=== PATIENT | female | born 1955 | race Caucasian/White ===

== ENCOUNTER → 2023-07-05 | Emergency (ER) | payer OTHER ==
[~2023-07-05] MED LIST: LIDOCAINE 1% 20 ML MDV ONE; MORPHINE 2 MG/ML SYR ONE; ONDANSETRON 4 MG/2 ML VIAL ONE
--- OUTSIDE RECORDS SUMMARY | 2023-07-05 10:00 | XMS REPORT | Continuity of Care Document ---
Author Name Unknown Address [address] [facility] [place] [address] [facility] thconnect Address [address] [facility] [place] [address] Care Team Providers Care Clark Driver Name Role Phone RICCARDO GONZALEZ Primary Care Physician GREG Britton Attending Clinician MEAGAN Hernandes Attending Clinician Unavailable FOREST FANG Attending Clinician Unavailable Pob, Ad[facility] Lab Main Attending Clinician UnavailForest Kohler MD Attending Clinici an Meagan Almazan MD Attending Clinician Doctor Unassigned, [place] Attending Clinician U navailable Lab, Ang - Db Attending Clinician Unavailable 2, [facility] Attending Clinician Unavailable Haja Benoit MD Attending Clinician [phone] FRACISCO MCCOY Attending Clinician Unavailable HAJA BENOITHDaisy Attending Clinician Unavaila cynthia Diamond MD, Anshul Attending Clinician [phone] Han Young MD Attending Clinician [phone] GLENDA CRUZ Attending Clinician Unavailable Anthony YANG, Glenda Dominguez Attending Clinician [phone] Andree Chew DO Attending Clinician + Pcp-Lab Attending Clinician Unavailable HAN YOUNG Attending Clinician Unavailab isabella De La [place]az [employer]ER, Amanda Ye Attending Clinician [phone] ROWDY VALENTIN Attending Clinician Ashley griselda Valentin MD, Rowdy Koenig Attending Clinician AMANDA DE LA PAZ Attending Clinician UnavailAnderson Buckley DO Attending Clinician [phone] Rachael Bedoya MD Attending Clinician + [phone] RACHAEL BEDOYA Attending Clinician Unavailabl Anju Bishop RN Attending Clinician Unavailab Alyx Kang RN Attending Clinician Unavailab Maciej Odom Attending Clinician [phone] Jesus Perdue MD Attending Clinician [phone] Cesar Walker MD Attending Clinician [phone] Yo Mejia MD Attending Clinician [phone] Greg Domingo MD Attending Clinician + [phone] Only, Adc Pob2 Test Attending Clinician Unavaila JASON Morrell Attending Clinician Unavailable FABIO CASTRO Attending Clinician Unavail able Nurse, Adc Pob Immunization Attending Clinician Unavailable Fabio Castro DO Attending Clinician [phone] Marianna Ramírez RN Attending Clinician [phone] Brooklynn Li MD Attending Clinician +[phone] Earnestine Jarvis MD, Leonard Attending Clinician [phone] Pavel Torres MD Attending Clinician + [phone] GREG DOMINGO Admitting Clinician FOREST Arita Admitting Clinician Unavailable HAJA BENOIT Admitting Clinician CESAR Acharya Admitting Clinician Unavailable Cesar Walker MD Admitting Clinician [phone] Greg Domingo MD Admitting Clinician [phone] Payers Payer Name Policy Type Policy Number Effective Date Expirati on Date Source IRASEMA MCALLISTER PLS O [id number] 2021 00:00:00 MEDICARE PART A \\T\\ B [id number] 2021 00:00:00 Problems Condition Name Condition Details Condition Category Status Onset Date Resolution Date Last Treatment Date Treating Clinician Comments Source At risk for falls At risk for falls Disease Active 2022-06 00:00: 00 [facility] Unspecifie d abnormalit ies of gait and mobility Unspecifie d abnormalit ies of gait and mobility Disease Active 2022-06 00:00: 00 [facility] Dyslipidem ia Dyslipidem ia Disease Active 10-27 00:00: 00 [facility] Acute on chronic systolic and diastolic heart failure, NYHA class 3 Acute on chronic systolic and diastolic heart failure, NYHA class 3 Disease Active 10-27 00:00: 00 [facility] Pulmonary embolus, right Pulmonary embolus, right Disease Active 10-26 00:00: 00 [facility] NSTEMI (non-ST elevated myocardial infarction ) NSTEMI (non-ST elevated myocardial infarction ) Disease Active 10-26 00:00: 00 [facility] Abdominal pain, unspecifie d abdominal location Abdominal pain, unspecifie d abdominal location Disease Active 10-26 00:00: 00 Overview: Formattin g of this note might be different from the original. 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 Disease Active 2020-06 0 00:00: 00 [facility] Elevated brain natriureti c peptide (BNP) level Elevated brain natriureti c peptide (BNP) level Disease Active 2020-06 0 00:00: 00 [facility] Hyperkalem ia Hyperkalem ia Disease Active 2020-06 0 00:00: 00 [facility] Obesity (BMI 30-39.9) Obesity (BMI 30-39.9) Disease Active 2020-06 0 00:00: 00 [facility] Acute cystitis without hematuria Acute cystitis without hematuria Disease Active 2020-06 0 00:00: 00 [facility] Cholelithi asis and cholecysti tis without obstructio n Cholelithi asis and cholecysti tis without obstructio n Disease Active 02-06 00:00: 00 [facility] Asthma Asthma Disease Active 02-06 00:00: 00 [facility] Essential hypertensi on Essential hypertensi on Disease Active 02-06 00:00: 00 [facility] Allergies, Adverse Reactions, Alerts Allergy Name Allergy Type Status Severity Reaction(s) Onset Date Inactive Date Treating Clinician Comments Source NO KNOWN ALLERGIE S Drug Class Active [facility] Social History Social Habit Start Date Stop Date Quantity Comments Source [facility] 2023-05-30 00:00:00 2023-05-30 00:00:00 Ex-drinker (finding) [facility] Exposure to SARS-CoV-2 (event) 2022-08-30 00:00:00 2022-09-09 09:50:00 Not sure [facility] History of Social function 2022-09-09 00:00:00 2022-09-09 00:00:00 [facility] Tobacco use and exposure 2022-04-19 00:00:00 2022-04-19 00:00:00 Smokeless tobacco non-user [facility] Sex Ass[birth year] At 1955 00:00:00 1955 00:00:00 [facility] Smoking Status Start Date Stop Date Source Never smoked tobacco [facility] Medications Ordered Medication Name Filled Medication Name Start Date Stop Date Current Medication? Ordering Clinician Indication Dosage Frequency Signature (SIG) Comments Components Source bumetanide 1 mg tablet 0 06-23 00:00: 00 Yes [id number] Take 2 tablets by mouth every morning AND 1.5 tablets every evening. [facility] bumetanide 1 mg tablet 0 06-23 00:00: 00 Yes [id number] Take 2 tablets by mouth every morning AND 1.5 tablets every evening. [facility] bumetanide 1 mg tablet 0 06-23 00:00: 00 Yes [id number] Take 2 tablets by mouth every morning AND 1.5 tablets every evening. [facility] bumetanide 1 mg tablet 2023-0 06-23 00:00: 00 Yes [id number] Take 2 tablets by mouth every morning AND 1.5 tablets every evening. [facility] bumetanide 1 mg tablet 2022-0615 00:00: 00 Yes [id number] 1.5mg Take 1.5 tablets by mouth every morning and evening. [facility] bumetanide 1 mg tablet 2022-0615 00:00: 00 Yes [id number] 1.5mg Take 1.5 tablets by mouth every morning and evening. [facility] bumetanide 1 mg tablet 2022-06 2-15 00:00: 00 Yes [id number] 1.5mg Take 1.5 tablets by mouth every morning and evening. [facility] bumetanide 1 mg tablet 2022-06-15 00:00: 00 Yes [id number] 1.5mg Take 1.5 tablets by mouth every morning and evening. [facility] bumetanide 1 mg tablet 2022-06 00:00: 00 Yes [id number] 1.5mg Take 1.5 tablets by mouth every morning and evening. [facility] bumetanide 1 mg tablet 2022-06 00:00: 00 Yes [id number] 1.5mg Take 1.5 tablets by mouth every morning and evening. [facility] bumetanide 1 mg tablet 2022-06 00:00: 00 Yes [id number] 1.5mg Take 1.5 tablets by mouth every morning and evening. [facility] bumetanide 1 mg tablet 2022-06 00:00: 00 Yes [id number] 1.5mg Take 1.5 tablets by mouth every morning and evening. [facility] bumetanide 1 mg tablet 2022-06 00:00: 00 06-23 00:00 :00 No [id number] 1.5mg Take 1.5 tablets by mouth every morning and evening. [facility] levothyroxi ne 100 mcg tablet 2022-06 00:00: 00 Yes [id number] 100ug Take 1 tablet by mouth every morning. [facility] levothyroxi ne 100 mcg tablet 2022-06 00:00: 00 Yes [id number] 100ug Take 1 tablet by mouth every morning. [facility] levothyroxi ne 100 mcg tablet 2022-06 00:00: 00 Yes [id number] 100ug Take 1 tablet by mouth every morning. [facility] levothyroxi ne 100 mcg tablet 2022-06 00:00: 00 Yes [id number] 100ug Take 1 tablet by mouth every morning. [facility] levothyroxi ne 100 mcg tablet 2022-06 00:00: 00 Yes [id number] 100ug Take 1 tablet by mouth every morning. [facility] levothyroxi ne 100 mcg tablet 2022-06 00:00: 00 Yes [id number] 100ug Take 1 tablet by mouth every morning. [facility] levothyroxi ne 100 mcg tablet 2022-06 00:00: 00 Yes [id number] 100ug Take 1 tablet by mouth every morning. [facility] levothyroxi ne 100 mcg tablet 2022-06 00:00: 00 Yes [id number] 100ug Take 1 tablet by mouth every morning. [facility] levothyroxi ne 100 mcg tablet 2022-06 00:00: 00 Yes [id number] 100ug Take 1 tablet by mouth every morning. [facility] levothyroxi ne 100 mcg tablet 2022-06 00:00: 00 Yes [id number] 100ug Take 1 tablet by mouth every morning. [facility] levothyroxi ne 100 mcg tablet 2022-06 00:00: 00 Yes [id number] 100ug Take 1 tablet by mouth every morning. [facility] levothyroxi ne 100 mcg tablet 2022-06 00:00: 00 Yes [id number] 100ug Take 1 tablet by mouth every morning. [facility] levothyroxi ne 100 mcg tablet 2022-06 00:00: 00 Yes [id number] 100ug Take 1 tablet by mouth every morning. [facility] levothyroxi ne 100 mcg tablet 2022-06 00:00: 00 Yes [id number] 100ug Take 1 tablet by mouth every morning. [facility] montelukast 10 mg tablet 2022-06 13:20: 02 Yes 10mg Take 1 tablet by mouth at bedtime. [facility] clonazePAM 0.5 mg tablet 2022-06 13:20: 02 Yes .5mg Take 1 tablet by mouth at bedtime. [facility] montelukast 10 mg tablet 2022-06 13:20: 02 Yes 10mg Take 1 tablet by mouth at bedtime. [facility] clonazePAM 0.5 mg tablet 2022-06 13:20: 02 Yes .5mg Take 1 tablet by mouth at bedtime. [facility] montelukast 10 mg tablet 2022-06 13:20: 02 Yes 10mg Take 1 tablet by mouth at bedtime. [facility] clonazePAM 0.5 mg tablet 2022-06 13:20: 02 Yes .5mg Take 1 tablet by mouth at bedtime. [facility] montelukast 10 mg tablet 2022-06 13:20: 02 Yes 10mg Take 1 tablet by mouth at bedtime. [facility] clonazePAM 0.5 mg tablet 2022-06 13:20: 02 Yes .5mg Take 1 tablet by mouth at bedtime. [facility] montelukast 10 mg tablet 2022-06 13:20: 02 Yes 10mg Take 1 tablet by mouth at bedtime. [facility] clonazePAM 0.5 mg tablet 2022-06 13:20: 02 Yes .5mg Take 1 tablet by mouth at bedtime. [facility] montelukast 10 mg tablet 2022-06 13:20: 02 Yes 10mg Take 1 tablet by mouth at bedtime. [facility] clonazePAM 0.5 mg tablet 2022-06 13:20: 02 Yes .5mg Take 1 tablet by mouth at bedtime. [facility] montelukast 10 mg tablet 2022-06 13:20: 02 Yes 10mg Take 1 tablet by mouth at bedtime. [facility] clonazePAM 0.5 mg tablet 2022-06 13:20: 02 Yes .5mg Take 1 tablet by mouth at bedtime. [facility] montelukast 10 mg tablet 2022-06 13:20: 02 Yes 10mg Take 1 tablet by mouth at bedtime. [facility] clonazePAM 0.5 mg tablet 2022-06 13:20: 02 Yes .5mg Take 1 tablet by mouth at bedtime. [facility] montelukast 10 mg tablet 2022-06 13:20: 02 Yes 10mg Take 1 tablet by mouth at bedtime. [facility] clonazePAM 0.5 mg tablet 2022-06 13:20: 02 Yes .5mg Take 1 tablet by mouth at bedtime. [facility] montelukast 10 mg tablet 2022-06 13:20: 02 Yes 10mg Take 1 tablet by mouth at bedtime. [facility] clonazePAM 0.5 mg tablet 2022-06 13:20: 02 Yes .5mg Take 1 tablet by mouth at bedtime. [facility] montelukast 10 mg tablet 2022-06 13:20: 02 Yes 10mg Take 1 tablet by mouth at bedtime. [facility] clonazePAM 0.5 mg tablet 2022-06 13:20: 02 Yes .5mg Take 1 tablet by mouth at bedtime. [facility] montelukast 10 mg tablet 2022-06 13:20: 02 Yes 10mg Take 1 tablet by mouth at bedtime. [facility] clonazePAM 0.5 mg tablet 2022-06 13:20: 02 Yes .5mg Take 1 tablet by mouth at bedtime. [facility] montelukast 10 mg tablet 2022-06 13:20: 02 Yes 10mg Take 1 tablet by mouth at bedtime. [facility] clonazePAM 0.5 mg tablet 2022-06 13:20: 02 Yes .5mg Take 1 tablet by mouth at bedtime. [facility] montelukast 10 mg tablet 2022-06 13:20: 02 Yes 10mg Take 1 tablet by mouth at bedtime. [facility] clonazePAM 0.5 mg tablet 2022-06 13:20: 02 Yes .5mg Take 1 tablet by mouth at bedtime. [facility] montelukast 10 mg tablet 2022-06 13:20: 02 Yes 10mg Take 1 tablet by mouth at bedtime. [facility] clonazePAM 0.5 mg tablet 2022-06 13:20: 02 Yes .5mg Take 1 tablet by mouth at bedtime. [facility] montelukast 10 mg tablet 2022-06 13:20: 02 Yes 10mg Take 1 tablet by mouth at bedtime. [facility] clonazePAM 0.5 mg tablet 2022-06 13:20: 02 Yes .5mg Take 1 tablet by mouth at bedtime. [facility] montelukast 10 mg tablet 2022-06 13:20: 02 Yes 10mg Take 1 tablet by mouth at bedtime. [facility] clonazePAM 0.5 mg tablet 2022-06 13:20: 02 Yes .5mg Take 1 tablet by mouth at bedtime. [facility] montelukast 10 mg tablet 2022-06 13:20: 02 Yes 10mg Take 1 tablet by mouth at bedtime. [facility] clonazePAM 0.5 mg tablet 2022-06 13:20: 02 Yes .5mg Take 1 tablet by mouth at bedtime. [facility] montelukast 10 mg tablet 2022-06 13:20: 02 Yes 10mg Take 1 tablet by mouth at bedtime. [facility] clonazePAM 0.5 mg tablet 2022-06 13:20: 02 Yes .5mg Take 1 tablet by mouth at bedtime. [facility] bumetanide 1 mg tablet 2022-06 00:00: 00 Yes [id number] 1mg Take 1 tablet by mouth every morning and evening. [facility] lisinopriL 5 mg tablet 2022-06 00:00: 00 Yes [id number] 2.5mg Take 0.5 tablets by mouth at bedtime. [facility] bumetanide 1 mg tablet 2022-06 00:00: 00 Yes [id number] 1mg Take 1 tablet by mouth every morning and evening. [facility] lisinopriL 5 mg tablet 2022-06 00:00: 00 Yes [id number] 2.5mg Take 0.5 tablets by mouth at bedtime. [facility] bumetanide 1 mg tablet 2022-06 00:00: 00 Yes [id number] 1mg Take 1 tablet by mouth every morning and evening. [facility] lisinopriL 5 mg tablet 2022-06 00:00: 00 Yes [id number] 2.5mg Take 0.5 tablets by mouth at bedtime. [facility] bumetanide 1 mg tablet 2022-06 00:00: 00 Yes [id number] 1mg Take 1 tablet by mouth every morning and evening. [facility] lisinopriL 5 mg tablet 2022-06 00:00: 00 Yes [id number] 2.5mg Take 0.5 tablets by mouth at bedtime. [facility] bumetanide 1 mg tablet 2022-06 00:00: 00 Yes [id number] 1mg Take 1 tablet by mouth every morning and evening. [facility] lisinopriL 5 mg tablet 2022-06 00:00: 00 Yes [id number] 2.5mg Take 0.5 tablets by mouth at bedtime. [facility] bumetanide 1 mg tablet 2022-06 00:00: 00 Yes [id number] 1mg Take 1 tablet by mouth every morning and evening. [facility] lisinopriL 5 mg tablet 2022-06 00:00: 00 Yes [id number] 2.5mg Take 0.5 tablets by mouth at bedtime. [facility] lisinopriL 5 mg tablet 2022-06 00:00: 00 Yes [id number] 2.5mg Take 0.5 tablets by mouth at bedtime. [facility] lisinopriL 5 mg tablet 2022-06 00:00: 00 Yes [id number] 2.5mg Take 0.5 tablets by mouth at bedtime. [facility] lisinopriL 5 mg tablet 2022-06 00:00: 00 Yes [id number] 2.5mg Take 0.5 tablets by mouth at bedtime. [facility] lisinopriL 5 mg tablet 2022-06 00:00: 00 Yes [id number] 2.5mg Take 0.5 tablets by mouth at bedtime. [facility] lisinopriL 5 mg tablet 2022-06 00:00: 00 Yes [id number] 2.5mg Take 0.5 tablets by mouth at bedtime. [facility] lisinopriL 5 mg tablet 2022-06 00:00: 00 Yes [id number] 2.5mg Take 0.5 tablets by mouth at bedtime. [facility] lisinopriL 5 mg tablet 2022-06 00:00: 00 Yes [id number] 2.5mg Take 0.5 tablets by mouth at bedtime. [facility] lisinopriL 5 mg tablet 2022-06 00:00: 00 Yes [id number] 2.5mg Take 0.5 tablets by mouth at bedtime. [facility] lisinopriL 5 mg tablet 2022-06 00:00: 00 Yes [id number] 2.5mg Take 0.5 tablets by mouth at bedtime. [facility] lisinopriL 5 mg tablet 2022-06 00:00: 00 Yes [id number] 2.5mg Take 0.5 tablets by mouth at bedtime. [facility] lisinopriL 5 mg tablet 2022-06 00:00: 00 Yes [id number] 2.5mg Take 0.5 tablets by mouth at bedtime. [facility] lisinopriL 5 mg tablet 2022-06 00:00: 00 Yes [id number] 2.5mg Take 0.5 tablets by mouth at bedtime. [facility] lisinopriL 5 mg tablet 2022-06 00:00: 00 Yes [id number] 2.5mg Take 0.5 tablets by mouth at bedtime. [facility] bumetanide 1 mg tablet 2022-06 00:00: 00 06-03 00:00 :00 No [id number] 1mg Take 1 tablet by mouth every morning and evening. [facility] bumetanide 1 mg tablet 2022-06 00:00: 00 06-03 00:00 :00 No [id number] 1mg Take 1 tablet by mouth every morning and evening. [facility] bumetanide 1 mg tablet 2022- 2-04 00:00: 00 06-03 00:00 :00 No [id number] 1mg Take 1 tablet by mouth every morning and evening. [facility] bumetanide 1 mg tablet 2022-06 2-04 00:00: 00 06-03 00:00 :00 No [id number] 1mg Take 1 tablet by mouth every morning and evening. [facility] bumetanide 1 mg tablet 2022-06 2- 00:00: 00 06-03 00:00 :00 No [id number] 1mg Take 1 tablet by mouth every morning and evening. [facility] bumetanide 1 mg tablet 2022-06 2- 00:00: 00 06-03 00:00 :00 No [id number] 1mg Take 1 tablet by mouth every morning and evening. [facility] bumetanide 1 mg tablet 2022-06 2- 00:00: 00 06-03 00:00 :00 No [id number] 1mg Take 1 tablet by mouth every morning and evening. [facility] CYCLOBENZAP RINE 5 mg tablet 2022-06 0-20 00:00: 00 Yes [id number] TAKE ONE TABLET BY MOUTH EVERY NIGHT AT BEDTIME NEEDED FOR MUSCLE SPASMS [facility] CYCLOBENZAP RINE 5 mg tablet 2022- 0-20 00:00: 00 Yes [id number] TAKE ONE TABLET BY MOUTH EVERY NIGHT AT BEDTIME NEEDED FOR MUSCLE SPASMS [facility] CYCLOBENZAP RINE 5 mg tablet 2022- 0-20 00:00: 00 Yes [id number] TAKE ONE TABLET BY MOUTH EVERY NIGHT AT BEDTIME NEEDED FOR MUSCLE SPASMS [facility] CYCLOBENZAP RINE 5 mg tablet 2022- 0-20 00:00: 00 Yes [id number] TAKE ONE TABLET BY MOUTH EVERY NIGHT AT BEDTIME NEEDED FOR MUSCLE SPASMS [facility] CYCLOBENZAP RINE 5 mg tablet 2022- 0-20 00:00: 00 Yes TAKE ONE TABLET BY MOUTH EVERY NIGHT AT BEDTIME NEEDED FOR MUSCLE SPASMS [facility] CYCLOBENZAP RINE 5 mg tablet 2022-1 0-20 00:00: 00 Yes TAKE ONE TABLET BY MOUTH EVERY NIGHT AT BEDTIME NEEDED FOR MUSCLE SPASMS [facility] CYCLOBENZAP RINE 5 mg tablet 2022-1 0-20 00:00: 00 Yes TAKE ONE TABLET BY MOUTH EVERY NIGHT AT BEDTIME NEEDED FOR MUSCLE SPASMS [facility] CYCLOBENZAP RINE 5 mg tablet 2022-1 0-20 00:00: 00 Yes TAKE ONE TABLET BY MOUTH EVERY NIGHT AT BEDTIME NEEDED FOR MUSCLE SPASMS [facility] CYCLOBENZAP RINE 5 mg tablet 2022-1 0-20 00:00: 00 Yes TAKE ONE TABLET BY MOUTH EVERY NIGHT AT BEDTIME NEEDED FOR MUSCLE SPASMS [facility] CYCLOBENZAP RINE 5 mg tablet 2022-1 0-20 00:00: 00 Yes TAKE ONE TABLET BY MOUTH EVERY NIGHT AT BEDTIME NEEDED FOR MUSCLE SPASMS [facility] CYCLOBENZAP RINE 5 mg tablet 2022-1 0-20 00:00: 00 Yes TAKE ONE TABLET BY MOUTH EVERY NIGHT AT BEDTIME NEEDED FOR MUSCLE SPASMS [facility] CYCLOBENZAP RINE 5 mg tablet 2022-1 0-20 00:00: 00 Yes TAKE ONE TABLET BY MOUTH EVERY NIGHT AT BEDTIME NEEDED FOR MUSCLE SPASMS [facility] CYCLOBENZAP RINE 5 mg tablet 2022-1 0-20 00:00: 00 Yes TAKE ONE TABLET BY MOUTH EVERY NIGHT AT BEDTIME NEEDED FOR MUSCLE SPASMS [facility] CYCLOBENZAP RINE 5 mg tablet 2022-1 0-20 00:00: 00 Yes TAKE ONE TABLET BY MOUTH EVERY NIGHT AT BEDTIME NEEDED FOR MUSCLE SPASMS [facility] CYCLOBENZAP RINE 5 mg tablet 2022-1 0-20 00:00: 00 Yes TAKE ONE TABLET BY MOUTH EVERY NIGHT AT BEDTIME NEEDED FOR MUSCLE SPASMS [facility] CYCLOBENZAP RINE 5 mg tablet 2022-1 0-20 00:00: 00 Yes TAKE ONE TABLET BY MOUTH EVERY NIGHT AT BEDTIME NEEDED FOR MUSCLE SPASMS [facility] CYCLOBENZAP RINE 5 mg tablet 2022-1 0-20 00:00: 00 Yes [id number] TAKE ONE TABLET BY MOUTH EVERY NIGHT AT BEDTIME NEEDED FOR MUSCLE SPASMS [facility] CYCLOBENZAP RINE 5 mg tablet 2022-1 0-20 00:00: 00 Yes [id number] TAKE ONE TABLET BY MOUTH EVERY NIGHT AT BEDTIME NEEDED FOR MUSCLE SPASMS [facility] CYCLOBENZAP RINE 5 mg tablet 2022-1 0-20 00:00: 00 Yes TAKE ONE TABLET BY MOUTH EVERY NIGHT AT BEDTIME NEEDED FOR MUSCLE SPASMS [facility] CYCLOBENZAP RINE 5 mg tablet 2022-1 0-20 00:00: 00 Yes TAKE ONE TABLET BY MOUTH EVERY NIGHT AT BEDTIME NEEDED FOR MUSCLE SPASMS [facility] CYCLOBENZAP RINE 5 mg tablet 2022-1 0-20 00:00: 00 Yes TAKE ONE TABLET BY MOUTH EVERY NIGHT AT BEDTIME NEEDED FOR MUSCLE SPASMS [facility] CYCLOBENZAP RINE 5 mg tablet 2022-1 0-20 00:00: 00 Yes [id number] TAKE ONE TABLET BY MOUTH EVERY NIGHT AT BEDTIME NEEDED FOR MUSCLE SPASMS [facility] CYCLOBENZAP RINE 5 mg tablet 2022-1 0-20 00:00: 00 Yes [id number] TAKE ONE TABLET BY MOUTH EVERY NIGHT AT BEDTIME NEEDED FOR MUSCLE SPASMS [facility] CYCLOBENZAP RINE 5 mg tablet 2022-1 0-20 00:00: 00 Yes [id number] TAKE ONE TABLET BY MOUTH EVERY NIGHT AT BEDTIME NEEDED FOR MUSCLE SPASMS [facility] CYCLOBENZAP RINE 5 mg tablet 2022-1 0-20 00:00: 00 Yes [id number] TAKE ONE TABLET BY MOUTH EVERY NIGHT AT BEDTIME NEEDED FOR MUSCLE SPASMS [facility] CYCLOBENZAP RINE 5 mg tablet 2022-1 0-20 00:00: 00 Yes TAKE ONE TABLET BY MOUTH EVERY NIGHT AT BEDTIME NEEDED FOR MUSCLE SPASMS [facility] CYCLOBENZAP RINE 5 mg tablet 2022-06 0-20 00:00: 00 Yes [id number] TAKE ONE TABLET BY MOUTH EVERY NIGHT AT BEDTIME NEEDED FOR MUSCLE SPASMS [facility] CYCLOBENZAP RINE 5 mg tablet 2022-06 0-20 00:00: 00 Yes [id number] TAKE ONE TABLET BY MOUTH EVERY NIGHT AT BEDTIME NEEDED FOR MUSCLE SPASMS [facility] CYCLOBENZAP RINE 5 mg tablet 2022-06 0- 00:00: 00 Yes [id number] TAKE ONE TABLET BY MOUTH EVERY NIGHT AT BEDTIME NEEDED FOR MUSCLE SPASMS [facility] CYCLOBENZAP RINE 5 mg tablet 2022-06 0- 00:00: 00 Yes [id number] TAKE ONE TABLET BY MOUTH EVERY NIGHT AT BEDTIME NEEDED FOR MUSCLE SPASMS [facility] CYCLOBENZAP RINE 5 mg tablet 2022-06 0- 00:00: 00 Yes [id number] TAKE ONE TABLET BY MOUTH EVERY NIGHT AT BEDTIME NEEDED FOR MUSCLE SPASMS [facility] CYCLOBENZAP RINE 5 mg tablet 2022-06 0- 00:00: 00 Yes [id number] TAKE ONE TABLET BY MOUTH EVERY NIGHT AT BEDTIME NEEDED FOR MUSCLE SPASMS [facility] ARMOUR THYROID 60 mg tablet 2022-06 0- 00:00: 00 Yes 60mg Take 1 tablet by mouth every morning. [facility] THYROID 60 mg tablet 2022-06 0- 00:00: 00 Yes 60mg Take 1 tablet by mouth every morning. [facility] ARMOUR THYROID 60 mg tablet 2022-06 0- 00:00: 00 Yes 60mg Take 1 tablet by mouth every morning. [facility] THYROID 60 mg tablet 2022-06 0- 00:00: 00 05-31 00:00 :00 No 60mg Take 1 tablet by mouth every morning. [facility] sulfur hexafluorid e microsphr (LUMASON) injection 5 mL 03-17 21:04: 00 03-17 21:04 :00 No [id number] 5mL 5 mL, Intravenou s, ONCE, 1 dose, On Tue03/17/23 at 1630, Routine
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 Restricted medication : [employer] [facility] triamcinolo ne acetonide (KENALOG) injection 40 mg 03-09 22:15: 00 03-09 21:28 :00 No [id number] 40mg [facility] triamcinolo ne acetonide (KENALOG) injection 40 mg 03-09 22:15: 00 03-09 21:28 :00 No [id number] 40mg 40 mg, Intramuscu lar, ONCE, 1 dose, On Tue03/09/23 at 1715, Routine [facility] triamcinolo ne acetonide (KENALOG) injection 40 mg 03-09 22:15: 00 03-09 21:28 :00 No [id number] 40mg [facility] triamcinolo ne acetonide (KENALOG) injection 40 mg 03-09 22:15: 00 03-09 21:28 :00 No [id number] 40mg 40 mg, Intramuscu lar, ONCE, 1 dose, On Tue03/09/23 at 1715, Routine [facility] cyclobenzap rine 5 mg tablet 03-06 00:00: 00 Yes [id number] 5mg Take 1 tablet by mouth at bedtime as needed for Muscle Spasms. [facility] cyclobenzap rine 5 mg tablet 03-06 00:00: 00 Yes [id number] 5mg Take 1 tablet by mouth at bedtime as needed for Muscle Spasms. [facility] cyclobenzap rine 5 mg tablet 0 03-06 00:00: 00 Yes [id number] 5mg Take 1 tablet by mouth at bedtime as needed for Muscle Spasms. [facility] cyclobenzap rine 5 mg tablet 03-06 00:00: 00 Yes [id number] 5mg Take 1 tablet by mouth at bedtime as needed for Muscle Spasms. [facility] cyclobenzap rine 5 mg tablet 3-0 9-17 00:00: 00 Yes [id number] 5mg Take 1 tablet by mouth at bedtime as needed for Muscle Spasms. [facility] cyclobenzap rine 5 mg tablet 2022-0 9-17 00:00: 00 Yes [id number] 5mg Take 1 tablet by mouth at bedtime as needed for Muscle Spasms. [facility] cyclobenzap rine 5 mg tablet 2022-0 9-17 00:00: 00 Yes [id number] 5mg Take 1 tablet by mouth at bedtime as needed for Muscle Spasms. [facility] cyclobenzap rine 5 mg tablet 3-0 9-17 00:00: 00 Yes [id number] 5mg Take 1 tablet by mouth at bedtime as needed for Muscle Spasms. [facility] cyclobenzap rine 5 mg tablet 2022-0 9-17 00:00: 00 Yes [id number] 5mg Take 1 tablet by mouth at bedtime as needed for Muscle Spasms. [facility] cyclobenzap rine 5 mg tablet 2022-0 9-17 00:00: 00 Yes [id number] 5mg Take 1 tablet by mouth at bedtime as needed for Muscle Spasms. [facility] cyclobenzap rine 5 mg tablet 2022-0 9-17 00:00: 00 04-08 00:00 :00 No [id number] 5mg Take 1 tablet by mouth at bedtime as needed for Muscle Spasms. [facility] cyclobenzap rine 5 mg tablet 2022-0 8-17 00:00: 00 03-06 04:59 :00 No [id number] 5mg Take 1 tablet by mouth at bedtime as needed for Muscle Spasms for up to 30 days. [facility] cyclobenzap rine 5 mg tablet 2022-0 8-17 00:00: 00 03-06 04:59 :00 No [id number] 5mg Take 1 tablet by mouth at bedtime as needed for Muscle Spasms for up to 30 days. [facility] cyclobenzap rine 5 mg tablet 2022-0 8-17 00:00: 00 03-06 04:59 :00 No [id number] 5mg Take 1 tablet by mouth at bedtime as needed for Muscle Spasms for up to 30 days. [facility] cyclobenzap rine 5 mg tablet 02-03 00:00: 00 03-06 04:59 :00 No [id number] 5mg Take 1 tablet by mouth at bedtime as needed for Muscle Spasms for up to 30 days. [facility] cyclobenzap rine 5 mg tablet 02-03 00:00: 00 03-06 04:59 :00 No [id number] 5mg Take 1 tablet by mouth at bedtime as needed for Muscle Spasms for up to 30 days. [facility] cyclobenzap rine 5 mg tablet 02-03 00:00: 00 03-06 04:59 :00 No [id number] 5mg Take 1 tablet by mouth at bedtime as needed for Muscle Spasms for up to 30 days. [facility] cyclobenzap rine 5 mg tablet 02-03 00:00: 00 03-06 04:59 :00 No [id number] 5mg Take 1 tablet by mouth at bedtime as needed for Muscle Spasms for up to 30 days. [facility] cyclobenzap rine 5 mg tablet 02-03 00:00: 00 03-06 04:59 :00 No [id number] 5mg Take 1 tablet by mouth at bedtime as needed for Muscle Spasms for up to 30 days. [facility] cyclobenzap rine 5 mg tablet 02-03 00:00: 00 03-06 04:59 :00 No [id number] 5mg Take 1 tablet by mouth at bedtime as needed for Muscle Spasms for up to 30 days. [facility] cyclobenzap rine 5 mg tablet 02-03 00:00: 00 03-06 00:00 :00 No [id number] 5mg Take 1 tablet by mouth at bedtime as needed for Muscle Spasms for up to 30 days. [facility] thyroid (ARMOUR THYROID) 30 mg tablet 01-24 14:38: 54 01-24 00:00 :00 No 15mg Take 0.5 tablets by mouth every morning. [facility] thyroid (ARMOUR THYROID) 30 mg tablet 2022-01-24 14:38: 54 01-24 00:00 :00 No 15mg Take 0.5 tablets by mouth every morning. [facility] montelukast 10 mg tablet 2022-0 01-24 14:19: 43 Yes 10mg Take 1 tablet by mouth at bedtime. [facility] clonazePAM 0.5 mg tablet 2022-0 01-24 14:19: 43 Yes .5mg Take 1 tablet by mouth at bedtime. [facility] montelukast 10 mg tablet 2022-0 01-24 14:19: 43 Yes 10mg Take 1 tablet by mouth at bedtime. [facility] clonazePAM 0.5 mg tablet 2022-0 01-24 14:19: 43 Yes .5mg Take 1 tablet by mouth at bedtime. [facility] montelukast 10 mg tablet 2022-0 01-24 14:19: 43 Yes 10mg Take 1 tablet by mouth at bedtime. [facility] clonazePAM 0.5 mg tablet 2022-0 01-24 14:19: 43 Yes .5mg Take 1 tablet by mouth at bedtime. [facility] montelukast 10 mg tablet 2022-0 01-24 14:19: 43 Yes 10mg Take 1 tablet by mouth at bedtime. [facility] clonazePAM 0.5 mg tablet 2022-0 01-24 14:19: 43 Yes .5mg Take 1 tablet by mouth at bedtime. [facility] montelukast 10 mg tablet 2022-0 01-24 14:19: 43 Yes 10mg Take 1 tablet by mouth at bedtime. [facility] clonazePAM 0.5 mg tablet 2022-0 01-24 14:19: 43 Yes .5mg Take 1 tablet by mouth at bedtime. [facility] montelukast 10 mg tablet 2022-0 01-24 14:19: 43 Yes 10mg Take 1 tablet by mouth at bedtime. [facility] clonazePAM 0.5 mg tablet 2022-0 01-24 14:19: 43 Yes .5mg Take 1 tablet by mouth at bedtime. [facility] montelukast 10 mg tablet 2022-0 01-24 14:19: 43 Yes 10mg Take 1 tablet by mouth at bedtime. [facility] clonazePAM 0.5 mg tablet 2022-0 01-24 14:19: 43 Yes .5mg Take 1 tablet by mouth at bedtime. [facility] montelukast 10 mg tablet 2022-0 01-24 14:19: 43 Yes 10mg Take 1 tablet by mouth at bedtime. [facility] clonazePAM 0.5 mg tablet 2022-0 01-24 14:19: 43 Yes .5mg Take 1 tablet by mouth at bedtime. [facility] montelukast 10 mg tablet 2022-0 01-24 14:19: 43 Yes 10mg Take 1 tablet by mouth at bedtime. [facility] clonazePAM 0.5 mg tablet 2022-0 01-24 14:19: 43 Yes .5mg Take 1 tablet by mouth at bedtime. [facility] montelukast 10 mg tablet 2022-0 01-24 14:19: 43 Yes 10mg Take 1 tablet by mouth at bedtime. [facility] clonazePAM 0.5 mg tablet 2022-0 01-24 14:19: 43 Yes .5mg Take 1 tablet by mouth at bedtime. [facility] montelukast 10 mg tablet 2022-0 01-24 14:19: 43 Yes 10mg Take 1 tablet by mouth at bedtime. [facility] clonazePAM 0.5 mg tablet 2022-0 01-24 14:19: 43 Yes .5mg Take 1 tablet by mouth at bedtime. [facility] montelukast 10 mg tablet 2022-0 01-24 14:19: 43 Yes 10mg Take 1 tablet by mouth at bedtime. [facility] clonazePAM 0.5 mg tablet 2022-0 01-24 14:19: 43 Yes .5mg Take 1 tablet by mouth at bedtime. [facility] montelukast 10 mg tablet 2022-0 01-24 14:19: 43 Yes 10mg Take 1 tablet by mouth at bedtime. [facility] clonazePAM 0.5 mg tablet 2022-0 01-24 14:19: 43 Yes .5mg Take 1 tablet by mouth at bedtime. [facility] montelukast 10 mg tablet 2022-0 01-24 14:19: 43 Yes 10mg Take 1 tablet by mouth at bedtime. [facility] clonazePAM 0.5 mg tablet 2022-0 01-24 14:19: 43 Yes .5mg Take 1 tablet by mouth at bedtime. [facility] montelukast 10 mg tablet 2022-0 01-24 14:19: 43 Yes 10mg Take 1 tablet by mouth at bedtime. [facility] clonazePAM 0.5 mg tablet 2022-0 01-24 14:19: 43 Yes .5mg Take 1 tablet by mouth at bedtime. [facility] montelukast 10 mg tablet 2022-0 01-24 14:19: 43 Yes 10mg Take 1 tablet by mouth at bedtime. [facility] clonazePAM 0.5 mg tablet 2022-0 01-24 14:19: 43 Yes .5mg Take 1 tablet by mouth at bedtime. [facility] montelukast 10 mg tablet 2022-0 01-24 14:19: 43 Yes 10mg Take 1 tablet by mouth at bedtime. [facility] clonazePAM 0.5 mg tablet 2022-0 01-24 14:19: 43 Yes .5mg Take 1 tablet by mouth at bedtime. [facility] montelukast 10 mg tablet 2022-0 01-24 14:19: 43 Yes 10mg Take 1 tablet by mouth at bedtime. [facility] clonazePAM 0.5 mg tablet 2022-0 01-24 14:19: 43 Yes .5mg Take 1 tablet by mouth at bedtime. [facility] montelukast 10 mg tablet 2022-0 01-24 14:19: 43 Yes 10mg Take 1 tablet by mouth at bedtime. [facility] clonazePAM 0.5 mg tablet 2022-0 01-24 14:19: 43 Yes .5mg Take 1 tablet by mouth at bedtime. [facility] montelukast 10 mg tablet 2022-0 01-24 14:19: 43 Yes 10mg Take 1 tablet by mouth at bedtime. [facility] clonazePAM 0.5 mg tablet 2022-0 01-24 14:19: 43 Yes .5mg Take 1 tablet by mouth at bedtime. [facility] montelukast 10 mg tablet 2022-0 01-24 14:19: 43 Yes 10mg Take 1 tablet by mouth at bedtime. [facility] clonazePAM 0.5 mg tablet 2022-0 01-24 14:19: 43 Yes .5mg Take 1 tablet by mouth at bedtime. [facility] montelukast 10 mg tablet 2022-0 01-24 14:19: 43 Yes 10mg Take 1 tablet by mouth at bedtime. [facility] clonazePAM 0.5 mg tablet 2022-0 01-24 14:19: 43 Yes .5mg Take 1 tablet by mouth at bedtime. [facility] montelukast 10 mg tablet 2022-0 01-24 14:19: 43 Yes 10mg Take 1 tablet by mouth at bedtime. [facility] clonazePAM 0.5 mg tablet 2022-0 01-24 14:19: 43 Yes .5mg Take 1 tablet by mouth at bedtime. [facility] montelukast 10 mg tablet 2022-0 01-24 14:19: 43 Yes 10mg Take 1 tablet by mouth at bedtime. [facility] clonazePAM 0.5 mg tablet 3-0 01-24 14:19: 43 Yes .5mg Take 1 tablet by mouth at bedtime. [facility] montelukast 10 mg tablet 2022-0 01-24 14:19: 43 Yes 10mg Take 1 tablet by mouth at bedtime. [facility] clonazePAM 0.5 mg tablet 2022-0 01-24 14:19: 43 Yes .5mg Take 1 tablet by mouth at bedtime. [facility] montelukast 10 mg tablet 2022-0 01-24 14:19: 43 Yes 10mg Take 1 tablet by mouth at bedtime. [facility] clonazePAM 0.5 mg tablet 2022-0 01-24 14:19: 43 Yes .5mg Take 1 tablet by mouth at bedtime. [facility] montelukast 10 mg tablet 2022-0 01-24 14:19: 43 Yes 10mg Take 1 tablet by mouth at bedtime. [facility] clonazePAM 0.5 mg tablet 2022-0 01-24 14:19: 43 Yes .5mg Take 1 tablet by mouth at bedtime. [facility] montelukast 10 mg tablet 2022-0 01-24 14:19: 43 Yes 10mg Take 1 tablet by mouth at bedtime. [facility] clonazePAM 0.5 mg tablet 2022-0 01-24 14:19: 43 Yes .5mg Take 1 tablet by mouth at bedtime. [facility] montelukast 10 mg tablet 2022-0 01-24 14:19: 43 Yes 10mg Take 1 tablet by mouth at bedtime. [facility] clonazePAM 0.5 mg tablet 2022-0 01-24 14:19: 43 Yes .5mg Take 1 tablet by mouth at bedtime. [facility] montelukast 10 mg tablet 2022-0 01-24 14:19: 43 Yes 10mg Take 1 tablet by mouth at bedtime. [facility] montelukast 10 mg tablet 2022-0 01-24 14:19: 43 Yes 10mg Take 1 tablet by mouth at bedtime. [facility] montelukast 10 mg tablet 3-0 01-24 14:19: 43 Yes 10mg Take 1 tablet by mouth at bedtime. [facility] clonazePAM 0.5 mg tablet 2022-0 01-24 14:19: 43 Yes .5mg Take 1 tablet by mouth at bedtime. [facility] montelukast 10 mg tablet 2022-0 01-24 14:19: 43 Yes 10mg Take 1 tablet by mouth at bedtime. [facility] clonazePAM 0.5 mg tablet 2022-0 01-24 14:19: 43 Yes .5mg Take 1 tablet by mouth at bedtime. [facility] montelukast 10 mg tablet 2022-0 01-24 14:19: 43 Yes 10mg Take 1 tablet by mouth at bedtime. [facility] clonazePAM 0.5 mg tablet 2022-0 01-24 14:19: 43 Yes .5mg Take 1 tablet by mouth at bedtime. [facility] montelukast 10 mg tablet 2022-0 01-24 14:19: 43 Yes 10mg Take 1 tablet by mouth at bedtime. [facility] clonazePAM 0.5 mg tablet 2022-0 01-24 14:19: 43 Yes .5mg Take 1 tablet by mouth at bedtime. [facility] montelukast 10 mg tablet 2022-0 01-24 14:19: 43 Yes 10mg Take 1 tablet by mouth at bedtime. [facility] clonazePAM 0.5 mg tablet 2022-0 01-24 14:19: 43 Yes .5mg Take 1 tablet by mouth at bedtime. [facility] montelukast 10 mg tablet 2022-0 01-24 14:19: 43 Yes 10mg Take 1 tablet by mouth at bedtime. [facility] clonazePAM 0.5 mg tablet 2022-0 01-24 14:19: 43 Yes .5mg Take 1 tablet by mouth at bedtime. [facility] montelukast 10 mg tablet 2022-0 01-24 14:19: 43 Yes 10mg Take 1 tablet by mouth at bedtime. [facility] clonazePAM 0.5 mg tablet 3-0 01-24 14:19: 43 Yes .5mg Take 1 tablet by mouth at bedtime. [facility] montelukast 10 mg tablet 2022-0 01-24 14:19: 43 Yes 10mg Take 1 tablet by mouth at bedtime. [facility] clonazePAM 0.5 mg tablet 2022-0 01-24 14:19: 43 Yes .5mg Take 1 tablet by mouth at bedtime. [facility] montelukast 10 mg tablet 2022-0 01-24 14:19: 43 Yes 10mg Take 1 tablet by mouth at bedtime. [facility] clonazePAM 0.5 mg tablet 2022-0 01-24 14:19: 43 Yes .5mg Take 1 tablet by mouth at bedtime. [facility] montelukast 10 mg tablet 2022-0 01-24 14:19: 43 Yes 10mg Take 1 tablet by mouth at bedtime. [facility] clonazePAM 0.5 mg tablet 2022-0 01-24 14:19: 43 Yes .5mg Take 1 tablet by mouth at bedtime. [facility] montelukast 10 mg tablet 2022-0 01-24 14:19: 43 Yes 10mg Take 1 tablet by mouth at bedtime. [facility] clonazePAM 0.5 mg tablet 2022-0 01-24 14:19: 43 Yes .5mg Take 1 tablet by mouth at bedtime. [facility] montelukast 10 mg tablet 2022-0 01-24 14:19: 43 Yes 10mg Take 1 tablet by mouth at bedtime. [facility] clonazePAM 0.5 mg tablet 2022-0 01-24 14:19: 43 Yes .5mg Take 1 tablet by mouth at bedtime. [facility] montelukast 10 mg tablet 2022-0 01-24 14:19: 43 Yes 10mg Take 1 tablet by mouth at bedtime. [facility] clonazePAM 0.5 mg tablet 2022-0 01-24 14:19: 43 Yes .5mg Take 1 tablet by mouth at bedtime. [facility] montelukast 10 mg tablet 2022-0 01-24 14:19: 43 Yes 10mg Take 1 tablet by mouth at bedtime. [facility] clonazePAM 0.5 mg tablet 2022-0 01-24 14:19: 43 Yes .5mg Take 1 tablet by mouth at bedtime. [facility] montelukast 10 mg tablet 2022-0 01-24 14:19: 43 Yes 10mg Take 1 tablet by mouth at bedtime. [facility] clonazePAM 0.5 mg tablet 2022-0 01-24 14:19: 43 Yes .5mg Take 1 tablet by mouth at bedtime. [facility] thyroid (ARMOUR THYROID) 30 mg tablet 2022-0 01-24 00:00: 00 Yes 30mg Take 1 tablet by mouth every morning. [facility] thyroid (ARMOUR THYROID) 30 mg tablet 2022-0 01-24 00:00: 00 Yes 30mg Take 1 tablet by mouth every morning. [facility] thyroid (ARMOUR THYROID) 30 mg tablet 2022-0 01-24 00:00: 00 Yes 30mg Take 1 tablet by mouth every morning. [facility] thyroid (ARMOUR THYROID) 30 mg tablet 2022-0 01-24 00:00: 00 Yes 30mg Take 1 tablet by mouth every morning. [facility] thyroid (ARMOUR THYROID) 30 mg tablet 2022-0 01-24 00:00: 00 Yes 30mg Take 1 tablet by mouth every morning. [facility] thyroid (ARMOUR THYROID) 30 mg tablet 2022-0 01-24 00:00: 00 Yes 30mg Take 1 tablet by mouth every morning. [facility] thyroid (ARMOUR THYROID) 30 mg tablet 2022-0 01-24 00:00: 00 Yes 30mg Take 1 tablet by mouth every morning. [facility] thyroid (ARMOUR THYROID) 30 mg tablet 2022-0 01-24 00:00: 00 Yes 30mg Take 1 tablet by mouth every morning. [facility] thyroid (ARMOUR THYROID) 30 mg tablet 2022-0 01-24 00:00: 00 Yes 30mg Take 1 tablet by mouth every morning. [facility] thyroid (ARMOUR THYROID) 30 mg tablet 2022-0 01-24 00:00: 00 Yes 30mg Take 1 tablet by mouth every morning. [facility] thyroid (ARMOUR THYROID) 30 mg tablet 2022-0 01-24 00:00: 00 Yes 30mg Take 1 tablet by mouth every morning. [facility] thyroid (ARMOUR THYROID) 30 mg tablet 2022-0 01-24 00:00: 00 Yes 30mg Take 1 tablet by mouth every morning. [facility] thyroid (ARMOUR THYROID) 30 mg tablet 3-0 01-24 00:00: 00 Yes 30mg Take 1 tablet by mouth every morning. [facility] thyroid (ARMOUR THYROID) 30 mg tablet 3-0 01-24 00:00: 00 Yes 30mg Take 1 tablet by mouth every morning. [facility] thyroid (ARMOUR THYROID) 30 mg tablet 3-0 01-24 00:00: 00 Yes 30mg Take 1 tablet by mouth every morning. [facility] thyroid (ARMOUR THYROID) 30 mg tablet 3-0 01-24 00:00: 00 Yes 30mg Take 1 tablet by mouth every morning. [facility]ARMOUR TH[facility]RO[facility] 30 mg tablet 2022-0 01-24 00:00: 00 Yes 30mg Take 1 tablet by mouth every morning. [facility] thyroid (ARMOUR THYROID) 30 mg tablet 2022-0 01-24 00:00: 00 Yes 30mg Take 1 tablet by mouth every morning. [facility] thyroid (ARMOUR THYROID) 30 mg tablet 2022-0 01-24 00:00: 00 Yes 30mg Take 1 tablet by mouth every morning. [facility] thyroid (ARMOUR THYROID) 30 mg tablet 2022-0 01-24 00:00: 00 Yes 30mg Take 1 tablet by mouth every morning. [facility] thyroid (ARMOUR THYROID) 30 mg tablet 3-0 01-24 00:00: 00 Yes 30mg Take 1 tablet by mouth every morning. [facility] (ARMOUR THYROID) 30 mg tablet 3-0 01-24 00:00: 00 Yes 30mg Take 1 tablet by mouth every morning. [facility] thyroid (ARMOUR THYROID) 30 mg tablet 3-0 01-24 00:00: 00 Yes 30mg Take 1 tablet by mouth every morning. [facility] thyroid (ARMOUR THYROID) 30 mg tablet 3-0 01-24 00:00: 00 Yes 30mg Take 1 tablet by mouth every morning. [facility] (ARMOUR THYROID) 30 mg tablet 3-0 01-24 00:00: 00 Yes 30mg Take 1 tablet by mouth every morning. [facility] thyroid (ARMOUR THYROID) 30 mg tablet 3-0 01-24 00:00: 00 Yes 30mg Take 1 tablet by mouth every morning. [facility] thyroid (ARMOUR THYROID) 30 mg tablet 3-0 01-24 00:00: 00 Yes 30mg Take 1 tablet by mouth every morning. [facility] thyroid (ARMOUR THYROID) 30 mg tablet 3-0 01-24 00:00: 00 Yes 30mg Take 1 tablet by mouth every morning. [facility] thyroid (ARMOUR THYROID) 30 mg tablet 3-0 01-24 00:00: 00 Yes 30mg Take 1 tablet by mouth every morning. [facility] (ARMOUR THYROID) 30 mg tablet 3-0 01-24 00:00: 00 Yes 30mg Take 1 tablet by mouth every morning. [facility] thyroid (ARMOUR THYROID) 30 mg tablet 3-0 01-24 00:00: 00 Yes 30mg Take 1 tablet by mouth every morning. [facility] thyroid (ARMOUR THYROID) 30 mg tablet 3-0 01-24 00:00: 00 Yes 30mg Take 1 tablet by mouth every morning. [facility] thyroid (ARMOUR THYROID) 30 mg tablet 3-0 01-24 00:00: 00 Yes 30mg Take 1 tablet by mouth every morning. [facility] thyroid (ARMOUR THYROID) 30 mg tablet 3-0 01-24 00:00: 00 Yes 30mg Take 1 tablet by mouth every morning. [facility] (ARMOUR THYROID) 30 mg tablet 3-0 01-24 00:00: 00 Yes 30mg Take 1 tablet by mouth every morning. [facility] (ARMOUR THYROID) 30 mg tablet 3-0 01-24 00:00: 00 Yes 30mg Take 1 tablet by mouth every morning. [facility] (ARMOUR THYROID) 30 mg tablet 2023-0 01-24 00:00: 00 Yes 30mg Take 1 tablet by mouth every morning. [facility] thyroid (ARMOUR THYROID) 30 mg tablet 2023-0 8 00:00: 00 05-30 00:00 :00 No 30mg Take 1 tablet by mouth every morning. [facility] thyroid (ARMOUR THYROID) 30 mg tablet 3-0 8 00:00: 00 05-30 00:00 :00 No 30mg Take 1 tablet by mouth every morning. [facility] SPIRONOLACT ONE 25 mg tablet 2023-0 4-20 00:00: 00 Yes [id number] 9100 TAKE 1/2 TABLET EVERY DAY [facility] SPIRONOLACT ONE 25 mg tablet 2023-0 4-20 00:00: 00 Yes [id number] 9100 TAKE 1/2 TABLET EVERY DAY [facility] SPIRONOLACT ONE 25 mg tablet 2023-0 4-20 00:00: 00 Yes [id number] 9100 TAKE 1/2 TABLET EVERY DAY [facility] SPIRONOLACT ONE 25 mg tablet 2023-0 4-20 00:00: 00 Yes [id number] 9100 TAKE 1/2 TABLET EVERY DAY [facility] SPIRONOLACT ONE 25 mg tablet 2023-0 4-20 00:00: 00 Yes [id number] 9100 TAKE 1/2 TABLET EVERY DAY [facility] SPIRONOLACT ONE 25 mg tablet 2023-0 4-20 00:00: 00 Yes [id number] 9100 TAKE 1/2 TABLET EVERY DAY [facility] SPIRONOLACT ONE 25 mg tablet 2023-0 4-20 00:00: 00 Yes [id number] 9100 TAKE 1/2 TABLET EVERY DAY [facility] SPIRONOLACT ONE 25 mg tablet 2023-0 4-20 00:00: 00 Yes [id number] 9100 TAKE 1/2 TABLET EVERY DAY [facility] SPIRONOLACT ONE 25 mg tablet 2023-0 4-20 00:00: 00 Yes [id number] 9100 TAKE 1/2 TABLET EVERY DAY [facility] SPIRONOLACT ONE 25 mg tablet 2023-0 4-20 00:00: 00 Yes [id number] 9100 TAKE 1/2 TABLET EVERY DAY [facility] SPIRONOLACT ONE 25 mg tablet 2023-0 4-20 00:00: 00 Yes [id number] 9100 TAKE 1/2 TABLET EVERY DAY [facility] SPIRONOLACT ONE 25 mg tablet 2023-0 4-20 00:00: 00 Yes [id number] 9100 TAKE 1/2 TABLET EVERY DAY [facility] SPIRONOLACT ONE 25 mg tablet 2023-0 4-20 00:00: 00 Yes [id number] 9100 TAKE 1/2 TABLET EVERY DAY [facility] SPIRONOLACT ONE 25 mg tablet 2023-0 4-20 00:00: 00 Yes [id number] 9100 TAKE 1/2 TABLET EVERY DAY [facility] SPIRONOLACT ONE 25 mg tablet 2023-0 4-20 00:00: 00 Yes [id number] 9100 TAKE 1/2 TABLET EVERY DAY [facility] SPIRONOLACT ONE 25 mg tablet 2023-0 4-20 00:00: 00 Yes [id number] 9100 TAKE 1/2 TABLET EVERY DAY [facility] SPIRONOLACT ONE 25 mg tablet 2023-0 4-20 00:00: 00 Yes [id number] 9100 TAKE 1/2 TABLET EVERY DAY [facility] SPIRONOLACT ONE 25 mg tablet 2023-0 4-20 00:00: 00 Yes [id number] 9100 TAKE 1/2 TABLET EVERY DAY [facility] SPIRONOLACT ONE 25 mg tablet 2023-0 4-20 00:00: 00 Yes [id number] 9100 TAKE 1/2 TABLET EVERY DAY [facility] SPIRONOLACT ONE 25 mg tablet 2023-0 4-20 00:00: 00 Yes [id number] 9100 TAKE 1/2 TABLET EVERY DAY [facility] SPIRONOLACT ONE 25 mg tablet 2023-0 4-20 00:00: 00 Yes [id number] 9100 TAKE 1/2 TABLET EVERY DAY [facility] SPIRONOLACT ONE 25 mg tablet 2023-0 4-20 00:00: 00 Yes [id number] 9100 TAKE 1/2 TABLET EVERY DAY [facility] SPIRONOLACT ONE 25 mg tablet 2023-0 4-20 00:00: 00 Yes [id number] 9100 TAKE 1/2 TABLET EVERY DAY [facility] SPIRONOLACT ONE 25 mg tablet 2023-0 4-20 00:00: 00 Yes [id number] 9100 TAKE 1/2 TABLET EVERY DAY [facility] SPIRONOLACT ONE 25 mg tablet 2023-0 4-20 00:00: 00 Yes [id number] 9100 TAKE 1/2 TABLET EVERY DAY [facility] SPIRONOLACT ONE 25 mg tablet 2023-0 4-20 00:00: 00 Yes [id number] 9100 TAKE 1/2 TABLET EVERY DAY [facility] SPIRONOLACT ONE 25 mg tablet 2023-0 4-20 00:00: 00 Yes [id number] 9100 TAKE 1/2 TABLET EVERY DAY [facility] SPIRONOLACT ONE 25 mg tablet 2023-0 4-20 00:00: 00 Yes [id number] 9100 TAKE 1/2 TABLET EVERY DAY [facility] SPIRONOLACT ONE 25 mg tablet 2023-0 4-20 00:00: 00 Yes [id number] 9100 TAKE 1/2 TABLET EVERY DAY [facility] SPIRONOLACT ONE 25 mg tablet 2023-0 4-20 00:00: 00 Yes [id number] 9100 TAKE 1/2 TABLET EVERY DAY [facility] SPIRONOLACT ONE 25 mg tablet 2023-0 4-20 00:00: 00 Yes [id number] 9100 TAKE 1/2 TABLET EVERY DAY [facility] SPIRONOLACT ONE 25 mg tablet 2023-0 4-20 00:00: 00 04-15 00:00 :00 No [id number] 9100 TAKE 1/2 TABLET EVERY DAY [facility] triamcinolo ne acetonide (KENALOG) injection 40 mg 3-0 -23 16:15: 00 09-09 15:04 :00 No [id number] 40mg [facility] triamcinolo ne acetonide (KENALOG) injection 40 mg 3-0 -23 16:15: 00 09-09 15:03 :00 No [id number] 40mg [facility] triamcinolo ne acetonide (KENALOG) injection 40 mg 09-09 16:15: 00 09-09 15:03 :00 No [id number] 40mg 40 mg, Intramuscu lar, ONCE, 1 dose, On Nicolle 09/09/22 at 1115, Routine [facility] triamcinolo ne acetonide (KENALOG) injection 40 mg 09-09 16:15: 00 09-09 15:04 :00 No [id number] 40mg 40 mg, Intramuscu lar, ONCE, 1 dose, On Nicolle 09/09/22 at 1115, Routine [facility] triamcinolo ne acetonide (KENALOG) injection 40 mg 09-09 16:15: 00 09-09 15:04 :00 No [id number] 40mg [facility] triamcinolo ne acetonide (KENALOG) injection 40 mg 09-09 16:15: 00 09-09 15:03 :00 No [id number] 40mg [facility] triamcinolo ne acetonide (KENALOG) injection 40 mg 09-09 16:15: 00 09-09 15:03 :00 No [id number] 40mg 40 mg, Intramuscu lar, ONCE, 1 dose, On Tue09/09/22 at 1115, Routine [facility] triamcinolo ne acetonide (KENALOG) injection 40 mg 09-09 16:15: 00 09-09 15:04 :00 No [id number] 40mg 40 mg, Intramuscu lar, ONCE, 1 dose, On Nicolle 09/09/22 at 1115, Routine [facility] montelukast 10 mg tablet 07-12 15:54: 33 Yes 10mg Take 10 mg by mouth at bedtime. [facility] clonazePAM 0.5 mg tablet 07-12 15:54: 33 Yes .5mg Take 0.5 mg by mouth at bedtime. [facility] montelukast 10 mg tablet 07-12 15:54: 33 Yes 10mg Take 10 mg by mouth at bedtime. [facility] clonazePAM 0.5 mg tablet 07-12 15:54: 33 Yes .5mg Take 0.5 mg by mouth at bedtime. [facility] montelukast 10 mg tablet 07-12 15:54: 33 Yes 10mg Take 10 mg by mouth at bedtime. [facility] clonazePAM 0.5 mg tablet 07-12 15:54: 33 Yes .5mg Take 0.5 mg by mouth at bedtime. [facility] montelukast 10 mg tablet 07-12 15:54: 33 Yes 10mg Take 10 mg by mouth at bedtime. [facility] clonazePAM 0.5 mg tablet 07-12 15:54: 33 Yes .5mg Take 0.5 mg by mouth at bedtime. [facility] montelukast 10 mg tablet 07-12 15:54: 33 Yes 10mg Take 10 mg by mouth at bedtime. [facility] clonazePAM 0.5 mg tablet 07-12 15:54: 33 Yes .5mg Take 0.5 mg by mouth at bedtime. [facility] montelukast 10 mg tablet 07-12 15:54: 33 Yes 10mg Take 10 mg by mouth at bedtime. [facility] clonazePAM 0.5 mg tablet 07-12 15:54: 33 Yes .5mg Take 0.5 mg by mouth at bedtime. [facility] montelukast 10 mg tablet 07-12 15:54: 33 Yes 10mg Take 10 mg by mouth at bedtime. [facility] clonazePAM 0.5 mg tablet 07-12 15:54: 33 Yes .5mg Take 0.5 mg by mouth at bedtime. [facility] montelukast 10 mg tablet 07-12 15:54: 33 Yes 10mg Take 10 mg by mouth at bedtime. [facility] clonazePAM 0.5 mg tablet 07-12 15:54: 33 Yes .5mg Take 0.5 mg by mouth at bedtime. [facility] montelukast 10 mg tablet 07-12 15:54: 33 Yes 10mg Take 10 mg by mouth at bedtime. [facility] clonazePAM 0.5 mg tablet 07-12 15:54: 33 Yes .5mg Take 0.5 mg by mouth at bedtime. [facility] apixaban 5 mg tablet 07-12 00:00: 00 Yes 1291 5mg Take 1 tablet by mouth in the morning and 1 tablet in the evening. Indication s: a clot in the lung [facility] metoprolol succinate XL 25 mg 24 hr tablet 07-12 00:00: 00 Yes [id number] 12.5mg Take 0.5 tablets by mouth in the morning. [facility] apixaban 5 mg tablet 07-12 00:00: 00 Yes 1291 5mg Take 1 tablet by mouth in the morning and 1 tablet in the evening. Indication s: a clot in the lung [facility] metoprolol succinate XL 25 mg 24 hr tablet 07-12 00:00: 00 Yes [id number] 12.5mg Take 0.5 tablets by mouth in the morning. [facility] apixaban 5 mg tablet 0 07-12 00:00: 00 Yes 1291 5mg Take 1 tablet by mouth in the morning and 1 tablet in the evening. Indication s: a clot in the lung [facility] metoprolol succinate XL 25 mg 24 hr tablet 2022-0 07-12 00:00: 00 Yes [id number] 12.5mg Take 0.5 tablets by mouth in the morning. [facility] apixaban 5 mg tablet 2022-0 07-12 00:00: 00 Yes 1291 5mg Take 1 tablet by mouth in the morning and 1 tablet in the evening. Indication s: a clot in the lung [facility] metoprolol succinate XL 25 mg 24 hr tablet 3-0 07-12 00:00: 00 Yes [id number] 12.5mg Take 0.5 tablets by mouth in the morning. [facility] apixaban 5 mg tablet 2022-0 07-12 00:00: 00 Yes 1291 5mg Take 1 tablet by mouth in the morning and 1 tablet in the evening. Indication s: a clot in the lung [facility] metoprolol succinate XL 25 mg 24 hr tablet 3-0 07-12 00:00: 00 Yes [id number] 12.5mg Take 0.5 tablets by mouth in the morning. [facility] apixaban 5 mg tablet 2022-0 07-12 00:00: 00 Yes 1291 5mg Take 1 tablet by mouth in the morning and 1 tablet in the evening. Indication s: a clot in the lung [facility] metoprolol succinate XL 25 mg 24 hr tablet 2022-0 07-12 00:00: 00 Yes [id number] 12.5mg Take 0.5 tablets by mouth in the morning. [facility] apixaban 5 mg tablet 2022-0 07-12 00:00: 00 Yes 1291 5mg Take 1 tablet by mouth in the morning and 1 tablet in the evening. Indication s: a clot in the lung [facility] metoprolol succinate XL 25 mg 24 hr tablet 2022-0 07-12 00:00: 00 Yes [id number] 12.5mg Take 0.5 tablets by mouth in the morning. [facility] apixaban 5 mg tablet 3-0 07-12 00:00: 00 Yes 1291 5mg Take 1 tablet by mouth in the morning and 1 tablet in the evening. Indication s: a clot in the lung [facility] metoprolol succinate XL 25 mg 24 hr tablet 3-0 07-12 00:00: 00 Yes [id number] 12.5mg Take 0.5 tablets by mouth in the morning. [facility] apixaban 5 mg tablet 3-0 07-12 00:00: 00 Yes 1291 5mg Take 1 tablet by mouth in the morning and 1 tablet in the evening. Indication s: a clot in the lung [facility] metoprolol succinate XL 25 mg 24 hr tablet 3-0 23 00:00: 00 Yes [id number] 12.5mg Take 0.5 tablets by mouth in the morning. [facility] apixaban 5 mg tablet 2022-0 07-12 00:00: 00 Yes 1291 5mg Take 1 tablet by mouth in the morning and 1 tablet in the evening. Indication s: a clot in the lung [facility] metoprolol succinate XL 25 mg 24 hr tablet 3-0 07-12 00:00: 00 Yes [id number] 12.5mg Take 0.5 tablets by mouth in the morning. [facility] apixaban 5 mg tablet 2022-0 07-12 00:00: 00 Yes 1291 5mg Take 1 tablet by mouth in the morning and 1 tablet in the evening. Indication s: a clot in the lung [facility] metoprolol succinate XL 25 mg 24 hr tablet 3-0 07-12 00:00: 00 Yes [id number] 12.5mg Take 0.5 tablets by mouth in the morning. [facility] apixaban 5 mg tablet 2022-0 07-12 00:00: 00 Yes 1291 5mg Take 1 tablet by mouth in the morning and 1 tablet in the evening. Indication s: a clot in the lung [facility] metoprolol succinate XL 25 mg 24 hr tablet 2022-0 07-12 00:00: 00 Yes [id number] 12.5mg Take 0.5 tablets by mouth in the morning. [facility] apixaban 5 mg tablet 3-0 07-12 00:00: 00 Yes 1291 5mg Take 1 tablet by mouth in the morning and 1 tablet in the evening. Indication s: a clot in the lung [facility] metoprolol succinate XL 25 mg 24 hr tablet 3-0 23 00:00: 00 Yes [id number] 12.5mg Take 0.5 tablets by mouth in the morning. [facility] apixaban 5 mg tablet 2022-0 07-12 00:00: 00 Yes 1291 5mg Take 1 tablet by mouth in the morning and 1 tablet in the evening. Indication s: a clot in the lung [facility] metoprolol succinate XL 25 mg 24 hr tablet 2022-0 07-12 00:00: 00 Yes [id number] 12.5mg Take 0.5 tablets by mouth in the morning. [facility] apixaban 5 mg tablet 2022-0 07-12 00:00: 00 Yes 1291 5mg Take 1 tablet by mouth in the morning and 1 tablet in the evening. Indication s: a clot in the lung [facility] metoprolol succinate XL 25 mg 24 hr tablet 2022-0 07-12 00:00: 00 Yes [id number] 12.5mg Take 0.5 tablets by mouth in the morning. [facility] apixaban 5 mg tablet 2022-0 07-12 00:00: 00 Yes 1291 5mg Take 1 tablet by mouth in the morning and 1 tablet in the evening. Indication s: a clot in the lung [facility] metoprolol succinate XL 25 mg 24 hr tablet 2022-0 07-12 00:00: 00 Yes [id number] 12.5mg Take 0.5 tablets by mouth in the morning. [facility] apixaban 5 mg tablet 2022-0 07-12 00:00: 00 Yes 1291 5mg Take 1 tablet by mouth in the morning and 1 tablet in the evening. Indication s: a clot in the lung [facility] metoprolol succinate XL 25 mg 24 hr tablet 2022-0 07-12 00:00: 00 Yes [id number] 12.5mg Take 0.5 tablets by mouth in the morning. [facility] apixaban 5 mg tablet 2022-0 07-12 00:00: 00 Yes 1291 5mg Take 1 tablet by mouth in the morning and 1 tablet in the evening. Indication s: a clot in the lung [facility] metoprolol succinate XL 25 mg 24 hr tablet 2022-0 07-12 00:00: 00 Yes [id number] 12.5mg Take 0.5 tablets by mouth in the morning. [facility] apixaban 5 mg tablet 3-0 07-12 00:00: 00 Yes 1291 5mg Take 1 tablet by mouth in the morning and 1 tablet in the evening. Indication s: a clot in the lung [facility] metoprolol succinate XL 25 mg 24 hr tablet 3-0 07-12 00:00: 00 Yes [id number] 12.5mg Take 0.5 tablets by mouth in the morning. [facility] apixaban 5 mg tablet 2022-0 07-12 00:00: 00 Yes 1291 5mg Take 1 tablet by mouth in the morning and 1 tablet in the evening. Indication s: a clot in the lung [facility] metoprolol succinate XL 25 mg 24 hr tablet 2022-0 07-12 00:00: 00 Yes [id number] 12.5mg Take 0.5 tablets by mouth in the morning. [facility] apixaban 5 mg tablet 2022-0 07-12 00:00: 00 Yes 1291 5mg Take 1 tablet by mouth in the morning and 1 tablet in the evening. Indication s: a clot in the lung [facility] metoprolol succinate XL 25 mg 24 hr tablet 3-0 07-12 00:00: 00 Yes [id number] 12.5mg Take 0.5 tablets by mouth in the morning. [facility] apixaban 5 mg tablet 3-0 07-12 00:00: 00 Yes 1291 5mg Take 1 tablet by mouth in the morning and 1 tablet in the evening. Indication s: a clot in the lung [facility] metoprolol succinate XL 25 mg 24 hr tablet 3-0 07-12 00:00: 00 Yes [id number] 12.5mg Take 0.5 tablets by mouth in the morning. [facility] apixaban 5 mg tablet 3-0 07-12 00:00: 00 Yes 1291 5mg Take 1 tablet by mouth in the morning and 1 tablet in the evening. Indication s: a clot in the lung [facility] metoprolol succinate XL 25 mg 24 hr tablet 3-0 07-12 00:00: 00 Yes [id number] 12.5mg Take 0.5 tablets by mouth in the morning. [facility] apixaban 5 mg tablet 3-0 07-12 00:00: 00 Yes 1291 5mg Take 1 tablet by mouth in the morning and 1 tablet in the evening. Indication s: a clot in the lung [facility] metoprolol succinate XL 25 mg 24 hr tablet 3-0 07-12 00:00: 00 Yes [id number] 12.5mg Take 0.5 tablets by mouth in the morning. [facility] apixaban 5 mg tablet 2022-0 07-12 00:00: 00 Yes 1291 5mg Take 1 tablet by mouth in the morning and 1 tablet in the evening. Indication s: a clot in the lung [facility] metoprolol succinate XL 25 mg 24 hr tablet 2022-0 07-12 00:00: 00 Yes [id number] 12.5mg Take 0.5 tablets by mouth in the morning. [facility] apixaban 5 mg tablet 2022-0 07-12 00:00: 00 Yes 1291 5mg Take 1 tablet by mouth in the morning and 1 tablet in the evening. Indication s: a clot in the lung [facility] metoprolol succinate XL 25 mg 24 hr tablet 2022-0 07-12 00:00: 00 Yes [id number] 12.5mg Take 0.5 tablets by mouth in the morning. [facility] apixaban 5 mg tablet 2022-0 07-12 00:00: 00 Yes 1291 5mg Take 1 tablet by mouth in the morning and 1 tablet in the evening. Indication s: a clot in the lung [facility] metoprolol succinate XL 25 mg 24 hr tablet 3-0 07-12 00:00: 00 Yes [id number] 12.5mg Take 0.5 tablets by mouth in the morning. [facility] apixaban 5 mg tablet 2022-0 07-12 00:00: 00 Yes 1291 5mg Take 1 tablet by mouth in the morning and 1 tablet in the evening. Indication s: a clot in the lung [facility] metoprolol succinate XL 25 mg 24 hr tablet 3-0 07-12 00:00: 00 Yes [id number] 12.5mg Take 0.5 tablets by mouth in the morning. [facility] apixaban 5 mg tablet 3-0 07-12 00:00: 00 Yes 1291 5mg Take 1 tablet by mouth in the morning and 1 tablet in the evening. Indication s: a clot in the lung [facility] metoprolol succinate XL 25 mg 24 hr tablet 3-0 07-12 00:00: 00 Yes [id number] 12.5mg Take 0.5 tablets by mouth in the morning. [facility] apixaban 5 mg tablet 2022-0 07-12 00:00: 00 Yes 1291 5mg Take 1 tablet by mouth in the morning and 1 tablet in the evening. Indication s: a clot in the lung [facility] metoprolol succinate XL 25 mg 24 hr tablet 2022-0 07-12 00:00: 00 Yes [id number] 12.5mg Take 0.5 tablets by mouth in the morning. [facility] apixaban 5 mg tablet 2022-0 07-12 00:00: 00 Yes 1291 5mg Take 1 tablet by mouth in the morning and 1 tablet in the evening. Indication s: a clot in the lung [facility] metoprolol succinate XL 25 mg 24 hr tablet 2022-0 07-12 00:00: 00 Yes [id number] 12.5mg Take 0.5 tablets by mouth in the morning. [facility] apixaban 5 mg tablet 2022-0 07-12 00:00: 00 Yes 1291 5mg Take 1 tablet by mouth in the morning and 1 tablet in the evening. Indication s: a clot in the lung [facility] metoprolol succinate XL 25 mg 24 hr tablet 2022-0 07-12 00:00: 00 Yes [id number] 12.5mg Take 0.5 tablets by mouth in the morning. [facility] apixaban 5 mg tablet 2022-0 07-12 00:00: 00 Yes 1291 5mg Take 1 tablet by mouth in the morning and 1 tablet in the evening. Indication s: a clot in the lung [facility] metoprolol succinate XL 25 mg 24 hr tablet 3-0 07-12 00:00: 00 Yes [id number] 12.5mg Take 0.5 tablets by mouth in the morning. [facility] apixaban 5 mg tablet 0 07-12 00:00: 00 Yes 1291 5mg Take 1 tablet by mouth in the morning and 1 tablet in the evening. Indication s: a clot in the lung [facility] metoprolol succinate XL 25 mg 24 hr tablet 2022-0 07-12 00:00: 00 Yes [id number] 12.5mg Take 0.5 tablets by mouth in the morning. [facility] apixaban 5 mg tablet 0 07-12 00:00: 00 Yes 1291 5mg Take 1 tablet by mouth in the morning and 1 tablet in the evening. Indication s: a clot in the lung [facility] metoprolol succinate XL 25 mg 24 hr tablet 0 07-12 00:00: 00 Yes [id number] 12.5mg Take 0.5 tablets by mouth in the morning. [facility] apixaban 5 mg tablet 2022-0 07-12 00:00: 00 Yes 1291 5mg Take 1 tablet by mouth in the morning and 1 tablet in the evening. Indication s: a clot in the lung [facility] metoprolol succinate XL 25 mg 24 hr tablet 0 07-12 00:00: 00 Yes [id number] 12.5mg Take 0.5 tablets by mouth in the morning. [facility] apixaban 5 mg tablet 2022-0 07-12 00:00: 00 Yes 1291 5mg Take 1 tablet by mouth in the morning and 1 tablet in the evening. Indication s: a clot in the lung [facility] metoprolol succinate XL 25 mg 24 hr tablet 2022-0 07-12 00:00: 00 Yes [id number] 12.5mg Take 0.5 tablets by mouth in the morning. [facility] apixaban 5 mg tablet 2022-0 07-12 00:00: 00 Yes 1291 5mg Take 1 tablet by mouth in the morning and 1 tablet in the evening. Indication s: a clot in the lung [facility] metoprolol succinate XL 25 mg 24 hr tablet 0 07-12 00:00: 00 Yes [id number] 12.5mg Take 0.5 tablets by mouth in the morning. [facility] apixaban 5 mg tablet 3-0 - 00:00: 00 Yes 1291 5mg Take 1 tablet by mouth in the morning and 1 tablet in the evening. Indication s: a clot in the lung [facility] metoprolol succinate XL 25 mg 24 hr tablet 3-0 07-12 00:00: 00 Yes [id number] 12.5mg Take 0.5 tablets by mouth in the morning. [facility] apixaban 5 mg tablet 3-0 07-12 00:00: 00 Yes 1291 5mg Take 1 tablet by mouth in the morning and 1 tablet in the evening. Indication s: a clot in the lung [facility] metoprolol succinate XL 25 mg 24 hr tablet 3-0 07-12 00:00: 00 Yes [id number] 12.5mg Take 0.5 tablets by mouth in the morning. [facility] apixaban 5 mg tablet 3-0 07-12 00:00: 00 Yes 1291 5mg Take 1 tablet by mouth in the morning and 1 tablet in the evening. Indication s: a clot in the lung [facility] metoprolol succinate XL 25 mg 24 hr tablet 3-0 07-12 00:00: 00 Yes [id number] 12.5mg Take 0.5 tablets by mouth in the morning. [facility] apixaban 5 mg tablet 3-0 07-12 00:00: 00 Yes 1291 5mg Take 1 tablet by mouth in the morning and 1 tablet in the evening. Indication s: a clot in the lung [facility] metoprolol succinate XL 25 mg 24 hr tablet 3-0 07-12 00:00: 00 Yes [id number] 12.5mg Take 0.5 tablets by mouth in the morning. [facility] apixaban 5 mg tablet 3-0 07-12 00:00: 00 Yes 1291 5mg Take 1 tablet by mouth in the morning and 1 tablet in the evening. Indication s: a clot in the lung [facility] metoprolol succinate XL 25 mg 24 hr tablet 2022-0 07-12 00:00: 00 Yes [id number] 12.5mg Take 0.5 tablets by mouth in the morning. [facility] apixaban 5 mg tablet 2022-0 07-12 00:00: 00 Yes 1291 5mg Take 1 tablet by mouth in the morning and 1 tablet in the evening. Indication s: a clot in the lung [facility] metoprolol succinate XL 25 mg 24 hr tablet 2022-0 07-12 00:00: 00 Yes [id number] 12.5mg Take 0.5 tablets by mouth in the morning. [facility] apixaban 5 mg tablet 2022-0 07-12 00:00: 00 Yes 1291 5mg Take 1 tablet by mouth in the morning and 1 tablet in the evening. Indication s: a clot in the lung [facility] metoprolol succinate XL 25 mg 24 hr tablet 2022-0 07-12 00:00: 00 Yes [id number] 12.5mg Take 0.5 tablets by mouth in the morning. [facility] apixaban 5 mg tablet 2022-0 07-12 00:00: 00 Yes 1291 5mg Take 1 tablet by mouth in the morning and 1 tablet in the evening. Indication s: a clot in the lung [facility] metoprolol succinate XL 25 mg 24 hr tablet 2022-0 07-12 00:00: 00 Yes [id number] 12.5mg Take 0.5 tablets by mouth in the morning. [facility] apixaban 5 mg tablet 2022-0 07-12 00:00: 00 Yes 1291 5mg Take 1 tablet by mouth in the morning and 1 tablet in the evening. Indication s: a clot in the lung [facility] metoprolol succinate XL 25 mg 24 hr tablet 2022-0 07-12 00:00: 00 Yes [id number] 12.5mg Take 0.5 tablets by mouth in the morning. [facility] metoprolol succinate XL 25 mg 24 hr tablet 3-0 07-12 00:00: 00 Yes [id number] 12.5mg Take 0.5 tablets by mouth in the morning. [facility] metoprolol succinate XL 25 mg 24 hr tablet 3-0 07-12 00:00: 00 Yes [id number] 12.5mg Take 0.5 tablets by mouth in the morning. [facility] metoprolol succinate XL 25 mg 24 hr tablet 3-0 07-12 00:00: 00 Yes [id number] 12.5mg Take 0.5 tablets by mouth in the morning. [facility] metoprolol succinate XL 25 mg 24 hr tablet 3-0 07-12 00:00: 00 Yes [id number] 12.5mg Take 0.5 tablets by mouth in the morning. [facility] metoprolol succinate XL 25 mg 24 hr tablet 3-0 07-12 00:00: 00 Yes [id number] 12.5mg Take 0.5 tablets by mouth in the morning. [facility] metoprolol succinate XL 25 mg 24 hr tablet 3-0 07-12 00:00: 00 Yes [id number] 12.5mg Take 0.5 tablets by mouth in the morning. [facility] metoprolol succinate XL 25 mg 24 hr tablet 2022-0 07-12 00:00: 00 Yes [id number] 12.5mg Take 0.5 tablets by mouth in the morning. [facility] metoprolol succinate XL 25 mg 24 hr tablet 3-0 07-12 00:00: 00 Yes [id number] 12.5mg Take 0.5 tablets by mouth in the morning. [facility] metoprolol succinate XL 25 mg 24 hr tablet 3-0 07-12 00:00: 00 Yes [id number] 12.5mg Take 0.5 tablets by mouth in the morning. [facility] metoprolol succinate XL 25 mg 24 hr tablet 3-0 07-12 00:00: 00 Yes [id number] 12.5mg Take 0.5 tablets by mouth in the morning. [facility] metoprolol succinate XL 25 mg 24 hr tablet 3-0 07-12 00:00: 00 Yes [id number] 12.5mg Take 0.5 tablets by mouth in the morning. [facility] metoprolol succinate XL 25 mg 24 hr tablet 2022-0 07-12 00:00: 00 Yes [id number] 12.5mg Take 0.5 tablets by mouth in the morning. [facility] metoprolol succinate XL 25 mg 24 hr tablet 2022-0 07-12 00:00: 00 Yes [id number] 12.5mg Take 0.5 tablets by mouth in the morning. [facility] metoprolol succinate XL 25 mg 24 hr tablet 0 07-12 00:00: 00 Yes [id number] 12.5mg Take 0.5 tablets by mouth in the morning. [facility] metoprolol succinate XL 25 mg 24 hr tablet 0 07-12 00:00: 00 Yes [id number] 12.5mg Take 0.5 tablets by mouth in the morning. [facility] metoprolol succinate XL 25 mg 24 hr tablet 2022-0 07-12 00:00: 00 Yes [id number] 12.5mg Take 0.5 tablets by mouth in the morning. [facility] metoprolol succinate XL 25 mg 24 hr tablet 0 07-12 00:00: 00 Yes [id number] 12.5mg Take 0.5 tablets by mouth in the morning. [facility] apixaban 5 mg tablet 0 07-12 00:00: 00 Yes [id number] 5mg Take 1 tablet by mouth in the morning and 1 tablet in the evening. Indication s: a clot in the lung [facility] metoprolol succinate XL 25 mg 24 hr tablet 0 07-12 00:00: 00 Yes [id number] 12.5mg Take 0.5 tablets by mouth in the morning. [facility] apixaban 5 mg tablet 0 07-12 00:00: 00 05-30 00:00 :00 No [id number] 5mg Take 1 tablet by mouth in the morning and 1 tablet in the evening. Indication s: a clot in the lung [facility] apixaban 5 mg tablet 2022-0 07-12 00:00: 00 05-30 00:00 :00 No [id number] 5mg Take 1 tablet by mouth in the morning and 1 tablet in the evening. Indication s: a clot in the lung [facility] DULoxetine 60 mg capsule 2021-06 00:00: 00 Yes [id number] 60mg Take 1 capsule by mouth in the morning. [facility] hydrOXYchlo roQUINE 200 mg tablet 2021-06 00:00: 00 Yes [id number] 300mg Take 1.5 tablets by mouth in the morning. [facility] DULoxetine 60 mg capsule 2021-06 00:00: 00 Yes [id number] 60mg Take 1 capsule by mouth in the morning. [facility] hydrOXYchlo roQUINE 200 mg tablet 2021-06 00:00: 00 Yes [id number] 300mg Take 1.5 tablets by mouth in the morning. [facility] DULoxetine 60 mg capsule 2021-06 00:00: 00 Yes [id number] 60mg Take 1 capsule by mouth in the morning. [facility] hydrOXYchlo roQUINE 200 mg tablet 2021-06 00:00: 00 Yes [id number] 300mg Take 1.5 tablets by mouth in the morning. [facility] DULoxetine 60 mg capsule 2021-06 00:00: 00 Yes [id number] 60mg Take 1 capsule by mouth in the morning. [facility] hydrOXYchlo roQUINE 200 mg tablet 2021-06 00:00: 00 Yes [id number] 300mg Take 1.5 tablets by mouth in the morning. [facility] DULoxetine 60 mg capsule 2021-06 00:00: 00 Yes [id number] 60mg Take 1 capsule by mouth in the morning. [facility] hydrOXYchlo roQUINE 200 mg tablet 2021-06 00:00: 00 Yes [id number] 300mg Take 1.5 tablets by mouth in the morning. [facility] DULoxetine 60 mg capsule 2021-06 00:00: 00 Yes [id number] 60mg Take 1 capsule by mouth in the morning. [facility] hydrOXYchlo roQUINE 200 mg tablet 2021-06 00:00: 00 Yes [id number] 300mg Take 1.5 tablets by mouth in the morning. [facility] DULoxetine 60 mg capsule 2021-06 00:00: 00 Yes [id number] 60mg Take 1 capsule by mouth in the morning. [facility] hydrOXYchlo roQUINE 200 mg tablet 2021-06 00:00: 00 Yes [id number] 300mg Take 1.5 tablets by mouth in the morning. [facility] DULoxetine 60 mg capsule 2021-06 00:00: 00 Yes [id number] 60mg Take 1 capsule by mouth in the morning. [facility] hydrOXYchlo roQUINE 200 mg tablet 2021-06 00:00: 00 Yes [id number] 300mg Take 1.5 tablets by mouth in the morning. [facility] DULoxetine 60 mg capsule 2021-06 00:00: 00 Yes [id number] 60mg Take 1 capsule by mouth in the morning. [facility] hydrOXYchlo roQUINE 200 mg tablet 2021-06 00:00: 00 Yes [id number] 300mg Take 1.5 tablets by mouth in the morning. [facility] DULoxetine 60 mg capsule 2021-06 00:00: 00 Yes [id number] 60mg Take 1 capsule by mouth in the morning. [facility] hydrOXYchlo roQUINE 200 mg tablet 2021-06 00:00: 00 Yes [id number] 300mg Take 1.5 tablets by mouth in the morning. [facility] DULoxetine 60 mg capsule 2021-06 00:00: 00 Yes [id number] 60mg Take 1 capsule by mouth in the morning. [facility] hydrOXYchlo roQUINE 200 mg tablet 2021-06 00:00: 00 Yes [id number] 300mg Take 1.5 tablets by mouth in the morning. [facility] DULoxetine 60 mg capsule 2021-06 00:00: 00 Yes [id number] 60mg Take 1 capsule by mouth in the morning. [facility] hydrOXYchlo roQUINE 200 mg tablet 2021-06 00:00: 00 Yes [id number] 300mg Take 1.5 tablets by mouth in the morning. [facility] DULoxetine 60 mg capsule 2021-06 00:00: 00 Yes [id number] 60mg Take 1 capsule by mouth in the morning. [facility] hydrOXYchlo roQUINE 200 mg tablet 2021-06 00:00: 00 Yes [id number] 300mg Take 1.5 tablets by mouth in the morning. [facility] DULoxetine 60 mg capsule 2021-06 00:00: 00 Yes [id number] 60mg Take 1 capsule by mouth in the morning. [facility] hydrOXYchlo roQUINE 200 mg tablet 2021-06 00:00: 00 Yes [id number] 300mg Take 1.5 tablets by mouth in the morning. [facility] DULoxetine 60 mg capsule 2021-06 00:00: 00 Yes [id number] 60mg Take 1 capsule by mouth in the morning. [facility] hydrOXYchlo roQUINE 200 mg tablet 2021-06 00:00: 00 Yes [id number] 300mg Take 1.5 tablets by mouth in the morning. [facility] DULoxetine 60 mg capsule 2021-06 00:00: 00 Yes [id number] 60mg Take 1 capsule by mouth in the morning. [facility] hydrOXYchlo roQUINE 200 mg tablet 2021-06 00:00: 00 Yes [id number] 300mg Take 1.5 tablets by mouth in the morning. [facility] DULoxetine 60 mg capsule 2021-06 00:00: 00 Yes [id number] 60mg Take 1 capsule by mouth in the morning. [facility] hydrOXYchlo roQUINE 200 mg tablet 2021-06 00:00: 00 Yes [id number] 300mg Take 1.5 tablets by mouth in the morning. [facility] DULoxetine 60 mg capsule 2021-06 00:00: 00 Yes [id number] 60mg Take 1 capsule by mouth in the morning. [facility] hydrOXYchlo roQUINE 200 mg tablet 2021-06 00:00: 00 Yes [id number] 300mg Take 1.5 tablets by mouth in the morning. [facility] DULoxetine 60 mg capsule 2021-06 00:00: 00 Yes [id number] 60mg Take 1 capsule by mouth in the morning. [facility] hydrOXYchlo roQUINE 200 mg tablet 2021-06 00:00: 00 Yes [id number] 300mg Take 1.5 tablets by mouth in the morning. [facility] DULoxetine 60 mg capsule 2021-06 00:00: 00 Yes [id number] 60mg Take 1 capsule by mouth in the morning. [facility] hydrOXYchlo roQUINE 200 mg tablet 2021-06 00:00: 00 Yes [id number] 300mg Take 1.5 tablets by mouth in the morning. [facility] DULoxetine 60 mg capsule 2021-06 00:00: 00 Yes [id number] 60mg Take 1 capsule by mouth in the morning. [facility] hydrOXYchlo roQUINE 200 mg tablet 2021-06 00:00: 00 Yes [id number] 300mg Take 1.5 tablets by mouth in the morning. [facility] DULoxetine 60 mg capsule 2021-06 00:00: 00 Yes [id number] 60mg Take 1 capsule by mouth in the morning. [facility] hydrOXYchlo roQUINE 200 mg tablet 2021-06 00:00: 00 Yes [id number] 300mg Take 1.5 tablets by mouth in the morning. [facility] DULoxetine 60 mg capsule 2021-06 00:00: 00 Yes [id number] 60mg Take 1 capsule by mouth in the morning. [facility] hydrOXYchlo roQUINE 200 mg tablet 2021-06 00:00: 00 Yes [id number] 300mg Take 1.5 tablets by mouth in the morning. [facility] DULoxetine 60 mg capsule 2021-06 00:00: 00 Yes [id number] 60mg Take 1 capsule by mouth in the morning. [facility] hydrOXYchlo roQUINE 200 mg tablet 2021-06 00:00: 00 Yes [id number] 300mg Take 1.5 tablets by mouth in the morning. [facility] DULoxetine 60 mg capsule 2021-06 00:00: 00 Yes [id number] 60mg Take 1 capsule by mouth in the morning. [facility] hydrOXYchlo roQUINE 200 mg tablet 2021-06 00:00: 00 Yes [id number] 300mg Take 1.5 tablets by mouth in the morning. [facility] DULoxetine 60 mg capsule 2021-06 00:00: 00 Yes [id number] 60mg Take 1 capsule by mouth in the morning. [facility] hydrOXYchlo roQUINE 200 mg tablet 2021-06 00:00: 00 Yes [id number] 300mg Take 1.5 tablets by mouth in the morning. [facility] DULoxetine 60 mg capsule 2021-06 00:00: 00 Yes [id number] 60mg Take 1 capsule by mouth in the morning. [facility] hydrOXYchlo roQUINE 200 mg tablet 2021-06 00:00: 00 Yes [id number] 300mg Take 1.5 tablets by mouth in the morning. [facility] DULoxetine 60 mg capsule 2021-06 00:00: 00 Yes [id number] 60mg Take 1 capsule by mouth in the morning. [facility] hydrOXYchlo roQUINE 200 mg tablet 2021-06 00:00: 00 Yes [id number] 300mg Take 1.5 tablets by mouth in the morning. [facility] DULoxetine 60 mg capsule 2021-06 00:00: 00 Yes [id number] 60mg Take 1 capsule by mouth in the morning. [facility] hydrOXYchlo roQUINE 200 mg tablet 2021-06 00:00: 00 Yes [id number] 300mg Take 1.5 tablets by mouth in the morning. [facility] DULoxetine 60 mg capsule 2021-06 00:00: 00 Yes [id number] 60mg Take 1 capsule by mouth in the morning. [facility] hydrOXYchlo roQUINE 200 mg tablet 2021-06 00:00: 00 Yes [id number] 300mg Take 1.5 tablets by mouth in the morning. [facility] DULoxetine 60 mg capsule 2021-06 00:00: 00 Yes [id number] 60mg Take 1 capsule by mouth in the morning. [facility] hydrOXYchlo roQUINE 200 mg tablet 2021-06 00:00: 00 Yes [id number] 300mg Take 1.5 tablets by mouth in the morning. [facility] DULoxetine 60 mg capsule 2021-06 00:00: 00 Yes [id number] 60mg Take 1 capsule by mouth in the morning. [facility] hydrOXYchlo roQUINE 200 mg tablet 2021-06 00:00: 00 Yes [id number] 300mg Take 1.5 tablets by mouth in the morning. [facility] DULoxetine 60 mg capsule 2021-06 00:00: 00 Yes [id number] 60mg Take 1 capsule by mouth in the morning. [facility] hydrOXYchlo roQUINE 200 mg tablet 2021-06 00:00: 00 Yes [id number] 300mg Take 1.5 tablets by mouth in the morning. [facility] DULoxetine 60 mg capsule 2021-06 00:00: 00 Yes [id number] 60mg Take 1 capsule by mouth in the morning. [facility] hydrOXYchlo roQUINE 200 mg tablet 2021-06 00:00: 00 Yes [id number] 300mg Take 1.5 tablets by mouth in the morning. [facility] DULoxetine 60 mg capsule 2021-06 00:00: 00 Yes [id number] 60mg Take 1 capsule by mouth in the morning. [facility] hydrOXYchlo roQUINE 200 mg tablet 2021-06 00:00: 00 Yes [id number] 300mg Take 1.5 tablets by mouth in the morning. [facility] DULoxetine 60 mg capsule 2021-06 00:00: 00 Yes [id number] 60mg Take 1 capsule by mouth in the morning. [facility] hydrOXYchlo roQUINE 200 mg tablet 2021-06 00:00: 00 Yes [id number] 300mg Take 1.5 tablets by mouth in the morning. [facility] DULoxetine 60 mg capsule 2021-06 00:00: 00 Yes [id number] 60mg Take 1 capsule by mouth in the morning. [facility] hydrOXYchlo roQUINE 200 mg tablet 2021-06 00:00: 00 Yes [id number] 300mg Take 1.5 tablets by mouth in the morning. [facility] DULoxetine 60 mg capsule 2021-06 00:00: 00 Yes [id number] 60mg Take 1 capsule by mouth in the morning. [facility] hydrOXYchlo roQUINE 200 mg tablet 2021-06 00:00: 00 Yes [id number] 300mg Take 1.5 tablets by mouth in the morning. [facility] DULoxetine 60 mg capsule 2021-06 00:00: 00 Yes [id number] 60mg Take 1 capsule by mouth in the morning. [facility] hydrOXYchlo roQUINE 200 mg tablet 2021-06 00:00: 00 Yes [id number] 300mg Take 1.5 tablets by mouth in the morning. [facility] DULoxetine 60 mg capsule 2021-06 00:00: 00 Yes [id number] 60mg Take 1 capsule by mouth in the morning. [facility] hydrOXYchlo roQUINE 200 mg tablet 2021-06 00:00: 00 Yes [id number] 300mg Take 1.5 tablets by mouth in the morning. [facility] DULoxetine 60 mg capsule 2021-06 00:00: 00 Yes [id number] 60mg Take 1 capsule by mouth in the morning. [facility] hydrOXYchlo roQUINE 200 mg tablet 2021-06 00:00: 00 Yes [id number] 300mg Take 1.5 tablets by mouth in the morning. [facility] DULoxetine 60 mg capsule 2021-06 00:00: 00 Yes [id number] 60mg Take 1 capsule by mouth in the morning. [facility] hydrOXYchlo roQUINE 200 mg tablet 2021-06 00:00: 00 Yes [id number] 300mg Take 1.5 tablets by mouth in the morning. [facility] DULoxetine 60 mg capsule 2021-06 00:00: 00 Yes [id number] 60mg Take 1 capsule by mouth in the morning. [facility] hydrOXYchlo roQUINE 200 mg tablet 2021-06 00:00: 00 Yes [id number] 300mg Take 1.5 tablets by mouth in the morning. [facility] DULoxetine 60 mg capsule 2021-06 00:00: 00 Yes [id number] 60mg Take 1 capsule by mouth in the morning. [facility] hydrOXYchlo roQUINE 200 mg tablet 2021-06 00:00: 00 Yes [id number] 300mg Take 1.5 tablets by mouth in the morning. [facility] DULoxetine 60 mg capsule 2021-06 00:00: 00 Yes [id number] 60mg Take 1 capsule by mouth in the morning. [facility] hydrOXYchlo roQUINE 200 mg tablet 2021-06 00:00: 00 Yes [id number] 300mg Take 1.5 tablets by mouth in the morning. [facility] DULoxetine 60 mg capsule 2021-06 00:00: 00 Yes [id number] 60mg Take 1 capsule by mouth in the morning. [facility] hydrOXYchlo roQUINE 200 mg tablet 2021-06 00:00: 00 Yes [id number] 300mg Take 1.5 tablets by mouth in the morning. [facility] DULoxetine 60 mg capsule 2021-06 00:00: 00 Yes [id number] 60mg Take 1 capsule by mouth in the morning. [facility] hydrOXYchlo roQUINE 200 mg tablet 2021-06 00:00: 00 Yes [id number] 300mg Take 1.5 tablets by mouth in the morning. [facility] DULoxetine 60 mg capsule 2021-06 00:00: 00 Yes [id number] 60mg Take 1 capsule by mouth in the morning. [facility] hydrOXYchlo roQUINE 200 mg tablet 2021-06 00:00: 00 Yes [id number] 300mg Take 1.5 tablets by mouth in the morning. [facility] DULoxetine 60 mg capsule 2021-06 00:00: 00 Yes [id number] 60mg Take 1 capsule by mouth in the morning. [facility] hydrOXYchlo roQUINE 200 mg tablet 2021-06 00:00: 00 Yes [id number] 300mg Take 1.5 tablets by mouth in the morning. [facility] DULoxetine 60 mg capsule 2021-06 00:00: 00 Yes [id number] 60mg Take 1 capsule by mouth in the morning. [facility] hydrOXYchlo roQUINE 200 mg tablet 2021-06 00:00: 00 Yes [id number] 300mg Take 1.5 tablets by mouth in the morning. [facility] DULoxetine 60 mg capsule 2021-06 00:00: 00 Yes [id number] 60mg Take 1 capsule by mouth in the morning. [facility] hydrOXYchlo roQUINE 200 mg tablet 2021-06 00:00: 00 Yes [id number] 300mg Take 1.5 tablets by mouth in the morning. [facility] DULoxetine 60 mg capsule 2021-06 00:00: 00 Yes [id number] 60mg Take 1 capsule by mouth in the morning. [facility] hydrOXYchlo roQUINE 200 mg tablet 2021-06 00:00: 00 Yes [id number] 300mg Take 1.5 tablets by mouth in the morning. [facility] DULoxetine 60 mg capsule 2021-06 00:00: 00 Yes [id number] 60mg Take 1 capsule by mouth in the morning. [facility] hydrOXYchlo roQUINE 200 mg tablet 2021-06 00:00: 00 Yes [id number] 300mg Take 1.5 tablets by mouth in the morning. [facility] DULoxetine 60 mg capsule 2021-06 00:00: 00 Yes [id number] 60mg Take 1 capsule by mouth in the morning. [facility] hydrOXYchlo roQUINE 200 mg tablet 2021-06 00:00: 00 Yes [id number] 300mg Take 1.5 tablets by mouth in the morning. [facility] DULoxetine 60 mg capsule 2021-06 00:00: 00 Yes [id number] 60mg Take 1 capsule by mouth in the morning. [facility] hydrOXYchlo roQUINE 200 mg tablet 2021-06 00:00: 00 Yes [id number] 300mg Take 1.5 tablets by mouth in the morning. [facility] DULoxetine 60 mg capsule 2021-06 00:00: 00 Yes [id number] 60mg Take 1 capsule by mouth in the morning. [facility] hydrOXYchlo roQUINE 200 mg tablet 2021-06 00:00: 00 Yes [id number] 300mg Take 1.5 tablets by mouth in the morning. [facility] DULoxetine 60 mg capsule 2021-06 00:00: 00 Yes [id number] 60mg Take 1 capsule by mouth in the morning. [facility] hydrOXYchlo roQUINE 200 mg tablet 2021-06 00:00: 00 Yes [id number] 300mg Take 1.5 tablets by mouth in the morning. [facility] DULoxetine 60 mg capsule 2021-06 00:00: 00 Yes [id number] 60mg Take 1 capsule by mouth in the morning. [facility] hydrOXYchlo roQUINE 200 mg tablet 2021-06 00:00: 00 Yes [id number] 300mg Take 1.5 tablets by mouth in the morning. [facility] DULoxetine 60 mg capsule 2021-06 00:00: 00 Yes [id number] 60mg Take 1 capsule by mouth in the morning. [facility] hydrOXYchlo roQUINE 200 mg tablet 2021-06 00:00: 00 Yes [id number] 300mg Take 1.5 tablets by mouth in the morning. [facility] DULoxetine 60 mg capsule 2021-06 00:00: 00 Yes [id number] 60mg Take 1 capsule by mouth in the morning. [facility] hydrOXYchlo roQUINE 200 mg tablet 2021-06 00:00: 00 Yes [id number] 300mg Take 1.5 tablets by mouth in the morning. [facility] DULoxetine 60 mg capsule 2021-06 00:00: 00 Yes [id number] 60mg Take 1 capsule by mouth in the morning. [facility] hydrOXYchlo roQUINE 200 mg tablet 2021-06 00:00: 00 Yes [id number] 300mg Take 1.5 tablets by mouth in the morning. [facility] DULoxetine 60 mg capsule 2021-06 00:00: 00 Yes [id number] 60mg Take 1 capsule by mouth in the morning. [facility] hydrOXYchlo roQUINE 200 mg tablet 2021-06 00:00: 00 Yes [id number] 300mg Take 1.5 tablets by mouth in the morning. [facility] DULoxetine 60 mg capsule 2021-06 00:00: 00 Yes [id number] 60mg Take 1 capsule by mouth in the morning. [facility] hydrOXYchlo roQUINE 200 mg tablet 2021-06 00:00: 00 Yes [id number] 300mg Take 1.5 tablets by mouth in the morning. [facility] DULoxetine 60 mg capsule 2021-06 00:00: 00 Yes [id number] 60mg Take 1 capsule by mouth in the morning. [facility] hydrOXYchlo roQUINE 200 mg tablet 2021-06 00:00: 00 Yes [id number] 300mg Take 1.5 tablets by mouth in the morning. [facility] DULoxetine 60 mg capsule 2021-06 00:00: 00 Yes [id number] 60mg Take 1 capsule by mouth in the morning. [facility] hydrOXYchlo roQUINE 200 mg tablet 2021-06 00:00: 00 Yes [id number] 300mg Take 1.5 tablets by mouth in the morning. [facility] DULoxetine 60 mg capsule 2021-06 00:00: 00 Yes [id number] 60mg Take 1 capsule by mouth in the morning. [facility] hydrOXYchlo roQUINE 200 mg tablet 2021-06 00:00: 00 Yes [id number] 300mg Take 1.5 tablets by mouth in the morning. [facility] DULoxetine 60 mg capsule 2021-06 00:00: 00 Yes [id number] 60mg Take 1 capsule by mouth in the morning. [facility] hydrOXYchlo roQUINE 200 mg tablet 2021-06 00:00: 00 Yes [id number] 300mg Take 1.5 tablets by mouth in the morning. [facility] DULoxetine 60 mg capsule 2021-06 00:00: 00 Yes [id number] 60mg Take 1 capsule by mouth in the morning. [facility] hydrOXYchlo roQUINE 200 mg tablet 2021-06 00:00: 00 Yes [id number] 300mg Take 1.5 tablets by mouth in the morning. [facility] DULoxetine 60 mg capsule 2021-06 00:00: 00 Yes [id number] 60mg Take 1 capsule by mouth in the morning. [facility] hydrOXYchlo roQUINE 200 mg tablet 2021-06 00:00: 00 Yes [id number] 300mg Take 1.5 tablets by mouth in the morning. [facility] DULoxetine 60 mg capsule 2021-06 00:00: 00 Yes [id number] 60mg Take 1 capsule by mouth in the morning. [facility] hydrOXYchlo roQUINE 200 mg tablet 2021-06 00:00: 00 Yes [id number] 300mg Take 1.5 tablets by mouth in the morning. [facility] DULoxetine 60 mg capsule 2021-06 00:00: 00 Yes [id number] 60mg Take 1 capsule by mouth in the morning. [facility] hydrOXYchlo roQUINE 200 mg tablet 2021-06 00:00: 00 Yes [id number] 300mg Take 1.5 tablets by mouth in the morning. [facility] DULoxetine 60 mg capsule 2021-06 00:00: 00 Yes [id number] 60mg Take 1 capsule by mouth in the morning. [facility] hydrOXYchlo roQUINE 200 mg tablet 2021-06 00:00: 00 Yes [id number] 300mg Take 1.5 tablets by mouth in the morning. [facility] DULoxetine 60 mg capsule 2021-06 00:00: 00 Yes [id number] 60mg Take 1 capsule by mouth in the morning. [facility] hydrOXYchlo roQUINE 200 mg tablet 2021-06 00:00: 00 Yes [id number] 300mg Take 1.5 tablets by mouth in the morning. [facility] DULoxetine 60 mg capsule 2021-06 00:00: 00 Yes [id number] 60mg Take 1 capsule by mouth in the morning. [facility] DULoxetine 60 mg capsule 2021-06 00:00: 00 Yes [id number] 60mg Take 1 capsule by mouth in the morning. [facility] DULoxetine 60 mg capsule 2021-06 00:00: 00 Yes [id number] 60mg Take 1 capsule by mouth in the morning. [facility] DULoxetine 60 mg capsule 2021-06 00:00: 00 Yes [id number] 60mg Take 1 capsule by mouth in the morning. [facility] DULoxetine 60 mg capsule 2021-06 00:00: 00 05-28 00:00 :00 No [id number] 60mg Take 1 capsule by mouth in the morning. [facility] DULoxetine 60 mg capsule 2021-06 00:00: 00 05-28 00:00 :00 No [id number] 60mg Take 1 capsule by mouth in the morning. [facility] DULoxetine 60 mg capsule 2021-06 00:00: 00 05-28 00:00 :00 No [id number] 60mg Take 1 capsule by mouth in the morning. [facility] DULoxetine 20 mg capsule 2021-06 0-10 00:00: 00 04-29 05:59 :00 No [id number] Take 2 capsules by mouth daily for 15 days, THEN 3 capsules daily for 15 days. [facility] DULoxetine 20 mg capsule 2021-06 0-10 00:00: 00 04-29 05:59 :00 No [id number] Take 2 capsules by mouth daily for 15 days, THEN 3 capsules daily for 15 days. [facility] DULoxetine 20 mg capsule 2021-06 0-10 00:00: 00 04-29 05:59 :00 No [id number] Take 2 capsules by mouth daily for 15 days, THEN 3 capsules daily for 15 days. [facility] DULoxetine 20 mg capsule 2021-06 010 00:00: 00 04-29 05:59 :00 No [id number] Take 2 capsules by mouth daily for 15 days, THEN 3 capsules daily for 15 days. [facility] triamcinolo ne acetonide (KENALOG) injection 80 mg 2021-06 0-05 21:45: 00 03-24 20:40 :00 No [id number] 80mg [facility] triamcinolo ne acetonide (KENALOG) injection 80 mg 2021-06 0-05 21:45: 00 03-24 20:40 :00 No [id number] 80mg 80 mg, Intra-surendra cular, ONCE, 1 dose, On Tue03/24/22 at 1645, Routine [facility] triamcinolo ne acetonide (KENALOG) injection 80 mg 2021-06 0-05 21:45: 00 03-24 20:40 :00 No [id number] 80mg [facility] triamcinolo ne acetonide (KENALOG) injection 80 mg 2021-06 0-05 21:45: 00 03-24 20:40 :00 No [id number] 80mg 80 mg, Intra-surendra cular, ONCE, 1 dose, On Tue03/24/22 at 1645, Routine [facility] lisinopriL 2.5 mg tablet 909 00:00: 00 Yes [id number] 9103 2.5mg Take 1 tablet by mouth every evening. [facility] lisinopriL 2.5 mg tablet 2021-0 02-26 00:00: 00 Yes [id number] 9103 2.5mg Take 1 tablet by mouth every evening. [facility] lisinopriL 2.5 mg tablet 2021-0 02-26 00:00: 00 Yes [id number] 9103 2.5mg Take 1 tablet by mouth every evening. [facility] lisinopriL 2.5 mg tablet 2021-0 02-26 00:00: 00 Yes [id number] 9103 2.5mg Take 1 tablet by mouth every evening. [facility] lisinopriL 2.5 mg tablet 0 02-26 00:00: 00 Yes [id number] 9103 2.5mg Take 1 tablet by mouth every evening. [facility] lisinopriL 2.5 mg tablet 2021-0 02-26 00:00: 00 Yes [id number] 9103 2.5mg Take 1 tablet by mouth every evening. [facility] lisinopriL 2.5 mg tablet 2021-0 02-26 00:00: 00 Yes [id number] 9103 2.5mg Take 1 tablet by mouth every evening. [facility] lisinopriL 2.5 mg tablet 2021-0 02-26 00:00: 00 Yes [id number] 9103 2.5mg Take 1 tablet by mouth every evening. [facility] lisinopriL 2.5 mg tablet 2021-0 02-26 00:00: 00 Yes [id number] 9103 2.5mg Take 1 tablet by mouth every evening. [facility] lisinopriL 2.5 mg tablet 2021-0 02-26 00:00: 00 Yes [id number] 9103 2.5mg Take 1 tablet by mouth every evening. [facility] lisinopriL 2.5 mg tablet 2021-0 02-26 00:00: 00 Yes [id number] 9103 2.5mg Take 1 tablet by mouth every evening. [facility] lisinopriL 2.5 mg tablet 2021-0 02-26 00:00: 00 Yes [id number] 9103 2.5mg Take 1 tablet by mouth every evening. [facility] lisinopriL 2.5 mg tablet 2021-0 02-26 00:00: 00 Yes [id number] 9103 2.5mg Take 1 tablet by mouth every evening. [facility] lisinopriL 2.5 mg tablet 2021-0 02-26 00:00: 00 Yes [id number] 9103 2.5mg Take 1 tablet by mouth every evening. [facility] lisinopriL 2.5 mg tablet 2021-0 02-26 00:00: 00 Yes [id number] 9103 2.5mg Take 1 tablet by mouth every evening. [facility] lisinopriL 2.5 mg tablet 2021-0 02-26 00:00: 00 Yes [id number] 9103 2.5mg Take 1 tablet by mouth every evening. [facility] lisinopriL 2.5 mg tablet 2021-0 02-26 00:00: 00 Yes [id number] 9103 2.5mg Take 1 tablet by mouth every evening. [facility] lisinopriL 2.5 mg tablet 2021-0 02-26 00:00: 00 Yes [id number] 9103 2.5mg Take 1 tablet by mouth every evening. [facility] lisinopriL 2.5 mg tablet 2021-0 02-26 00:00: 00 Yes [id number] 9103 2.5mg Take 1 tablet by mouth every evening. [facility] lisinopriL 2.5 mg tablet 2021-0 02-26 00:00: 00 Yes [id number] 9103 2.5mg Take 1 tablet by mouth every evening. [facility] lisinopriL 2.5 mg tablet 2021-0 02-26 00:00: 00 Yes [id number] 9103 2.5mg Take 1 tablet by mouth every evening. [facility] lisinopriL 2.5 mg tablet 2021-0 02-26 00:00: 00 Yes [id number] 9103 2.5mg Take 1 tablet by mouth every evening. [facility] lisinopriL 2.5 mg tablet 2021-0 02-26 00:00: 00 Yes [id number] 9103 2.5mg Take 1 tablet by mouth every evening. [facility] lisinopriL 2.5 mg tablet 2021-0 02-26 00:00: 00 Yes [id number] 9103 2.5mg Take 1 tablet by mouth every evening. [facility] lisinopriL 2.5 mg tablet 2021-0 02-26 00:00: 00 Yes [id number] 9103 2.5mg Take 1 tablet by mouth every evening. [facility] lisinopriL 2.5 mg tablet 2021-0 02-26 00:00: 00 Yes [id number] 9103 2.5mg Take 1 tablet by mouth every evening. [facility] lisinopriL 2.5 mg tablet 2021-0 02-26 00:00: 00 01-25 00:00 :00 No [id number] 9103 2.5mg Take 1 tablet by mouth every evening. [facility] hydrOXYchlo roQUINE 200 mg tablet 2021-0 02-25 00:00: 00 Yes 300mg Take 1.5 tablets by mouth in the morning. [facility] gabapentin 100 mg capsule 2021-0 02-25 00:00: 00 Yes 100mg Take 1 capsule by mouth in the morning and 1 capsule at noon and 1 capsule in the evening. [facility] hydrOXYchlo roQUINE 200 mg tablet 2021-0 02-25 00:00: 00 Yes 300mg Take 1.5 tablets by mouth in the morning. [facility] gabapentin 100 mg capsule 2021-0 02-25 00:00: 00 Yes 100mg Take 1 capsule by mouth in the morning and 1 capsule at noon and 1 capsule in the evening. [facility] hydrOXYchlo roQUINE 200 mg tablet 2021-0 02-25 00:00: 00 Yes 300mg Take 1.5 tablets by mouth in the morning. [facility] gabapentin 100 mg capsule 2021-0 02-25 00:00: 00 Yes 100mg Take 1 capsule by mouth in the morning and 1 capsule at noon and 1 capsule in the evening. [facility] hydrOXYchlo roQUINE 200 mg tablet 2-0 02-25 00:00: 00 Yes 300mg Take 1.5 tablets by mouth in the morning. [facility] gabapentin 100 mg capsule 2-0 02-25 00:00: 00 Yes 100mg Take 1 capsule by mouth in the morning and 1 capsule at noon and 1 capsule in the evening. [facility] hydrOXYchlo roQUINE 200 mg tablet 2-0 02-25 00:00: 00 Yes 300mg Take 1.5 tablets by mouth in the morning. [facility] gabapentin 100 mg capsule 2-0 02-25 00:00: 00 Yes 100mg Take 1 capsule by mouth in the morning and 1 capsule at noon and 1 capsule in the evening. [facility] hydrOXYchlo roQUINE 200 mg tablet 2-0 02-25 00:00: 00 Yes 300mg Take 1.5 tablets by mouth in the morning. [facility] gabapentin 100 mg capsule 2-0 02-25 00:00: 00 Yes 100mg Take 1 capsule by mouth in the morning and 1 capsule at noon and 1 capsule in the evening. [facility] hydrOXYchlo roQUINE 200 mg tablet 2-0 02-25 00:00: 00 Yes 300mg Take 1.5 tablets by mouth in the morning. [facility] gabapentin 100 mg capsule 2-0 02-25 00:00: 00 Yes 100mg Take 1 capsule by mouth in the morning and 1 capsule at noon and 1 capsule in the evening. [facility] hydrOXYchlo roQUINE 200 mg tablet 2-0 02-25 00:00: 00 Yes 300mg Take 1.5 tablets by mouth in the morning. [facility] gabapentin 100 mg capsule 2-0 02-25 00:00: 00 Yes 100mg Take 1 capsule by mouth in the morning and 1 capsule at noon and 1 capsule in the evening. [facility] hydrOXYchlo roQUINE 200 mg tablet 2022-0 - 00:00: 00 Yes 300mg Take 1.5 tablets by mouth in the morning. [facility] gabapentin 100 mg capsule 2022-0 - 00:00: 00 Yes 100mg Take 1 capsule by mouth in the morning and 1 capsule at noon and 1 capsule in the evening. [facility] hydrOXYchlo roQUINE 200 mg tablet 2-0 02-25 00:00: 00 Yes 300mg Take 1.5 tablets by mouth in the morning. [facility] gabapentin 100 mg capsule 2-0 - 00:00: 00 Yes 100mg Take 1 capsule by mouth in the morning and 1 capsule at noon and 1 capsule in the evening. [facility] hydrOXYchlo roQUINE 200 mg tablet 2-0 02-25 00:00: 00 Yes 300mg Take 1.5 tablets by mouth in the morning. [facility] gabapentin 100 mg capsule 2-0 02-25 00:00: 00 Yes 100mg Take 1 capsule by mouth in the morning and 1 capsule at noon and 1 capsule in the evening. [facility] gabapentin 100 mg capsule 2-0 02-25 00:00: 00 Yes 100mg Take 1 capsule by mouth in the morning and 1 capsule at noon and 1 capsule in the evening. [facility] gabapentin 100 mg capsule 2-0 02-25 00:00: 00 Yes 100mg Take 1 capsule by mouth in the morning and 1 capsule at noon and 1 capsule in the evening. [facility] gabapentin 100 mg capsule 2-0 02-25 00:00: 00 Yes 100mg Take 1 capsule by mouth in the morning and 1 capsule at noon and 1 capsule in the evening. [facility] gabapentin 100 mg capsule 2022-0 - 00:00: 00 Yes 100mg Take 1 capsule by mouth in the morning and 1 capsule at noon and 1 capsule in the evening. [facility] gabapentin 100 mg capsule 2022-0 - 00:00: 00 Yes 100mg Take 1 capsule by mouth in the morning and 1 capsule at noon and 1 capsule in the evening. [facility] gabapentin 100 mg capsule 2022-0 -08 00:00: 00 Yes 100mg Take 1 capsule by mouth in the morning and 1 capsule at noon and 1 capsule in the evening. [facility] gabapentin 100 mg capsule 2022-0 9-08 00:00: 00 Yes 100mg Take 1 capsule by mouth in the morning and 1 capsule at noon and 1 capsule in the evening. [facility] gabapentin 100 mg capsule 2022-0 9-08 00:00: 00 Yes 100mg Take 1 capsule by mouth in the morning and 1 capsule at noon and 1 capsule in the evening. [facility] gabapentin 100 mg capsule 2022-0 9- 00:00: 00 Yes 100mg Take 1 capsule by mouth in the morning and 1 capsule at noon and 1 capsule in the evening. [facility] gabapentin 100 mg capsule 2022-0 9- 00:00: 00 Yes 100mg Take 1 capsule by mouth in the morning and 1 capsule at noon and 1 capsule in the evening. [facility] gabapentin 100 mg capsule 2022-0 - 00:00: 00 Yes 100mg Take 1 capsule by mouth in the morning and 1 capsule at noon and 1 capsule in the evening. [facility] gabapentin 100 mg capsule 2022-0 - 00:00: 00 Yes 100mg Take 1 capsule by mouth in the morning and 1 capsule at noon and 1 capsule in the evening. [facility] gabapentin 100 mg capsule 2022-0 9- 00:00: 00 Yes 100mg Take 1 capsule by mouth in the morning and 1 capsule at noon and 1 capsule in the evening. [facility] gabapentin 100 mg capsule 2022-0 - 00:00: 00 Yes 100mg Take 1 capsule by mouth in the morning and 1 capsule at noon and 1 capsule in the evening. [facility] gabapentin 100 mg capsule 2022-0 9-08 00:00: 00 Yes 100mg Take 1 capsule by mouth in the morning and 1 capsule at noon and 1 capsule in the evening. [facility] gabapentin 100 mg capsule 2022-0 9-08 00:00: 00 Yes 100mg Take 1 capsule by mouth in the morning and 1 capsule at noon and 1 capsule in the evening. [facility] gabapentin 100 mg capsule 2022-0 9-08 00:00: 00 Yes 100mg Take 1 capsule by mouth in the morning and 1 capsule at noon and 1 capsule in the evening. [facility] gabapentin 100 mg capsule 2022-0 9-08 00:00: 00 Yes 100mg Take 1 capsule by mouth in the morning and 1 capsule at noon and 1 capsule in the evening. [facility] gabapentin 100 mg capsule 2022-0 9-08 00:00: 00 Yes 100mg Take 1 capsule by mouth in the morning and 1 capsule at noon and 1 capsule in the evening. [facility] gabapentin 100 mg capsule 2022-0 -08 00:00: 00 Yes 100mg Take 1 capsule by mouth in the morning and 1 capsule at noon and 1 capsule in the evening. [facility] gabapentin 100 mg capsule 2022-0 - 00:00: 00 Yes 100mg Take 1 capsule by mouth in the morning and 1 capsule at noon and 1 capsule in the evening. [facility] gabapentin 100 mg capsule 2022-0 - 00:00: 00 Yes 100mg Take 1 capsule by mouth in the morning and 1 capsule at noon and 1 capsule in the evening. [facility] gabapentin 100 mg capsule 2022-0 - 00:00: 00 Yes 100mg Take 1 capsule by mouth in the morning and 1 capsule at noon and 1 capsule in the evening. [facility] gabapentin 100 mg capsule 2022-0 - 00:00: 00 Yes 100mg Take 1 capsule by mouth in the morning and 1 capsule at noon and 1 capsule in the evening. [facility] gabapentin 100 mg capsule 2022-0 - 00:00: 00 Yes 100mg Take 1 capsule by mouth in the morning and 1 capsule at noon and 1 capsule in the evening. [facility] gabapentin 100 mg capsule 2022-0 - 00:00: 00 Yes 100mg Take 1 capsule by mouth in the morning and 1 capsule at noon and 1 capsule in the evening. [facility] gabapentin 100 mg capsule 2022-0 9- 00:00: 00 Yes 100mg Take 1 capsule by mouth in the morning and 1 capsule at noon and 1 capsule in the evening. [facility] gabapentin 100 mg capsule 2022-0 9-08 00:00: 00 Yes 100mg Take 1 capsule by mouth in the morning and 1 capsule at noon and 1 capsule in the evening. [facility] gabapentin 100 mg capsule 2022-0 9-08 00:00: 00 Yes 100mg Take 1 capsule by mouth in the morning and 1 capsule at noon and 1 capsule in the evening. [facility] gabapentin 100 mg capsule 2022-0 - 00:00: 00 Yes 100mg Take 1 capsule by mouth in the morning and 1 capsule at noon and 1 capsule in the evening. [facility] gabapentin 100 mg capsule 2022-0 - 00:00: 00 Yes 100mg Take 1 capsule by mouth in the morning and 1 capsule at noon and 1 capsule in the evening. [facility] gabapentin 100 mg capsule 2022-0 - 00:00: 00 Yes 100mg Take 1 capsule by mouth in the morning and 1 capsule at noon and 1 capsule in the evening. [facility] gabapentin 100 mg capsule 2022-0 - 00:00: 00 Yes 100mg Take 1 capsule by mouth in the morning and 1 capsule at noon and 1 capsule in the evening. [facility] gabapentin 100 mg capsule 2022-0 - 00:00: 00 Yes 100mg Take 1 capsule by mouth in the morning and 1 capsule at noon and 1 capsule in the evening. [facility] gabapentin 100 mg capsule 2022-0 - 00:00: 00 Yes 100mg Take 1 capsule by mouth in the morning and 1 capsule at noon and 1 capsule in the evening. [facility] gabapentin 100 mg capsule 2022-0 -08 00:00: 00 Yes 100mg Take 1 capsule by mouth in the morning and 1 capsule at noon and 1 capsule in the evening. [facility] gabapentin 100 mg capsule 2022-0 -08 00:00: 00 Yes 100mg Take 1 capsule by mouth in the morning and 1 capsule at noon and 1 capsule in the evening. [facility] gabapentin 100 mg capsule 2022-0 - 00:00: 00 Yes 100mg Take 1 capsule by mouth in the morning and 1 capsule at noon and 1 capsule in the evening. [facility] gabapentin 100 mg capsule 2022-0 9-08 00:00: 00 Yes 100mg Take 1 capsule by mouth in the morning and 1 capsule at noon and 1 capsule in the evening. [facility] gabapentin 100 mg capsule 2022-0 -08 00:00: 00 Yes 100mg Take 1 capsule by mouth in the morning and 1 capsule at noon and 1 capsule in the evening. [facility] gabapentin 100 mg capsule 2022-0 - 00:00: 00 Yes 100mg Take 1 capsule by mouth in the morning and 1 capsule at noon and 1 capsule in the evening. [facility] gabapentin 100 mg capsule 2022-0 - 00:00: 00 Yes 100mg Take 1 capsule by mouth in the morning and 1 capsule at noon and 1 capsule in the evening. [facility] gabapentin 100 mg capsule 2022-0 - 00:00: 00 Yes 100mg Take 1 capsule by mouth in the morning and 1 capsule at noon and 1 capsule in the evening. [facility] gabapentin 100 mg capsule 2022-0 - 00:00: 00 Yes 100mg Take 1 capsule by mouth in the morning and 1 capsule at noon and 1 capsule in the evening. [facility] gabapentin 100 mg capsule 2022-0 - 00:00: 00 Yes 100mg Take 1 capsule by mouth in the morning and 1 capsule at noon and 1 capsule in the evening. [facility] gabapentin 100 mg capsule 2022-0 - 00:00: 00 Yes 100mg Take 1 capsule by mouth in the morning and 1 capsule at noon and 1 capsule in the evening. [facility] gabapentin 100 mg capsule 2022-0 -08 00:00: 00 Yes 100mg Take 1 capsule by mouth in the morning and 1 capsule at noon and 1 capsule in the evening. [facility] gabapentin 100 mg capsule 2022-0 -08 00:00: 00 Yes 100mg Take 1 capsule by mouth in the morning and 1 capsule at noon and 1 capsule in the evening. [facility] gabapentin 100 mg capsule 2022-0 -08 00:00: 00 Yes 100mg Take 1 capsule by mouth in the morning and 1 capsule at noon and 1 capsule in the evening. [facility] gabapentin 100 mg capsule 2022-0 9-08 00:00: 00 Yes 100mg Take 1 capsule by mouth in the morning and 1 capsule at noon and 1 capsule in the evening. [facility] gabapentin 100 mg capsule 2022-0 -08 00:00: 00 Yes 100mg Take 1 capsule by mouth in the morning and 1 capsule at noon and 1 capsule in the evening. [facility] gabapentin 100 mg capsule 2022-0 - 00:00: 00 Yes 100mg Take 1 capsule by mouth in the morning and 1 capsule at noon and 1 capsule in the evening. [facility] gabapentin 100 mg capsule 2022-0 - 00:00: 00 Yes 100mg Take 1 capsule by mouth in the morning and 1 capsule at noon and 1 capsule in the evening. [facility] gabapentin 100 mg capsule 2022-0 - 00:00: 00 Yes 100mg Take 1 capsule by mouth in the morning and 1 capsule at noon and 1 capsule in the evening. [facility] gabapentin 100 mg capsule 2022-0 - 00:00: 00 Yes 100mg Take 1 capsule by mouth in the morning and 1 capsule at noon and 1 capsule in the evening. [facility] gabapentin 100 mg capsule 2022-0 - 00:00: 00 Yes 100mg Take 1 capsule by mouth in the morning and 1 capsule at noon and 1 capsule in the evening. [facility] gabapentin 100 mg capsule 2022-0 - 00:00: 00 Yes 100mg Take 1 capsule by mouth in the morning and 1 capsule at noon and 1 capsule in the evening. [facility] gabapentin 100 mg capsule 2022-0 - 00:00: 00 Yes 100mg Take 1 capsule by mouth in the morning and 1 capsule at noon and 1 capsule in the evening. [facility] gabapentin 100 mg capsule 2022-0 -08 00:00: 00 Yes 100mg Take 1 capsule by mouth in the morning and 1 capsule at noon and 1 capsule in the evening. [facility] gabapentin 100 mg capsule 2022-0 9-08 00:00: 00 Yes 100mg Take 1 capsule by mouth in the morning and 1 capsule at noon and 1 capsule in the evening. [facility] gabapentin 100 mg capsule 2022-0 9-08 00:00: 00 Yes 100mg Take 1 capsule by mouth in the morning and 1 capsule at noon and 1 capsule in the evening. [facility] gabapentin 100 mg capsule 2022-0 9-08 00:00: 00 Yes 100mg Take 1 capsule by mouth in the morning and 1 capsule at noon and 1 capsule in the evening. [facility] gabapentin 100 mg capsule 2022-0 9-08 00:00: 00 Yes 100mg Take 1 capsule by mouth in the morning and 1 capsule at noon and 1 capsule in the evening. [facility] gabapentin 100 mg capsule 2022-0 9-08 00:00: 00 Yes 100mg Take 1 capsule by mouth in the morning and 1 capsule at noon and 1 capsule in the evening. [facility] gabapentin 100 mg capsule 2022-0 9- 00:00: 00 Yes 100mg Take 1 capsule by mouth in the morning and 1 capsule at noon and 1 capsule in the evening. [facility] gabapentin 100 mg capsule 2022-0 9-08 00:00: 00 Yes 100mg Take 1 capsule by mouth in the morning and 1 capsule at noon and 1 capsule in the evening. [facility] gabapentin 100 mg capsule 2022-0 9-08 00:00: 00 Yes 100mg Take 1 capsule by mouth in the morning and 1 capsule at noon and 1 capsule in the evening. [facility] gabapentin 100 mg capsule 2022-0 9-08 00:00: 00 Yes 100mg Take 1 capsule by mouth in the morning and 1 capsule at noon and 1 capsule in the evening. [facility] gabapentin 100 mg capsule 2022-0 9-08 00:00: 00 Yes 100mg Take 1 capsule by mouth in the morning and 1 capsule at noon and 1 capsule in the evening. [facility] gabapentin 100 mg capsule 2022-0 9-08 00:00: 00 Yes 100mg Take 1 capsule by mouth in the morning and 1 capsule at noon and 1 capsule in the evening. [facility] gabapentin 100 mg capsule 2022-0 9-08 00:00: 00 Yes 100mg Take 1 capsule by mouth in the morning and 1 capsule at noon and 1 capsule in the evening. [facility] gabapentin 100 mg capsule 2021-0 02-25 00:00: 00 Yes 100mg Take 1 capsule by mouth in the morning and 1 capsule at noon and 1 capsule in the evening. [facility] gabapentin 100 mg capsule 2021-0 02-25 00:00: 00 Yes 100mg Take 1 capsule by mouth in the morning and 1 capsule at noon and 1 capsule in the evening. [facility] gabapentin 100 mg capsule 2021-0 02-25 00:00: 00 Yes 100mg Take 1 capsule by mouth in the morning and 1 capsule at noon and 1 capsule in the evening. [facility] gabapentin 100 mg capsule 2021-0 02-25 00:00: 00 Yes 100mg Take 1 capsule by mouth in the morning and 1 capsule at noon and 1 capsule in the evening. [facility] gabapentin 100 mg capsule 2021-0 02-25 00:00: 00 Yes 100mg Take 1 capsule by mouth in the morning and 1 capsule at noon and 1 capsule in the evening. [facility] hydrOXYchlo roQUINE 200 mg tablet 2021-0 02-25 00:00: 00 05-28 00:00 :00 No 300mg Take 1.5 tablets by mouth in the morning. [facility] hydrOXYchlo roQUINE 200 mg tablet 2021-0 02-25 00:00: 00 05-28 00:00 :00 No 300mg Take 1.5 tablets by mouth in the morning. [facility] hydrOXYchlo roQUINE 200 mg tablet 2021-0 02-25 00:00: 00 05-28 00:00 :00 No 300mg Take 1.5 tablets by mouth in the morning. [facility] DULoxetine 30 mg capsule 2021-0 -08 00:00: 00 03-29 00:00 :00 No [id number] 30mg Take 1 capsule by mouth in the morning for 30 days. [facility] DULoxetine 30 mg capsule 2021-0 9-08 00:00: 00 03-29 00:00 :00 No [id number] 30mg Take 1 capsule by mouth in the morning for 30 days. [facility] DULoxetine 30 mg capsule 2021-0 08 00:00: 00 03-28 04:59 :00 No [id number] 30mg Take 1 capsule by mouth in the morning for 30 days. [facility] DULoxetine 30 mg capsule 2021-0 02-25 00:00: 00 03-28 04:59 :00 No [id number] 30mg Take 1 capsule by mouth in the morning for 30 days. [facility] [facility] DULoxetine 30 mg capsule 2021-0 02-25 00:00: 00 03-28 04:59 :00 No [id number] 30mg Take 1 capsule by mouth in the morning for 30 days. [facility] DULoxetine 30 mg capsule 2021-0 02-25 00:00: 00 03-28 04:59 :00 No [id number] 30mg Take 1 capsule by mouth in the morning for 30 days. [facility] DULoxetine 30 mg capsule 2021-0 02-25 00:00: 00 03-28 04:59 :00 No [id number] 30mg Take 1 capsule by mouth in the morning for 30 days. [facility] spironolact one 25 mg tablet 2021-0 02-24 00:00: 00 Yes [id number] 9100 TAKE 1/2 TABLET EVERY DAY [facility] spironolact one 25 mg tablet 2021-0 02-24 00:00: 00 Yes [id number] 9100 TAKE 1/2 TABLET EVERY DAY [facility] spironolact one 25 mg tablet 2-0 02-24 00:00: 00 Yes [id number] 9100 TAKE 1/2 TABLET EVERY DAY [facility] spironolact one 25 mg tablet 2021-0 02-24 00:00: 00 Yes [id number] 9100 TAKE 1/2 TABLET EVERY DAY [facility] spironolact one 25 mg tablet 2021-0 02-24 00:00: 00 Yes [id number] 9100 TAKE 1/2 TABLET EVERY DAY [facility] spironolact one 25 mg tablet 2021-0 02-24 00:00: 00 Yes [id number] 9100 TAKE 1/2 TABLET EVERY DAY [facility] spironolact one 25 mg tablet 2021-0 02-24 00:00: 00 Yes [id number] 9100 TAKE 1/2 TABLET EVERY DAY [facility] spironolact one 25 mg tablet 2021-0 02-24 00:00: 00 Yes [id number] 9100 TAKE 1/2 TABLET EVERY DAY [facility] spironolact one 25 mg tablet 2021-0 02-24 00:00: 00 Yes [id number] 9100 TAKE 1/2 TABLET EVERY DAY [facility] spironolact one 25 mg tablet 2021-0 02-24 00:00: 00 Yes [id number] 9100 TAKE 1/2 TABLET EVERY DAY [facility] spironolact one 25 mg tablet 2021-0 02-24 00:00: 00 Yes [id number] 9100 TAKE 1/2 TABLET EVERY DAY [facility] spironolact one 25 mg tablet 2021-0 02-24 00:00: 00 Yes [id number] 9100 TAKE 1/2 TABLET EVERY DAY [facility] spironolact one 25 mg tablet 2021-0 02-24 00:00: 00 Yes [id number] 9100 TAKE 1/2 TABLET EVERY DAY [facility] spironolact one 25 mg tablet 2021-0 02-24 00:00: 00 Yes [id number] 9100 TAKE 1/2 TABLET EVERY DAY [facility] spironolact one 25 mg tablet 2021-0 02-24 00:00: 00 Yes [id number] 9100 TAKE 1/2 TABLET EVERY DAY [facility] spironolact one 25 mg tablet 2021-0 02-24 00:00: 00 Yes [id number] 9100 TAKE 1/2 TABLET EVERY DAY [facility] spironolact one 25 mg tablet 2021-0 02-24 00:00: 00 Yes [id number] 9100 TAKE 1/2 TABLET EVERY DAY [facility] spironolact one 25 mg tablet 2021-0 02-24 00:00: 00 Yes [id number] 9100 TAKE 1/2 TABLET EVERY DAY [facility] spironolact one 25 mg tablet 0 02-24 00:00: 00 Yes [id number] 9100 TAKE 1/2 TABLET EVERY DAY [facility] spironolact one 25 mg tablet 2021-0 02-24 00:00: 00 Yes [id number] 9100 TAKE 1/2 TABLET EVERY DAY [facility] spironolact one 25 mg tablet 2021-0 02-24 00:00: 00 Yes [id number] 9100 TAKE 1/2 TABLET EVERY DAY [facility] spironolact one 25 mg tablet 2021-0 02-24 00:00: 00 10-07 00:00 :00 No [id number] 9100 TAKE 1/2 TABLET EVERY DAY [facility] magnesium chloride 70 mg TbEC 2021-0 12-23 00:00: 00 Yes 2{tbl} Take 2 tablets by mouth 2 (two) times daily. [facility] magnesium chloride 70 mg TbEC 2021-0 12-23 00:00: 00 Yes 2{tbl} Take 2 tablets by mouth 2 (two) times daily. [facility] magnesium chloride 70 mg TbEC 2021-0 12-23 00:00: 00 Yes 2{tbl} Take 2 tablets by mouth 2 (two) times daily. [facility] magnesium chloride 70 mg TbEC 2021-0 12-23 00:00: 00 Yes 2{tbl} Take 2 tablets by mouth 2 (two) times daily. [facility] magnesium chloride 70 mg TbEC 2-0 12-23 00:00: 00 Yes 2{tbl} Take 2 tablets by mouth 2 (two) times daily. [facility] magnesium chloride 70 mg TbEC 2-0 12-23 00:00: 00 Yes 2{tbl} Take 2 tablets by mouth 2 (two) times daily. [facility] magnesium chloride 70 mg TbEC 2-0 12-23 00:00: 00 Yes 2{tbl} Take 2 tablets by mouth 2 (two) times daily. [facility] magnesium chloride 70 mg TbEC 2022-0 7- 00:00: 00 Yes 2{tbl} Take 2 tablets by mouth 2 (two) times daily. [facility] magnesium chloride 70 mg TbEC 2022-0 7- 00:00: 00 Yes 2{tbl} Take 2 tablets by mouth 2 (two) times daily. [facility] magnesium chloride 70 mg TbEC 2022-0 7- 00:00: 00 Yes 2{tbl} Take 2 tablets by mouth 2 (two) times daily. [facility] magnesium chloride 70 mg TbEC 2022-0 7- 00:00: 00 Yes 2{tbl} Take 2 tablets by mouth 2 (two) times daily. [facility] magnesium chloride 70 mg TbEC 2022-0 7- 00:00: 00 Yes 2{tbl} Take 2 tablets by mouth 2 (two) times daily. [facility] magnesium chloride 70 mg TbEC 2022-0 7- 00:00: 00 Yes 2{tbl} Take 2 tablets by mouth 2 (two) times daily. [facility] magnesium chloride 70 mg TbEC 2022-0 7 00:00: 00 Yes 2{tbl} Take 2 tablets by mouth 2 (two) times daily. [facility] magnesium chloride 70 mg TbEC 2022-0 7 00:00: 00 Yes 2{tbl} Take 2 tablets by mouth 2 (two) times daily. [facility] magnesium chloride 70 mg TbEC 2022-0 7- 00:00: 00 Yes 2{tbl} Take 2 tablets by mouth 2 (two) times daily. [facility] magnesium chloride 70 mg TbEC 2022-0 7- 00:00: 00 Yes 2{tbl} Take 2 tablets by mouth 2 (two) times daily. [facility] magnesium chloride 70 mg TbEC 2022-0 7- 00:00: 00 Yes 2{tbl} Take 2 tablets by mouth 2 (two) times daily. [facility] magnesium chloride 70 mg TbEC 2022-0 7- 00:00: 00 Yes 2{tbl} Take 2 tablets by mouth 2 (two) times daily. [facility] magnesium chloride 70 mg TbEC 2022-0 7- 00:00: 00 Yes 2{tbl} Take 2 tablets by mouth 2 (two) times daily. [facility] magnesium chloride 70 mg TbEC 2022-0 7- 00:00: 00 Yes 2{tbl} Take 2 tablets by mouth 2 (two) times daily. [facility] magnesium chloride 70 mg TbEC 2022-0 7- 00:00: 00 Yes 2{tbl} Take 2 tablets by mouth 2 (two) times daily. [facility] magnesium chloride 70 mg TbEC 2022-0 7- 00:00: 00 Yes 2{tbl} Take 2 tablets by mouth 2 (two) times daily. [facility] magnesium chloride 70 mg TbEC 2022-0 7- 00:00: 00 Yes 2{tbl} Take 2 tablets by mouth 2 (two) times daily. [facility] magnesium chloride 70 mg TbEC 2022-0 7- 00:00: 00 Yes 2{tbl} Take 2 tablets by mouth 2 (two) times daily. [facility] magnesium chloride 70 mg TbEC 2022-0 7- 00:00: 00 Yes 2{tbl} Take 2 tablets by mouth 2 (two) times daily. [facility] magnesium chloride 70 mg TbEC 2022-0 7- 00:00: 00 Yes 2{tbl} Take 2 tablets by mouth 2 (two) times daily. [facility] magnesium chloride 70 mg TbEC 2022-0 7- 00:00: 00 Yes 2{tbl} Take 2 tablets by mouth 2 (two) times daily. [facility] magnesium chloride 70 mg TbEC 2022-0 7- 00:00: 00 Yes 2{tbl} Take 2 tablets by mouth 2 (two) times daily. [facility] magnesium chloride 70 mg TbEC 2022-0 7- 00:00: 00 Yes 2{tbl} Take 2 tablets by mouth 2 (two) times daily. [facility] magnesium chloride 70 mg TbEC 2022-0 7- 00:00: 00 Yes 2{tbl} Take 2 tablets by mouth 2 (two) times daily. [facility] magnesium chloride 70 mg TbEC 2022-0 7- 00:00: 00 Yes 2{tbl} Take 2 tablets by mouth 2 (two) times daily. [facility] magnesium chloride 70 mg TbEC 2022-0 7- 00:00: 00 Yes 2{tbl} Take 2 tablets by mouth 2 (two) times daily. [facility] magnesium chloride 70 mg TbEC 2022-0 7- 00:00: 00 Yes 2{tbl} Take 2 tablets by mouth 2 (two) times daily. [facility] magnesium chloride 70 mg TbEC 2022-0 - 00:00: 00 Yes 2{tbl} Take 2 tablets by mouth 2 (two) times daily. [facility] magnesium chloride 70 mg TbEC 2022-0 - 00:00: 00 Yes 2{tbl} Take 2 tablets by mouth 2 (two) times daily. [facility] magnesium chloride 70 mg TbEC 2022-0 12-23 00:00: 00 Yes 2{tbl} Take 2 tablets by mouth 2 (two) times daily. [facility] magnesium chloride 70 mg TbEC 2022-0 12-23 00:00: 00 Yes 2{tbl} Take 2 tablets by mouth 2 (two) times daily. [facility] magnesium chloride 70 mg TbEC 2022-0 7- 00:00: 00 Yes 2{tbl} Take 2 tablets by mouth 2 (two) times daily. [facility] magnesium chloride 70 mg TbEC 2022-0 7- 00:00: 00 Yes 2{tbl} Take 2 tablets by mouth 2 (two) times daily. [facility] magnesium chloride 70 mg TbEC 2022-0 7- 00:00: 00 Yes 2{tbl} Take 2 tablets by mouth 2 (two) times daily. [facility] magnesium chloride 70 mg TbEC 2022-0 7- 00:00: 00 Yes 2{tbl} Take 2 tablets by mouth 2 (two) times daily. [facility] magnesium chloride 70 mg TbEC 2022-0 7-06 00:00: 00 Yes 2{tbl} Take 2 tablets by mouth 2 (two) times daily. [facility] magnesium chloride 70 mg TbEC 2022-0 7- 00:00: 00 Yes 2{tbl} Take 2 tablets by mouth 2 (two) times daily. [facility] magnesium chloride 70 mg TbEC 2022-0 7-06 00:00: 00 Yes 2{tbl} Take 2 tablets by mouth 2 (two) times daily. [facility] magnesium chloride 70 mg TbEC 2022-0 7- 00:00: 00 Yes 2{tbl} Take 2 tablets by mouth 2 (two) times daily. [facility] magnesium chloride 70 mg TbEC 2022-0 7-06 00:00: 00 Yes 2{tbl} Take 2 tablets by mouth 2 (two) times daily. [facility] magnesium chloride 70 mg TbEC 2022-0 7-06 00:00: 00 Yes 2{tbl} Take 2 tablets by mouth 2 (two) times daily. [facility] magnesium chloride 70 mg TbEC 2022-0 7- 00:00: 00 Yes 2{tbl} Take 2 tablets by mouth 2 (two) times daily. [facility] magnesium chloride 70 mg TbEC 2022-0 7-06 00:00: 00 Yes 2{tbl} Take 2 tablets by mouth 2 (two) times daily. [facility] magnesium chloride 70 mg TbEC 2022-0 7-06 00:00: 00 Yes 2{tbl} Take 2 tablets by mouth 2 (two) times daily. [facility] magnesium chloride 70 mg TbEC 2022-0 7-06 00:00: 00 Yes 2{tbl} Take 2 tablets by mouth 2 (two) times daily. [facility] magnesium chloride 70 mg TbEC 2022-0 7-06 00:00: 00 Yes 2{tbl} Take 2 tablets by mouth 2 (two) times daily. [facility] magnesium chloride 70 mg TbEC 2022-0 7- 00:00: 00 Yes 2{tbl} Take 2 tablets by mouth 2 (two) times daily. [facility] magnesium chloride 70 mg TbEC 2022-0 7- 00:00: 00 Yes 2{tbl} Take 2 tablets by mouth 2 (two) times daily. [facility] magnesium chloride 70 mg TbEC 2022-0 7- 00:00: 00 Yes 2{tbl} Take 2 tablets by mouth 2 (two) times daily. [facility] magnesium chloride 70 mg TbEC 2022-0 - 00:00: 00 Yes 2{tbl} Take 2 tablets by mouth 2 (two) times daily. [facility] magnesium chloride 70 mg TbEC 2022-0 - 00:00: 00 Yes 2{tbl} Take 2 tablets by mouth 2 (two) times daily. [facility] magnesium chloride 70 mg TbEC 2022-0 - 00:00: 00 Yes 2{tbl} Take 2 tablets by mouth 2 (two) times daily. [facility] magnesium chloride 70 mg TbEC 2022-0 12-23 00:00: 00 Yes 2{tbl} Take 2 tablets by mouth 2 (two) times daily. [facility] magnesium chloride 70 mg TbEC 2022-0 12-23 00:00: 00 Yes 2{tbl} Take 2 tablets by mouth 2 (two) times daily. [facility] magnesium chloride 70 mg TbEC 2022-0 12-23 00:00: 00 Yes 2{tbl} Take 2 tablets by mouth 2 (two) times daily. [facility] magnesium chloride 70 mg TbEC 2022-0 7- 00:00: 00 Yes 2{tbl} Take 2 tablets by mouth 2 (two) times daily. [facility] magnesium chloride 70 mg TbEC 2022-0 7- 00:00: 00 Yes 2{tbl} Take 2 tablets by mouth 2 (two) times daily. [facility] magnesium chloride 70 mg TbEC 2022-0 7- 00:00: 00 Yes 2{tbl} Take 2 tablets by mouth 2 (two) times daily. [facility] magnesium chloride 70 mg TbEC 2022-0 7- 00:00: 00 Yes 2{tbl} Take 2 tablets by mouth 2 (two) times daily. [facility] magnesium chloride 70 mg TbEC 2022-0 7- 00:00: 00 Yes 2{tbl} Take 2 tablets by mouth 2 (two) times daily. [facility] magnesium chloride 70 mg TbEC 2022-0 7- 00:00: 00 Yes 2{tbl} Take 2 tablets by mouth 2 (two) times daily. [facility] magnesium chloride 70 mg TbEC 2022-0 7- 00:00: 00 Yes 2{tbl} Take 2 tablets by mouth 2 (two) times daily. [facility] magnesium chloride 70 mg TbEC 2022-0 7- 00:00: 00 Yes 2{tbl} Take 2 tablets by mouth 2 (two) times daily. [facility] magnesium chloride 70 mg TbEC 2022-0 - 00:00: 00 Yes 2{tbl} Take 2 tablets by mouth 2 (two) times daily. [facility] magnesium chloride 70 mg TbEC 2022-0 12-23 00:00: 00 Yes 2{tbl} Take 2 tablets by mouth 2 (two) times daily. [facility] magnesium chloride 70 mg TbEC 2022-0 12-23 00:00: 00 Yes 2{tbl} Take 2 tablets by mouth 2 (two) times daily. [facility] magnesium chloride 70 mg TbEC 2022-0 7- 00:00: 00 Yes 2{tbl} Take 2 tablets by mouth 2 (two) times daily. [facility] magnesium chloride 70 mg TbEC 2022-0 7 00:00: 00 Yes 2{tbl} Take 2 tablets by mouth 2 (two) times daily. [facility] magnesium chloride 70 mg TbEC 2022-0 7- 00:00: 00 Yes 2{tbl} Take 2 tablets by mouth 2 (two) times daily. [facility] magnesium chloride 70 mg TbEC 2022-0 7- 00:00: 00 Yes 2{tbl} Take 2 tablets by mouth 2 (two) times daily. [facility] magnesium chloride 70 mg TbEC 2-0 12-23 00:00: 00 Yes 2{tbl} Take 2 tablets by mouth 2 (two) times daily. [facility] magnesium chloride 70 mg TbEC 2-0 12-23 00:00: 00 Yes 2{tbl} Take 2 tablets by mouth 2 (two) times daily. [facility] magnesium chloride 70 mg TbEC 2021-0 12-23 00:00: 00 Yes 2{tbl} Take 2 tablets by mouth 2 (two) times daily. [facility] magnesium chloride 70 mg TbEC 2-0 12-23 00:00: 00 Yes 2{tbl} Take 2 tablets by mouth 2 (two) times daily. [facility] magnesium chloride 70 mg TbEC 2021-0 12-23 00:00: 00 Yes 2{tbl} Take 2 tablets by mouth 2 (two) times daily. [facility] magnesium chloride 70 mg TbEC 2-0 12-23 00:00: 00 Yes 2{tbl} Take 2 tablets by mouth 2 (two) times daily. [facility] magnesium chloride 70 mg TbEC 2-0 12-23 00:00: 00 Yes 2{tbl} Take 2 tablets by mouth 2 (two) times daily. [facility] magnesium chloride 70 mg TbEC 2-0 12-23 00:00: 00 Yes 2{tbl} Take 2 tablets by mouth 2 (two) times daily. [facility] magnesium chloride 70 mg TbEC 2-0 12-23 00:00: 00 Yes 2{tbl} Take 2 tablets by mouth 2 (two) times daily. [facility] magnesium chloride 70 mg TbEC 2-0 12-23 00:00: 00 Yes 2{tbl} Take 2 tablets by mouth 2 (two) times daily. [facility] montelukast 10 mg tablet 2021-0 12-22 15:02: 53 Yes 10mg Take 10 mg by mouth at bedtime. [facility] clonazePAM 0.5 mg tablet 12-22 15:02: 53 Yes .5mg Take 0.5 mg by mouth at bedtime. [facility] montelukast 10 mg tablet 12-22 15:02: 53 Yes 10mg Take 10 mg by mouth at bedtime. [facility] clonazePAM 0.5 mg tablet 12-22 15:02: 53 Yes .5mg Take 0.5 mg by mouth at bedtime. [facility] montelukast 10 mg tablet 12-22 15:02: 53 Yes 10mg Take 10 mg by mouth at bedtime. [facility] clonazePAM 0.5 mg tablet 12-22 15:02: 53 Yes .5mg Take 0.5 mg by mouth at bedtime. [facility] montelukast 10 mg tablet 12-22 15:02: 53 Yes 10mg Take 10 mg by mouth at bedtime. [facility] clonazePAM 0.5 mg tablet 12-22 15:02: 53 Yes .5mg Take 0.5 mg by mouth at bedtime. [facility] montelukast 10 mg tablet 12-22 15:02: 53 Yes 10mg Take 10 mg by mouth at bedtime. [facility] clonazePAM 0.5 mg tablet 12-22 15:02: 53 Yes .5mg Take 0.5 mg by mouth at bedtime. [facility] montelukast 10 mg tablet 12-22 15:02: 53 Yes 10mg Take 10 mg by mouth at bedtime. [facility] clonazePAM 0.5 mg tablet 12-22 15:02: 53 Yes .5mg Take 0.5 mg by mouth at bedtime. [facility] montelukast 10 mg tablet 12-22 15:02: 53 Yes 10mg Take 10 mg by mouth at bedtime. [facility] clonazePAM 0.5 mg tablet 12-22 15:02: 53 Yes .5mg Take 0.5 mg by mouth at bedtime. [facility] montelukast 10 mg tablet 0 12-22 15:02: 53 Yes 10mg Take 10 mg by mouth at bedtime. [facility] clonazePAM 0.5 mg tablet 12-22 15:02: 53 Yes .5mg Take 0.5 mg by mouth at bedtime. [facility] montelukast 10 mg tablet 12-22 15:02: 53 Yes 10mg Take 10 mg by mouth at bedtime. [facility] clonazePAM 0.5 mg tablet 12-22 15:02: 53 Yes .5mg Take 0.5 mg by mouth at bedtime. [facility] montelukast 10 mg tablet 12-22 15:02: 53 Yes 10mg Take 10 mg by mouth at bedtime. [facility] clonazePAM 0.5 mg tablet 12-22 15:02: 53 Yes .5mg Take 0.5 mg by mouth at bedtime. [facility] montelukast 10 mg tablet 12-22 15:02: 53 Yes 10mg Take 10 mg by mouth at bedtime. [facility] clonazePAM 0.5 mg tablet 12-22 15:02: 53 Yes .5mg Take 0.5 mg by mouth at bedtime. [facility] montelukast 10 mg tablet 12-22 15:02: 53 Yes 10mg Take 10 mg by mouth at bedtime. [facility] clonazePAM 0.5 mg tablet 12-22 15:02: 53 Yes .5mg Take 0.5 mg by mouth at bedtime. [facility] montelukast 10 mg tablet 12-22 15:02: 53 Yes 10mg Take 10 mg by mouth at bedtime. [facility] clonazePAM 0.5 mg tablet 12-22 15:02: 53 Yes .5mg Take 0.5 mg by mouth at bedtime. [facility] montelukast 10 mg tablet 0 12-22 15:02: 53 Yes 10mg Take 10 mg by mouth at bedtime. [facility] clonazePAM 0.5 mg tablet 0 12-22 15:02: 53 Yes .5mg Take 0.5 mg by mouth at bedtime. [facility] montelukast 10 mg tablet 2021-0 12-22 15:02: 53 Yes 10mg Take 10 mg by mouth at bedtime. [facility] clonazePAM 0.5 mg tablet 0 12-22 15:02: 53 Yes .5mg Take 0.5 mg by mouth at bedtime. [facility] montelukast 10 mg tablet 2021-0 12-22 15:02: 53 Yes 10mg Take 10 mg by mouth at bedtime. [facility] clonazePAM 0.5 mg tablet 0 12-22 15:02: 53 Yes .5mg Take 0.5 mg by mouth at bedtime. [facility] montelukast 10 mg tablet 0 12-22 15:02: 53 Yes 10mg Take 10 mg by mouth at bedtime. [facility] clonazePAM 0.5 mg tablet 0 12-22 15:02: 53 Yes .5mg Take 0.5 mg by mouth at bedtime. [facility] apixaban 5 mg tablet 2021-0 12-04 00:00: 00 Yes 1291 5mg Take 1 tablet by mouth 2 (two) times daily. Indication s: a clot in the lung [facility] apixaban 5 mg tablet 2021-0 12-04 00:00: 00 Yes 1291 5mg Take 1 tablet by mouth 2 (two) times daily. Indication s: a clot in the lung [facility] apixaban 5 mg tablet 2021-0 17 00:00: 00 Yes 1291 5mg Take 1 tablet by mouth 2 (two) times daily. Indication s: a clot in the lung [facility] apixaban 5 mg tablet 2021-0 17 00:00: 00 Yes 1291 5mg Take 1 tablet by mouth 2 (two) times daily. Indication s: a clot in the lung [facility] apixaban 5 mg tablet 2022-0 6-17 00:00: 00 Yes 1291 5mg Take 1 tablet by mouth 2 (two) times daily. Indication s: a clot in the lung [facility] apixaban 5 mg tablet 2-0 6-17 00:00: 00 Yes 1291 5mg Take 1 tablet by mouth 2 (two) times daily. Indication s: a clot in the lung [facility] apixaban 5 mg tablet 2022-0 6-17 00:00: 00 Yes 1291 5mg Take 1 tablet by mouth 2 (two) times daily. Indication s: a clot in the lung [facility] apixaban 5 mg tablet 2-0 6-17 00:00: 00 Yes 1291 5mg Take 1 tablet by mouth 2 (two) times daily. Indication s: a clot in the lung [facility] apixaban 5 mg tablet 2-0 6-17 00:00: 00 Yes 1291 5mg Take 1 tablet by mouth 2 (two) times daily. Indication s: a clot in the lung [facility] apixaban 5 mg tablet 2-0 6-17 00:00: 00 Yes 1291 5mg Take 1 tablet by mouth 2 (two) times daily. Indication s: a clot in the lung [facility] apixaban 5 mg tablet 2-0 6-17 00:00: 00 Yes 1291 5mg Take 1 tablet by mouth 2 (two) times daily. Indication s: a clot in the lung [facility] apixaban 5 mg tablet 2022-0 6-17 00:00: 00 Yes 1291 5mg Take 1 tablet by mouth 2 (two) times daily. Indication s: a clot in the lung [facility] apixaban 5 mg tablet 2022-0 6-17 00:00: 00 Yes 1291 5mg Take 1 tablet by mouth 2 (two) times daily. Indication s: a clot in the lung [facility] apixaban 5 mg tablet 2022-0 6-17 00:00: 00 Yes 1291 5mg Take 1 tablet by mouth 2 (two) times daily. Indication s: a clot in the lung [facility] apixaban 5 mg tablet 2-0 6-17 00:00: 00 Yes 1291 5mg Take 1 tablet by mouth 2 (two) times daily. Indication s: a clot in the lung [facility] apixaban 5 mg tablet 2021-0 6-17 00:00: 00 Yes 1291 5mg Take 1 tablet by mouth 2 (two) times daily. Indication s: a clot in the lung [facility] apixaban 5 mg tablet 2021-0 6-17 00:00: 00 Yes 1291 5mg Take 1 tablet by mouth 2 (two) times daily. Indication s: a clot in the lung [facility] apixaban 5 mg tablet 2021-0 -17 00:00: 00 07-12 00:00 :00 No 1291 5mg Take 1 tablet by mouth 2 (two) times daily. Indication s: a clot in the lung [facility] apixaban 5 mg tablet 2021-0 -17 00:00: 00 07-12 00:00 :00 No 1291 5mg Take 1 tablet by mouth 2 (two) times daily. Indication s: a clot in the lung [facility] furosemide 40 mg tablet 2-0 5-15 00:00: 00 Yes [id number] 40mg Take 1 tablet by mouth daily. [facility] furosemide 40 mg tablet 2-0 5-15 00:00: 00 Yes [id number] 40mg Take 1 tablet by mouth daily. [facility] furosemide 40 mg tablet 2-0 5-15 00:00: 00 Yes [id number] 40mg Take 1 tablet by mouth daily. [facility] furosemide 40 mg tablet 2-0 5-15 00:00: 00 Yes [id number] 40mg Take 1 tablet by mouth daily. [facility] furosemide 40 mg tablet 2-0 5-15 00:00: 00 Yes [id number] 40mg Take 1 tablet by mouth daily. [facility] furosemide 40 mg tablet 2-0 5-15 00:00: 00 Yes [id number] 40mg Take 1 tablet by mouth daily. [facility] furosemide 40 mg tablet 2022-0 5-15 00:00: 00 Yes [id number] 40mg Take 1 tablet by mouth daily. [facility] 2-0 5-15 00:00: 00 Yes [id number] 40mg Take 1 tablet by mouth daily. [facility] furosemide 40 mg tablet 2021-0 5-15 00:00: 00 Yes [id number] 40mg Take 1 tablet by mouth daily. [facility] 2-0 5-15 00:00: 00 Yes [id number] 40mg Take 1 tablet by mouth daily. [facility] [facility] mg tablet 2-0 5-15 00:00: 00 Yes [id number] 40mg Take 1 tablet by mouth daily. [facility] furosemide 40 mg tablet 2-0 5-15 00:00: 00 Yes [id number] 40mg Take 1 tablet by mouth daily. [facility] furosemide 40 mg tablet 2-0 5-15 00:00: 00 Yes [id number] 40mg Take 1 tablet by mouth daily. [facility] furosemide 40 mg tablet 2-0 5-15 00:00: 00 Yes [id number] 40mg Take 1 tablet by mouth daily. [facility] furosemide 40 mg tablet 2021-0 5-15 00:00: 00 Yes [id number] 40mg Take 1 tablet by mouth daily. [facility] furosemide 40 mg tablet 2021-0 5-15 00:00: 00 Yes [id number] 40mg Take 1 tablet by mouth daily. [facility] furosemide 40 mg tablet 2021-0 5-15 00:00: 00 Yes [id number] 40mg Take 1 tablet by mouth daily. [facility] furosemide 40 mg tablet 2-0 5-15 00:00: 00 Yes [id number] 40mg Take 1 tablet by mouth daily. [facility] furosemide 40 mg tablet 2-0 5-15 00:00: 00 Yes [id number] 40mg Take 1 tablet by mouth daily. [facility] furosemide 40 mg tablet 2-0 5-15 00:00: 00 Yes [id number] 40mg Take 1 tablet by mouth daily. [facility] furosemide 40 mg tablet 2022-0 5-15 00:00: 00 Yes [id number] 40mg Take 1 tablet by mouth daily. [facility] mg tablet 2021-0 5-15 00:00: 00 Yes [id number] 40mg Take 1 tablet by mouth daily. [facility] mg tablet 2021-0 5-15 00:00: 00 Yes [id number] 40mg Take 1 tablet by mouth daily. [facility] mg tablet 2021-0 5-15 00:00: 00 Yes [id number] 40mg Take 1 tablet by mouth daily. [facility] mg tablet 2021-0 5-15 00:00: 00 Yes [id number] 40mg Take 1 tablet by mouth daily. [facility] mg tablet 2021-0 5-15 00:00: 00 Yes [id number] 40mg Take 1 tablet by mouth daily. [facility] furosemide 40 mg tablet 2021-0 5-15 00:00: 00 Yes [id number] 40mg Take 1 tablet by mouth daily. [facility] furosemide 40 mg tablet 2021-0 5-15 00:00: 00 Yes [id number] 40mg Take 1 tablet by mouth daily. [facility] furosemide 40 mg tablet 2021-0 5-15 00:00: 00 Yes [id number] 40mg Take 1 tablet by mouth daily. [facility] furosemide 40 mg tablet 2021-0 5-15 00:00: 00 Yes [id number] 40mg Take 1 tablet by mouth daily. [facility] furosemide 40 mg tablet 2021-0 5-15 00:00: 00 Yes [id number] 40mg Take 1 tablet by mouth daily. [facility] furosemide 40 mg tablet 2-0 5-15 00:00: 00 Yes [id number] 40mg Take 1 tablet by mouth daily. [facility] furosemide 40 mg tablet 2021-0 5-15 00:00: 00 Yes [id number] 40mg Take 1 tablet by mouth daily. [facility] mg tablet 2021-0 5-15 00:00: 00 Yes [id number] 40mg Take 1 tablet by mouth daily. [facility] furosemide 40 mg tablet 2022-0 5-15 00:00: 00 Yes [id number] 40mg Take 1 tablet by mouth daily. [facility] furosemide 40 mg tablet 2021-0 5-15 00:00: 00 Yes [id number] 40mg Take 1 tablet by mouth daily. [facility] furosemide 40 mg tablet 2021-0 5-15 00:00: 00 Yes [id number] 40mg Take 1 tablet by mouth daily. [facility] mg tablet 2021-0 5-15 00:00: 00 Yes [id number] 40mg Take 1 tablet by mouth daily. [facility] mg tablet 2021-0 5-15 00:00: 00 Yes [id number] 40mg Take 1 tablet by mouth daily. [facility] mg tablet 2021-0 5-15 00:00: 00 Yes [id number] 40mg Take 1 tablet by mouth daily. [facility] furosemide 40 mg tablet 2021-0 5-15 00:00: 00 Yes [id number] 40mg Take 1 tablet by mouth daily. [facility] mg tablet 2021-0 5-15 00:00: 00 Yes [id number] 40mg Take 1 tablet by mouth daily. [facility] furosemide 40 mg tablet 2021-0 5-15 00:00: 00 Yes [id number] 40mg Take 1 tablet by mouth daily. [facility] furosemide 40 mg tablet 2021-0 5-15 00:00: 00 Yes [id number] 40mg Take 1 tablet by mouth daily. [facility] furosemide 40 mg tablet 2021-0 5-15 00:00: 00 Yes [id number] 40mg Take 1 tablet by mouth daily. [facility] mg tablet 2-0 5-15 00:00: 00 Yes [id number] 40mg Take 1 tablet by mouth daily. [facility] mg tablet 2-0 5-15 00:00: 00 Yes [id number] 40mg Take 1 tablet by mouth daily. [facility] mg tablet 2-0 5-15 00:00: 00 Yes [id number] 40mg Take 1 tablet by mouth daily. [facility] furosemide 40 mg tablet 2-0 5-15 00:00: 00 Yes [id number] 40mg Take 1 tablet by mouth daily. [facility] furosemide 40 mg tablet 2021-0 5-15 00:00: 00 Yes [id number] 40mg Take 1 tablet by mouth daily. [facility] furosemide 40 mg tablet 2021-0 5-15 00:00: 00 Yes [id number] 40mg Take 1 tablet by mouth daily. [facility] furosemide 40 mg tablet 2021-0 5-15 00:00: 00 Yes [id number] 40mg Take 1 tablet by mouth daily. [facility] furosemide 40 mg tablet 2-0 5-15 00:00: 00 Yes [id number] 40mg Take 1 tablet by mouth daily. [facility] furosemide 40 mg tablet 2021-0 5-15 00:00: 00 Yes [id number] 40mg Take 1 tablet by mouth daily. [facility] furosemide 40 mg tablet 2021-0 5-15 00:00: 00 Yes [id number] 40mg Take 1 tablet by mouth daily. [facility] furosemide 40 mg tablet 2021-0 5-15 00:00: 00 Yes [id number] 40mg Take 1 tablet by mouth daily. [facility] furosemide 40 mg tablet 2021-0 5-15 00:00: 00 Yes [id number] 40mg Take 1 tablet by mouth daily. [facility] furosemide 40 mg tablet 2-0 5-15 00:00: 00 Yes [id number] 40mg Take 1 tablet by mouth daily. [facility] furosemide 40 mg tablet 2-0 5-15 00:00: 00 Yes [id number] 40mg Take 1 tablet by mouth daily. [facility] furosemide 40 mg tablet 2-0 5-15 00:00: 00 Yes [id number] 40mg Take 1 tablet by mouth daily. [facility] furosemide 40 mg tablet 2-0 5-15 00:00: 00 Yes [id number] 40mg Take 1 tablet by mouth daily. [facility] furosemide 40 mg tablet 2-0 5-15 00:00: 00 Yes [id number] 40mg Take 1 tablet by mouth daily. [facility] furosemide 40 mg tablet 2-0 5-15 00:00: 00 Yes [id number] 40mg Take 1 tablet by mouth daily. [facility] furosemide 40 mg tablet 2-0 5-15 00:00: 00 Yes [id number] 40mg Take 1 tablet by mouth daily. [facility] furosemide 40 mg tablet 2-0 5-15 00:00: 00 Yes [id number] 40mg Take 1 tablet by mouth daily. [facility] furosemide 40 mg tablet 2-0 5-15 00:00: 00 Yes [id number] 40mg Take 1 tablet by mouth daily. [facility] furosemide 40 mg tablet 2-0 5-15 00:00: 00 Yes [id number] 40mg Take 1 tablet by mouth daily. [facility] furosemide 40 mg tablet 2-0 5-15 00:00: 00 Yes [id number] 40mg Take 1 tablet by mouth daily. [facility] furosemide 40 mg tablet 2-0 5-15 00:00: 00 Yes [id number] 40mg Take 1 tablet by mouth daily. [facility] furosemide 40 mg tablet 2021-0 5-15 00:00: 00 Yes [id number] 40mg Take 1 tablet by mouth daily. [facility] furosemide 40 mg tablet 2021-0 5-15 00:00: 00 05-23 00:00 :00 No [id number] 40mg Take 1 tablet by mouth daily. [facility] furosemide 40 mg tablet 2021-0 5-15 00:00: 00 05-23 00:00 :00 No [id number] 40mg Take 1 tablet by mouth daily. [facility] lisinopriL 2.5 mg tablet 2-0 5-15 00:00: 00 02-26 00:00 :00 No [id number] 2.5mg Take 1 tablet by mouth every evening. [facility] lisinopriL 2.5 mg tablet 2-0 5-15 00:00: 00 02-26 00:00 :00 No [id number] 2.5mg Take 1 tablet by mouth every evening. [facility] aspirin 81 mg chewable tablet 0 14 08:13: 29 10-31 00:00 :00 No 81mg Take 81 mg by mouth daily. [facility] metoprolol succinate XL 25 mg 24 hr tablet 0 -14 00:00: 00 Yes [id number] 12.5mg Take 0.5 tablets by mouth 2 (two) times daily. [facility] metoprolol succinate XL 25 mg 24 hr tablet 0 -14 00:00: 00 Yes [id number] 12.5mg Take 0.5 tablets by mouth 2 (two) times daily. [facility] metoprolol succinate XL 25 mg 24 hr tablet 0 -14 00:00: 00 Yes [id number] 12.5mg Take 0.5 tablets by mouth 2 (two) times daily. [facility] metoprolol succinate XL 25 mg 24 hr tablet 0 14 00:00: 00 Yes [id number] 12.5mg Take 0.5 tablets by mouth 2 (two) times daily. [facility] metoprolol succinate XL 25 mg 24 hr tablet 0 -14 00:00: 00 Yes [id number] 12.5mg Take 0.5 tablets by mouth 2 (two) times daily. [facility] metoprolol succinate XL 25 mg 24 hr tablet 0 14 00:00: 00 Yes [id number] 12.5mg Take 0.5 tablets by mouth 2 (two) times daily. [facility] metoprolol succinate XL 25 mg 24 hr tablet 0 -14 00:00: 00 Yes [id number] 12.5mg Take 0.5 tablets by mouth 2 (two) times daily. [facility] metoprolol succinate XL 25 mg 24 hr tablet 2021-0 -14 00:00: 00 Yes [id number] 12.5mg Take 0.5 tablets by mouth 2 (two) times daily. [facility] metoprolol succinate XL 25 mg 24 hr tablet 2021-0 -14 00:00: 00 Yes [id number] 12.5mg Take 0.5 tablets by mouth 2 (two) times daily. [facility]rol[facility] succinate XL 25 mg 24 hr tablet 2021-0 5-14 00:00: 00 Yes [id number] 12.5mg Take 0.5 tablets by mouth 2 (two) times daily. [facility] metoprolol succinate XL 25 mg 24 hr tablet 2021-0 5-14 00:00: 00 Yes [id number] 12.5mg Take 0.5 tablets by mouth 2 (two) times daily. [facility] metoprolol succinate XL 25 mg 24 hr tablet 2021-0 5-14 00:00: 00 Yes [id number] 12.5mg Take 0.5 tablets by mouth 2 (two) times daily. [facility] metoprolol succinate XL 25 mg 24 hr tablet 2021-0 5-14 00:00: 00 Yes [id number] 12.5mg Take 0.5 tablets by mouth 2 (two) times daily. [facility] metoprolol succinate XL 25 mg 24 hr tablet 2021-0 5-14 00:00: 00 Yes [id number] 12.5mg Take 0.5 tablets by mouth 2 (two) times daily. [facility] metoprolol succinate XL 25 mg 24 hr tablet 2021-0 5-14 00:00: 00 Yes [id number] 12.5mg Take 0.5 tablets by mouth 2 (two) times daily. [facility] metoprolol succinate XL 25 mg 24 hr tablet 2021-0 5-14 00:00: 00 Yes [id number] 12.5mg Take 0.5 tablets by mouth 2 (two) times daily. [facility] metoprolol succinate XL 25 mg 24 hr tablet 2021-0 5-14 00:00: 00 Yes [id number] 12.5mg Take 0.5 tablets by mouth 2 (two) times daily. [facility] metoprolol succinate XL 25 mg 24 hr tablet 2021-0 5-14 00:00: 00 07-12 00:00 :00 No [id number] 12.5mg Take 0.5 tablets by mouth 2 (two) times daily. [facility] metoprolol succinate XL 25 mg 24 hr tablet 2021-0 5-14 00:00: 00 07-12 00:00 :00 No [id number] 12.5mg Take 0.5 tablets by mouth 2 (two) times daily. [facility] ergocalcife rol, vitamin d2, 1,250 mcg (50,000 unit) capsule 10-30 00:00: 00 02-25 00:00 :00 No [id number] Take 1 capsule by mouth weekly. [facility] ergocalcife rol, vitamin d2, 1,250 mcg (50,000 unit) capsule 10-30 00:00: 00 02-25 00:00 :00 No [id number] Take 1 capsule by mouth weekly. [facility] furosemide 40 mg tablet 2020-06 00:00: 00 09-04 00:00 :00 No [id number] 40mg Take 1 tablet by mouth every 2 (two) days. [facility] VENTOLIN HFA 90 mcg/actuati on inhaler 01-30 00:00: 00 Yes 2{puff} 2 Puffs every 4 (four) hours as needed for Shortness of Breath. [facility] VENTOLIN HFA 90 mcg/actuati on inhaler 01-30 00:00: 00 Yes 2{puff} 2 Puffs every 4 (four) hours as needed for Shortness of Breath. [facility] VENTOLIN HFA 90 mcg/actuati on inhaler 01-30 00:00: 00 Yes 2{puff} 2 Puffs every 4 (four) hours as needed for Shortness of Breath. [facility] VENTOLIN HFA 90 mcg/actuati on inhaler 01-30 00:00: 00 Yes 2{puff} 2 Puffs every 4 (four) hours as needed for Shortness of Breath. [facility] VENTOLIN HFA 90 mcg/actuati on inhaler 01-30 00:00: 00 Yes 2{puff} 2 Puffs every 4 (four) hours as needed for Shortness of Breath. [facility] VENTOLIN HFA 90 mcg/actuati on inhaler 01-30 00:00: 00 Yes 2{puff} 2 Puffs every 4 (four) hours as needed for Shortness of Breath. [facility] VENTOLIN HFA 90 mcg/actuati on inhaler 01-30 00:00: 00 Yes 2{puff} 2 Puffs every 4 (four) hours as needed for Shortness of Breath. [facility] VENTOLIN HFA 90 mcg/actuati on inhaler 01-30 00:00: 00 Yes 2{puff} 2 Puffs every 4 (four) hours as needed for Shortness of Breath. [facility] VENTOLIN HFA 90 mcg/actuati on inhaler 01-30 00:00: 00 Yes 2{puff} 2 Puffs every 4 (four) hours as needed for Shortness of Breath. [facility] VENTOLIN HFA 90 mcg/actuati on inhaler 01-30 00:00: 00 Yes 2{puff} 2 Puffs every 4 (four) hours as needed for Shortness of Breath. [facility] VENTOLIN HFA 90 mcg/actuati on inhaler 01-30 00:00: 00 Yes 2{puff} 2 Puffs every 4 (four) hours as needed for Shortness of Breath. [facility] VENTOLIN HFA 90 mcg/actuati on inhaler 01-30 00:00: 00 Yes 2{puff} 2 Puffs every 4 (four) hours as needed for Shortness of Breath. [facility] VENTOLIN HFA 90 mcg/actuati on inhaler 01-30 00:00: 00 Yes 2{puff} 2 Puffs every 4 (four) hours as needed for Shortness of Breath. [facility] VENTOLIN HFA 90 mcg/actuati on inhaler 01-30 00:00: 00 Yes 2{puff} 2 Puffs every 4 (four) hours as needed for Shortness of Breath. [facility] VENTOLIN HFA 90 mcg/actuati on inhaler 01-30 00:00: 00 Yes 2{puff} 2 Puffs every 4 (four) hours as needed for Shortness of Breath. [facility] VENTOLIN HFA 90 mcg/actuati on inhaler 01-30 00:00: 00 Yes 2{puff} 2 Puffs every 4 (four) hours as needed for Shortness of Breath. [facility] VENTOLIN HFA 90 mcg/actuati on inhaler 01-30 00:00: 00 Yes 2{puff} 2 Puffs every 4 (four) hours as needed for Shortness of Breath. [facility] VENTOLIN HFA 90 mcg/actuati on inhaler 01-30 00:00: 00 Yes 2{puff} 2 Puffs every 4 (four) hours as needed for Shortness of Breath. [facility] VENTOLIN HFA 90 mcg/actuati on inhaler 01-30 00:00: 00 Yes 2{puff} 2 Puffs every 4 (four) hours as needed for Shortness of Breath. [facility] VENTOLIN HFA 90 mcg/actuati on inhaler 01-30 00:00: 00 Yes 2{puff} 2 Puffs every 4 (four) hours as needed for Shortness of Breath. [facility] VENTOLIN HFA 90 mcg/actuati on inhaler 01-30 00:00: 00 Yes 2{puff} 2 Puffs every 4 (four) hours as needed for Shortness of Breath. [facility] VENTOLIN HFA 90 mcg/actuati on inhaler 01-30 00:00: 00 Yes 2{puff} 2 Puffs every 4 (four) hours as needed for Shortness of Breath. [facility] VENTOLIN HFA 90 mcg/actuati on inhaler 01-30 00:00: 00 Yes 2{puff} 2 Puffs every 4 (four) hours as needed for Shortness of Breath. [facility] VENTOLIN HFA 90 mcg/actuati on inhaler 01-30 00:00: 00 Yes 2{puff} 2 Puffs every 4 (four) hours as needed for Shortness of Breath. [facility] VENTOLIN HFA 90 mcg/actuati on inhaler 01-30 00:00: 00 Yes 2{puff} 2 Puffs every 4 (four) hours as needed for Shortness of Breath. [facility] VENTOLIN HFA 90 mcg/actuati on inhaler 01-30 00:00: 00 Yes 2{puff} 2 Puffs every 4 (four) hours as needed for Shortness of Breath. [facility] VENTOLIN HFA 90 mcg/actuati on inhaler 01-30 00:00: 00 Yes 2{puff} 2 Puffs every 4 (four) hours as needed for Shortness of Breath. [facility] VENTOLIN HFA 90 mcg/actuati on inhaler 01-30 00:00: 00 Yes 2{puff} 2 Puffs every 4 (four) hours as needed for Shortness of Breath. [facility] VENTOLIN HFA 90 mcg/actuati on inhaler 01-30 00:00: 00 Yes 2{puff} 2 Puffs every 4 (four) hours as needed for Shortness of Breath. [facility] VENTOLIN HFA 90 mcg/actuati on inhaler 01-30 00:00: 00 Yes 2{puff} 2 Puffs every 4 (four) hours as needed for Shortness of Breath. [facility] VENTOLIN HFA 90 mcg/actuati on inhaler 01-30 00:00: 00 Yes 2{puff} 2 Puffs every 4 (four) hours as needed for Shortness of Breath. [facility] VENTOLIN HFA 90 mcg/actuati on inhaler 01-30 00:00: 00 Yes 2{puff} 2 Puffs every 4 (four) hours as needed for Shortness of Breath. [facility] VENTOLIN HFA 90 mcg/actuati on inhaler 01-30 00:00: 00 Yes 2{puff} 2 Puffs every 4 (four) hours as needed for Shortness of Breath. [facility] VENTOLIN HFA 90 mcg/actuati on inhaler 01-30 00:00: 00 Yes 2{puff} 2 Puffs every 4 (four) hours as needed for Shortness of Breath. [facility] VENTOLIN HFA 90 mcg/actuati on inhaler 01-30 00:00: 00 Yes 2{puff} 2 Puffs every 4 (four) hours as needed for Shortness of Breath. [facility] VENTOLIN HFA 90 mcg/actuati on inhaler 01-30 00:00: 00 Yes 2{puff} 2 Puffs every 4 (four) hours as needed for Shortness of Breath. [facility] VENTOLIN HFA 90 mcg/actuati on inhaler 01-30 00:00: 00 Yes 2{puff} 2 Puffs every 4 (four) hours as needed for Shortness of Breath. [facility] VENTOLIN HFA 90 mcg/actuati on inhaler 01-30 00:00: 00 Yes 2{puff} 2 Puffs every 4 (four) hours as needed for Shortness of Breath. [facility] VENTOLIN HFA 90 mcg/actuati on inhaler 01-30 00:00: 00 Yes 2{puff} 2 Puffs every 4 (four) hours as needed for Shortness of Breath. [facility] VENTOLIN HFA 90 mcg/actuati on inhaler 01-30 00:00: 00 Yes 2{puff} 2 Puffs every 4 (four) hours as needed for Shortness of Breath. [facility] VENTOLIN HFA 90 mcg/actuati on inhaler 01-30 00:00: 00 Yes 2{puff} 2 Puffs every 4 (four) hours as needed for Shortness of Breath. [facility] VENTOLIN HFA 90 mcg/actuati on inhaler 01-30 00:00: 00 Yes 2{puff} 2 Puffs every 4 (four) hours as needed for Shortness of Breath. [facility] VENTOLIN HFA 90 mcg/actuati on inhaler 01-30 00:00: 00 Yes 2{puff} 2 Puffs every 4 (four) hours as needed for Shortness of Breath. [facility] VENTOLIN HFA 90 mcg/actuati on inhaler 01-30 00:00: 00 Yes 2{puff} 2 Puffs every 4 (four) hours as needed for Shortness of Breath. [facility] VENTOLIN HFA 90 mcg/actuati on inhaler 01-30 00:00: 00 Yes 2{puff} 2 Puffs every 4 (four) hours as needed for Shortness of Breath. [facility] VENTOLIN HFA 90 mcg/actuati on inhaler 01-30 00:00: 00 Yes 2{puff} 2 Puffs every 4 (four) hours as needed for Shortness of Breath. [facility] VENTOLIN HFA 90 mcg/actuati on inhaler 01-30 00:00: 00 Yes 2{puff} 2 Puffs every 4 (four) hours as needed for Shortness of Breath. [facility] VENTOLIN HFA 90 mcg/actuati on inhaler 01-30 00:00: 00 Yes 2{puff} 2 Puffs every 4 (four) hours as needed for Shortness of Breath. [facility] VENTOLIN HFA 90 mcg/actuati on inhaler 01-30 00:00: 00 Yes 2{puff} 2 Puffs every 4 (four) hours as needed for Shortness of Breath. [facility] VENTOLIN HFA 90 mcg/actuati on inhaler 01-30 00:00: 00 Yes 2{puff} 2 Puffs every 4 (four) hours as needed for Shortness of Breath. [facility] VENTOLIN HFA 90 mcg/actuati on inhaler 01-30 00:00: 00 Yes 2{puff} 2 Puffs every 4 (four) hours as needed for Shortness of Breath. [facility] VENTOLIN HFA 90 mcg/actuati on inhaler 01-30 00:00: 00 Yes 2{puff} 2 Puffs every 4 (four) hours as needed for Shortness of Breath. [facility] VENTOLIN HFA 90 mcg/actuati on inhaler 01-30 00:00: 00 Yes 2{puff} 2 Puffs every 4 (four) hours as needed for Shortness of Breath. [facility] VENTOLIN HFA 90 mcg/actuati on inhaler 01-30 00:00: 00 Yes 2{puff} 2 Puffs every 4 (four) hours as needed for Shortness of Breath. [facility] VENTOLIN HFA 90 mcg/actuati on inhaler 01-30 00:00: 00 Yes 2{puff} 2 Puffs every 4 (four) hours as needed for Shortness of Breath. [facility] VENTOLIN HFA 90 mcg/actuati on inhaler 01-30 00:00: 00 Yes 2{puff} 2 Puffs every 4 (four) hours as needed for Shortness of Breath. [facility] VENTOLIN HFA 90 mcg/actuati on inhaler 01-30 00:00: 00 Yes 2{puff} 2 Puffs every 4 (four) hours as needed for Shortness of Breath. [facility] VENTOLIN HFA 90 mcg/actuati on inhaler 01-30 00:00: 00 Yes 2{puff} 2 Puffs every 4 (four) hours as needed for Shortness of Breath. [facility] VENTOLIN HFA 90 mcg/actuati on inhaler 01-30 00:00: 00 Yes 2{puff} 2 Puffs every 4 (four) hours as needed for Shortness of Breath. [facility] VENTOLIN HFA 90 mcg/actuati on inhaler 01-30 00:00: 00 Yes 2{puff} 2 Puffs every 4 (four) hours as needed for Shortness of Breath. [facility] VENTOLIN HFA 90 mcg/actuati on inhaler 01-30 00:00: 00 Yes 2{puff} 2 Puffs every 4 (four) hours as needed for Shortness of Breath. [facility] VENTOLIN HFA 90 mcg/actuati on inhaler 01-30 00:00: 00 Yes 2{puff} 2 Puffs every 4 (four) hours as needed for Shortness of Breath. [facility] VENTOLIN HFA 90 mcg/actuati on inhaler 01-30 00:00: 00 Yes 2{puff} 2 Puffs every 4 (four) hours as needed for Shortness of Breath. [facility] VENTOLIN HFA 90 mcg/actuati on inhaler 01-30 00:00: 00 Yes 2{puff} 2 Puffs every 4 (four) hours as needed for Shortness of Breath. [facility] VENTOLIN HFA 90 mcg/actuati on inhaler 01-30 00:00: 00 Yes 2{puff} 2 Puffs every 4 (four) hours as needed for Shortness of Breath. [facility] VENTOLIN HFA 90 mcg/actuati on inhaler 01-30 00:00: 00 Yes 2{puff} 2 Puffs every 4 (four) hours as needed for Shortness of Breath. [facility] VENTOLIN HFA 90 mcg/actuati on inhaler 01-30 00:00: 00 Yes 2{puff} 2 Puffs every 4 (four) hours as needed for Shortness of Breath. [facility] VENTOLIN HFA 90 mcg/actuati on inhaler 01-30 00:00: 00 Yes 2{puff} 2 Puffs every 4 (four) hours as needed for Shortness of Breath. [facility] VENTOLIN HFA 90 mcg/actuati on inhaler 01-30 00:00: 00 Yes 2{puff} 2 Puffs every 4 (four) hours as needed for Shortness of Breath. [facility] VENTOLIN HFA 90 mcg/actuati on inhaler 01-30 00:00: 00 Yes 2{puff} 2 Puffs every 4 (four) hours as needed for Shortness of Breath. [facility] VENTOLIN HFA 90 mcg/actuati on inhaler 01-30 00:00: 00 Yes 2{puff} 2 Puffs every 4 (four) hours as needed for Shortness of Breath. [facility] VENTOLIN HFA 90 mcg/actuati on inhaler 01-30 00:00: 00 Yes 2{puff} 2 Puffs every 4 (four) hours as needed for Shortness of Breath. [facility] VENTOLIN HFA 90 mcg/actuati on inhaler 01-30 00:00: 00 Yes 2{puff} 2 Puffs every 4 (four) hours as needed for Shortness of Breath. [facility] VENTOLIN HFA 90 mcg/actuati on inhaler 01-30 00:00: 00 Yes 2{puff} 2 Puffs every 4 (four) hours as needed for Shortness of Breath. [facility] VENTOLIN HFA 90 mcg/actuati on inhaler 01-30 00:00: 00 Yes 2{puff} 2 Puffs every 4 (four) hours as needed for Shortness of Breath. [facility] VENTOLIN HFA 90 mcg/actuati on inhaler 01-30 00:00: 00 Yes 2{puff} 2 Puffs every 4 (four) hours as needed for Shortness of Breath. [facility] VENTOLIN HFA 90 mcg/actuati on inhaler 01-30 00:00: 00 Yes 2{puff} 2 Puffs every 4 (four) hours as needed for Shortness of Breath. [facility] VENTOLIN HFA 90 mcg/actuati on inhaler 01-30 00:00: 00 Yes 2{puff} 2 Puffs every 4 (four) hours as needed for Shortness of Breath. [facility] VENTOLIN HFA 90 mcg/actuati on inhaler 01-30 00:00: 00 Yes 2{puff} 2 Puffs every 4 (four) hours as needed for Shortness of Breath. [facility] VENTOLIN HFA 90 mcg/actuati on inhaler 01-30 00:00: 00 Yes 2{puff} 2 Puffs every 4 (four) hours as needed for Shortness of Breath. [facility] VENTOLIN HFA 90 mcg/actuati on inhaler 01-30 00:00: 00 Yes 2{puff} 2 Puffs every 4 (four) hours as needed for Shortness of Breath. [facility] V[facility]OLIN HFA 90 mcg/actuati on inhaler 01-30 00:00: 00 Yes 2{puff} 2 Puffs every 4 (four) hours as needed for Shortness of Breath. [facility] VENTOLIN HFA 90 mcg/actuati on inhaler 01-30 00:00: 00 Yes 2{puff} 2 Puffs every 4 (four) hours as needed for Shortness of Breath. [facility] V[facility]OLIN HFA 90 mcg/actuati on inhaler 01-30 00:00: 00 Yes 2{puff} 2 Puffs every 4 (four) hours as needed for Shortness of Breath. [facility] VENTOLIN HFA 90 mcg/actuati on inhaler 01-30 00:00: 00 Yes 2{puff} 2 Puffs every 4 (four) hours as needed for Shortness of Breath. [facility] VENTOLIN HFA 90 mcg/actuati on inhaler 01-30 00:00: 00 Yes 2{puff} 2 Puffs every 4 (four) hours as needed for Shortness of Breath. [facility] VENTOLIN HFA 90 mcg/actuati on inhaler 01-30 00:00: 00 Yes 2{puff} 2 Puffs every 4 (four) hours as needed for Shortness of Breath. [facility] VENTOLIN HFA 90 mcg/actuati on inhaler 01-30 00:00: 00 Yes 2{puff} 2 Puffs every 4 (four) hours as needed for Shortness of Breath. [facility] VENTOLIN HFA 90 mcg/actuati on inhaler 01-30 00:00: 00 Yes 2{puff} 2 Puffs every 4 (four) hours as needed for Shortness of Breath. [facility] VENTOLIN HFA 90 mcg/actuati on inhaler 01-30 00:00: 00 Yes 2{puff} 2 Puffs every 4 (four) hours as needed for Shortness of Breath. [facility] VENTOLIN HFA 90 mcg/actuati on inhaler 8-13 00:00: 00 Yes 2{puff} 2 Puffs every 4 (four) hours as needed for Shortness of Breath. [facility] SYMBICORT 160-4.5 mcg/actuati on inhaler 7-16 00:00: 00 06-22 00:00 :00 No daily. [facility] Immunizations Ordered Immunization Name Filled Immunization Name Date Status Comments Source SARS-COV-2 COVID-19 PFIZER VACCINE 2021-05-25 00:00:00 Completed [facility] SARS-COV-2 COVID-19 PFIZER VACCINE 2021-05-25 00:00:00 Completed [facility] SARS-COV-2 COVID-19 PFIZER VACCINE 2021-05-25 00:00:00 Completed [facility] SARS-COV-2 COVID-19 PFIZER VACCINE 2021-05-25 00:00:00 Completed [facility] SARS-COV-2 COVID-19 PFIZER VACCINE 2021-05-25 00:00:00 Completed [facility] SARS-COV-2 COVID-19 PFIZER VACCINE 2021-05-25 00:00:00 Completed [facility] SARS-COV-2 COVID-19 PFIZER VACCINE 2021-05-25 00:00:00 Completed [facility] SARS-COV-2 COVID-19 PFIZER VACCINE 2021-05-25 00:00:00 Completed [facility] SARS-COV-2 COVID-19 PFIZER VACCINE 2021-05-25 00:00:00 Completed [facility] SARS-COV-2 COVID-19 PFIZER VACCINE 2021-05-25 00:00:00 Completed [facility] SARS-COV-2 COVID-19 PFIZER VACCINE 2021-05-25 00:00:00 Completed [facility] SARS-COV-2 COVID-19 PFIZER VACCINE 2021-05-25 00:00:00 Completed [facility] SARS-COV-2 COVID-19 PFIZER VACCINE 2021-05-25 00:00:00 Completed [facility] SARS-COV-2 COVID-19 PFIZER VACCINE 2021-05-25 00:00:00 Completed [facility] SARS-COV-2 COVID-19 PFIZER VACCINE 2021-05-25 00:00:00 Completed [facility] SARS-COV-2 COVID-19 PFIZER VACCINE 2021-05-25 00:00:00 Completed [facility] SARS-COV-2 COVID-19 PFIZER VACCINE 2021-05-25 00:00:00 Completed [facility] SARS-COV-2 COVID-19 PFIZER VACCINE 2021-05-25 00:00:00 Completed [facility] SARS-COV-2 COVID-19 PFIZER VACCINE 2021-05-25 00:00:00 Completed [facility] SARS-COV-2 COVID-19 PFIZER VACCINE 2021-05-25 00:00:00 Completed [facility] SARS-COV-2 COVID-19 PFIZER VACCINE 2021-05-25 00:00:00 Completed [facility] SARS-COV-2 COVID-19 PFIZER VACCINE 2021-05-25 00:00:00 Completed [facility] SARS-COV-2 COVID-19 PFIZER VACCINE 2021-05-25 00:00:00 Completed [facility] SARS-COV-2 COVID-19 PFIZER VACCINE 2021-05-25 00:00:00 Completed [facility] SARS-COV-2 COVID-19 PFIZER VACCINE 2021-05-25 00:00:00 Completed [facility] SARS-COV-2 COVID-19 PFIZER VACCINE 2021-05-25 00:00:00 Completed [facility] SARS-COV-2 COVID-19 PFIZER VACCINE 2021-05-25 00:00:00 Completed [facility] SARS-COV-2 COVID-19 PFIZER VACCINE 2021-05-25 00:00:00 Completed [facility] SARS-COV-2 COVID-19 PFIZER VACCINE 2021-05-25 00:00:00 Completed [facility] SARS-COV-2 COVID-19 PFIZER VACCINE 2021-05-25 00:00:00 Completed [facility] SARS-COV-2 COVID-19 PFIZER VACCINE 2021-05-25 00:00:00 Completed [facility] SARS-COV-2 COVID-19 PFIZER VACCINE 2021-05-25 00:00:00 Completed [facility] SARS-COV-2 COVID-19 PFIZER VACCINE 2021-05-25 00:00:00 Completed [facility] SARS-COV-2 COVID-19 PFIZER VACCINE 2021-05-25 00:00:00 Completed [facility] SARS-COV-2 COVID-19 PFIZER VACCINE 2021-05-25 00:00:00 Completed [facility] SARS-COV-2 COVID-19 PFIZER VACCINE 2021-05-25 00:00:00 Completed [facility] SARS-COV-2 COVID-19 PFIZER VACCINE 2021-05-25 00:00:00 Completed [facility] SARS-COV-2 COVID-19 PFIZER VACCINE 2021-05-25 00:00:00 Completed [facility] SARS-COV-2 COVID-19 PFIZER VACCINE 2021-05-25 00:00:00 Completed [facility] SARS-COV-2 COVID-19 PFIZER VACCINE 2020-10-02 00:00:00 Completed [facility] SARS-COV-2 COVID-19 PFIZER VACCINE 2020-10-02 00:00:00 Completed [facility] SARS-COV-2 COVID-19 PFIZER VACCINE 2020-10-02 00:00:00 Completed [facility] SARS-COV-2 COVID-19 PFIZER VACCINE 2020-10-02 00:00:00 Completed [facility] SARS-COV-2 COVID-19 PFIZER VACCINE 2020-10-02 00:00:00 Completed [facility] SARS-COV-2 COVID-19 PFIZER VACCINE 2020-10-02 00:00:00 Completed [facility] SARS-COV-2 COVID-19 PFIZER VACCINE 2020-10-02 00:00:00 Completed [facility] SARS-COV-2 COVID-19 PFIZER VACCINE 2020-10-02 00:00:00 Completed [facility] SARS-COV-2 COVID-19 PFIZER VACCINE 2020-10-02 00:00:00 Completed [facility] SARS-COV-2 COVID-19 PFIZER VACCINE 2020-10-02 00:00:00 Completed [facility] SARS-COV-2 COVID-19 PFIZER VACCINE 2020-10-02 00:00:00 Completed [facility] SARS-COV-2 COVID-19 PFIZER VACCINE 2020-10-02 00:00:00 Completed [facility] SARS-COV-2 COVID-19 PFIZER VACCINE 2020-10-02 00:00:00 Completed [facility] SARS-COV-2 COVID-19 PFIZER VACCINE 2020-10-02 00:00:00 Completed [facility] SARS-COV-2 COVID-19 PFIZER VACCINE 2020-10-02 00:00:00 Completed [facility] SARS-COV-2 COVID-19 PFIZER VACCINE 2020-10-02 00:00:00 Completed [facility] SARS-COV-2 COVID-19 PFIZER VACCINE 2020-10-02 00:00:00 Completed [facility] SARS-COV-2 COVID-19 PFIZER VACCINE 2020-10-02 00:00:00 Completed [facility] SARS-COV-2 COVID-19 PFIZER VACCINE 2020-10-02 00:00:00 Completed [facility] SARS-COV-2 COVID-19 PFIZER VACCINE 2020-10-02 00:00:00 Completed [facility] SARS-COV-2 COVID-19 PFIZER VACCINE 2020-10-02 00:00:00 Completed [facility] SARS-COV-2 COVID-19 PFIZER VACCINE 2020-10-02 00:00:00 Completed [facility] SARS-COV-2 COVID-19 PFIZER VACCINE 2020-10-02 00:00:00 Completed [facility] SARS-COV-2 COVID-19 PFIZER VACCINE 2020-10-02 00:00:00 Completed [facility] SARS-COV-2 COVID-19 PFIZER VACCINE 2020-10-02 00:00:00 Completed [facility] SARS-COV-2 COVID-19 PFIZER VACCINE 2020-10-02 00:00:00 Completed [facility] SARS-COV-2 COVID-19 PFIZER VACCINE 2020-10-02 00:00:00 Completed [facility] SARS-COV-2 COVID-19 PFIZER VACCINE 2020-10-02 00:00:00 Completed [facility] SARS-COV-2 COVID-19 PFIZER VACCINE 2020-10-02 00:00:00 Completed [facility] SARS-COV-2 COVID-19 PFIZER VACCINE 2020-10-02 00:00:00 Completed [facility] SARS-COV-2 COVID-19 PFIZER VACCINE 2020-10-02 00:00:00 Completed [facility] SARS-COV-2 COVID-19 PFIZER VACCINE 2020-10-02 00:00:00 Completed [facility] SARS-COV-2 COVID-19 PFIZER VACCINE 2020-10-02 00:00:00 Completed [facility] SARS-COV-2 COVID-19 PFIZER VACCINE 2020-10-02 00:00:00 Completed [facility] SARS-COV-2 COVID-19 PFIZER VACCINE 2020-10-02 00:00:00 Completed [facility] SARS-COV-2 COVID-19 PFIZER VACCINE 2020-10-02 00:00:00 Completed [facility] SARS-COV-2 COVID-19 PFIZER VACCINE 2020-10-02 00:00:00 Completed [facility] SARS-COV-2 COVID-19 PFIZER VACCINE 2020-10-02 00:00:00 Completed [facility] SARS-COV-2 COVID-19 PFIZER VACCINE 2020-10-02 00:00:00 Completed [facility] SARS-COV-2 COVID-19 PFIZER VACCINE 2020-09-11 00:00:00 Completed [facility] SARS-COV-2 COVID-19 PFIZER VACCINE 2020-09-11 00:00:00 Completed [facility] SARS-COV-2 COVID-19 PFIZER VACCINE 2020-09-11 00:00:00 Completed [facility] SARS-COV-2 COVID-19 PFIZER VACCINE 2020-09-11 00:00:00 Completed [facility] SARS-COV-2 COVID-19 PFIZER VACCINE 2020-09-11 00:00:00 Completed [facility] SARS-COV-2 COVID-19 PFIZER VACCINE 2020-09-11 00:00:00 Completed [facility] SARS-COV-2 COVID-19 PFIZER VACCINE 2020-09-11 00:00:00 Completed [facility] SARS-COV-2 COVID-19 PFIZER VACCINE 2020-09-11 00:00:00 Completed [facility] SARS-COV-2 COVID-19 PFIZER VACCINE 2020-09-11 00:00:00 Completed [facility] SARS-COV-2 COVID-19 PFIZER VACCINE 2020-09-11 00:00:00 Completed [facility] SARS-COV-2 COVID-19 PFIZER VACCINE 2020-09-11 00:00:00 Completed [facility] SARS-COV-2 COVID-19 PFIZER VACCINE 2020-09-11 00:00:00 Completed [facility] SARS-COV-2 COVID-19 PFIZER VACCINE 2020-09-11 00:00:00 Completed [facility] SARS-COV-2 COVID-19 PFIZER VACCINE 2020-09-11 00:00:00 Completed [facility] SARS-COV-2 COVID-19 PFIZER VACCINE 2020-09-11 00:00:00 Completed [facility] SARS-COV-2 COVID-19 PFIZER VACCINE 2020-09-11 00:00:00 Completed [facility] SARS-COV-2 COVID-19 PFIZER VACCINE 2020-09-11 00:00:00 Completed [facility] SARS-COV-2 COVID-19 PFIZER VACCINE 2020-09-11 00:00:00 Completed [facility] SARS-COV-2 COVID-19 PFIZER VACCINE 2020-09-11 00:00:00 Completed [facility] SARS-COV-2 COVID-19 PFIZER VACCINE 2020-09-11 00:00:00 Completed [facility] SARS-COV-2 COVID-19 PFIZER VACCINE 2020-09-11 00:00:00 Completed [facility] SARS-COV-2 COVID-19 PFIZER VACCINE 2020-09-11 00:00:00 Completed [facility] SARS-COV-2 COVID-19 PFIZER VACCINE 2020-09-11 00:00:00 Completed [facility] SARS-COV-2 COVID-19 PFIZER VACCINE 2020-09-11 00:00:00 Completed [facility] SARS-COV-2 COVID-19 PFIZER VACCINE 2020-09-11 00:00:00 Completed [facility] SARS-COV-2 COVID-19 PFIZER VACCINE 2020-09-11 00:00:00 Completed [facility] SARS-COV-2 COVID-19 PFIZER VACCINE 2020-09-11 00:00:00 Completed [facility] SARS-COV-2 COVID-19 PFIZER VACCINE 2020-09-11 00:00:00 Completed [facility] SARS-COV-2 COVID-19 PFIZER VACCINE 2020-09-11 00:00:00 Completed [facility] SARS-COV-2 COVID-19 PFIZER VACCINE 2020-09-11 00:00:00 Completed [facility] SARS-COV-2 COVID-19 PFIZER VACCINE 2020-09-11 00:00:00 Completed [facility] SARS-COV-2 COVID-19 PFIZER VACCINE 2020-09-11 00:00:00 Completed [facility] SARS-COV-2 COVID-19 PFIZER VACCINE 2020-09-11 00:00:00 Completed [facility] SARS-COV-2 COVID-19 PFIZER VACCINE 2020-09-11 00:00:00 Completed [facility] SARS-COV-2 COVID-19 PFIZER VACCINE 2020-09-11 00:00:00 Completed [facility] SARS-COV-2 COVID-19 PFIZER VACCINE 2020-09-11 00:00:00 Completed [facility] SARS-COV-2 COVID-19 PFIZER VACCINE 2020-09-11 00:00:00 Completed [facility] SARS-COV-2 COVID-19 PFIZER VACCINE 2020-09-11 00:00:00 Completed [facility] SARS-COV-2 COVID-19 PFIZER VACCINE 2020-09-11 00:00:00 Completed [facility] SARS-COV-2 COVID-19 PFIZER VACCINE Unknown Completed [facility] SARS-COV-2 COVID-19 PFIZER VACCINE Unknown Completed [facility] SARS-COV-2 COVID-19 PFIZER VACCINE Unknown Completed [facility] SARS-COV-2 COVID-19 PFIZER VACCINE Unknown Completed [facility] SARS-COV-2 COVID-19 PFIZER VACCINE Unknown Completed [facility] SARS-COV-2 COVID-19 PFIZER VACCINE Unknown Completed [facility] SARS-COV-2 COVID-19 PFIZER VACCINE Unknown Completed [facility] SARS-COV-2 COVID-19 PFIZER VACCINE Unknown Completed [facility] SARS-COV-2 COVID-19 PFIZER VACCINE Unknown Completed [facility] SARS-COV-2 COVID-19 PFIZER VACCINE Unknown Completed [facility] SARS-COV-2 COVID-19 PFIZER VACCINE Unknown Completed [facility] SARS-COV-2 COVID-19 PFIZER VACCINE Unknown Completed [facility] SARS-COV-2 COVID-19 PFIZER VACCINE Unknown Completed [facility] SARS-COV-2 COVID-19 PFIZER VACCINE Unknown Completed [facility] SARS-COV-2 COVID-19 PFIZER VACCINE Unknown Completed [facility] SARS-COV-2 COVID-19 PFIZER VACCINE Unknown Completed [facility] SARS-COV-2 COVID-19 PFIZER VACCINE Unknown Completed [facility] SARS-COV-2 COVID-19 PFIZER VACCINE Unknown Completed [facility] SARS-COV-2 COVID-19 PFIZER VACCINE Unknown Completed [facility] SARS-COV-2 COVID-19 PFIZER VACCINE Unknown Completed [facility] SARS-COV-2 COVID-19 PFIZER VACCINE Unknown Completed [facility] SARS-COV-2 COVID-19 PFIZER VACCINE Unknown Completed [facility] SARS-COV-2 COVID-19 PFIZER VACCINE Unknown Completed [facility] SARS-COV-2 COVID-19 PFIZER VACCINE Unknown Completed [facility] SARS-COV-2 COVID-19 PFIZER VACCINE Unknown Completed [facility] SARS-COV-2 COVID-19 PFIZER VACCINE Unknown Completed [facility] SARS-COV-2 COVID-19 PFIZER VACCINE Unknown Completed [facility] SARS-COV-2 COVID-19 PFIZER VACCINE Unknown Completed [facility] SARS-COV-2 COVID-19 PFIZER VACCINE Unknown Completed [facility] SARS-COV-2 COVID-19 PFIZER VACCINE Unknown Completed [facility] SARS-COV-2 COVID-19 PFIZER VACCINE Unknown Completed [facility] SARS-COV-2 COVID-19 PFIZER VACCINE Unknown Completed [facility] SARS-COV-2 COVID-19 PFIZER VACCINE Unknown Completed [facility] SARS-COV-2 COVID-19 PFIZER VACCINE Unknown Completed [facility] SARS-COV-2 COVID-19 PFIZER VACCINE Unknown Completed [facility] SARS-COV-2 COVID-19 PFIZER VACCINE Unknown Completed [facility] SARS-COV-2 COVID-19 PFIZER VACCINE Unknown Completed [facility] SARS-COV-2 COVID-19 PFIZER VACCINE Unknown Completed [facility] SARS-COV-2 COVID-19 PFIZER VACCINE Unknown Completed [facility] SARS-COV-2 COVID-19 PFIZER VACCINE Unknown Completed [facility] SARS-COV-2 COVID-19 PFIZER VACCINE Unknown Completed [facility] SARS-COV-2 COVID-19 PFIZER VACCINE Unknown Completed [facility] SARS-COV-2 COVID-19 PFIZER VACCINE Unknown Completed [facility] SARS-COV-2 COVID-19 PFIZER VACCINE Unknown Completed [facility] SARS-COV-2 COVID-19 PFIZER VACCINE Unknown Completed [facility] SARS-COV-2 COVID-19 PFIZER VACCINE Unknown Completed [facility] SARS-COV-2 COVID-19 PFIZER VACCINE Unknown Completed [facility] SARS-COV-2 COVID-19 PFIZER VACCINE Unknown Completed [facility] SARS-COV-2 COVID-19 PFIZER VACCINE Unknown Completed [facility] SARS-COV-2 COVID-19 PFIZER VACCINE Unknown Completed [facility] SARS-COV-2 COVID-19 PFIZER VACCINE Unknown Completed [facility] SARS-COV-2 COVID-19 PFIZER VACCINE Unknown Completed [facility] SARS-COV-2 COVID-19 PFIZER VACCINE Unknown Completed [facility] SARS-COV-2 COVID-19 PFIZER VACCINE Unknown Completed [facility] SARS-COV-2 COVID-19 PFIZER VACCINE Unknown Completed [facility] SARS-COV-2 COVID-19 PFIZER VACCINE Unknown Completed [facility] SARS-COV-2 COVID-19 PFIZER VACCINE Unknown Completed [facility] SARS-COV-2 COVID-19 PFIZER VACCINE Unknown Completed [facility] SARS-COV-2 COVID-19 PFIZER VACCINE Unknown Completed [facility] SARS-COV-2 COVID-19 PFIZER VACCINE Unknown Completed [facility] SARS-COV-2 COVID-19 PFIZER VACCINE Unknown Completed [facility] SARS-COV-2 COVID-19 PFIZER VACCINE Unknown Completed [facility] SARS-COV-2 COVID-19 PFIZER VACCINE Unknown Completed [facility] SARS-COV-2 COVID-19 PFIZER VACCINE Unknown Completed [facility] SARS-COV-2 COVID-19 PFIZER VACCINE Unknown Completed [facility] SARS-COV-2 COVID-19 PFIZER VACCINE Unknown Completed [facility] Influenza Virus Vaccine,quad Im,preserve Free 65+ (FLUAD) Unknown Completed [facility] SARS-COV-2 COVID-19 PFIZER VACCINE Unknown Completed [facility] SARS-COV-2 COVID-19 PFIZER VACCINE Unknown Completed [facility] SARS-COV-2 COVID-19 PFIZER VACCINE Unknown Completed [facility] Influenza Virus Vaccine,quad Im,preserve Free 65+ (FLUAD) Unknown Completed [facility] SARS-COV-2 COVID-19 PFIZER VACCINE Unknown Completed [facility] SARS-COV-2 COVID-19 PFIZER VACCINE Unknown Completed [facility] SARS-COV-2 COVID-19 PFIZER VACCINE Unknown Completed [facility] Influenza Virus Vaccine,quad Im,preserve Free 65+ (FLUAD) Unknown Completed [facility] SARS-COV-2 COVID-19 PFIZER VACCINE Unknown Completed [facility] SARS-COV-2 COVID-19 PFIZER VACCINE Unknown Completed [facility] SARS-COV-2 COVID-19 PFIZER VACCINE Unknown Completed [facility] Influenza Virus Vaccine,quad Im,preserve Free 65+ (FLUAD) Unknown Completed [facility] SARS-COV-2 COVID-19 PFIZER VACCINE Unknown Completed [facility] SARS-COV-2 COVID-19 PFIZER VACCINE Unknown Completed [facility] SARS-COV-2 COVID-19 PFIZER VACCINE Unknown Completed [facility] Influenza Virus Vaccine,quad Im,preserve Free 65+ (FLUAD) Unknown Completed [facility] SARS-COV-2 COVID-19 PFIZER VACCINE Unknown Completed [facility] SARS-COV-2 COVID-19 PFIZER VACCINE Unknown Completed [facility] SARS-COV-2 COVID-19 PFIZER VACCINE Unknown Completed [facility] Influenza Virus Vaccine,quad Im,preserve Free 65+ (FLUAD) Unknown Completed [facility] SARS-COV-2 COVID-19 PFIZER VACCINE Unknown Completed [facility] SARS-COV-2 COVID-19 PFIZER VACCINE Unknown Completed [facility] SARS-COV-2 COVID-19 PFIZER VACCINE Unknown Completed [facility] Influenza Virus Vaccine,quad Im,preserve Free 65+ (FLUAD) Unknown Completed [facility] SARS-COV-2 COVID-19 PFIZER VACCINE Unknown Completed [facility] SARS-COV-2 COVID-19 PFIZER VACCINE Unknown Completed [facility] SARS-COV-2 COVID-19 PFIZER VACCINE Unknown Completed [facility] Influenza Virus Vaccine,quad Im,preserve Free 65+ (FLUAD) Unknown Completed [facility] SARS-COV-2 COVID-19 PFIZER VACCINE Unknown Completed [facility] SARS-COV-2 COVID-19 PFIZER VACCINE Unknown Completed [facility] SARS-COV-2 COVID-19 PFIZER VACCINE Unknown Completed [facility] Influenza Virus Vaccine,quad Im,preserve Free 65+ (FLUAD) Unknown Completed [facility] SARS-COV-2 COVID-19 PFIZER VACCINE Unknown Completed [facility] SARS-COV-2 COVID-19 PFIZER VACCINE Unknown Completed [facility] SARS-COV-2 COVID-19 PFIZER VACCINE Unknown Completed [facility] Influenza Virus Vaccine,quad Im,preserve Free 65+ (FLUAD) Unknown Completed [facility] SARS-COV-2 COVID-19 PFIZER VACCINE Unknown Completed [facility] SARS-COV-2 COVID-19 PFIZER VACCINE Unknown Completed [facility] SARS-COV-2 COVID-19 PFIZER VACCINE Unknown Completed [facility] SARS-COV-2 COVID-19 PFIZER VACCINE Unknown Completed [facility] SARS-COV-2 COVID-19 PFIZER VACCINE Unknown Completed [facility] SARS-COV-2 COVID-19 PFIZER VACCINE Unknown Completed [facility] Influenza Virus Vaccine,quad Im,preserve Free 65+ (FLUAD) Unknown Completed [facility] SARS-COV-2 COVID-19 PFIZER VACCINE Unknown Completed [facility] SARS-COV-2 COVID-19 PFIZER VACCINE Unknown Completed [facility] SARS-COV-2 COVID-19 PFIZER VACCINE Unknown Completed [facility] Influenza Virus Vaccine,quad Im,preserve Free 65+ (FLUAD) Unknown Completed [facility] SARS-COV-2 COVID-19 PFIZER VACCINE Unknown Completed [facility] SARS-COV-2 COVID-19 PFIZER VACCINE Unknown Completed [facility] SARS-COV-2 COVID-19 PFIZER VACCINE Unknown Completed [facility] Influenza Virus Vaccine,quad Im,preserve Free 65+ (FLUAD) Unknown Completed [facility] SARS-COV-2 COVID-19 PFIZER VACCINE Unknown Completed [facility] SARS-COV-2 COVID-19 PFIZER VACCINE Unknown Completed [facility] SARS-COV-2 COVID-19 PFIZER VACCINE Unknown Completed [facility] Influenza Virus Vaccine,quad Im,preserve Free 65+ (FLUAD) Unknown Completed [facility] SARS-COV-2 COVID-19 PFIZER VACCINE Unknown Completed [facility] SARS-COV-2 COVID-19 PFIZER VACCINE Unknown Completed [facility] SARS-COV-2 COVID-19 PFIZER VACCINE Unknown Completed [facility] Influenza Virus Vaccine,quad Im,preserve Free 65+ (FLUAD) Unknown Completed [facility] SARS-COV-2 COVID-19 PFIZER VACCINE Unknown Completed [facility] SARS-COV-2 COVID-19 PFIZER VACCINE Unknown Completed [facility] SARS-COV-2 COVID-19 PFIZER VACCINE Unknown Completed [facility] Influenza Virus Vaccine,quad Im,preserve Free 65+ (FLUAD) Unknown Completed [facility] SARS-COV-2 COVID-19 PFIZER VACCINE Unknown Completed [facility] SARS-COV-2 COVID-19 PFIZER VACCINE Unknown Completed [facility] SARS-COV-2 COVID-19 PFIZER VACCINE Unknown Completed [facility] Influenza Virus Vaccine,quad Im,preserve Free 65+ (FLUAD) Unknown Completed [facility] SARS-COV-2 COVID-19 PFIZER VACCINE Unknown Completed [facility] SARS-COV-2 COVID-19 PFIZER VACCINE Unknown Completed [facility] SARS-COV-2 COVID-19 PFIZER VACCINE Unknown Completed [facility] Influenza Virus Vaccine,quad Im,preserve Free 65+ (FLUAD) Unknown Completed [facility] SARS-COV-2 COVID-19 PFIZER VACCINE Unknown Completed [facility] SARS-COV-2 COVID-19 PFIZER VACCINE Unknown Completed [facility] SARS-COV-2 COVID-19 PFIZER VACCINE Unknown Completed [facility] Influenza Virus Vaccine,quad Im,preserve Free 65+ (FLUAD) Unknown Completed [facility] SARS-COV-2 COVID-19 PFIZER VACCINE Unknown Completed [facility] SARS-COV-2 COVID-19 PFIZER VACCINE Unknown Completed [facility] SARS-COV-2 COVID-19 PFIZER VACCINE Unknown Completed [facility] Influenza Virus Vaccine,quad Im,preserve Free 65+ (FLUAD) Unknown Completed [facility] SARS-COV-2 COVID-19 PFIZER VACCINE Unknown Completed [facility] SARS-COV-2 COVID-19 PFIZER VACCINE Unknown Completed [facility] SARS-COV-2 COVID-19 PFIZER VACCINE Unknown Completed [facility] Influenza Virus Vaccine,quad Im,preserve Free 65+ (FLUAD) Unknown Completed [facility] SARS-COV-2 COVID-19 PFIZER VACCINE Unknown Completed [facility] SARS-COV-2 COVID-19 PFIZER VACCINE Unknown Completed [facility] SARS-COV-2 COVID-19 PFIZER VACCINE Unknown Completed [facility] Influenza Virus Vaccine,quad Im,preserve Free 65+ (FLUAD) Unknown Completed [facility] SARS-COV-2 COVID-19 PFIZER VACCINE Unknown Completed [facility] SARS-COV-2 COVID-19 PFIZER VACCINE Unknown Completed [facility] SARS-COV-2 COVID-19 PFIZER VACCINE Unknown Completed [facility] Influenza Virus Vaccine,quad Im,preserve Free 65+ (FLUAD) Unknown Completed [facility] SARS-COV-2 COVID-19 PFIZER VACCINE Unknown Completed [facility] SARS-COV-2 COVID-19 PFIZER VACCINE Unknown Completed [facility] SARS-COV-2 COVID-19 PFIZER VACCINE Unknown Completed [facility] Influenza Virus Vaccine,quad Im,preserve Free 65+ (FLUAD) Unknown Completed [facility] SARS-COV-2 COVID-19 PFIZER VACCINE Unknown Completed [facility] SARS-COV-2 COVID-19 PFIZER VACCINE Unknown Completed [facility] SARS-COV-2 COVID-19 PFIZER VACCINE Unknown Completed [facility] Influenza Virus Vaccine,quad Im,preserve Free 65+ (FLUAD) Unknown Completed [facility] SARS-COV-2 COVID-19 PFIZER VACCINE Unknown Completed [facility] SARS-COV-2 COVID-19 PFIZER VACCINE Unknown Completed [facility] SARS-COV-2 COVID-19 PFIZER VACCINE Unknown Completed [facility] Influenza Virus Vaccine,quad Im,preserve Free 65+ (FLUAD) Unknown Completed [facility] SARS-COV-2 COVID-19 PFIZER VACCINE Unknown Completed [facility] SARS-COV-2 COVID-19 PFIZER VACCINE Unknown Completed [facility] SARS-COV-2 COVID-19 PFIZER VACCINE Unknown Completed [facility] Influenza Virus Vaccine,quad Im,preserve Free 65+ (FLUAD) Unknown Completed [facility] SARS-COV-2 COVID-19 PFIZER VACCINE Unknown Completed [facility] SARS-COV-2 COVID-19 PFIZER VACCINE Unknown Completed [facility] SARS-COV-2 COVID-19 PFIZER VACCINE Unknown Completed [facility] Influenza Virus Vaccine,quad Im,preserve Free 65+ (FLUAD) Unknown Completed [facility] SARS-COV-2 COVID-19 PFIZER VACCINE Unknown Completed [facility] SARS-COV-2 COVID-19 PFIZER VACCINE Unknown Completed [facility] SARS-COV-2 COVID-19 PFIZER VACCINE Unknown Completed [facility] Influenza Virus Vaccine,quad Im,preserve Free 65+ (FLUAD) Unknown Completed [facility] SARS-COV-2 COVID-19 PFIZER VACCINE Unknown Completed [facility] SARS-COV-2 COVID-19 PFIZER VACCINE Unknown Completed [facility] SARS-COV-2 COVID-19 PFIZER VACCINE Unknown Completed [facility] Influenza Virus Vaccine,quad Im,preserve Free 65+ (FLUAD) Unknown Completed [facility] Vital Signs Vital Name Observation Time Observation Value Comments S ource Systolic blood pressure 2023-05-30 18:56:00 138 mm[Hg] [facility] Diastolic blood pressure 2023-05-30 18:56:00 81 mm[Hg] [facility] Heart rate 2023-05-30 18:56:00 88 /[facility] 2023-05-30 18:56:00 167.6 cm [facility] Body weight 2023-05-30 18:56:00 114.715 kg [facility] BMI 2023-05-30 18:56:00 40.82 kg/m2 [facility] Oxygen saturation in Arterial blood by Pulse oximetry 2023-05-30 18:56:00 100 /min [facility] Systolic blood pressure 2023-05-23 19:20:00 125 mm[Hg] [facility] Diastolic blood pressure 2023-05-23 19:20:00 82 mm[Hg] [facility] Heart rate 2023-05-23 19:20:00 92 /min Un[facility] Body temperature 2023-05-23 19:20:00 36.61 Macarena [facility] Respiratory rate 2023-05-23 19:20:00 18 /min [facility] Body height 2023-05-23 19:20:00 165.1 cm [facility] Body weight 2023-05-23 19:20:00 113.172 kg [facility] BMI 2023-05-23 19:20:00 41.52 kg/m2 [facility] Oxygen saturation in Arterial blood by Pulse oximetry 2023-05-23 19:20:00 99 /min [facility] Systolic blood pressure 2023-04-13 20:03:00 116 mm[Hg] [facility] Diastolic blood pressure 2023-04-13 20:03:00 77 mm[Hg] [facility] Heart rate 2023-04-13 20:02:00 86 /min Unive [facility] Body temperature 2023-04-13 20:02:00 35.89 Macarena [facility] Respiratory rate 2023-04-13 20:02:00 20 /min [facility] Body height 2023-04-13 20:02:00 165.1 cm [facility] Body weight 2023-04-13 20:02:00 109.498 kg [facility] BMI 2023-04-13 20:02:00 40.17 kg/m2 [facility] Oxygen saturation in Arterial blood by Pulse oximetry 2023-04-13 20:02:00 96 /min [facility] Body height 2023-03-09 20:46:00 165.1 cm [facility] Body weight 2023-03-09 20:46:00 110.904 kg [facility] BMI 2023-03-09 20:46:00 40.69 kg/m2 [facility] Systolic blood pressure 2023-02-03 16:22:00 110 mm[Hg] [facility] Diastolic blood pressure 2023-02-03 16:22:00 70 mm[Hg] [facility] Heart rate 2023-02-03 16:22:00 89 /min [facility] Body temperature 2023-02-03 16:22:00 36.5 Macarena [facility] Respiratory rate 2023-02-03 16:22:00 16 /min [facility] Body height 2023-02-03 16:22:00 167.6 cm [facility] Body weight 2023-02-03 16:22:00 109.952 kg [facility] BMI 2023-02-03 16:22:00 39.12 kg/m2 [facility] Oxygen saturation in Arterial blood by Pulse oximetry 2023-02-03 16:22:00 96 /min ra [facility] Systolic blood pressure 2023-01-24 19:22:00 119 mm[Hg] [facility] Diastolic blood pressure 2023-01-24 19:22:00 82 mm[Hg] [facility] Heart rate 2023-01-24 19:22:00 84 /min [facility] Body temperature 2023-01-24 19:22:00 36.61 Macarena [facility] Respiratory rate 2023-01-24 19:22:00 18 /min [facility] Body height 2023-01-24 19:22:00 160 [facility] 2023-01-24 19:22:00 111.177 kg [facility] BMI 2023-01-24 19:22:00 43.42 kg/m2 [facility] Oxygen saturation in Arterial blood by Pulse oximetry 2023-01-24 19:22:00 98 /min [facility] Body height 2022-09-09 14:57:00 160 cm [facility] Body weight 2022-09-09 14:57:00 104.282 kg [facility] BMI 2022-09-09 14:57:00 40.72 kg/m2 [facility] Systolic blood pressure 2022-07-12 21:50:00 119 mm[Hg] [facility] Diastolic blood pressure 2022-07-12 21:50:00 83 mm[Hg] [facility] Heart rate 2022-07-12 21:50:00 70 /min Un[facility] Body temperature 2022-07-12 21:50:00 36.06 Macarena [facility] Respiratory rate 2022-07-12 21:50:00 18 /min [facility] Body weight 2022-07-12 21:50:00 99.701 kg [facility] BMI 2022-07-12 21:50:00 35.48 kg/m2 [facility] Oxygen saturation in Arterial blood by Pulse oximetry 2022-07-12 21:50:00 100 /min [facility] Systolic blood pressure 2022-05-28 16:16:00 105 mm[Hg] [facility] Diastolic blood pressure 2022-05-28 16:16:00 73 mm[Hg] [facility] Heart rate 2022-05-28 16:16:00 97 /min [facility] Body temperature 2022-05-28 16:16:00 36.22 Macarena [facility] Respiratory rate 2022-05-28 16:16:00 18 /min [facility] Body height 2022-05-28 16:16:00 167.6 cm [facility] Body weight 2022-05-28 16:16:00 98.567 kg [facility] BMI 2022-05-28 16:16:00 35.07 kg/m2 [facility] Oxygen saturation in Arterial blood by Pulse oximetry 2022-05-28 16:16:00 98 /min r/a [facility] Body height 2022-04-19 20:30:00 167.6 cm [facility] Body weight 2022-04-19 20:30:00 92.08 kg [facility] BMI 2022-04-19 20:30:00 32.77 kg/m2 [facility] Body height 2022-03-24 20:04:00 167.6 cm [facility] Body weight 2022-03-24 20:04:00 99.338 kg [facility] BMI 2022-03-24 20:04:00 35.35 kg/m2 [facility] Procedures Procedure Date / Time Performed Performing Clinician Source US HEAD NECK 2023-06-10 18:18:39 Meagan Almazan [facility] FLU VACC(),65+YR,0.5 ML,IM,ADJUVANTED,QUAD(FLUA D) 2023-04-13 20:06:16 Haja Benoit [facility] REFERRAL- REQUEST/RESPONSE 2023-04-08 05:01:00 D octor Unassigned, [place] [facility] TRANSTHORACIC ECHO (TTE) COMPLETE W/ CONTRAST 2023-03-17 21:14:47 Forest Fang [facility] XR SHOULDER 2+ VW BILATERAL 2023-03-09 20:53:22 Glenda Cruz [facility] REFERRAL- REQUEST/RESPONSE 2023-02-08 05:01:00 D octor Unassigned, [place] [facility] INSURANCE CORRESPONDENCE 2022-10-02 05:01:00 Doc tor Unassigned, [place] [facility] VITAMIN D, 25-OH 2022-05-28 17:19:00 Anshul Rolle [facility] OPHTHALMOLOGY DIAGNOSTIC TEST 2022-04-19 05:01:00 Doctor Unassigned, [place] [facility] OU SPECTRALIS OCT MACULA, BOTH EYES 2022-04-19 00:00:00 Rowdy Valentin [facility] OU AUTOFLUORESCENCE, BOTH EYES 2022-04-19 00:00:00 Rowdy Valentin [facility] URINALYSIS 2022-02-25 16:50:00 [facility], URINE FOR PANEL 2022-02-25 16:50:00 rTevor Diamondrique [facility] ELECTROPHORESIS, SERUM 2022-02-25 15:15:00 [facility]TIBODY 2022-02-25 15:15:00 [facility] ANTICARDIOLIPIN ANTIBODIES 2022-02-25 15:15:00 Buzz [facility] THYROID PEROXIDASE (TPO) AB 2022-02-25 15:15:00 [facility] ANTI-B2 GLYCOPROTEIN I AB 2022-02-25 15:15:00 Mn Ludy [facility] ANTI-SSA(RO) 2022-02-25 15:15:00 [facility] ANTI-DOUBLE STRANDED DNA 2022-02-25 15:15:00 [facility] MISCELLANEOUS SEND OUT TEST 2022-02-25 15:15:00 Han Young [facility] DIAGNOSTIC MANAGEMENT TEAM; SPECIAL COAGULATION EVALUATION 2022-02-25 15:15:00 Dara [facility] LUPUS ANTICOAGULANT EVALUATION 2022-02-25 15:15:00 [facility] LUPUS ANTICOAGULANT EVALUATION 2022-02-25 15:15:00 [facility] Encounters Start Date/Time End Date/Time Encounter Type Admission Type Attending Clinicians Care Facility Care Department Encounter ID Source 2021-06-16 16:21:48 Outpatient R GREG DELACRUZ [facility] [id number] [facility] 2023-07-01 13:45:00 2023-07-01 14:00:00 Ceramic Chemist Visit Pob, Adc Lab Main [place] Andrade [facility] 1.114 350.1.13.10 4.2.7.2.686 [id number] [facility] 2023-07-01 13:45:00 2023-07-01 13:45:00 Outpatient R FOREST ANDRADE [facility] [id number] [facility] 2023-06-28 00:00:00 2023-06-28 00:00:00 Telephone Forest Andrade [facility] 1..114 350.1.13.10 4.2.7.2.686 [id number] [facility] 2023-06-23 00:00:00 2023-06-23 00:00:00 Telephone [place] And[facility] 1.114 350.1.13.10 4.2.7.2.686 [id number] [facility] 2023-06-10 11:54:27 2023-06-10 23:59:00 Outpatient R MEAGAN ALMAZAN [facility] [id number] [facility] 2023-06-10 11:54:27 2023-06-10 23:59:00 Hospital Encounter Meagan Almazan [facility] 1.114 350.1.13.10 4.2.7.2.686 [id number] [facility] 2023-06-10 13:00:00 2023-06-10 13:15:00 Ceramic Chemist Visit Pob, Adc Lab Main Meagan Almazan Jose C [facility] 1.114 350.1.13.10 4.2.7.2.686 [id number] [facility] 2023-06-01 00:00:2023-06-01 00:00:00 Patient Secure Msg Doctor Unassigned, [place] [facility] 1.114 350.1.13.10 4.2.7.2.686 [id number] [facility] 2023-05-31 00:00:00 2023-05-31 00:00:00 Patient Secure Msg Meagan Almazan [facility] 1.114 350.1.13.10 4.2.7.2.686 [id number] [facility] 2023-05-30 14:15:00 2023-05-30 14:30:00 Ceramic Chemist Visit Lab, Emmett Paulino [facility] 1.114 350.1.13.10 4.2.7.2.686 [id number] [facility] 2023-05-30 14:15:00 2023-05-30 14:15:00 [facility] [id number] [facility] 2023-05-30 13:00:00 2023-05-30 13:20:43 Office Visit [facility] 1.114 350.1.13.10 4.2.7.2.686 [id number] [facility] 2023-05-23 13:30:00 2023-05-23 14:00:00 Office Visit Forest Andrade [facility] 1.114 350.1.13.10 4.2.7.2.686 [id number] [facility] 2023-05-23 13:30:00 2023-05-23 13:30:00 Outpatient R FOREST ANDRADE [facility] [id number] [facility] 2023-05-16 00:00:00 2023-05-16 00:00:00 Outpatient R [facility] [id number] [facility] 2023-05-10 00:00:00 2023-05-10 00:00:00 Telephone Jeannie ChappellForest [facility] 1.2.840.114 350.1.13.10 4.2.7.2.686 [id number] [facility] 2023-05-06 13:30:00 2023-05-06 13:56:48 Outpatient R JEANNIE MIHIR, JOSE [facility] [id number] [facility] 2023-05-06 13:30:00 2023-05-06 13:45:00 Ceramic Chemist Visit 2, Adc Lab Jeannie Chappell [place] [facility] 1..840.114 350.1.13.10 4.2.7.2.686 [id number] [facility] 2023-04-29 00:00:00 2023-04-29 00:00:00 Telephone Jeannie Chappell [place] [facility] 1..840.114 350.1.13.10 4.2.7.2.686 [id number] [facility] 2023-04-28 00:00:00 2023-04-28 00:00:00 Telephone Haja Benoit [facility] 1..840.114 350.1.13.10 4.2.7.2.686 [id number] [facility] 2023-04-22 13:45:00 2023-04-22 14:00:00 Ceramic Chemist Visit 2, Adc Lab Haja Benoit [facility] 1.2.840.114 350.1.13.10 4.2.7.2.686 [id number] [facility] 2023-04-22 13:45:00 2023-04-22 13:52:53 Outpatient HAJA CARLIN [facility] [id number] [facility] 2023-04-15 00:00:00 2023-04-15 00:00:00 Telephone [place] Andrade [facility] 1.2.840.114 350.1.13.10 4.2.7.2.686 [id number] [facility] 2023-04-15 00:00:00 2023-04-15 00:00:00 Telephone Haja Benoit [facility] 1.2.840.114 350.1.13.10 4.2.7.2.686 [id number] [facility] 2023-04-13 15:45:00 2023-04-13 16:00:00 Ceramic Chemist Visit 2, Adc Lab Haja Benoit [facility] 1.2.840.114 350.1.13.10 4.2.7.2.686 [id number] [facility] 2023-04-13 15:00:00 2023-04-13 15:45:58 Outpatient R HAJA BENOIT [facility] [id number] [facility] 2023-04-13 15:00:00 2023-04-13 15:45:58 Office Visit Haja Benoit [facility] 1.2.840.114 350.1.13.10 4.2.7.2.686 [id number] [facility] 2023-04-08 00:00:00 2023-04-08 00:00:00 Telephone Anshul Rolle [facility] 1.2.840.114 350.1.13.10 4.2.7.2.686 [id number] [facility] 2023-04-08 00:00:00 2023-04-08 00:00:00 Orders Only Doctor Unassigned, [place] [facility] 1.2.840.114 350.1.13.10 4.2.7.2.686 [id number] [facility] 2023-04-06 00:00:00 2023-04-06 00:00:00 Patient Secure Msg Doctor Unassigned, [place] [facility] 1.2.840.114 350.1.13.10 4.2.7.2.686 [id number] [facility] 2023-04-03 00:00:00 2023-04-03 00:00:00 Han Joel [facility] 1.840.114 350.1.13.10 4.2.7.2.686 [id number] [facility] 2023-03-31 00:00:00 2023-03-31 00:00:00 Outpatient R [facility] [id number] [facility] 2023-03-18 00:00:00 2023-03-18 00:00:00 Patient Secure Msg [place] Andrade [facility] 1..114 350.1.13.10 4.2.7.2.686 [id number] [facility] 2023-03-17 15:34:23 2023-03-17 23:59:00 Outpatient R FOREST ANDRADE [facility] [id number] [facility] 2023-03-17 15:34:23 2023-03-17 23:59:00 Hospital Encounter [facility] 1.2.840.114 350.1.13.10 4.2.7.2.686 [id number] [facility] 2023-03-09 15:47:23 2023-03-09 23:59:00 Outpatient R ANTHONY [facility] [id number] [facility] 2023-03-09 15:47:23 2023-03-09 23:59:00 Hospital Encounter [facility] 1.2.840.114 350.1.13.10 4.2.7.2.686 [id number] [facility] 2023-03-09 16:00:00 2023-03-09 16:27:50 Office Visit [facility] 1.2.840.114 350.1.13.10 4.2.7.2.686 [id number] [facility] 2023-03-04 00:00:00 2023-03-04 00:00:00 Refill Andree Chew [facility] [facility] 1.2.840.114 350.1.13.10 4.2.7.2.686 [id number] [facility] 2023-03-03 00:00:00 2023-03-03 00:00:00 Telephone Haja Benoit [facility] NAL BUILDING 1.2.840.114 350.1.13.10 4.2.7.2.686 [id number] [facility] 2023-02-15 16:00:00 2023-02-15 16:00:00 Outpatient R FOREST ANDRADE [facility] [id number] [facility] 2023-02-09 13:00:00 2023-02-09 13:00:00 Outpatient R FOREST ANDRADE [facility] [id number] [facility] 2023-02-08 00:00:00 2023-02-08 00:00:00 Orders Only Doctor Unassigned, Sciota [facility] 1.2.840.114 350.1.13.10 4.2.7.2.686 [id number] [facility] 2023-02-04 00:00:00 2023-02-04 00:00:00 Patient Secure Msg Anshul Rolle [facility] PR[facility] CARE PAVILLION 1.2840.114 350.1.13.10 4.2.7.2.686 [id number] [id number] [facility] 2023-02-03 12:00:00 2023-02-03 12:15:00 Ceramic Chemist Visit Pcp-Han Robledo [facility] CARE PAVILLION 1.2840.114 350.1.13.10 4.2.7.2.686 [id number] [facility] 2023-02-03 11:30:00 2023-02-03 11:38:21 Outpatient R HAN YOUNG [facility] [id number] [facility] 2023-02-03 11:30:00 2023-02-03 11:38:21 Office Visit Anshul Rolle Emilio [facility] PRIMARY CARE PAVILLION 1.2840.114 350.1.13.10 4.2.7.2.686 [id number] [id number] [facility] 2023-01-25 00:00:00 2023-01-25 00:00:00 Telephone Forest Andrade [facility] MEDICAL OFFICE BUILDING 1.2840.114 350.1.13.10 4.2.7.2.686 [id number] [facility] 2023-01-24 14:30:00 2023-01-24 16:39:04 Outpatient R FOREST ANDRADE [facility] [id number] [facility] 2023-01-24 14:30:00 2023-01-24 15:00:00 Office Visit Forest Andrade [facility] 1.0.114 350.1.13.10 4.2.7.2.686 [id number] [facility] 2022-12-19 00:00:00 2022-12-19 00:00:00 Refill Haja Benoit [facility] PROFESSIO [facility] 1..114 350.1.13.10 4.2.7.2.686 [id number] 059 [id number] [facility] 2022-11-17 00:00:00 2022-11-17 00:00:00 Refill Gretchen neivlle [facility] PRIMARY CARE PAVILLION 1..114 350.1.13.10 4.2.7.2.686 [id number] 086 [id number] [facility] 2022-11-08 00:00:00 2022-11-08 00:00:00 Telephone Gretchen neville [facility] PRIMARY CARE PAVILLION 1..114 350.1.13.10 4.2.7.2.686 [id number] [id number] [facility] 2022-10-29 10:30:00 2022-10-29 10:30:00 Outpatient R [facility] [id number] [facility] 2022-10-20 00:00:00 2022-10-20 00:00:00 Patient Secure Msg Doctor Unassigned, Sciota [facility] 1..114 350.1.13.10 4.2.7.2.686 [id number] [facility] 2022-10-07 00:00:00 2022-10-07 00:00:00 Amanda Gaut[facility] 1.840.114 350.1.13.10 4.2.7.2.686 [id number] [facility] 2022-10-02 00:00:00 2022-10-02 00:00:00 Orders Only Doctor Unassigned, Sciota [facility] 1.840.114 350.1.13.10 4.2.7.2.686 [id number] [facility] 2022-09-30 10:30:00 2022-09-30 10:30:00 Outpatient HAJA CALRIN [facility] [id number] [facility] 2022-09-09 10:00:00 2022-09-09 12:32:47 Outpatient R GLENDA CRUZ [facility] [id number] [facility] 2022-09-09 10:00:00 2022-09-09 12:32:47 Office Visit Glenda Cruz [facility] 1..840.114 350.1.13.10 4.2.7.2.686 [id number] [facility] 2022-07-20 14:00:00 2022-07-20 14:00:00 Outpatient HAJA CARLIN [facility] [id number] [facility] 2022-07-14 00:00:00 2022-07-14 00:00:00 Patient Secure Msg Doctor Unassigned, Sciota [facility] 1.840.114 350.1.13.10 4.2.7.2.686 [id number] [facility] 2022-07-12 16:00:00 2022-07-12 16:23:21 Outpatient FOREST JENKINS [facility] [id number] [facility] 2022-07-12 16:00:00 2022-07-12 16:23:21 Office Visit Forest Andrade [facility] 1.2.840.114 350.1.13.10 4.2.7.2.686 [id number] [facility] 2022-06-07 00:00:00 2022-06-07 00:00:00 Patient Secure Msg Beal-Orti Trevor nevilleAnshul [facility] PR[facility] CARE PAVILLION 1.2.840.114 350.1.13.10 4.2.7.2.686 [id number] [id number] [facility] 2022-06-07 00:00:00 2022-06-07 00:00:00 Patient Secure Msg Beal-Orti Trevor nevilleAnhsul [facility] PR[facility] CARE PAVILLION 1.2.840.114 350.1.13.10 4.2.7.2.686 [id number] 086 [id number] [facility] 2022-06-03 00:00:00 2022-06-03 00:00:00 Patient Secure Msg Beal-Orti Trevor nevilleAnshul [facility] PR[facility] CARE PAVILLION 1.2.840.114 350.1.13.10 4.2.7.2.686 [id number] [id number] [facility] 2022-05-28 13:00:00 2022-05-28 13:15:00 Ceramic Chemist Visit Pcp-Han Robledo [facility] PR[facility] CARE PAVILLION 1.2.840.114 350.1.13.10 4.2.7.2.686 [id number] [facility] 2022-05-28 10:00:00 2022-05-28 10:59:48 Outpatient R HAN YOUNG [facility] [id number] [facility] 2022-05-28 10:00:00 2022-05-28 10:59:48 Office Visit Anshul Rolle Emilio B [facility] PR[facility] CARE PAVILLION 1.2.840.114 350.1.13.10 4.2.7.2.686 [id number] [id number] [facility] 2022-05-17 14:00:00 2022-05-17 14:00:00 Outpatient R HAJA BENOIT [facility] [id number] [facility] 2022-04-19 14:30:00 2022-04-19 17:05:59 Outpatient R ROWDY VALENTIN [facility] [id number] [facility] 2022-04-19 14:30:00 2022-04-19 17:05:59 Office Visit Rowdy Valentin [facility]PEC [facility] 1.2840.114 350.1.13.10 4.2.7.2.686 [id number] [facility] 2022-04-19 00:00:00 2022-04-19 00:00:00 Orders Only Doctor Unassigned, Sciota [facility] 1.2.840.114 350.1.13.10 4.2.7.2.686 [id number] [facility] 2022-04-14 00:00:00 2022-04-14 00:00:00 Patient Secure Msg Doctor Unassigned, Sciota [facility] 1.2.840.114 350.1.13.10 4.2.7.2.686 [id number] [id number] [facility] 2022-04-07 00:00:00 2022-04-07 00:00:00 Patient Secure Msg Doctor Unassigned, Sciota [facility] 1.2.840.114 350.1.13.10 4.2.7.2.686 [id number] [id number] [facility] 2022-03-29 00:00:00 2022-03-29 00:00:00 Telephone BealEvert neville [facility] CARE PAVILL[facility] 1.840.114 350.1.13.10 4.2.7.2.686 [id number] [id number] [facility] 2022-03-24 15:30:00 2022-03-24 16:00:00 Office Visit Glenda Cruz [facility] 1.840.114 350.1.13.10 4.2.7.2.686 [id number] [facility] 2022-03-24 15:30:00 2022-03-24 15:30:00 Outpatient Dejon CRUZ [facility] [id number] [facility] 2022-03-15 15:00:00 2022-03-15 15:00:00 Outpatient GLENDA CLOIN [facility] [id number] [facility] 2022-03-11 00:00:00 2022-03-11 00:00:00 Refill Forest Andrade [facility] 1.840.114 350.1.13.10 4.2.7.2.686 [id number] [facility] 2022-03-05 00:00:00 2022-03-05 00:00:00 Outpatient HAN ROY [facility] [id number] [facility] 2022-03-03 00:00:00 2022-03-03 00:00:00 Telephone BealEvert neville [facility] PRIMARY CARE PAVILLION 1.840.114 350.1.13.10 4.2.7.2.686 [id number] [id number] [facility] 2022-03-01 15:30:00 2022-03-01 15:30:00 Outpatient FOREST JENKINS [facility] [id number] [facility] 2022-02-28 00:00:00 2022-02-28 00:00:00 Patient Secure Msg Anshul Rolle [facility] PRIMARY CARE PAVILLION 1.2.840.114 350.1.13.10 4.2.7.2.686 [id number] [id number] [facility] 2022-02-27 00:00:00 2022-02-27 00:00:00 Patient Secure Msg Doctor Unassigned, Sciota [facility] 1.2.840.114 350.1.13.10 4.2.7.2.686 [id number] [id number] [facility] 2022-02-26 00:00:00 2022-02-26 00:00:00 Telephone Anshul Rolle [facility] PRIMARY CARE PAVILLION 1.2.840.114 350.1.13.10 4.2.7.2.686 [id number] 086 [id number] [facility] 2022-02-25 10:23:26 2022-02-25 23:59:00 Outpatient R HAN YOUNG [facility] [id number] [facility] 2022-02-25 10:23:26 2022-02-25 23:59:00 Hospital Encounter Han Young [facility] PRIMARY CARE PAVILLION 1.2.840.114 350.1.13.10 4.2.7.2.686 [id number] [facility] 2022-02-25 11:15:00 2022-02-25 11:30:00 Ceramic Chemist Visit Pcp-Lab Han Young [facility] PRIMARY CARE PAVILLION 1.2.840.114 350.1.13.10 4.2.7.2.686 [id number] [facility] 2022-02-25 11:15:00 2022-02-25 11:30:00 Ceramic Chemist Visit Pcp-Lab Hna Young [facility] PRIMARY CARE PAVILLION 1.2.840.114 350.1.13.10 4.2.7.2.686 [id number] [facility] 2022-02-25 11:15:00 2022-02-25 11:30:00 Ceramic Chemist Visit Pcp-Han Robledo [facility] PRIMARY CARE PAVILLION 1.2.840.114 350.1.13.10 4.2.7.2.686 [id number] [facility] 2022-02-25 11:15:00 2022-02-25 11:15:00 Outpatient R HAN YOUNG [facility] [id number] [facility] 2022-02-25 10:23:26 2022-02-25 10:23:26 Outpatient R HAN YOUNG [facility] [id number] [facility] 2022-02-25 09:00:00 2022-02-25 09:58:06 Office Visit Anshul Rolle Emilio B [facility] PRIMARY CARE PAVILLION 1.2840.114 350.1.13.10 4.2.7.2.686 [id number] [id number] [facility] 2022-02-25 09:00:00 2022-02-25 09:58:06 Outpatient R HAN YOUNG [facility] [id number] [facility] 2022-02-25 09:00:00 2022-02-25 09:58:06 Office Visit Anshul Rolle Emilio B [facility] PRIMARY CARE PAVILLION 1.2840.114 350.1.13.10 4.2.7.2.686 [id number] [id number] [facility] 2022-02-25 00:00:00 2022-02-25 00:00:00 Telephone Haja Benoit [facility] 1.2840.114 350.1.13.10 4.2.7.2.686 [id number] [facility] 2022-02-23 00:00:00 2022-02-23 00:00:00 Refill De La Paz Amanda [facility] 1.2.840.114 350.1.13.10 4.2.7.2.686 [id number] [facility] 2022-02-15 14:33:22 2022-02-15 23:59:00 Outpatient R HAJA BENOIT [facility] [id number] [facility] 2021-12-23 00:00:00 2021-12-23 00:00:00 Telephone Amanda De La Paz [facility] 1..840.114 350.1.13.10 4.2.7.2.686 [id number] [facility] 2021-12-22 15:45:00 2021-12-22 16:00:00 Ceramic Chemist Visit 2, Adc Lab Forest Andrade [facility] BUILDING 1..840.114 350.1.13.10 4.2.7.2.686 [id number] [facility] 2021-12-22 15:00:00 2021-12-22 15:40:33 Outpatient R HAJA BENOIT [facility] [id number] [facility] 2021-12-22 15:00:00 2021-12-22 15:40:33 Office Visit Haja Benoit [facility] BUILDING 1..840.114 350.1.13.10 4.2.7.2.686 [id number] [facility] 2021-12-22 15:00:00 2021-12-22 15:00:00 Outpatient R HAJA BENOIT [facility] [id number] [facility] 2021-12-22 15:00:00 2021-12-22 15:00:00 Outpatient R HAJA BENOIT [facility] [id number] [facility] 2021-12-18 00:00:00 2021-12-18 00:00:00 Telephone Amanda De La Paz [facility] MEDICAL OFFICE BUILDING 1.2.840.114 350.1.13.10 4.2.7.2.686 [id number] [facility] 2021-12-17 16:45:00 2021-12-17 17:00:00 Ceramic Chemist Visit Pob, Adc Lab Main Forest Andrade [facility] BUILDING 1..840.114 350.1.13.10 4.2.7.2.686 [id number] [facility] 2021-12-17 16:45:00 2021-12-17 16:45:00 Outpatient R FOREST ANDRADE [facility] [id number] [facility] 2021-12-10 00:00:00 2021-12-10 00:00:00 Telephone Amanda De La Paz [facility] 1..840.114 350.1.13.10 4.2.7.2.686 [id number] [facility] 2021-12-09 16:00:00 2021-12-09 16:15:00 Ceramic Chemist Visit Pob, Adc Lab Main Amanda De La Paz [facility] 1.2.840.114 350.1.13.10 4.2.7.2.686 [id number] [facility] 2021-12-09 16:00:00 2021-12-09 16:00:00 Outpatient R DE LA PAZAMANDA [facility] [id number] [facility] 2021-12-04 00:00:00 2021-12-04 00:00:00 Case Management Anderson Cruz [facility] 1.114 350.1.13.10 4.2.7.2.686 [id number] [facility] 2021-12-02 00:00:00 2021-12-02 00:00:00 Patient Secure Msg Doctor Unassigned, Sciota [facility] 1..114 350.1.13.10 4.2.7.2.686 [id number] [facility] 2021-12-01 00:00:00 2021-12-01 00:00:00 Patient Secure Msg Doctor Unassigned, Sciota [facility] 1.114 350.1.13.10 4.2.7.2.686 [id number] [facility] 2021-11-30 16:30:00 2021-11-30 23:59:00 Outpatient FOREST JENKINS [facility] [id number] [facility] 2021-11-30 16:30:00 2021-11-30 23:59:00 Outpatient FOREST JENKINS [facility] [id number] [facility] 2021-11-20 14:30:00 2021-11-20 14:45:00 Ceramic Chemist Visit Pob, Adc Lab Main Rachael Bedoya [facility] 1.114 350.1.13.10 4.2.7.2.686 [id number] [facility] 2021-11-20 14:30:00 2021-11-20 14:30:00 Outpatient RACHAEL SCHREIBER [facility] [id number] [facility] 2021-11-20 00:00:00 2021-11-20 00:00:00 Orders Only Doctor Unassigned, Sciota [facility] 1.114 350.1.13.10 4.2.7.2.686 [id number] [facility] 2021-11-13 00:00:00 2021-11-13 00:00:00 Telephone Amanda De La Paz [facility] 1.20.114 350.1.13.10 4.2.7.2.686 [id number] [facility] 2021-11-13 00:00:00 2021-11-13 00:00:00 Telephone De La PazAmanda [facility] 1.20.114 350.1.13.10 4.2.7.2.686 [id number] [facility] 2021-11-13 00:00:00 2021-11-13 00:00:[address] [facility] 1.20.114 350.1.13.10 4.2.7.2.686 [id number] [facility] 2021-11-12 17:00:00 2021-11-12 17:15:00 Ceramic Chemist Visit Pob, Adc Lab Main Amanda De La Paz [facility] 1.284.114 350.1.13.10 4.2.7.2.686 [id number] [facility] 2021-11-12 17:00:00 2021-11-12 17:00:00 Outpatient R AMANDA DE LA PAZ [facility] [id number] [facility] 2021-11-06 15:40:00 2021-11-06 16:03:18 Office Visit [facility] 1.2.114 350.1.13.10 4.2.7.2.686 [id number] [facility] 2021-11-06 15:40:00 2021-11-06 16:03:18 Outpatient R AMANDA DE LA PAZ [facility] [id number] [facility] 2021-11-06 15:40:00 2021-11-06 16:03:18 Outpatient R AMANDA DE LA PAZ [facility] [id number] [facility] 2021-11-06 15:40:00 2021-11-06 15:40:00 Outpatient R AMANDA DE LA PAZ [facility] [id number] [facility] 2021-11-05 15:00:00 2021-11-05 15:53:06 Outpatient R BENOIT, HAJA [facility] [id number] [facility] 2021-11-05 15:00:00 2021-11-05 15:53:06 Office Visit Haja Benoit MaciejDaisyDaisy [facility] 1.2840.114 350.1.13.10 4.2.7.2.686 [id number] [facility] 2021-11-05 15:30:00 2021-11-05 15:45:00 Ceramic Chemist Visit 2, Adc Lab Luis Tereelizabeth MaciejDaisyDaisy [facility] 1.2840.114 350.1.13.10 4.2.7.2.686 [id number] [facility] 2021-11-05 15:30:00 2021-11-05 15:30:00 Outpatient R HAJA BENOIT [facility] [id number] [facility] 2021-11-02 00:00:00 2021-11-02 00:00:00 Transition of Care Anju Johnson 1.2840.114 350.1.13.10 4.2.7.2.686 [id number] [facility] 2021-11-02 00:00:00 2021-11-02 00:00:00 Nurse Triage Alyx Chung [facility] 1.2840.114 350.1.13.10 4.2.7.2.686 [id number] [facility] 2021-11-02 00:00:00 2021-11-02 00:00:00 Telephone Haja Benoit [facility] 1.2.840.114 350.1.13.10 4.2.7.2.686 [id number] [facility] 2021-10-26 10:01:00 2021-10-31 17:51:00 [facility] [id number] [facility] 2021-10-26 10:01:00 2021-10-31 17:51:00 Hospital Encounter Maciej Paiz, Jesus Walker, Cesar [facility] 1.2.840.114 350.1.13.10 4.2.7.2.686 [id number] [facility] 2021-10-30 10:00:00 2021-10-30 13:00:00 Surgery Yo Mejia [facility] 1.2.840.114 350.1.13.10 4.2.7.2.686 [id number] [facility] 2021-09-07 14:00:00 2021-09-07 14:00:00 Outpatient R HAJA BENOIT [facility] [id number] [facility] 2021-09-03 00:00:00 2021-09-03 00:00:00 Refill Haja Benoit [facility] 1.2.840.114 350.1.13.10 4.2.7.2.686 [id number] [facility] 2021-06-24 06:58:00 2021-06-24 09:10:00 Outpatient GREG BUSTOS [facility] [id number] [facility] 2021-06-24 06:58:00 2021-06-24 09:10:00 Hospital Encounter Greg Delacruz [facility] [place] 1.2.840.114 350.1.13.10 4.2.7.2.686 [id number] [facility] 2021-06-24 08:05:00 2021-06-24 08:44:00 Surgery Greg Delacruz [facility] 1.2.840.114 350.1.13.10 4.2.7.2.686 [id number] [facility] 2021-06-23 10:00:00 2021-06-23 10:00:00 Outpatient R GEOR[facility]KYLE [facility]AN [id number] 2021-06-23 10:00:00 2021-06-23 10:00:00 Outpatient R NIKITA [facility]ar[address] [facility] [id number] [facility] 2021-06-23 10:00:00 2021-06-23 10:00:00 Laboratory Only Only, Adc Pob2 Test Greg Delacruz [facility] PROF[facility] 1.2840.114 350.1.13.10 4.2.7.2.686 [id number] [facility] 2021-06-23 00:00:00 2021-06-23 00:00:00 Orders Only Doctor Unassigned, Sciota [facility] 1.2840.114 350.1.13.10 4.2.7.2.686 [id number] [facility] 2021-06-23 00:00:00 2021-06-23 00:00:00 Letter (Out) Alyx Chung [facility] 1.2840.114 350.1.13.10 4.2.7.2.686 [id number] [facility] 2021-06-22 13:00:00 2021-06-22 13:27:05 Outpatient R HAJA BENOIT [facility] [id number] [facility] 2021-06-22 13:00:00 2021-06-22 13:27:05 Office Visit Haja Benoit [facility] 1..840.114 350.1.13.10 4.2.7.2.686 [id number] [facility] 2021-06-15 00:00:00 2021-06-15 00:00:00 Orders Only Doctor Unassigned, Sciota [facility] 1..840.114 350.1.13.10 4.2.7.2.686 [id number] [facility] 2021-06-04 00:00:00 2021-06-04 00:00:00 Patient Secure Msg Doctor Unassigned, Sciota [facility] 1.840.114 350.1.13.10 4.2.7.2.686 [id number] [facility] 2021-05-28 13:30:00 2021-05-28 13:30:00 Outpatient R [facility]TYE [facility] [id number] [facility] 2021-05-28 13:30:00 2021-05-28 13:30:00 Outpatient R BETTYE [facility] [id number] [facility] 2021-05-26 00:00:00 2021-05-26 00:00:00 Telephone Haja Benoit [facility] 1..840.114 350.1.13.10 4.2.7.2.686 [id number] [facility] 2021-05-25 10:00:00 2021-05-25 10:00:00 Outpatient Dejon CASTROMADONNAS [facility] [id number] [facility] 2021-05-25 09:59:38 2021-05-25 09:59:47 Imm/Inj Visit Nurse, Leidy Cruz [facility] 1.2840.114 350.1.13.10 4.2.7.2.686 [id number] [facility] 2021-05-25 00:00:00 2021-05-25 00:00:00 Patient Secure Msg Doctor Unassigned, [place] [facility] 1.2.114 350.1.13.10 4.2.7.2.686 [id number] [facility] 2021-05-20 11:30:00 2021-05-20 11:54:58 Outpatient R HAJA BENOIT [facility] [id number] [facility] 2021-05-20 11:14:08 2021-05-20 11:29:08 Ceramic Chemist Visit 2, [facility] 1.2.114 350.1.13.10 4.2.7.2.686 [id number] [facility] 2021-05-05 00:00:00 2021-05-05 00:00:00 Telephone Haja Benoit [facility] 1.2.114 350.1.13.10 4.2.7.2.686 [id number] [facility] 2021-05-04 14:38:12 2021-05-04 14:53:12 Ceramic Chemist Visit 2, [facility] Haja BenoitHDaisy [facility] 1.2840.114 350.1.13.10 4.2.7.2.686 [id number] [facility] 2021-05-04 14:00:00 2021-05-04 14:25:55 Outpatient R HAJA BENOIT [facility] [id number] [facility] 2021-05-04 14:00:00 2021-05-04 14:25:55 Outpatient R HAJA BENOIT [facility] [id number] [facility] 2021-05-04 13:46:57 2021-05-04 14:25:55 Office Visit Haja Benoit [facility] PROFESSIO [facility] 1.2840.114 350.1.13.10 4.2.7.2.686 [id number] [facility] 2021-05-04 00:00:00 2021-05-04 00:00:00 Orders Only Doctor Unassigned, [place] [facility] 1.2.840.114 350.1.13.10 4.2.7.2.686 [id number] [facility] 2021-04-13 00:00:00 2021-04-13 00:00:00 Transition of Care Marianna Ramírez 1.2.840.114 350.1.13.10 4.2.7.2.686 [id number] [facility] 2021-04-07 19:44:00 2021 14:45:00 Hospital Encounter Brooklynn Li [facility] 1.2.840.114 350.1.13.10 4.2.7.2.686 [id number] [facility] 2021-04-09 12:19:00 2021-04-09 12:37:00 Anesthesia Event Jonathan Colby Jeffrey S [facility] 1.2840.114 350.1.13.10 4.2.7.2.686 [id number] 020 [id number] [facility] 2021-04-09 12:00:00 2021-04-09 12:35:00 Surgery Greg Delacruz [facility] 1.2.840.114 350.1.13.10 4.2.7.2.686 [id number] 020 [id number] [facility] 2021-04-07 19:19:00 2021-04-07 19:19:00 Emergency X [facility] ERT [id number] [facility] Results Test Description Test Time Test Comments Results Resul t Comments Source US HEAD NECK 2023-05-21 21:43:46 ORDERING PHYSICIAN: MEAGAN ALMAZAN HISTORY: evaluate for thyroid nodule TECHNIQUE: Thyroid ultrasound, including Doppler ultrasound. COMPARISON: None. FINDINGS:Right thyroid lobe measures 5.1 x 2.0 x 1.8 cm. 8 mm solid hypoechoictaller than wide nodule. Left thyroid lobe measures 4.8 x 1.6 x 1.6 cm. 1.2 cm solid hypoechoicnodule. 1.1 cm solid hypoechoic nodule. Isthmus measures [address] [facility], 21-JS0614-68-10 00:47:45* Test Item Value Reference Range Interpretation Comme [facility] VIT D 25OH (test code = 71542-6) 22 ng/mL 25-80 L MARGARITA (test code = MARGARITA) Deficiency: <20 ng/mLInsufficiency: 20-24 ng/mLOptimal: 25-80 ng/mL Lab Interpretation (test code = 09400-3) [facility]normal [facility]; SPECIAL COAGULATION NBCLVBANZH0738-29-08 13:02:17* Test Item Value Reference Range Interpretation Comme [facility] Related Clinical History (test code = 0834670930) Ayaka Madera is a 66-year-old female with past medical history of asthma, peptic ulcer disease, pulmonary embolism, heart failure, and diverticulosis, who had chief complains of rash on face and complains of fingertip turning white and numb intermittently. Patient also reported arthralgias affecting hands, shoulder, and knees. ?ADELA ?and anti-DSDNA was positive so patient was referred to rheumatology for further workup. Medications: Plaquenil 400mg QD, apixaban 5 mg BID Family History: No family history of coagulation disorder? Pertinent Lab Results (test code = 5408441550) ? Ref. Range? 03/11 ? PT? 12-15.5 Sec.? ?15.1 Lupus Anticoagulant Screen (DRVVT)? Negative ? ? ? Negative ? Lupus Anticoagulant Screen (PTT-LA)? Negative ? ? ? Negative ? Antiphospholipid Antibodies:? Anti-Beta 2 Glycoprotein 1? IgG? 0.0-20.0 SGU? 2.2? IgM? 0.0-20.0 SMU? 3.4? IgA? 0.0-20.0 NAIMA? 4.7? ? Anticardiolipin? IgG? <10.0 GPL? 26.8? IgM? <10.0 MPL? 3.5? IgA? <15.0 APL? 3.0? Coag DMT interpretation (test code = 6226500923) This patient has a positive test in the antiphospholipid antibody panel.? To qualify for antiphospholipid syndrome, a patient must have a positive test in the antiphospholipid antibody panel at least twice and at least 12 weeks apart.? Therefore, to meet the laboratory criteria for antiphospholipid syndrome, a repeat study must be performed 12 weeks or more from the time of the first study.? Importantly, antiphospholipid syndrome also requires that the patient meet a clinical criterion, which includes thrombosis for men and women, or complications in women. Recommendations (test code = 5566829381) A repeat study must be performed 12 weeks or more from the time of the first study.? [facility] Send[facility]- LUPUS ANTICOAGULANT REFLEXIVE PAN[facility] [id number] 14:21:37* Test Item Value Reference Range Interpretation Comme nts Miscellaneous Test (test code = 8319149725) See scanned report Performing Lab (test code = 8778504914) [facility] [id number] 20:42:28* Test Item Value Reference Range Interpretation Comme nts T PROTEIN (test code = 8129162808) 7.0 g/dL 6.3-8.2 ALBUMIN (test code = 5450431951) 3.7 g/dL 3-4.8 ALPHA 1 (test code = 8659011321) 0.3 g/dL 0.2-0.4 ALPHA 2 (test code = 0785564506) 0.8 g/dL 0.6-1.2 BETA (test code = 1874029668) 1.1 g/dL 0.7-1.4 GAMMA (test code = 1634072931) 1.1 g/dL 1-1.8 Electrophoresis Interpretation (test code = 9876979623) Serum and urine protein electrophoresis interpretation:Normal serum and urine protein profiles.No M spike present. [facility] SystemELECTROPHORESIS, AAKST9119-06-91 20:42:28* Test Item Value Reference Range Interpretation Comme nts T PROTEIN (test code = 5249917113) 7.0 g/dL 6.3-8.2 ALBUMIN (test code = 7743686574) 3.7 g/dL 3-4.8 ALPHA 1 (test code = 1247178329) 0.3 g/dL 0.2-0.4 ALPHA 2 (test code = 1113419424) 0.8 g/dL 0.6-1.2 BETA (test code = 6955061790) 1.1 g/dL 0.7-1.4 GAMMA (test code = 5929482937) 1.1 g/dL 1-1.8 Electrophoresis Interpretation (test code = 0719807615) Serum and urine protein electrophoresis interpretation:Normal serum and urine protein profiles.No M spike present. [facility] SystemANTICARDIOLIPIN XUVHRWMHJS9968-87-52 02:21:51 * Test Item Value Reference Range Interpretation Comments Anticardiolipin Antibody IgG (test code = 2619266692) See_Comment H [Automated message] The system which generated this result transmitted reference range: 0.0 - 10.0 GPL. The reference range was not used to interpret this result as normal/abnormal . Anticardiolipin Antibody IgM (test code = 4583674723) See_Comment [Automated message] The system which generated this result transmitted reference range: 0.0 - 10.0 MPL. The reference range was not used to interpret this result as normal/abnormal . Anticardiolipin Antibody IgA (test code = 0818354449) See_Comment [Automated message] The system which generated this result transmitted reference range: 0.0 - 15.0 APL. The reference range was not used to interpret this result as normal/abnormal . MARGARITA (test code = MARGARITA) Interpretation: ? IgG ?IgM ?IgANegative Values: ? <10.0 ?<10.0 ? <15.0Indeterminate ("Bradshaw" zone) Values: ? ?10.0-19.0 ? ?10.0-25.0 ? ? 15.0-27.0Medium Values: ? 20.0-80.0 ? ?26.0-80.0 ? ? 28.0-80.0High Positive Values: ? >80.0 ?>80.0 ? >80.0 Note:Medium-high levels of anticardiolipin antibodies (mainly of the IgG isotype)have been associated with thrombosis, recurrent losses andthrombocytopenia in patients with Antiphospholipid Syndrome and SLE relateddisorders.It is recommended to repeat the test that give values in theIndeterminate "Bradshaw" zone range at a later date (i.e. 4-6 weeks) to confirmpositivity. ?Ian R et al. ?J Thromb Haemost 2006; 4: 2210-4 Lab Interpretation (test code = 47910-6) Abnormal [facility] SystemANTICARDIOLIPIN XFRVOZYXAE7627-95-63 02:21:51 * Test Item Value Reference Range Interpretation Comments Anticardiolipin Antibody IgG (test code = 5049863645) See_Comment H [Automated message] The system which generated this result transmitted reference range: 0.0 - 10.0 GPL. The reference range was not used to interpret this result as normal/abnormal . Anticardiolipin Antibody IgM (test code = 3942824903) See_Comment [Automated message] The system which generated this result transmitted reference range: 0.0 - 10.0 MPL. The reference range was not used to interpret this result as normal/abnormal . Anticardiolipin Antibody IgA (test code = 5919648870) See_Comment [Automated message] The system which generated this result transmitted reference range: 0.0 - 15.0 APL. The reference range was not used to interpret this result as normal/abnormal . MARGARITA (test code = MARGARITA) Interpretation: ? IgG ?IgM ?IgANegative Values: ? <10.0 ?<10.0 ? <15.0Indeterminate ("Bradshaw" zone) Values: ? ?10.0-19.0 ? ?10.0-25.0 ? ? 15.0-27.0Medium Values: ? 20.0-80.0 ? ?26.0-80.0 ? ? 28.0-80.0High Positive Values: ? >80.0 ?>80.0 ? >80.0 Note:Medium-high levels of anticardiolipin antibodies (mainly of the IgG isotype)have been associated with thrombosis, recurrent losses andthrombocytopenia in patients with Antiphospholipid Syndrome and SLE relateddisorders.It is recommended to repeat the test that give values in theIndeterminate "Bradshaw" zone range at a later date (i.e. 4-6 weeks) to confirmpositivity. ?Ian R et al. ?J Thromb Haemost 2006; 4: 2210-4 Lab Interpretation (test code = 74120-2) Abnormal [facility] SystemTHYROID PEROXIDASE (TPO) [id number] 00:24:20 * Test Item Value Reference Range Interpretation Comments TPO Ab IgG (test code = 3060679046) See_Comment H [Automated message] The system which generated this result transmitted reference range: 0.0 - 100.0 WHO Units. The reference range was not used to interpret this result as normal/abnormal. MARGARITA (test code = MARGARITA) Interpretation: Negative: ?<= 100 WHO UnitsPositive: ? > 100 WHO Units A positive result indicates the presence of TPO antibodies and suggests thepossibility of Ant's thyroiditis and/or Graves' disease. ?A negativeresult indicates no TPO antibodies or levels below the negative cut-off ofthe assay. ?The presence of antibodies to TPO can be used in conjunction withclinical findings and other laboratory tests to aid in the diagnosis ofautoimmune thyroid diseases such as Ant's thyroiditis and Graves'disease. Lab Interpretation (test code = 82814-4) Abnormal [facility] SystemTHYROID PEROXIDASE (TPO) [id number] 00:24:20 * Test Item Value Reference Range Interpretation Comments TPO Ab IgG (test code = 0811110298) See_Comment H [Automated message] The system which generated this result transmitted reference range: 0.0 - 100.0 WHO Units. The reference range was not used to interpret this result as normal/abnormal. MARGARITA (test code = MARGARITA) Interpretation: Negative: ?<= 100 WHO UnitsPositive: ? > 100 WHO Units A positive result indicates the presence of TPO antibodies and suggests thepossibility of Ant's thyroiditis and/or Graves' disease. ?A negativeresult indicates no TPO antibodies or levels below the negative cut-off ofthe assay. ?The presence of antibodies to TPO can be used in conjunction withclinical findings and other laboratory tests to aid in the diagnosis ofautoimmune thyroid diseases such as Ant's thyroiditis and Graves'disease. Lab Interpretation (test code = 01682-1) Abnormal [facility] SystemANTI-B2 GLYCOPROTEIN I [id number] 00:15:06* Test Item Value Reference Range Interpretation Comments Anti-B2 Glycoprotein 1 IgG (test code = 3894738653) See_Comment [Automated message] The system which generated this result transmitted reference range: 0.0 - 20.0 SGU. The reference range was not used to interpret this result as normal/abnormal. Anti-B2 Glycoprotein 1 IgM (test code = 9372941980) See_Comment [Automated message] The system which generated this result transmitted reference range: 0.0 - 20.0 SMU. The reference range was not used to interpret this result as normal/abnormal. Anti-B2 Glycoprotein 1 IgA (test code = 3907029876) See_Comment [Automated message] The system which generated this result transmitted reference range: 0.0 - 20.0 NAIMA. The reference range was not used to interpret this result as normal/abnormal. MARGARITA (test code = MARGARITA) INTERPRETATION:Values over 20 SGU, SMU, or NAIMA units are considered positive. NOTE:A positive test for anti-B2 Glycoprotein I antibodies may indicate the presence of Antiphospholipid Syndrome. ?Anti-B2 Glycoprotein I antibodies have been associated with thrombosis, recurrent losses and/or thrombocytopenia. TEST PERFORMED AT:[facility]. [address] [place] [address].[place] [address] Lab Interpretation (test code = 81804-1) Normal [facility]-B2 GLYCOPROTEIN I [id number] 00:15:06* Test Item Value Reference Range Interpretation Comments Anti-B2 Glycoprotein 1 IgG (test code = 4580877619) See_Comment [Automated message] The system which generated this result transmitted reference range: 0.0 - 20.0 SGU. The reference range was not used to interpret this result as normal/abnormal. Anti-B2 Glycoprotein 1 IgM (test code = 8690216202) See_Comment [Automated message] The system which generated this result transmitted reference range: 0.0 - 20.0 SMU. The reference range was not used to interpret this result as normal/abnormal. Anti-B2 Glycoprotein 1 IgA (test code = 1691866279) See_Comment [Automated message] The system which generated this result transmitted reference range: 0.0 - 20.0 NAIMA. The reference range was not used to interpret this result as normal/abnormal. MARGARITA (test code = MARGARITA) INTERPRETATION:Values over 20 SGU, SMU, or NAIMA units are considered positive. NOTE:A positive test for anti-B2 Glycoprotein I antibodies may indicate the presence of Antiphospholipid Syndrome. ?Anti-B2 Glycoprotein I antibodies have been associated with thrombosis, recurrent losses and/or thrombocytopenia. TEST PERFORMED AT:[facility]. [address] [place] [address].[place] [address] Lab Interpretation (test code = 75100-8) Normal [facility]-PQKDJFIVEKSCVPYCW0605-36-89 17:18:06* Test Item Value Reference Range Interpretation Comme nts Anti-Ribonucleoprotein (test code = 7661870867) Negative Negative MARGARITA (test code = MARGARITA) Positive - Antibod y detected.Negative - No antibody detected. Lab Interpretation (test code = 78924-9) Normal [facility]-UIQYEXZNYJJTFAUCN3587-76-72 17:18:06* Test Item Value Reference Range Interpretation Comme nts Anti-Ribonucleoprotein (test code = 6210572511) Negative Negative MARGARITA (test code = MARGARITA) Positive - Antibod y detected.Negative - No antibody detected. Lab Interpretation (test code = 97347-8) Normal [facility]-SSA(RO)2022-02-26 17:18:05* Test Item Value Reference Range Interpretation Comme nts ANTI-SSA(RO) (test code = 6147229019) Negative Negative MARGARITA (test code = MARGARITA) Positive - Antibod y detected.Negative - No antibody detected. Lab Interpretation (test code = 49875-5) Normal [facility]-SSA(RO)2022-02-26 17:18:05* Test Item Value Reference Range Interpretation Comme nts ANTI-SSA(RO) (test code = 0388792458) Negative Negative MARGARITA (test code = MARGARITA) Positive - Antibod y detected.Negative - No antibody detected. Lab Interpretation (test code = 39099-0) [facility]-DOUBLE STRANDED [id number] 17:17:50* Test Item Value Reference Range Interpretation Comme nts ANTI-DSDNA (test code = 3264078941) See_Comment H [Automated message] The system which generated this result transmitted reference range: 0.0 - 4.0 IU/mL. The reference range was not used to interpret this result as normal/abnormal. MARGARITA (test code = MARGARITA) Negative ? ?< or = 4 IU/mLPositive ? ? ?> or = 10 IU/mLIndetermin ate ?5-9 IU/mL Lab Interpretation (test code = 35672-6) Abnormal [facility]-SSB(LA)2022-02-26 17:17:50* Test Item Value Reference Range Interpretation Comme nts Anti-SSB(LA) (test code = 7353929023) Negative Negative MARGARITA (test code = MARGARITA) Positive - Antibod y detected.Negative - No antibody detected. Lab Interpretation (test code = 67370-1) Normal [facility]-DOUBLE STRANDED [id number] 17:17:50* Test Item Value Reference Range Interpretation Comme nts ANTI-DSDNA (test code = 1219987223) See_Comment H [Automated message] The system which generated this result transmitted reference range: 0.0 - 4.0 IU/mL. The reference range was not used to interpret this result as normal/abnormal. MARGARITA (test code = MARGARITA) Negative ? ?< or = 4 IU/mLPositive ? ? ?> or = 10 IU/mLIndetermin ate ?5-9 IU/mL Lab Interpretation (test code = 31347-0) [facility]normal [facility] System[facility]SSB([place])2022-02-26 17:17:50* Test Item Value Reference Range Interpretation Comme nts Anti-SSB(LA) (test code = 5108901057) Negative Negative MARGARIAT (test code = MARGARITA) Positive - Antibod y detected.Negative - No antibody detected. Lab Interpretation (test code = 82186-5) Normal [facility] SystemHCV JVLKDJMQ9632-21-55 20:33:44* Test Item Value Reference Range Interpretation Comme nts HCV Ab (test code = 07971-7) Negative HCV Semi-Quantitative (test code = 04342-0) [facility] SystemH[facility] ATTJBFOI7317-55-43 20:33:44* Test Item Value Reference Range Interpretation Comme nts HCV Ab (test code = 63080-3) Negative HCV Semi-Quantitative (test code = 56236-2) [facility] Notes Date/Time Note Provider Source 2023-07-01 13:45:00 A5QRMoISNxWNRV4IRFMS m8CljP8JyJdG/c DsCw7n30eHU4HXiqV3QFAFo3i5Nl+11639 -07-01T13:45:00 Images from the original note were not included.Venipuncture collection performed by clean technique on the right anticubitus. Total of 1 attempts were made. Slight pressure and a bandage/dressing were applied to the site(s). The patient experienced no complications. The following specimens were processed according to instructions and sent to [facility] laboratories per lab order on 07/01/2023 :LT BLUESST 1REDLAVPPTDK GREEN (LiHep)DK GREEN (SodH)GRAYDK BLUE (K2)DK BLUE (S)ACDBlood CultureNIPT/NTD 24750-8Mkovj QeamHR6516-08-98B18:30:48Nurse NoteTXT1.2.840.922077.1.13.104.2.7 .2.365017|[id number] for patient rryz81010-8Yedvx NoteLNNARRATIVEFormatted C-CDA narrative text[id number] 64FUDEQBDJPUMDWCIVHTEAYS3297-72-79 T12:30:481.2.840.885665.1.72.3.15| 1.2.840.691370.1.13.104.2.7.2.7278 [id number] [facility] 2023-06-29 13:27:57 MJLDzhSx3JwKIlLIfHRh jiwFJkyMJmO0+7 p3h02M6uyUlP7sx+qv3N1qVgdkJYdb0781 -01-10T13:27:57 Call placed to Mrs. Madera to review lab results. She states she has already increased her Bumex up to Bumex 2 mg Qam and 1.5 mg in the evening per providers recommendations (see 06/01/23 encounter). She states he is going tomorrow to have repeat labs done. No further questions or concerns at this time 30283-1Bxegtsubj encounter SvukCF9679-03-79X52:29:49Telephone encounter NoteTXT1.2.840.450943.1.13.104.2.7 .2.762980|[id number] for patient lqvm16055-3SzczOLXCWDPZKXHHybmewfq d C-CDA narrative [id number] Wu[id number] 29IFYOFPHROVEDOSCIWXAHFE7420-03-79 T13:29:491.2.840.792870.1.72.3.15| 1.2.840.980012.1.13.104.2.7.2.7278 [id number] Loretta Jarvis RN [facility] 2023-06-28 13:59:03 MoI0/ED9ZRkXBbo2bi2Z Kd2+I5kZ+8uT1Z 0rBmznqEpHf6x5NQOviARWBmDGllbm9638 -01-09T13:59:03 Images from the original note were not included.Attempted to call Mrs. Madera and review providers results/recommendations. No answer at this time. VM left to return call at her earliest convenienceFroest Fang MD Parson, Haleigh V, TAMARA; P Heart Failure NurseElectrolytes WNLKidney function minimally elevated but stablePressure inside the heart is higher.Increase bumex to 1.5 mg BID and monitor response. Repeat BMP in 1 week. Thanks! 16742-1Trybchsyh encounter QwydQE6435-63-14C02:00:02Telephone encounter NoteTXT1.2.840.952983.1.13.104.2.7 .2.740419|[id number] for patient oudd55019-9UwdySAMCWQBIMSBSktedlqt d C-CDA narrative lzgs461729242Iheumkg Parson V, RNUT[address] Zk[id number] 51OYVJKNZDFECQIYIJPXTAIT2532-89-26 T14:00:021.2.840.307412.1.72.3.15| 1.2.840.171128.1.13.104.2.7.2.7278 79_[id number] Loretta Jarvis RN [facility] 2023-06-23 14:05:29 AKS81bnE5ZOzMEQSqDkp hwhE929V3s8vIu jtJIvkrnjI6W3CKzVnRfn5dHPOM2HV8645 -01-04T14:05:29 See 06/01/23 encounter 62934-8Eifqopfum encounter ObsvYY9112-76-04W32:05:39Telephone encounter NoteTXT1.2.840.325801.1.13.104.2.7 .2.315141|[id number] for patient byri18792-9CafoXAYPSRRAEUVAdizmtlo d C-CDA narrative [id number] Parson V, RN[id number] 09DAMYLRJIQXWVUQCPGZZQQF7865-64-38 T14:05:391.2.840.319144.1.72.3.15| 1.2.840.979423.1.13.104.2.7.2.7278 79_[id number] Loretta Jarvis RN [facility] 2023-06-23 14:05:01 OuXkfo00c/RrvJY1QOFP 7JwNaYJVyeWB6z l7DeWifQC+6Oa9SWKEX5w2iq6JZQ8F3150 -01-04T14:05:01Addended by: LORETTA BURGOS RN, V on: 06/23/2023 02:05 PMModules accepted: Orders 45030-7Wgbhrmdm JqsihwhtOD1361-13-46Q24:05:01Adden dum DocumentTXT1.2.840.998637.1.13.104 .2.7.2.006830|[id number] e for patient bpis98996-5QjrxWVEKSICPUROFofdyegg d C-CDA narrative text[id number] 83TTQFQUNJJJZEAUXIFOLANK0504-45-35 T14:05:011.2.840.451111.1.72.3.15| 1.2.840.919503.1.13.104.2.7.2.7278 79_[id number] [facility] 2023-06-23 13:53:10 OKd6JtDzvPO2smuC/CVY n3QOz6zrX+xxkr IPjKGUDKFKgaMBjzEQMAEst1DM3q4W2129 -01-04T13:53:10 Images from the original note were not included.Call received from Mrs. Madera and reviewed providers results/recommendations. Verbalized understanding and will have labs complete next week. No further questions or concerns at this time 91157-5Rxadiqvgt encounter XnyiED7822-21-88Y94:00:56Telephone encounter NoteTXT1.2.840.667332.1.13.104.2.7 .2.453007|[id number] for patient otdx52305-6IzxyMLQXPNWZQSFTkafvlvf d C-CDA narrative textUT[address] CymaCnbytwzxwYifhasmdfOUJQ32125236 32MWBNLHTZJHSWLMBZHBERZW5648-03-19 T14:00:561.2.840.351474.1.72.3.15| 1.2.840.758340.1.13.104.2.7.2.7278 79_[id number] [facility] 2023-06-23 13:47:43 7RJMtnCpGjv1VQsCJZ0Y 6+Viaicxd2hJJf aAUgqAE50SksMYZm1VXNAcw9Zn3Sso3939 -01-04T13:47:43 Ayaka Madera is a 68 year old femalePatient is returning call for MD recommendations.Please call at [phone] (home)Was able to warm transfer to clinic nurse 62823-6Lhrxflrek encounter AerhMW4833-27-61W53:49:11Telephone encounter NoteTXT1.2.840.117405.1.13.104.2.7 .2.656209|[id number] for patient luew24832-6ExxcJPXAZULHXMUZzffoyry d C-CDA narrative khnu481207885Lwvl C Garcia[id number] 15AVXYTQZXMQMLRTJGZLJEBH0392-26-85 T13:49:111.2.840.772316.1.72.3.15| 1.2.840.456307.1.13.104.2.7.2.7278 79_[id number] Mariel Crain [facility] 2023-06-22 11:24:04 y1g/Qy/b6v3C0AOjr2mx p0ntpGKDk3EsJD ql//tyhIn+3M9iTidlkrPC0hjH2DEN2184 -01-03T11:24:04 Attempted to call Mrs. Madera to review providers results/recommendations. No answer at this time. left to return call at her earliest convenience.My chart message sent 44289-6Urgrgmudl encounter CijiZK9937-64-86N43:27:15Telephone encounter NoteTXT1.2.840.031163.1.13.104.2.7 .2.543144|[id number] for patient ydvk14359-1JbvtWDAOJECASOVVzzrfhpn d C-CDA narrative text[id number] 29DQHLBRLOAAGMYEMGJMFPDI8168-78-80 T11:27:151.2.840.541880.1.72.3.15| 1.2.840.265943.1.13.104.2.7.2.7278 79_[id number] [facility] 2023-06-21 16:37:45 PIm8cExM3jWuUgArYkdW X2038/z2Hk03aN D/TQho5QDUwHBAhwOK9mstKoe6Ur993994 -01-02T16:37:45 Attempted to call Mrs. Madera to review providers results/recommendations. No answer at this time. left to return call at her earliest convenience. 70934-4Khesaisua encounter KejfHF5248-29-13E11:38:17Telephone encounter NoteTXT1.2.840.734223.1.13.104.2.7 .2.603110|[id number] for patient vssf28451-2KpllEYTOPONURRTRgdvnlrn d C-CDA narrative textUT[address] PqzlMkxvkxathSxmbtvkdyZJSL07273916 04ZDYBMNOSBXOMMQXAVXYAOW0168-58-82 T16:38:171.2.840.269261.1.72.3.15| 1.2.840.757335.1.13.104.2.7.2.7278 79_[id number] [facility] 2023-06-21 16:07:21 q4nu0ymWHmq3XvlNcM6Y Fki7IP/F1WRiPu MbuNicYAckIZiP6wu4TFxMvZ6IESOO0468 -01-02T16:07:21 Pressure inside the heart remains elevatedCan increase bumex to 2 mg AM and keep 1.5 mg PM, and monitor response.Can repeat labs in 1 week. Thanks! 88958-3Ewylgzplw encounter SgatSQ3771-02-96K13:08:05Telephone encounter NoteTXT1.2.840.324716.1.13.104.2.7 .2.560301|[id number] for patient ukry93232-6JorlDQZXDJTWQSKZgmqffab d C-CDA narrative [id number] 40XYKQMKDJYNZVKSQNLRMJUQ1013-97-37 T16:08:051.2.840.324991.1.72.3.15| 1.2.840.891271.1.13.104.2.7.2.7278 79_[id number] [facility] 2023-06-16 14:44:53 Tq0PSL5d7n/iirWKo6ZP eUlibd6fBzz0gE my5TDOsldAgI9cUyT9zf29+1zDZ5jJ2474 -12-28T14:44:53 Please review 06/10/23 labs and advise 31437-7Ryvxkqtqu encounter UkkmMJ4126-09-34K48:45:09Telephone encounter NoteTXT1.2.840.244116.1.13.104.2.7 .2.669371|[id number] for patient nqty54890-0AknpIRFATTUKUNBUdgqaizg d C-CDA narrative text[id number] 14OSQUJYTMDEXXPADNFAQMUW8295-36-41 T14:45:091.2.840.115537.1.72.3.15| 1.2.840.196181.1.13.104.2.7.2.7278 79_[id number] [facility] 2023-06-10 13:00:00 POALKobFcd2m43MGYcuP 8yklR2TG9udSMD y/dFvnMgZSZ79p2Adv8Kg5zxeUxYHs1428 -12-22T13:00:00 Images from the original note were not included.Venipuncture collection performed by clean technique on the left anticubitus. Total of 1 attempts were made. Slight pressure and a bandage/dressing were applied to the site(s). The patient experienced no complications. The following specimens were processed according to instructions and sent to [facility] laboratories per lab order on 06/10/2023 :LT BLUESST 1REDLAVPPTDK GREEN (LiHep)DK GREEN (SodH)GRAYDK BLUE (K2)DK BLUE (S)ACDBlood CultureNIPT/NTD 87514-7Gfjdl CnuiDY4690-91-81T24:27:40Nurse NoteTXT1.2.840.507068.1.13.104.2.7 .2.686651|[id number] for patient soeh90421-7Zdfre NoteLNNARRATIVEFormatted C-CDA narrative textUT[address] Hc[id number] 57RQSJKFHYKHOXKTGICGGGDD9211-43-45 T12:27:401.2.840.745761.1.72.3.15| 1.2.840.002489.1.13.104.2.7.2.7278 [id number] [facility] 2023-06-03 13:43:40 FI4gXhdVGte381HCO4vD QAXDq+RbV3u7AY zdd8FN20tAVvaqesHIfv176LVNAzdt8231 -12-15T13:43:40 Benjy placed to Mrs. Madera and reviewed providers recommendations. Verbalized understanding. No further questions or concerns at this time 58291-3Nhflbfrtr encounter UlofSZ1584-24-07X23:46:07Telephone encounter NoteTXT1.2.840.803117.1.13.104.2.7 .2.046113|[id number] for patient lxxu87414-2WniuISYMELZYYPUMwddkfxp d C-CDA narrative [id number] 68OISZVASBMLTOVMFLZFFQGH1508-72-87 T13:46:071.2.840.183399.1.72.3.15| 1.2.840.910845.1.13.104.2.7.2.7278 [id number] [facility] 2023-06-03 13:40:22 lqeEC0chyg5FWqMPytnl VKa2xSTjNfuOXg FZHrmbPEg5xUXSkLzh+FPaapd5tHKb9729 -12-15T13:40:22 We can increase bumex to 1.5 mg BID and get labs in 1 week instead.If swelling does not get better, she can call us on Tuesday to re-assess. Thanks! 37226-3Amqcgbvai encounter KeyuXM3912-11-32V20:41:12Telephone encounter NoteTXT1.2.840.511709.1.13.104.2.7 .2.817389|[id number] for patient ndnp63741-4TlekPCGXMDGJHFYBhjxckvi d C-CDA narrative [id number] 41KKSOTWRBUEHEVVQBMWRTBO4596-68-20 T13:41:121.2.840.787328.1.72.3.15| 1.2.840.783627.1.13.104.2.7.2.7278 [id number] [facility] 2023-06-02 14:26:27 j/ISqnhNFOTDBqDLPdsw 1DSfpuN0nMTR0l uDVpewoWi+nTtf92ExuNRyS8ADwoT05600 -12-14T14:26:27 Please review and adviseCall placed to Mrs Madera to follow up on message received. She states she is continuing to have swelling in her legs and feet. Some days its more in her R leg and sometimes more in the left. Ms. Madera states she elevates her legs and has been urinating but it doesn't see to be going down . She denies any further cardiac related symptoms at this time besides the swelling. Advised I will notify the provider and contact her with any further recommendations from the provider 61973-2Evsvcritw encounter IptiLY2576-25-09I30:43:12Telephone encounter NoteTXT1.2.840.063729.1.13.104.2.7 .2.063596|[id number] for patient ppnh00210-8YlioJVSMSMVSXCYDgigjyuv d C-CDA narrative textUT[address] Ns[id number] 85IBCSWJYNRXCCRMSSXRTQYE6435-91-42 T14:43:121.2.840.513974.1.72.3.15| 1.2.840.935903.1.13.104.2.7.2.7278 [id number] [facility] 2023-03-04 09:43:03 AdY8uUF4OPTSUZ8IzfYH CPe8R4Sr/S805t T1UXzFtlHP+AOZVLAB+lrRbCn4Na8L3370 -09-15T09:43:03 Requested Prescriptions Pending Prescriptions Disp Refills cyclobenzaprine 5 mg tablet 30 tablet 0 Sig: Take 1 tablet by mouth at bedtime as needed for Muscle Spasms. Provider Review Required Failed - 03/04/2023 9:27 AM Failed - Valid encounter within last 12 months Recent VisitsNo visits were found meeting these conditions.Showing recent visits within past 365 days and meeting all other requirementsFuture AppointmentsNo visits were found meeting these conditions.Showing future appointments within next 365 days and meeting all other requirements Failed - This refill cannot be delegated Per protocol rerouting to Physician for approval 78939-3Xzblgohun encounter OamdFB2642-31-11J21:43:37Telephone encounter NoteTXT1.2.840.240137.1.13.104.2.7 .2.974719|[id number] for patient onhg43994-3AcybLB412801534Ztspzqox C Archie MA[address] Tm[id number] 35RJWKDONBUDFQNWHBQCUDEN7983-43-28 T09:43:371.2.840.411997.1.72.3.15| 1.2.840.770218.1.13.104.2.7.2.7278 [id number] Sangita Siddiqui MA [facility] 2023-03-03 12:04:08 HddbaafYt6QsshmsX2g9 stegiCaKQmGtg4 GjEoh5WSaSVdjxpvByiHHP4SssvcOe5595 -09-14T12:04:08 Ayaka Madera is a 67 year old femalePatient calling needing to scehdule her TTE please advise thank you 91885-5Sfurbdfvt encounter LvtyPU2492-76-76J69:05:09Telephone encounter NoteTXT1.2.840.716497.1.13.104.2.7 .2.134612|[id number] for patient guco92878-1BdtjIK953666192Dikftaj Tsuruta Moreno [id number] 39HPTCVEDPCRNICETPGGCHAF8027-46-56 T12:05:091.2.840.028771.1.72.3.15| 1.2.840.184134.1.13.104.2.7.2.7278 [id number] Brittany Elmore V [facility] 2023-02-03 12:00:00 RuAXEkF3KVs8ZFUXrjLT kFmU6TVSWlAEqd Nzqx1AAv3/1hoOLvFq+toxSASvBaom1199 -08-17T12:00:00 Images from the original note were not included.Venipuncture collection performed by clean technique on the left anticubitus. Total of 1 attempts were made. Slight pressure and a bandage/dressing were applied to the site(s). The patient experienced no complications. The following specimens were processed according to instructions and sent to [facility] laboratories per lab order on 02/03/2023: LT BLUE SST 3 RED LAV 1 PPT DK GREEN (LiHep) DK GREEN (SodH) HARRY DK BLUE (K2) DK BLUE (S) ACD urine 1 NIPT/NTD 01598-6Pbaug LvomQP7785-88-73C92:58:04Nurse NoteTXT1.2.840.527223.1.13.104.2.7 .2.299371|[id number] for patient bjhy58460-7Xubya NoteUT[id number] 95SCVMQWCPBSCBDQQPHZSACA7952-60-09 T11:58:041.2.840.683255.1.72.3.15| 1.2.840.988776.1.13.104.2.7.2.7278 [id number] [facility] 2023-01-25 14:18:06 TN7bI/x3zb6dxkxMC89E TJJ9wl9Oog22+j D95vj7D4KoNi/MRFYK5G+Zz4hD+WNi0997T14:18:06 Call back received from Mrs. Madera and reviewed providers results/recommendations. Low K diet reviewed. Verbalized understanding. Advised I would send low K diet information through [employer] as reference. Lab orders placed and advised to contact valeri soriano to scheduled lab appointment. No further questions or concerns at this time 54581-5Swrwaxtxx encounter MmjuGU1952-38-62J60:22:14Telephone encounter NoteTXT1.2.840.962478.1.13.104.2.7 .2.595916|[id number] for patient fyke82028-7CgnoILXGNWVJWS[id number] 93DEEJNRBSPYJZBACWJYHDKB9142-46-97 T14:22:141.2.840.786748.1.72.3.15| 1.2.840.701830.1.13.104.2.7.2.7278 [id number] [facility] 2023-01-25 14:14:00 vV0/lFino1MTp6S7gftQ 2gQbGgIQ/LVCDM O9CvfvBH4FqzSQds/oYejrhoV41wFq0084 -08-08T14:14:00 Attempted to call Mrs. Madera to review providers results/recommendations. No answer at this time. left to return call at her earliest convenience. Forest Fang MD 01/25/2023 1:58 PM CDT Back to Top Electrolytes showed mildly elevated potassium.Preserved kidney function.Please hold lisinopril and continue rest of meds.Provide potassium in diet education and suggest low potassium diet.Repeat BMP in 1 week.Monitor BP and HR at home and keep records of it. Thanks! 77490-4Xyollxgot encounter LpqtGQ0973-55-58P52:22:14Telephone encounter NoteTXT1.2.840.674722.1.13.104.2.7 .2.380045|[id number] for patient celu13952-7JzgiVOKPMOCTKW[address] Bs[id number] 35HLEINMBYYJUSHNRTMJVCXX9772-72-31 T14:22:141.2.840.624598.1.72.3.15| 1.2.840.553039.1.13.104.2.7.2.7278 [id number] [facility]
--- NOTE | 2023-07-05 10:18 | RAD REPORT ---
EXAM DESCRIPTION: CT - CTHCSPWOC - 07/05/2023 10:03 am CLINICAL HISTORY: Trauma, head and neck injury. fall, head injury COMPARISON: <Comparisons> TECHNIQUE: Axial 5 mm thick images of the head were obtained. Axial 2 mm thick images of the cervical spine were obtained with sagittal and coronal reconstruction images generated and reviewed. All CT scans are performed using dose optimization technique as appropriate and may include automated exposure control or mA/KV adjustment according to patient size. FINDINGS: CT HEAD WITHOUT CONTRAST: No acute hemorrhage, hydrocephalus or extra-axial collection is identified.Mild generalized brain atr ophy is present with mild periventricular and deep white matter chronic microvascular ischemic change s.No areas of brain edema or midline shift. The paranasal sinuses and mastoids are clear.The calvarium is intact. CT CERVICAL SPINE WITHOUT CONTRAST: No fracture or subluxation.Moderate lower cervical degenerative changes.No prevertebral soft tissues swelling is identified. IMPRESSION: No acute intracranial or cervical spine findings. Moderate lower cervical degenerative changes.
--- NOTE | 2023-07-05 10:42 | RAD REPORT ---
EXAM DESCRIPTION: RAD - Knee Left 3 View - 07/05/2023 10:14 am CLINICAL HISTORY: PAIN COMPARISON: <Comparisons> FINDINGS: Diffuse osteopenia. Tricompartmental osteoarthritis. Small suprapatellar joint effusion. N o acute fracture or dislocation.
--- NOTE | 2023-07-05 11:56 | EDPHYS ---
Physician Documentation [facility] Name: Ayaka Madera Age: 68 yrs Sex: Female : 1955 Arrival Date: 07/05/2023 Time: 09:48 Bed 8 Private MD: ED Physician Dipak Cortes HPI: 07/05 10:18 This 68 yrs old Female presents to ER via EMS with complaints of Fall Injury. rn 10:18 Details of fall: The patient fell from seated position, Toilet. Onset: The rn symptoms/episode began/occurred just prior to arrival. Associated injuries: The patient sustained injury to the head. Severity of symptoms: At their worst the symptoms were mild, in the emergency department the symptoms are unchanged. The patient has experienced similar episodes in the past. Patient reports seated on toilet, lost her balance and fell forward, struck forehead on the edge of shower/bath. Patient presents with laceration to right forehead. No LOC. No blood thinners. Reports falling a lot lately. 2 weeks ago had diuretic increased. No other new medication.. Historical: - Allergies: 09:54 No Known Allergies; ph - Home Meds: 09:54 gabapentin oral [Active]; ph - PMHx: 09:54 Arthritis; Fibromyalgia; ph - Immunization history:: Adult Immunizations up to date. - Social history:: Smoking status: Patient denies any tobacco usage or history of. - Immunization history: Last tetanus immunization: - up to date. < 5 years ago. - Family history:: not pertinent. - Hospitalizations: : No recent hospitalization is reported. ROS: 10:18 Constitutional: Negative for fever, chills, and weight loss, Eyes: Negative for injury, rn pain, redness, and discharge, Neck: Negative for injury, pain, and swelling, Cardiovascular: Negative for chest pain, palpitations, and edema, Respiratory: Negative for shortness of breath, cough, wheezing, and pleuritic chest pain, Abdomen/GI: Negative for abdominal pain, nausea, vomiting, diarrhea, and constipation, Back: Negative for injury and pain, MS/Extremity: Positive for left knee pain and injury Skin: Positive for laceration to right forehead Neuro: Positive for generalized weakness and headache Exam: 10:18 Constitutional: This is a well developed, well nourished patient who is awake, alert, rn and in no acute distress. Head/Face: 8 cm oblique laceration over the right forehead. Does not extend into the brow. No active bleeding. No foreign body. Eyes: Pupils equal round and reactive to light, extra-ocular motions intact. Lids and lashes normal. Conjunctiva and sclera are non-icteric and not injected. Cornea within normal limits. Periorbital areas with no swelling, redness, or edema. Neck: No midline tenderness Chest/axilla: Normal chest wall appearance and motion. Nontender with no deformity. No crepitus or ecchymosis Cardiovascular: Regular rate and rhythm. No pulse deficits. Respiratory: No increased work of breathing, no retractions or nasal flaring. Abdomen/GI: Soft, non-tender Back: No spinal tenderness MS/ Extremity: Mild painful range of motion left knee with contusion. No significant deformity or open wounds. Neuro: Awake and alert, GCS 15, oriented to person, place, time, and situation. Cranial nerves II-XII grossly intact. Motor strength 4/5 in all extremities. Sensory grossly intact. Vital Signs: 09:50 BP 132 / 92; Pulse 72; Resp 18; Temp 97; Pulse Ox 98% on R/A; Weight 109.77 kg; Height ph 5 ft. 6 in. ; 11:07 BP 126 / 85; Pulse 52; Resp 15; Pulse Ox 99% ; ko1 12:15 BP 130 / 82; Pulse 58; Resp 14; Pulse Ox 98% ; ko1 09:50 Body Mass Index 39.06 (109.77 kg, 167.64 cm) ph Carlos Coma Score: 09:50 Eye Response: spontaneous(4). Motor Response: obeys commands(6). Verbal Response: ko1 oriented(5). Total: 15. Trauma Score (Adult): 09:50 Eye Response: spontaneous(1); Verbal Response: oriented(1); Motor Response: obeys ko1 commands(2); Systolic BP: > 89 mm Hg(4); Respiratory Rate: 10 to 29 per min(4); [place] Score: 15; Trauma Score: 12 Laceration: 11:23 Wound Repair of 8cm ( 3.1in ) subcutaneous laceration to right side of forehead. Distal rn neuro/vascular/tendon intact. Anesthesia: Regional Block with 4 mls of 1% lidocaine. Wound prep: Extensive cleansing by nurse, Wound irrigation by nurse, Wound explored extensively. Skin closed with 13 5-0 Prolene using interrupted sutures and sterile technique. Dressed with steri-strips. Patient tolerated well. MDM: 09:51 Patient medically screened. rn 11:55 Differential diagnosis: abrasion, closed head injury, contusion, fracture, laceration. rn Data reviewed: vital signs, nurses notes, radiologic studies, CT scan, plain films, and as a result, I will discharge patient. Counseling: I had a detailed discussion with the patient and/or guardian regarding the historical points, exam findings, and any diagnostic results supporting the discharge/admit diagnosis, radiology results, the need for outpatient follow up, to return to the emergency department if symptoms worsen or persist or if there are any questions or concerns that arise at home. Response to treatment: the patient's symptoms have markedly improved after treatment, and as a result, I will discharge patient. Special discussion: Based on the patient's history, exam and DX evaluation, there is no indication for emergent intervention or inpatient TX. It is understood by the patient/guardian that if the SXs persist or worsen they need to return immediately for re-evaluation. I discussed with the patient/guardian in detail that at this point there is no indication for admission to the hospital. It is understood, however, that if the symptoms persist or worsen the patient needs to return immediately for re-evaluation. 07/05 09:51 Order name: CT Head C Spine; Complete Time: 10:28 rn 07/05 09:51 Order name: XRAY Knee LEFT 3 view; Complete Time: 10:45 rn 07/05 09:51 Order name: Gloves, Sterile; Complete Time: 10:00 rn 07/05 09:51 Order name: Setup Suture Tray; Complete Time: 10:00 rn 07/05 09:51 Order name: Wound Care; Complete Time: 10:25 rn Administered Medications: 10:40 Drug: Ondansetron IVP 4 mg IVP once; over 2 minutes Route: IVP; Site: left antecubital; ko1 10:42 Drug: morphine IVP or IV 2 mg IVP once over 4 mins Route: IVP; Infused Over: 4 mins; ko1 Site: left antecubital; 11:12 Drug: Lidocaine Infiltration (1 %) 1 vials 20 ml Infiltration once; to bedside Volume: ko1 20 ml; Route: Infiltration; Disposition Summary: 07/05/23 11:56 Discharge Ordered Notes: Location: Home rn Problem: new rn Symptoms: have improved rn Condition: Stable rn Diagnosis - Unspecified injury of head, initial encounter rn - Laceration without foreign body of unspecified part of head rn Followup: rn - With: Private Physician - When: As needed - Reason: Recheck today's complaints, Re-evaluation by your physician Followup: rn - With: Emergency Department - When: 10 - 14 days - Reason: Staple/Suture removal Discharge Instructions: - Discharge Summary Sheet rn - Head Injury, Adult rn - Laceration Care, Adult rn - Facial Laceration rn Forms: - Medication Reconciliation Form rn - Thank You Letter rn - Antibiotic blast furnace 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 rn Distal neuro/vascular/tendon intact. rn
--- NOTE | 2023-07-05 11:56 | ER ---
Nurse's Notes [facility] Name: Ayaka Madera Age: 68 yrs Sex: Female : 1955 Arrival Date: 07/05/2023 Time: 09:48 Bed 8 Private MD: Diagnosis: Unspecified injury of head, initial encounter;Laceration without foreign body of unspecified part of head Presentation: 07/05 09:50 Chief complaint: EMS states: Fell last night in restroom, states that she was pulling ph up her pants and became dizzy, fell and hit head on shower, denies LOC, does not take blood thinners, large hematoma and laceration above R upper eye, EMS reports minimal blood on scene, pt denies N/V, 20 G IV to RAC. Coronavirus screen: Vaccine status: Patient reports receiving the 2nd dose of the covid vaccine. Ebola Screen: No symptoms or risks identified at this time. Initial Sepsis Screen: Does the patient meet any 2 criteria? No. Patient's initial sepsis screen is negative. Does the patient have a suspected source of infection? No. Patient's initial sepsis screen is negative. Risk Assessment: Do you want to hurt yourself or someone else? Patient reports no desire to harm self or others. Onset of symptoms was July 05, 2023. 09:50 Method Of Arrival: EMS: [facility] ph 09:50 Acuity: ANDREA 3 ph 09:50 Care prior to arrival: IV initiated. 20 GA, in the left antecubital area. Mechanism of ko1 Injury: Fall from standing position. Trauma event details: Injury occurred in the [facility]. Triage Assessment: 09:58 General: Appears in no apparent distress. Behavior is calm, cooperative, appropriate ph for age. Pain: Complains of pain in right side of forehead. Neuro: Level of Consciousness is awake, alert, obeys commands, Oriented to person, place, time, situation. Cardiovascular: Capillary refill < 3 seconds in bilateral fingers Patient's skin is warm and dry. Respiratory: Airway is patent Respiratory effort is even, unlabored, Respiratory pattern is regular, symmetrical. GI: Patient currently denies nausea, vomiting. Derm: Skin is normal. Injury Description: Laceration sustained to right side of forehead is full thickness, 2.6 to 7.5 cm long, not bleeding, was sustained 4-6 hours ago. a small amount of bleeding noted at this time. Trauma Activation: Not Applicable Physician: ED Physician; Name: ; Notified At: ; Arrived At: Physician: General Surgeon; Name: ; Notified At: ; Arrived At: Physician: Radiology; Name: ; Notified At: ; Arrived At: Physician: Respiratory; Name: ; Notified At: ; Arrived At: Physician: Lab; Name: ; Notified At: ; Arrived At: Historical: - Allergies: :54 No Known Allergies; ph - Home Meds: :54 gabapentin oral [Active]; ph - PMHx: :54 Arthritis; Fibromyalgia; ph - Immunization history:: Adult Immunizations up to date. - Social history:: Smoking status: Patient denies any tobacco usage or history of. - Immunization history: Last tetanus immunization: - up to date. < 5 years ago. - Family history:: not pertinent. - Hospitalizations: : No recent hospitalization is reported. Screenin:50 Abuse screen: Denies threats or abuse. Denies injuries from another. Tuberculosis ko1 screening: No symptoms or risk factors identified. 11:07 [facility] ED Fall Risk Assessment (Adult) History of falling in the last 3 months, ko1 including since admission Yes- fall prone (multiple falls) (3 pts) Confusion or Disorientation No (0 pts) Intoxicated or Sedated No (0 pts) Impaired Gait No (0 pts) Mobility Assist Device Used No (0 pt) Altered Elimination No (0 pt) Score/Fall Risk Level 3 or more points = High Risk Oriented to surroundings, Maintained a safe environment, Educated pt \T\ family on fall prevention, incl call for assistance when getting out of bed, Assessed \T\ reinforced patient's understanding of fall precautions, Provided non-skid footwear, Hourly rounding (assess needs \T\ fall precautionary measures) done, Used ambulatory aids as needed (educated on \T\ assisted with), Used gait belt as appropriate Implemented a Fall Risk Plan of Care, Apply high fall risk patient identification: yellow non skid footwear/ fall signage, Remained w/in arm's length of patient and in sight while toileting, Offered frequent toileting (1:1 observation), Remained with patient while ambulating, Utilized family, sitter, or virtual director of training as indicated. Nutritional screening: No deficits noted. Primary Survey: 09:50 NO uncontrolled hemorrhage observed. Breathing/Chest: Spontaneous respiratory effort, ko1 equal unlabored respirations, breath sounds clear bilaterally, regular pattern, symmetrical chest rise and fall. Circulation: No external hemorrhage present. Regular and strong central pulse, skin warm/dry/normal color. Disability Pupils are equal, round, reactive to light and accommodation. Client is alert. Exposure/Environment: There is no evidence of uncontrolled external bleeding. Reassessment. 10:54 Reassessment Breathing: Spontaneous respiratory effort, equal unlabored respirations, ko1 breath sounds clear bilaterally, regular pattern with symmetrical chest rise and fall. Circulation: No external hemorrhage noted. Regular and strong central pulse, skin warm/dry/normal color. Disability: Pupils Pupils are equal, round, reactive to light and accomodation. Alert. Assessment: 10:03 General: Appears. ph 11:02 General: Appears in no apparent distress. uncomfortable, Behavior is calm, cooperative, ko1 appropriate for age. Vital Signs: 09:50 BP 132 / 92; Pulse 72; Resp 18; Temp 97; Pulse Ox 98% on R/A; Weight 109.77 kg; Height ph 5 ft. 6 in. ; 11:07 BP 126 / 85; Pulse 52; Resp 15; Pulse Ox 99% ; ko1 12:15 BP 130 / 82; Pulse 58; Resp 14; Pulse Ox 98% ; ko1 09:50 Body Mass Index 39.06 (109.77 kg, 167.64 cm) ph Carlos Coma Score: 09:50 Eye Response: spontaneous(4). Motor Response: obeys commands(6). Verbal Response: ko1 oriented(5). Total: 15. Trauma Score (Adult): 09:50 Eye Response: spontaneous(1); Verbal Response: oriented(1); Motor Response: obeys ko1 commands(2); Systolic BP: > 89 mm Hg(4); Respiratory Rate: 10 to 29 per min(4); Carlos Score: 15; Trauma Score: 12 ED Course: 09:49 Patient arrived in ED. ph 09:50 Sherine Nice, RN is Primary Nurse. ko1 09:50 Patient has correct armband on for positive identification. Bed in low position. Call ko1 light in reach. Side rails up X2. 09:50 Patient maintains SpO2 saturation greater than 95% on room air. ko1 09:51 Dipak Cortes MD is Attending Physician. rn 09:54 Triage completed. ph 10:00 Arm band placed on Patient placed in an exam room, on a stretcher, on cardiac monitor technician, ph on pulse oximetry. 10:04 CT Head C Spine In Process Unspecified. EDMS 10:16 XRAY Knee LEFT 3 view In Process Unspecified. EDMS 11:07 Assist provider with laceration repair on right side of forehead using sutures. Set up ko1 tray. Performed by Dipak Cortes MD Dressed with Patient tolerated well. Maintain EMS IV. Dressing intact. Good blood return noted. Site clean \T\ dry. Gauge \T\ site: 20 l AC. 11:59 Provided Education on: Lac repair. ko1 11:59 IV discontinued, intact, bleeding controlled, No redness/swelling at site. Pressure ko1 dressing applied. 12:16 Thermoregulation: warm blanket given to patient. ko1 Administered Medications: 10:40 Drug: Ondansetron IVP 4 mg IVP once; over 2 minutes Route: IVP; Site: left antecubital; ko1 10:42 Drug: morphine IVP or IV 2 mg IVP once over 4 mins Route: IVP; Infused Over: 4 mins; ko1 Site: left antecubital; 11:12 Drug: Lidocaine Infiltration (1 %) 1 vials 20 ml Infiltration once; to bedside Volume: ko1 20 ml; Route: Infiltration; Medication: 11:59 VIS not applicable for this client. ko1 Intake: 09:50 PO: 0ml; Total: 0ml. ko1 Output: 09:50 Urine: 0ml; Total: 0ml. ko1 Outcome: 11:56 Discharge ordered by MD. rn 12:15 Discharged to home via wheelchair, with family, ko1 12:15 Condition: improved 12:15 Discharge instructions given to patient, family, Instructed on discharge instructions, follow up and referral plans. medication usage, wound care, Demonstrated understanding of instructions, follow-up care, medications, wound care, Prescriptions given X 1, 12:16 Patient's length of stay in the Emergency Department was greater than 2 hours. ko1 12:17 Patient left the ED. ko1 Signatures: Dispatcher [employer] EDMS Dipak Cortes MD MD rn Hall, Patricia, RN RN ph [place], Sherine, RN RN ko1
[2023-07-05 12:38] VITALS: TEMP 97; O2SAT 98
[2023-07-05 12:50] VITALS: BP 130/82
== END ==
LOC: ER 09:48
PROC: 0HQ1XZZ Repair Face Skin, External Approach (ICD-10-PCS; principal; 2023-07-05)
DX: S01.81XA Laceration without foreign body of other part of head, initial encounter (principal); W18.11XA Fall from or off toilet without subsequent striking against object, initial encounter
CPT/HCPCS: 70450; 72125; 73562; 96375; 96374; 99285; 12015; J2001; J2270; J2405

== ENCOUNTER 2023-08-02 16:00 | Inpatient (IN) | payer OTHER ==
--- OUTSIDE RECORDS SUMMARY | 2023-08-02 16:13 | XMS REPORT | Continuity of Care Document ---
Author Name Unknown Address [address] [facility] [address] [place] [address] [facility] Address [address] [facility] 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 Name Role Phone Óscar Dawson MD Primary Care Physician [phone] GREG DOMINGO Attending Clinician MEAGAN Hernandes Attending Clinician Unavailable FOREST FANG Attending Clinician Unavailable Pob, [facility] Main Attending Clinician UnavailForest Kohler MD Attending Clinici an Meagan Almazan MD Attending Clinician [phone] Doctor Unassigned, [place] Attending Clinician U navailable Lab, Ang - Db Attending Clinician Unavailable 2, [facility] Attending Clinician Unavailable Cy MEREDITH, Haja Fallon Attending Clinician + [phone] FRACISCO MCCOY Attending Clinician Unavailable HAJA BENOIT Attending Clinician Unavailqueenie Diamond MD, Anshul Attending Clinician [phone] Han Young MD Attending Clinician [phone] GLENDA CRUZ Attending Clinician Unavailable Anthony YANG, Glenda Dominguez Attending Clinician [phone] Andree Chew DO Attending Clinician + Pcp-Lab Attending Clinician Unavailable HAN YOUNG Attending Clinician Unavailab isabella DAILEYP, Amanda Ye Attending Clinician [phone] ROWDY VALENTIN Attending Clinician Ashley griselda Valentin MD, Rowdy Koenig Attending Clinician AMANDA DE LA PAZ Attending Clinician UnavailAnderson Buckley DO Attending Clinician [phone] Rachael Bedoya MD Attending Clinician +- [phone] RACHAEL BEDOYA Attending Clinician UnavailAnju Rowan RN Attending Clinician Unavailab Alyx Kang RN Attending Clinician Unavailab Maciej Odom Attending Clinician [phone] Iron MEREDITH, Jesus Attending Clinician [phone] Cesar Walker MD Attending Clinician [phone] Jackie MEREDITH, Yo Linton Attending Clinician [phone] Greg Domingo MD Attending Clinician + [phone] Only, Adc Pob2 Test Attending Clinician Unavaila JASON Morrell Attending Clinician Unavailable FABIO CASTRO Attending Clinician Unavail able Nurse, [facility] Pob Immunization Attending Clinician Unavailable Fabio Castro DO Attending Clinician [phone] Hayde Ramírez RN Attending Clinician [phone] Brooklynn Li MD Attending Clinician [phone] Earnestine Jarvis MD, Leonard Attending Clinician + [phone] Pavel Torres MD Attending Clinician + [phone] GREG DOMINGO Admitting Clinician FOREST Arita Admitting Clinician Unavailable HAJA BENOIT Admitting Clinician CESAR Acharya Admitting Clinician Unavailable Cesar Walker MD Admitting Clinician [phone] Greg Domingo MD Admitting Clinician [phone] Payers Payer Name Policy Type Policy Number Effective Date Expirati on Date Source IRASEMA MCALLISTER PLS O [id number] 2021 00:00:00 MEDICARE PART A \\T\\ B [id number] 2021 00:00:00 Problems Condition Name Condition Details Condition Category Status Onset Date Resolution Date Last Treatment Date Treating Clinician Comments Source At risk for falls At risk for falls Disease Active 2022-06 00:00: 00 [facility] Unspecifie d abnormalit ies of gait and mobility Unspecifie d abnormalit ies of gait and mobility Disease Active 2022-06 00:00: 00 [facility] Dyslipidem ia Dyslipidem ia Disease Active 10-27 00:00: 00 [facility] Acute on chronic systolic and diastolic heart failure, NYHA class 3 Acute on chronic systolic and diastolic heart failure, NYHA class 3 Disease Active 10-27 00:00: 00 [facility] Pulmonary embolus, right Pulmonary embolus, right Disease Active 10-26 00:00: 00 [facility] NSTEMI (non-ST elevated myocardial infarction ) NSTEMI (non-ST elevated myocardial infarction ) Disease Active 10-26 00:00: 00 [facility] Abdominal pain, unspecifie d abdominal location Abdominal pain, unspecifie d abdominal location Disease Active 10-26 00:00: 00 Overview: Formattin g of this note might be different from the original. 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 Disease Active 2020-06 0 00:00: 00 [facility] Elevated brain natriureti c peptide (BNP) level Elevated brain natriureti c peptide (BNP) level Disease Active 2020-06 0 00:00: 00 [facility] Hyperkalem ia Hyperkalem ia Disease Active 2020-06 00:00: 00 [facility] Obesity (BMI 30-39.9) Obesity (BMI 30-39.9) Disease Active 2020-06 0 00:00: 00 [facility] Acute cystitis without hematuria Acute cystitis without hematuria Disease Active 2020-06 0 00:00: 00 [facility] Cholelithi asis and cholecysti tis without obstructio n Cholelithi asis and cholecysti tis without obstructio n Disease Active 02-06 00:00: 00 [facility] Asthma Asthma Disease Active 02-06 00:00: 00 [facility] Essential hypertensi on Essential hypertensi on Disease Active 02-06 00:00: 00 [facility] Allergies, Adverse Reactions, Alerts Allergy Name Allergy Type Status Severity Reaction(s) Onset Date Inactive Date Treating Clinician Comments Source NO KNOWN ALLERGIE S Drug Class Active [facility] Social History Social Habit Start Date Stop Date Quantity Comments [facility] 2023-05-30 00:00:00 2023-05-30 00:00:00 Ex-drinker (finding) [facility] Exposure to SARS-CoV-2 (event) 2022-08-30 00:00:00 2022-09-09 09:50:00 Not sure [facility] History of Social function 2022-09-09 00:00:00 2022-09-09 00:00:00 [facility] Tobacco use and exposure 2022-04-19 00:00:00 2022-04-19 00:00:00 Smokeless tobacco non-user [facility] Sex Ass[birth year] At 1955 00:00:00 1955 00:00:00 [facility] Smoking Status Start Date Stop Date Source Never smoked tobacco [facility] Medications Ordered Medication Name Filled Medication Name Start Date Stop Date Current Medication? Ordering Clinician Indication Dosage Frequency Signature (SIG) Comments Components Source bumetanide 1 mg tablet 0 07-08 00:00: 00 Yes [id number] Take 3 tablets by mouth every morning AND 2 tablets every evening. [facility] bumetanide 1 mg tablet 2023-0 07-08 00:00: 00 Yes [id number] Take 3 tablets by mouth every morning AND 2 tablets every evening. [facility] bumetanide 1 mg tablet 2023-0 07-08 00:00: 00 Yes [id number] Take 3 tablets by mouth every morning AND 2 tablets every evening. [facility] bumetanide 1 mg tablet 2023-0 07-08 00:00: 00 Yes [id number] Take 3 tablets by mouth every morning AND 2 tablets every evening. [facility] bumetanide 1 mg tablet 2023-0 06-23 00:00: 00 Yes [id number] Take 2 tablets by mouth every morning AND 1.5 tablets every evening. [facility] bumetanide 1 mg tablet 2023-0 06-23 00:00: 00 Yes [id number] Take 2 tablets by mouth every morning AND 1.5 tablets every evening. [facility] bumetanide 1 mg tablet 2023-0 04 00:00: 00 Yes [id number] Take 2 tablets by mouth every morning AND 1.5 tablets every evening. [facility] bumetanide 1 mg tablet 2023-0 06-23 00:00: 00 Yes [id number] Take 2 tablets by mouth every morning AND 1.5 tablets every evening. [facility] bumetanide 1 mg tablet 1-04 00:00: 00 07-08 00:00 :00 No [id number] Take 2 tablets by mouth every morning AND 1.5 tablets every evening. [facility] bumetanide 1 mg tablet 2022-06 2-15 00:00: 00 Yes [id number] 1.5mg Take 1.5 tablets by mouth every morning and evening. [facility] bumetanide 1 mg tablet 2022-06 2-15 00:00: 00 Yes [id number] 1.5mg Take 1.5 tablets by mouth every morning and evening. [facility] bumetanide 1 mg tablet 2022-06 2-15 00:00: 00 Yes [id number] 1.5mg Take 1.5 tablets by mouth every morning and evening. [facility] bumetanide 1 mg tablet 2022-06 2-15 00:00: 00 Yes [id number] 1.5mg Take 1.5 tablets by mouth every morning and evening. [facility] bumetanide 1 mg tablet 2022-06 2-15 00:00: 00 Yes [id number] 1.5mg Take 1.5 tablets by mouth every morning and evening. [facility] bumetanide 1 mg tablet 2022-06 2-15 00:00: 00 Yes [id number] 1.5mg Take 1.5 tablets by mouth every morning and evening. [facility] bumetanide 1 mg tablet 2022-06 2-15 00:00: 00 Yes [id number] 1.5mg Take 1.5 tablets by mouth every morning and evening. [facility] bumetanide 1 mg tablet 2022-06 2-15 00:00: 00 Yes [id number] 1.5mg Take 1.5 tablets by mouth every morning and evening. [facility] bumetanide 1 mg tablet 2022-06 2-15 00:00: 00 06-23 00:00 :00 No [id number] 1.5mg Take 1.5 tablets by mouth every morning and evening. [facility] levothyroxi ne 100 mcg tablet 2022-06 00:00: 00 Yes [id number] 100ug Take 1 tablet by mouth every morning. [facility] levothyroxi ne 100 mcg tablet 2022-06 00:00: 00 Yes [id number] 100ug Take 1 tablet by mouth every morning. [facility] levothyroxi ne 100 mcg tablet 2022-06 00:00: 00 Yes [id number] 100ug Take 1 tablet by mouth every morning. [facility] levothyroxi ne 100 mcg tablet 2022-06 00:00: 00 Yes [id number] 100ug Take 1 tablet by mouth every morning. [facility] levothyroxi ne 100 mcg tablet 2022-06 00:00: 00 Yes [id number] 100ug Take 1 tablet by mouth every morning. [facility] levothyroxi ne 100 mcg tablet 2022-06 00:00: 00 Yes [id number] 100ug Take 1 tablet by mouth every morning. [facility] levothyroxi ne 100 mcg tablet 2022-06 00:00: 00 Yes [id number] 100ug Take 1 tablet by mouth every morning. [facility] levothyroxi ne 100 mcg tablet 2022-06 00:00: 00 Yes [id number] 100ug Take 1 tablet by mouth every morning. [facility] levothyroxi ne 100 mcg tablet 2022-06 00:00: 00 Yes [id number] 100ug Take 1 tablet by mouth every morning. [facility] levothyroxi ne 100 mcg tablet 2022-06 00:00: 00 Yes [id number] 100ug Take 1 tablet by mouth every morning. [facility] levothyroxi ne 100 mcg tablet 2022-06 00:00: 00 Yes [id number] 100ug Take 1 tablet by mouth every morning. [facility] levothyroxi ne 100 mcg tablet 2022-06 00:00: 00 Yes [id number] 100ug Take 1 tablet by mouth every morning. [facility] levothyroxi ne 100 mcg tablet 2022-06 00:00: 00 Yes [id number] 100ug Take 1 tablet by mouth every morning. [facility] levothyroxi ne 100 mcg tablet 2022-06 00:00: 00 Yes [id number] 100ug Take 1 tablet by mouth every morning. [facility] levothyroxi ne 100 mcg tablet 2022-06 00:00: 00 Yes [id number] 100ug Take 1 tablet by mouth every morning. [facility] levothyroxi ne 100 mcg tablet 2022-06 00:00: 00 Yes [id number] 100ug Take 1 tablet by mouth every morning. [facility] levothyroxi ne 100 mcg tablet 2022-06 00:00: 00 Yes [id number] 100ug Take 1 tablet by mouth every morning. [facility] levothyroxi ne 100 mcg tablet 2022-06 00:00: 00 Yes [id number] 100ug Take 1 tablet by mouth every morning. [facility] levothyroxi ne 100 mcg tablet 2022-06 00:00: 00 Yes [id number] 100ug Take 1 tablet by mouth every morning. [facility] montelukast 10 mg tablet 2022-06 13:20: 02 Yes 10mg Take 1 tablet by mouth at bedtime. [facility] clonazePAM 0.5 mg tablet 2022-06 13:20: 02 Yes .5mg Take 1 tablet by mouth at bedtime. [facility] montelukast 10 mg tablet 2022-06 13:20: 02 Yes 10mg Take 1 tablet by mouth at bedtime. [facility] clonazePAM 0.5 mg tablet 2022-06 13:20: 02 Yes .5mg Take 1 tablet by mouth at bedtime. [facility] montelukast 10 mg tablet 2022-06 13:20: 02 Yes 10mg Take 1 tablet by mouth at bedtime. [facility] clonazePAM 0.5 mg tablet 2022-06 13:20: 02 Yes .5mg Take 1 tablet by mouth at bedtime. [facility] montelukast 10 mg tablet 2022-06 13:20: 02 Yes 10mg Take 1 tablet by mouth at bedtime. [facility] clonazePAM 0.5 mg tablet 2022-06 13:20: 02 Yes .5mg Take 1 tablet by mouth at bedtime. [facility] montelukast 10 mg tablet 2022-06 13:20: 02 Yes 10mg Take 1 tablet by mouth at bedtime. [facility] clonazePAM 0.5 mg tablet 2022-06 13:20: 02 Yes .5mg Take 1 tablet by mouth at bedtime. [facility] montelukast 10 mg tablet 2022-06 13:20: 02 Yes 10mg Take 1 tablet by mouth at bedtime. [facility] clonazePAM 0.5 mg tablet 2022-06 13:20: 02 Yes .5mg Take 1 tablet by mouth at bedtime. [facility] montelukast 10 mg tablet 2022-06 13:20: 02 Yes 10mg Take 1 tablet by mouth at bedtime. [facility] clonazePAM 0.5 mg tablet 2022-06 13:20: 02 Yes .5mg Take 1 tablet by mouth at bedtime. [facility] montelukast 10 mg tablet 2022-06 13:20: 02 Yes 10mg Take 1 tablet by mouth at bedtime. [facility] clonazePAM 0.5 mg tablet 2022-06 13:20: 02 Yes .5mg Take 1 tablet by mouth at bedtime. [facility] montelukast 10 mg tablet 2022-06 13:20: 02 Yes 10mg Take 1 tablet by mouth at bedtime. [facility] clonazePAM 0.5 mg tablet 2022-06 13:20: 02 Yes .5mg Take 1 tablet by mouth at bedtime. [facility] montelukast 10 mg tablet 2022-06 13:20: 02 Yes 10mg Take 1 tablet by mouth at bedtime. [facility] clonazePAM 0.5 mg tablet 2022-06 13:20: 02 Yes .5mg Take 1 tablet by mouth at bedtime. [facility] montelukast 10 mg tablet 2022-06 13:20: 02 Yes 10mg Take 1 tablet by mouth at bedtime. [facility] clonazePAM 0.5 mg tablet 2022-06 13:20: 02 Yes .5mg Take 1 tablet by mouth at bedtime. [facility] montelukast 10 mg tablet 2022-06 13:20: 02 Yes 10mg Take 1 tablet by mouth at bedtime. [facility] clonazePAM 0.5 mg tablet 2022-06 13:20: 02 Yes .5mg Take 1 tablet by mouth at bedtime. [facility] montelukast 10 mg tablet 2022-06 13:20: 02 Yes 10mg Take 1 tablet by mouth at bedtime. [facility] clonazePAM 0.5 mg tablet 2022-06 13:20: 02 Yes .5mg Take 1 tablet by mouth at bedtime. [facility] montelukast 10 mg tablet 2022-06 13:20: 02 Yes 10mg Take 1 tablet by mouth at bedtime. [facility] clonazePAM 0.5 mg tablet 2022-06 13:20: 02 Yes .5mg Take 1 tablet by mouth at bedtime. [facility] montelukast 10 mg tablet 2022-06 13:20: 02 Yes 10mg Take 1 tablet by mouth at bedtime. [facility] clonazePAM 0.5 mg tablet 2022-06 13:20: 02 Yes .5mg Take 1 tablet by mouth at bedtime. [facility] montelukast 10 mg tablet 2022-06 13:20: 02 Yes 10mg Take 1 tablet by mouth at bedtime. [facility] clonazePAM 0.5 mg tablet 2022-06 13:20: 02 Yes .5mg Take 1 tablet by mouth at bedtime. [facility] montelukast 10 mg tablet 2022-06 13:20: 02 Yes 10mg Take 1 tablet by mouth at bedtime. [facility] clonazePAM 0.5 mg tablet 2022-06 13:20: 02 Yes .5mg Take 1 tablet by mouth at bedtime. [facility] montelukast 10 mg tablet 2022-06 13:20: 02 Yes 10mg Take 1 tablet by mouth at bedtime. [facility] clonazePAM 0.5 mg tablet 2022-06 13:20: 02 Yes .5mg Take 1 tablet by mouth at bedtime. [facility] montelukast 10 mg tablet 2022-06 13:20: 02 Yes 10mg Take 1 tablet by mouth at bedtime. [facility] clonazePAM 0.5 mg tablet 2022-06 13:20: 02 Yes .5mg Take 1 tablet by mouth at bedtime. [facility] montelukast 10 mg tablet 2022-06 13:20: 02 Yes 10mg Take 1 tablet by mouth at bedtime. [facility] clonazePAM 0.5 mg tablet 2022-06 13:20: 02 Yes .5mg Take 1 tablet by mouth at bedtime. [facility] montelukast 10 mg tablet 2022-06 13:20: 02 Yes 10mg Take 1 tablet by mouth at bedtime. [facility] clonazePAM 0.5 mg tablet 2022-06 13:20: 02 Yes .5mg Take 1 tablet by mouth at bedtime. [facility] montelukast 10 mg tablet 2022-06 13:20: 02 Yes 10mg Take 1 tablet by mouth at bedtime. [facility] clonazePAM 0.5 mg tablet 2022-06 13:20: 02 Yes .5mg Take 1 tablet by mouth at bedtime. [facility] montelukast 10 mg tablet 2022-06 13:20: 02 Yes 10mg Take 1 tablet by mouth at bedtime. [facility] clonazePAM 0.5 mg tablet 2022-06 13:20: 02 Yes .5mg Take 1 tablet by mouth at bedtime. [facility] montelukast 10 mg tablet 2022-06 13:20: 02 Yes 10mg Take 1 tablet by mouth at bedtime. [facility] clonazePAM 0.5 mg tablet 2022-06 13:20: 02 Yes .5mg Take 1 tablet by mouth at bedtime. [facility] bumetanide 1 mg tablet 2022-06 00:00: 00 Yes [id number] 1mg Take 1 tablet by mouth every morning and evening. [facility] lisinopriL 5 mg tablet 2022-06 00:00: 00 Yes [id number] 2.5mg Take 0.5 tablets by mouth at bedtime. [facility] bumetanide 1 mg tablet 2022-06 00:00: 00 Yes [id number] 1mg Take 1 tablet by mouth every morning and evening. [facility] lisinopriL 5 mg tablet 2022-06 00:00: 00 Yes [id number] 2.5mg Take 0.5 tablets by mouth at bedtime. [facility] bumetanide 1 mg tablet 2022-06 00:00: 00 Yes [id number] 1mg Take 1 tablet by mouth every morning and evening. [facility] lisinopriL 5 mg tablet 2022-06 00:00: 00 Yes [id number] 2.5mg Take 0.5 tablets by mouth at bedtime. [facility] bumetanide 1 mg tablet 2022-06 00:00: 00 Yes [id number] 1mg Take 1 tablet by mouth every morning and evening. [facility] lisinopriL 5 mg tablet 2022-06 00:00: 00 Yes [id number] 2.5mg Take 0.5 tablets by mouth at bedtime. [facility] bumetanide 1 mg tablet 2022-06 00:00: 00 Yes [id number] 1mg Take 1 tablet by mouth every morning and evening. [facility] lisinopriL 5 mg tablet 2022-06 2 00:00: 00 Yes [id number] 2.5mg Take 0.5 tablets by mouth at bedtime. [facility] bumetanide 1 mg tablet 2022-06 00:00: 00 Yes [id number] 1mg Take 1 tablet by mouth every morning and evening. [facility] lisinopriL 5 mg tablet 2022-06 00:00: 00 Yes [id number] 2.5mg Take 0.5 tablets by mouth at bedtime. [facility] lisinopriL 5 mg tablet 2022-06 00:00: 00 Yes [id number] 2.5mg Take 0.5 tablets by mouth at bedtime. [facility] lisinopriL 5 mg tablet 2022-06 00:00: 00 Yes [id number] 2.5mg Take 0.5 tablets by mouth at bedtime. [facility] lisinopriL 5 mg tablet 2022-06 00:00: 00 Yes [id number] 2.5mg Take 0.5 tablets by mouth at bedtime. [facility] lisinopriL 5 mg tablet 2022-06 00:00: 00 Yes [id number] 2.5mg Take 0.5 tablets by mouth at bedtime. [facility] lisinopriL 5 mg tablet 2022-06 00:00: 00 Yes [id number] 2.5mg Take 0.5 tablets by mouth at bedtime. [facility] lisinopriL 5 mg tablet 2022-06 00:00: 00 Yes [id number] 2.5mg Take 0.5 tablets by mouth at bedtime. [facility] lisinopriL 5 mg tablet 2022-06 00:00: 00 Yes [id number] 2.5mg Take 0.5 tablets by mouth at bedtime. [facility] lisinopriL 5 mg tablet 2022-06 2 00:00: 00 Yes [id number] 2.5mg Take 0.5 tablets by mouth at bedtime. [facility] lisinopriL 5 mg tablet 2022-06 2 00:00: 00 Yes [id number] 2.5mg Take 0.5 tablets by mouth at bedtime. [facility] lisinopriL 5 mg tablet 2022-06 2 00:00: 00 Yes [id number] 2.5mg Take 0.5 tablets by mouth at bedtime. [facility] lisinopriL 5 mg tablet 2022-06 00:00: 00 Yes [id number] 2.5mg Take 0.5 tablets by mouth at bedtime. [facility] lisinopriL 5 mg tablet 2022-06 00:00: 00 Yes [id number] 2.5mg Take 0.5 tablets by mouth at bedtime. [facility] lisinopriL 5 mg tablet 2022-06 00:00: 00 Yes [id number] 2.5mg Take 0.5 tablets by mouth at bedtime. [facility] lisinopriL 5 mg tablet 2022-06 00:00: 00 Yes [id number] 2.5mg Take 0.5 tablets by mouth at bedtime. [facility] lisinopriL 5 mg tablet 2022-06 00:00: 00 Yes [id number] 2.5mg Take 0.5 tablets by mouth at bedtime. [facility] lisinopriL 5 mg tablet 2022-06 00:00: 00 Yes [id number] 2.5mg Take 0.5 tablets by mouth at bedtime. [facility] lisinopriL 5 mg tablet 2022-06 00:00: 00 Yes [id number] 2.5mg Take 0.5 tablets by mouth at bedtime. [facility] lisinopriL 5 mg tablet 2022-06 00:00: 00 Yes [id number] 2.5mg Take 0.5 tablets by mouth at bedtime. [facility] bumetanide 1 mg tablet 2022-06 2 00:00: 00 06-03 00:00 :00 No [id number] 1mg Take 1 tablet by mouth every morning and evening. [facility] bumetanide 1 mg tablet 2022- 2-04 00:00: 00 06-03 00:00 :00 No [id number] 1mg Take 1 tablet by mouth every morning and evening. [facility] bumetanide 1 mg tablet 2022- 2-04 00:00: 00 06-03 00:00 :00 No [id number] 1mg Take 1 tablet by mouth every morning and evening. [facility] bumetanide 1 mg tablet 2022- 2-04 00:00: 00 06-03 00:00 :00 No [id number] 1mg Take 1 tablet by mouth every morning and evening. [facility] bumetanide 1 mg tablet 2022- 2-04 00:00: 00 06-03 00:00 :00 No [id number] 1mg Take 1 tablet by mouth every morning and evening. [facility] bumetanide 1 mg tablet 2022- 2-04 00:00: 00 06-03 00:00 :00 No [id number] 1mg Take 1 tablet by mouth every morning and evening. [facility] bumetanide 1 mg tablet 2022- 2-04 00:00: 00 06-03 00:00 :00 No [id number] 1mg Take 1 tablet by mouth every morning and evening. [facility] CYCLOBENZAP RINE 5 mg tablet 2022- 0-20 00:00: 00 Yes [id number] TAKE ONE TABLET BY MOUTH EVERY NIGHT AT BEDTIME NEEDED FOR MUSCLE SPASMS [facility] CYCLOBENZAP RINE 5 mg tablet 2022-1 0-20 00:00: 00 Yes [id number] TAKE ONE TABLET BY MOUTH EVERY NIGHT AT BEDTIME NEEDED FOR MUSCLE SPASMS [facility] CYCLOBENZAP RINE 5 mg tablet 2022- 0-20 00:00: 00 Yes [id number] TAKE ONE TABLET BY MOUTH EVERY NIGHT AT BEDTIME NEEDED FOR MUSCLE SPASMS [facility] CYCLOBENZAP RINE 5 mg tablet 2022-1 0-20 00:00: 00 Yes [id number] TAKE ONE TABLET BY MOUTH EVERY NIGHT AT BEDTIME NEEDED FOR MUSCLE SPASMS [facility] CYCLOBENZAP RINE 5 mg tablet 2022-1 0-20 00:00: 00 Yes [id number] TAKE ONE TABLET BY MOUTH EVERY NIGHT AT BEDTIME NEEDED FOR MUSCLE SPASMS [facility] CYCLOBENZAP RINE 5 mg tablet 2022-1 0-20 00:00: 00 Yes [id number] TAKE ONE TABLET BY MOUTH EVERY NIGHT AT BEDTIME NEEDED FOR MUSCLE SPASMS [facility] CYCLOBENZAP RINE 5 mg tablet 2022-1 0-20 00:00: 00 Yes TAKE ONE TABLET BY MOUTH EVERY NIGHT AT BEDTIME NEEDED FOR MUSCLE SPASMS [facility] tablet 2022-1 0-20 00:00: 00 Yes [id number] TAKE ONE TABLET BY MOUTH EVERY NIGHT AT BEDTIME NEEDED FOR MUSCLE SPASMS [facility] CYCLOBENZAP RINE 5 mg tablet 2022-1 0-20 00:00: 00 Yes [id number] TAKE ONE TABLET BY MOUTH EVERY NIGHT AT BEDTIME NEEDED FOR MUSCLE SPASMS [facility] CYCLOBENZAP RINE 5 mg tablet 2022-1 0-20 00:00: 00 Yes [id number] TAKE ONE TABLET BY MOUTH EVERY NIGHT AT BEDTIME NEEDED FOR MUSCLE SPASMS [facility] CYCLOBENZAP RINE 5 mg tablet 2022-1 0-20 00:00: 00 Yes [id number] TAKE ONE TABLET BY MOUTH EVERY NIGHT AT BEDTIME NEEDED FOR MUSCLE SPASMS [facility] CYCLOBENZAP RINE 5 mg tablet 2022-1 0-20 00:00: 00 Yes [id number] TAKE ONE TABLET BY MOUTH EVERY NIGHT AT BEDTIME NEEDED FOR MUSCLE SPASMS [facility] CYCLOBENZAP RINE 5 mg tablet 2022-1 0-20 00:00: 00 Yes [id number] TAKE ONE TABLET BY MOUTH EVERY NIGHT AT BEDTIME NEEDED FOR MUSCLE SPASMS [facility] CYCLOBENZAP RINE 5 mg tablet 2022-1 0-20 00:00: 00 Yes [id number] TAKE ONE TABLET BY MOUTH EVERY NIGHT AT BEDTIME NEEDED FOR MUSCLE SPASMS [facility] CYCLOBENZAP RINE 5 mg tablet 2022-1 0-20 00:00: 00 Yes TAKE ONE TABLET BY MOUTH EVERY NIGHT AT BEDTIME NEEDED FOR MUSCLE SPASMS [facility] CYCLOBENZAP RINE 5 mg tablet 2022-1 0-20 00:00: 00 Yes [id number] TAKE ONE TABLET BY MOUTH EVERY NIGHT AT BEDTIME NEEDED FOR MUSCLE SPASMS [facility] CYCLOBENZAP RINE 5 mg tablet 2022-1 0-20 00:00: 00 Yes TAKE ONE TABLET BY MOUTH EVERY NIGHT AT BEDTIME NEEDED FOR MUSCLE SPASMS [facility] CYCLOBENZAP RINE 5 mg tablet 2022- 0-20 00:00: 00 Yes TAKE ONE TABLET BY MOUTH EVERY NIGHT AT BEDTIME NEEDED FOR MUSCLE SPASMS [facility] 2022- 0-20 00:00: 00 Yes TAKE ONE TABLET BY MOUTH EVERY NIGHT AT BEDTIME NEEDED FOR MUSCLE SPASMS [facility] R[facility] 5 mg tablet 2022- 0-20 00:00: 00 Yes [id number] TAKE ONE TABLET BY MOUTH EVERY NIGHT AT BEDTIME NEEDED FOR MUSCLE SPASMS [facility] CYCLOBENZAP RINE 5 mg tablet 2022- 0-20 00:00: 00 Yes [id number] TAKE ONE TABLET BY MOUTH EVERY NIGHT AT BEDTIME NEEDED FOR MUSCLE SPASMS [facility] mg tablet 2022-1 0-20 00:00: 00 Yes [id number] TAKE ONE TABLET BY MOUTH EVERY NIGHT AT BEDTIME NEEDED FOR MUSCLE SPASMS [facility] R[facility] 5 mg tablet 2022-1 0-20 00:00: 00 Yes TAKE ONE TABLET BY MOUTH EVERY NIGHT AT BEDTIME NEEDED FOR MUSCLE SPASMS [facility]CLOB[facility] RINE 5 mg tablet 2022-1 0-20 00:00: 00 Yes [id number] TAKE ONE TABLET BY MOUTH EVERY NIGHT AT BEDTIME NEEDED FOR MUSCLE SPASMS [facility] RINE 5 mg tablet 2023-1 0-20 00:00: 00 Yes TAKE ONE TABLET BY MOUTH EVERY NIGHT AT BEDTIME NEEDED FOR MUSCLE SPASMS [facility] CYCLOBENZAP RINE 5 mg tablet 2022-1 0-20 00:00: 00 Yes TAKE ONE TABLET BY MOUTH EVERY NIGHT AT BEDTIME NEEDED FOR MUSCLE SPASMS [facility] CYCLOBENZAP RINE 5 mg tablet 2022-1 0-20 00:00: 00 Yes TAKE ONE TABLET BY MOUTH EVERY NIGHT AT BEDTIME NEEDED FOR MUSCLE SPASMS [facility] R[facility] 5 mg tablet 2022-1 0-20 00:00: 00 Yes TAKE ONE TABLET BY MOUTH EVERY NIGHT AT BEDTIME NEEDED FOR MUSCLE SPASMS [facility]CLOBENZAP RINE 5 mg tablet 2022- 0-20 00:00: 00 Yes TAKE ONE TABLET BY MOUTH EVERY NIGHT AT BEDTIME NEEDED FOR MUSCLE SPASMS [facility] CYCLOBENZ[facility] RINE 5 mg tablet 2022- 0-20 00:00: 00 Yes TAKE ONE TABLET BY MOUTH EVERY NIGHT AT BEDTIME NEEDED FOR MUSCLE SPASMS [facility] CYCLOBENZAP RINE 5 mg tablet 2022-1 0-20 00:00: 00 Yes [id number] TAKE ONE TABLET BY MOUTH EVERY NIGHT AT BEDTIME NEEDED FOR MUSCLE SPASMS [facility] CYCLOBENZAP RINE 5 mg tablet 2022- 0-20 00:00: 00 Yes [id number] TAKE ONE TABLET BY MOUTH EVERY NIGHT AT BEDTIME NEEDED FOR MUSCLE SPASMS [facility]OB[facility] RINE 5 mg tablet 2022-1 0-20 00:00: 00 Yes [id number] TAKE ONE TABLET BY MOUTH EVERY NIGHT AT BEDTIME NEEDED FOR MUSCLE SPASMS [facility] CYCLOBENZAP RINE 5 mg tablet 2022-1 0-20 00:00: 00 Yes TAKE ONE TABLET BY MOUTH EVERY NIGHT AT BEDTIME NEEDED FOR MUSCLE SPASMS [facility] CYCLOBENZAP RINE 5 mg tablet 2022-1 0-20 00:00: 00 Yes TAKE ONE TABLET BY MOUTH EVERY NIGHT AT BEDTIME NEEDED FOR MUSCLE SPASMS [facility] CYCLOBENZAP RINE 5 mg tablet 2022-06 0 00:00: 00 Yes [id number] TAKE ONE TABLET BY MOUTH EVERY NIGHT AT BEDTIME NEEDED FOR MUSCLE SPASMS [facility] CYCLOBENZAP RINE 5 mg tablet 2022-06 00:00: 00 Yes [id number] TAKE ONE TABLET BY MOUTH EVERY NIGHT AT BEDTIME NEEDED FOR MUSCLE SPASMS [facility] THYROID 60 mg tablet 2022-06 0 00:00: 00 Yes 60mg Take 1 tablet by mouth every morning. [facility] THYROID 60 mg tablet 2022-06 00:00: 00 Yes 60mg Take 1 tablet by mouth every morning. [facility] THYROID 60 mg tablet 2022-06 00:00: 00 Yes 60mg Take 1 tablet by mouth every morning. [facility] THYROID 60 mg tablet 2022-06 00:00: 00 05-31 00:00 :00 No 60mg Take 1 tablet by mouth every morning. [facility] sulfur hexafluorid e microsphr (LUMASON) injection 5 mL 03-17 21:04: 00 03-17 21:04 :00 No [id number] 5mL 5 mL, Intravenou s, ONCE, 1 dose, On Tue03/17/23 at 1630, Routine
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 medication : [facility] triamcinolo ne acetonide (KENALOG) injection 40 mg 03-09 22:15: 00 03-09 21:28 :00 No [id number] 40mg [facility] triamcinolo ne acetonide (KENALOG) injection 40 mg 03-09 22:15: 00 03-09 21:28 :00 No [id number] 40mg 40 mg, Intramuscu lar, ONCE, 1 dose, On Tue03/09/23 at 1715, Routine [facility] triamcinolo ne acetonide (KENALOG) injection 40 mg 03-09 22:15: 00 03-09 21:28 :00 No [id number] 40mg [facility] triamcinolo ne acetonide (KENALOG) injection 40 mg 03-09 22:15: 00 03-09 21:28 :00 No [id number] 40mg 40 mg, Intramuscu lar, ONCE, 1 dose, On Tue03/09/23 at 1715, Routine [facility] cyclobenzap rine 5 mg tablet 0 03-06 00:00: 00 Yes [id number] 5mg Take 1 tablet by mouth at bedtime as needed for Muscle Spasms. [facility] cyclobenzap rine 5 mg tablet 0 03-06 00:00: 00 Yes [id number] 5mg Take 1 tablet by mouth at bedtime as needed for Muscle Spasms. [facility] cyclobenzap rine 5 mg tablet 0 03-06 00:00: 00 Yes [id number] 5mg Take 1 tablet by mouth at bedtime as needed for Muscle Spasms. [facility] cyclobenzap rine 5 mg tablet 0 17 00:00: 00 Yes [id number] 5mg Take 1 tablet by mouth at bedtime as needed for Muscle Spasms. [facility] cyclobenzap rine 5 mg tablet 2022-0 17 00:00: 00 Yes [id number] 5mg Take 1 tablet by mouth at bedtime as needed for Muscle Spasms. [facility] cyclobenzap rine 5 mg tablet 2022-0 17 00:00: 00 Yes [id number] 5mg Take 1 tablet by mouth at bedtime as needed for Muscle Spasms. [facility] cyclobenzap rine 5 mg tablet 2022-0 17 00:00: 00 Yes [id number] 5mg Take 1 tablet by mouth at bedtime as needed for Muscle Spasms. [facility] cyclobenzap rine 5 mg tablet 2022-0 17 00:00: 00 Yes [id number] 5mg Take 1 tablet by mouth at bedtime as needed for Muscle Spasms. [facility] cyclobenzap rine 5 mg tablet 0 17 00:00: 00 Yes [id number] 5mg Take 1 tablet by mouth at bedtime as needed for Muscle Spasms. [facility] cyclobenzap rine 5 mg tablet 0 17 00:00: 00 Yes [id number] 5mg Take 1 tablet by mouth at bedtime as needed for Muscle Spasms. [facility] cyclobenzap rine 5 mg tablet 0 17 00:00: 00 04-08 00:00 :00 No [id number] 5mg Take 1 tablet by mouth at bedtime as needed for Muscle Spasms. [facility] cyclobenzap rine 5 mg tablet 0 17 00:00: 00 03-06 04:59 :00 No [id number] 5mg Take 1 tablet by mouth at bedtime as needed for Muscle Spasms for up to 30 days. [facility] cyclobenzap rine 5 mg tablet 02-03 00:00: 00 03-06 04:59 :00 No [id number] 5mg Take 1 tablet by mouth at bedtime as needed for Muscle Spasms for up to 30 days. [facility] cyclobenzap rine 5 mg tablet 02-03 00:00: 00 03-06 04:59 :00 No [id number] 5mg Take 1 tablet by mouth at bedtime as needed for Muscle Spasms for up to 30 days. [facility] cyclobenzap rine 5 mg tablet 0 17 00:00: 00 03-06 04:59 :00 No [id number] 5mg Take 1 tablet by mouth at bedtime as needed for Muscle Spasms for up to 30 days. [facility] cyclobenzap rine 5 mg tablet 0 17 00:00: 00 03-06 04:59 :00 No [id number] 5mg Take 1 tablet by mouth at bedtime as needed for Muscle Spasms for up to 30 days. [facility] cyclobenzap rine 5 mg tablet 0 17 00:00: 00 03-06 04:59 :00 No [id number] 5mg Take 1 tablet by mouth at bedtime as needed for Muscle Spasms for up to 30 days. [facility] cyclobenzap rine 5 mg tablet 02-03 00:00: 00 03-06 04:59 :00 No [id number] 5mg Take 1 tablet by mouth at bedtime as needed for Muscle Spasms for up to 30 days. [facility] cyclobenzap rine 5 mg tablet 02-03 00:00: 00 03-06 04:59 :00 No [id number] 5mg Take 1 tablet by mouth at bedtime as needed for Muscle Spasms for up to 30 days. [facility] cyclobenzap rine 5 mg tablet 02-03 00:00: 00 03-06 04:59 :00 No [id number] 5mg Take 1 tablet by mouth at bedtime as needed for Muscle Spasms for up to 30 days. [facility] cyclobenzap rine 5 mg tablet 02-03 00:00: 00 03-06 00:00 :00 No [id number] 5mg Take 1 tablet by mouth at bedtime as needed for Muscle Spasms for up to 30 days. [facility] thyroid (ARMOUR THYROID) 30 mg tablet 01-24 14:38: 54 01-24 00:00 :00 No 15mg Take 0.5 tablets by mouth every morning. [facility] thyroid (ARMOUR THYROID) 30 mg tablet 01-24 14:38: 54 01-24 00:00 :00 No 15mg Take 0.5 tablets by mouth every morning. [facility] montelukast 10 mg tablet 01-24 14:19: 43 Yes 10mg Take 1 tablet by mouth at bedtime. [facility] clonazePAM 0.5 mg tablet 01-24 14:19: 43 Yes .5mg Take 1 tablet by mouth at bedtime. [facility] montelukast 10 mg tablet 01-24 14:19: 43 Yes 10mg Take 1 tablet by mouth at bedtime. [facility] clonazePAM 0.5 mg tablet 2022-0 01-24 14:19: 43 Yes .5mg Take 1 tablet by mouth at bedtime. [facility] montelukast 10 mg tablet 2022-0 01-24 14:19: 43 Yes 10mg Take 1 tablet by mouth at bedtime. [facility] clonazePAM 0.5 mg tablet 2022-0 01-24 14:19: 43 Yes .5mg Take 1 tablet by mouth at bedtime. [facility] montelukast 10 mg tablet 2022-0 01-24 14:19: 43 Yes 10mg Take 1 tablet by mouth at bedtime. [facility] clonazePAM 0.5 mg tablet 2022-0 01-24 14:19: 43 Yes .5mg Take 1 tablet by mouth at bedtime. [facility] montelukast 10 mg tablet 2022-0 01-24 14:19: 43 Yes 10mg Take 1 tablet by mouth at bedtime. [facility] clonazePAM 0.5 mg tablet 2022-0 01-24 14:19: 43 Yes .5mg Take 1 tablet by mouth at bedtime. [facility] montelukast 10 mg tablet 2022-0 01-24 14:19: 43 Yes 10mg Take 1 tablet by mouth at bedtime. [facility] clonazePAM 0.5 mg tablet 2022-0 01-24 14:19: 43 Yes .5mg Take 1 tablet by mouth at bedtime. [facility] montelukast 10 mg tablet 2022-0 01-24 14:19: 43 Yes 10mg Take 1 tablet by mouth at bedtime. [facility] clonazePAM 0.5 mg tablet 2022-0 01-24 14:19: 43 Yes .5mg Take 1 tablet by mouth at bedtime. [facility] montelukast 10 mg tablet 2022-0 01-24 14:19: 43 Yes 10mg Take 1 tablet by mouth at bedtime. [facility] clonazePAM 0.5 mg tablet 2022-0 01-24 14:19: 43 Yes .5mg Take 1 tablet by mouth at bedtime. [facility] montelukast 10 mg tablet 2022-0 01-24 14:19: 43 Yes 10mg Take 1 tablet by mouth at bedtime. [facility] clonazePAM 0.5 mg tablet 2022-0 01-24 14:19: 43 Yes .5mg Take 1 tablet by mouth at bedtime. [facility] montelukast 10 mg tablet 2022-0 01-24 14:19: 43 Yes 10mg Take 1 tablet by mouth at bedtime. [facility] clonazePAM 0.5 mg tablet 2022-0 01-24 14:19: 43 Yes .5mg Take 1 tablet by mouth at bedtime. [facility] montelukast 10 mg tablet 2022-0 01-24 14:19: 43 Yes 10mg Take 1 tablet by mouth at bedtime. [facility] clonazePAM 0.5 mg tablet 2022-0 01-24 14:19: 43 Yes .5mg Take 1 tablet by mouth at bedtime. [facility] montelukast 10 mg tablet 2022-0 01-24 14:19: 43 Yes 10mg Take 1 tablet by mouth at bedtime. [facility] clonazePAM 0.5 mg tablet 2022-0 01-24 14:19: 43 Yes .5mg Take 1 tablet by mouth at bedtime. [facility] montelukast 10 mg tablet 2022-0 01-24 14:19: 43 Yes 10mg Take 1 tablet by mouth at bedtime. [facility] clonazePAM 0.5 mg tablet 2022-0 01-24 14:19: 43 Yes .5mg Take 1 tablet by mouth at bedtime. [facility] montelukast 10 mg tablet 3-0 01-24 14:19: 43 Yes 10mg Take 1 tablet by mouth at bedtime. [facility] clonazePAM 0.5 mg tablet 2022-0 01-24 14:19: 43 Yes .5mg Take 1 tablet by mouth at bedtime. [facility] montelukast 10 mg tablet 2022-0 01-24 14:19: 43 Yes 10mg Take 1 tablet by mouth at bedtime. [facility] clonazePAM 0.5 mg tablet 2022-0 01-24 14:19: 43 Yes .5mg Take 1 tablet by mouth at bedtime. [facility] montelukast 10 mg tablet 2022-0 01-24 14:19: 43 Yes 10mg Take 1 tablet by mouth at bedtime. [facility] clonazePAM 0.5 mg tablet 2022-0 01-24 14:19: 43 Yes .5mg Take 1 tablet by mouth at bedtime. [facility] montelukast 10 mg tablet 2022-0 01-24 14:19: 43 Yes 10mg Take 1 tablet by mouth at bedtime. [facility] clonazePAM 0.5 mg tablet 2022-0 01-24 14:19: 43 Yes .5mg Take 1 tablet by mouth at bedtime. [facility] montelukast 10 mg tablet 2022-0 01-24 14:19: 43 Yes 10mg Take 1 tablet by mouth at bedtime. [facility] clonazePAM 0.5 mg tablet 2022-0 01-24 14:19: 43 Yes .5mg Take 1 tablet by mouth at bedtime. [facility] montelukast 10 mg tablet 2022-0 01-24 14:19: 43 Yes 10mg Take 1 tablet by mouth at bedtime. [facility] clonazePAM 0.5 mg tablet 2022-0 01-24 14:19: 43 Yes .5mg Take 1 tablet by mouth at bedtime. [facility] montelukast 10 mg tablet 2022-0 01-24 14:19: 43 Yes 10mg Take 1 tablet by mouth at bedtime. [facility] clonazePAM 0.5 mg tablet 2022-0 01-24 14:19: 43 Yes .5mg Take 1 tablet by mouth at bedtime. [facility] montelukast 10 mg tablet 2022-0 01-24 14:19: 43 Yes 10mg Take 1 tablet by mouth at bedtime. [facility] clonazePAM 0.5 mg tablet 2022-0 01-24 14:19: 43 Yes .5mg Take 1 tablet by mouth at bedtime. [facility] montelukast 10 mg tablet 2022-0 01-24 14:19: 43 Yes 10mg Take 1 tablet by mouth at bedtime. [facility] clonazePAM 0.5 mg tablet 2022-0 01-24 14:19: 43 Yes .5mg Take 1 tablet by mouth at bedtime. [facility] montelukast 10 mg tablet 2022-0 01-24 14:19: 43 Yes 10mg Take 1 tablet by mouth at bedtime. [facility] clonazePAM 0.5 mg tablet 2022-0 01-24 14:19: 43 Yes .5mg Take 1 tablet by mouth at bedtime. [facility] montelukast 10 mg tablet 2022-0 01-24 14:19: 43 Yes 10mg Take 1 tablet by mouth at bedtime. [facility] clonazePAM 0.5 mg tablet 2022-0 01-24 14:19: 43 Yes .5mg Take 1 tablet by mouth at bedtime. [facility] montelukast 10 mg tablet 2022-0 01-24 14:19: 43 Yes 10mg Take 1 tablet by mouth at bedtime. [facility] clonazePAM 0.5 mg tablet 2022-0 01-24 14:19: 43 Yes .5mg Take 1 tablet by mouth at bedtime. [facility] montelukast 10 mg tablet 2022-0 01-24 14:19: 43 Yes 10mg Take 1 tablet by mouth at bedtime. [facility] clonazePAM 0.5 mg tablet 2022-0 01-24 14:19: 43 Yes .5mg Take 1 tablet by mouth at bedtime. [facility] montelukast 10 mg tablet 2022-0 01-24 14:19: 43 Yes 10mg Take 1 tablet by mouth at bedtime. [facility] clonazePAM 0.5 mg tablet 2022-0 01-24 14:19: 43 Yes .5mg Take 1 tablet by mouth at bedtime. [facility] montelukast 10 mg tablet 2022-0 01-24 14:19: 43 Yes 10mg Take 1 tablet by mouth at bedtime. [facility] clonazePAM 0.5 mg tablet 2022-0 01-24 14:19: 43 Yes .5mg Take 1 tablet by mouth at bedtime. [facility] montelukast 10 mg tablet 2022-0 01-24 14:19: 43 Yes 10mg Take 1 tablet by mouth at bedtime. [facility] clonazePAM 0.5 mg tablet 2022-0 01-24 14:19: 43 Yes .5mg Take 1 tablet by mouth at bedtime. [facility] montelukast 10 mg tablet 2022-0 01-24 14:19: 43 Yes 10mg Take 1 tablet by mouth at bedtime. [facility] montelukast 10 mg tablet 2022-0 01-24 14:19: 43 Yes 10mg Take 1 tablet by mouth at bedtime. [facility] montelukast 10 mg tablet 2022-0 01-24 14:19: 43 Yes 10mg Take 1 tablet by mouth at bedtime. [facility] clonazePAM 0.5 mg tablet 2022-0 01-24 14:19: 43 Yes .5mg Take 1 tablet by mouth at bedtime. [facility] montelukast 10 mg tablet 2022-0 01-24 14:19: 43 Yes 10mg Take 1 tablet by mouth at bedtime. [facility] clonazePAM 0.5 mg tablet 2022-0 01-24 14:19: 43 Yes .5mg Take 1 tablet by mouth at bedtime. [facility] montelukast 10 mg tablet 2022-0 01-24 14:19: 43 Yes 10mg Take 1 tablet by mouth at bedtime. [facility] clonazePAM 0.5 mg tablet 2022-0 01-24 14:19: 43 Yes .5mg Take 1 tablet by mouth at bedtime. [facility] montelukast 10 mg tablet 2022-0 01-24 14:19: 43 Yes 10mg Take 1 tablet by mouth at bedtime. [facility] clonazePAM 0.5 mg tablet 2022-0 01-24 14:19: 43 Yes .5mg Take 1 tablet by mouth at bedtime. [facility] montelukast 10 mg tablet 2022-0 01-24 14:19: 43 Yes 10mg Take 1 tablet by mouth at bedtime. [facility] clonazePAM 0.5 mg tablet 2022-0 01-24 14:19: 43 Yes .5mg Take 1 tablet by mouth at bedtime. [facility] montelukast 10 mg tablet 2022-0 01-24 14:19: 43 Yes 10mg Take 1 tablet by mouth at bedtime. [facility] clonazePAM 0.5 mg tablet 2022-0 01-24 14:19: 43 Yes .5mg Take 1 tablet by mouth at bedtime. [facility] montelukast 10 mg tablet 2022-0 01-24 14:19: 43 Yes 10mg Take 1 tablet by mouth at bedtime. [facility] clonazePAM 0.5 mg tablet 2022-0 01-24 14:19: 43 Yes .5mg Take 1 tablet by mouth at bedtime. [facility] montelukast 10 mg tablet 2022-0 01-24 14:19: 43 Yes 10mg Take 1 tablet by mouth at bedtime. [facility] clonazePAM 0.5 mg tablet 2022-0 01-24 14:19: 43 Yes .5mg Take 1 tablet by mouth at bedtime. [facility] montelukast 10 mg tablet 2022-0 01-24 14:19: 43 Yes 10mg Take 1 tablet by mouth at bedtime. [facility] clonazePAM 0.5 mg tablet 2022-0 01-24 14:19: 43 Yes .5mg Take 1 tablet by mouth at bedtime. [facility] montelukast 10 mg tablet 2022-0 01-24 14:19: 43 Yes 10mg Take 1 tablet by mouth at bedtime. [facility] clonazePAM 0.5 mg tablet 2022-0 01-24 14:19: 43 Yes .5mg Take 1 tablet by mouth at bedtime. [facility] montelukast 10 mg tablet 2022-0 01-24 14:19: 43 Yes 10mg Take 1 tablet by mouth at bedtime. [facility] clonazePAM 0.5 mg tablet 2022-0 01-24 14:19: 43 Yes .5mg Take 1 tablet by mouth at bedtime. [facility] montelukast 10 mg tablet 2022-0 01-24 14:19: 43 Yes 10mg Take 1 tablet by mouth at bedtime. [facility] clonazePAM 0.5 mg tablet 2022-0 01-24 14:19: 43 Yes .5mg Take 1 tablet by mouth at bedtime. [facility] montelukast 10 mg tablet 2022-0 01-24 14:19: 43 Yes 10mg Take 1 tablet by mouth at bedtime. [facility] clonazePAM 0.5 mg tablet 2022-0 01-24 14:19: 43 Yes .5mg Take 1 tablet by mouth at bedtime. [facility] montelukast 10 mg tablet 2022-0 01-24 14:19: 43 Yes 10mg Take 1 tablet by mouth at bedtime. [facility] clonazePAM 0.5 mg tablet 2022-0 01-24 14:19: 43 Yes .5mg Take 1 tablet by mouth at bedtime. [facility] montelukast 10 mg tablet 2022-0 01-24 14:19: 43 Yes 10mg Take 1 tablet by mouth at bedtime. [facility] clonazePAM 0.5 mg tablet 2022-0 01-24 14:19: 43 Yes .5mg Take 1 tablet by mouth at bedtime. [facility] thyroid (ARMOUR THYROID) 30 mg tablet 3-0 01-24 00:00: 00 Yes 30mg Take 1 tablet by mouth every morning. [facility] thyroid (ARMOUR THYROID) 30 mg tablet 3-0 01-24 00:00: 00 Yes 30mg Take 1 tablet by mouth every morning. [facility] thyroid (ARMOUR THYROID) 30 mg tablet 3-0 01-24 00:00: 00 Yes 30mg Take 1 tablet by mouth every morning. [facility] thyroid (ARMOUR THYROID) 30 mg tablet 3-0 01-24 00:00: 00 Yes 30mg Take 1 tablet by mouth every morning. [facility] thyroid (ARMOUR THYROID) 30 mg tablet 3-0 01-24 00:00: 00 Yes 30mg Take 1 tablet by mouth every morning. [facility] thyroid (ARMOUR THYROID) 30 mg tablet 3-0 01-24 00:00: 00 Yes 30mg Take 1 tablet by mouth every morning. [facility] 30 mg tablet 3-0 01-24 00:00: 00 Yes 30mg Take 1 tablet by mouth every morning. [facility] THYRO[facility]) 30 mg tablet 3-0 01-24 00:00: 00 Yes 30mg Take 1 tablet by mouth every morning. [facility] thyroid (ARMOUR THYROID) 30 mg tablet 2022-0 01-24 00:00: 00 Yes 30mg Take 1 tablet by mouth every morning. [facility] thyroid (ARMOUR THYROID) 30 mg tablet 3-0 01-24 00:00: 00 Yes 30mg Take 1 tablet by mouth every morning. [facility] thyroid (ARMOUR THYROID) 30 mg tablet 3-0 01-24 00:00: 00 Yes 30mg Take 1 tablet by mouth every morning. [facility] thyroid (ARMOUR THYROID) 30 mg tablet 2022-0 01-24 00:00: 00 Yes 30mg Take 1 tablet by mouth every morning. [facility] thyroid (ARMOUR THYROID) 30 mg tablet 3-0 01-24 00:00: 00 Yes 30mg Take 1 tablet by mouth every morning. [facility] thyroid (ARMOUR THYROID) 30 mg tablet 3-0 01-24 00:00: 00 Yes 30mg Take 1 tablet by mouth every morning. [facility] TH[facility]RO[facility]) 30 mg tablet 3-0 01-24 00:00: 00 Yes 30mg Take 1 tablet by mouth every morning. [facility] ([facility] THYRO[facility]) 30 mg tablet 3-0 01-24 00:00: 00 Yes 30mg Take 1 tablet by mouth every morning. [facility] ([facility] THYRO[facility]) 30 mg tablet 3-0 01-24 00:00: 00 Yes 30mg Take 1 tablet by mouth every morning. [facility] thyroid (ARMOUR THYROID) 30 mg tablet 3-0 01-24 00:00: 00 Yes 30mg Take 1 tablet by mouth every morning. [facility] thyroid (ARMOUR THYROID) 30 mg tablet 3-0 01-24 00:00: 00 Yes 30mg Take 1 tablet by mouth every morning. [facility] thyroid (ARMOUR THYROID) 30 mg tablet 3-0 01-24 00:00: 00 Yes 30mg Take 1 tablet by mouth every morning. [facility] 30 mg tablet 3-0 01-24 00:00: 00 Yes 30mg Take 1 tablet by mouth every morning. [facility] thyroid (ARMOUR THYROID) 30 mg tablet 3-0 01-24 00:00: 00 Yes 30mg Take 1 tablet by mouth every morning. [facility] thyroid (ARMOUR THYROID) 30 mg tablet 3-0 01-24 00:00: 00 Yes 30mg Take 1 tablet by mouth every morning. [facility] thyroid (ARMOUR THYROID) 30 mg tablet 3-0 01-24 00:00: 00 Yes 30mg Take 1 tablet by mouth every morning. [facility] thyroid (ARMOUR THYROID) 30 mg tablet 2022-0 01-24 00:00: 00 Yes 30mg Take 1 tablet by mouth every morning. [facility] thyroid (ARMOUR THYROID) 30 mg tablet 3-0 01-24 00:00: 00 Yes 30mg Take 1 tablet by mouth every morning. [facility] thyroid (ARMOUR THYROID) 30 mg tablet 3-0 01-24 00:00: 00 Yes 30mg Take 1 tablet by mouth every morning. [facility] thyroid (ARMOUR THYROID) 30 mg tablet 3-0 01-24 00:00: 00 Yes 30mg Take 1 tablet by mouth every morning. [facility] thyroid (ARMOUR THYROID) 30 mg tablet 3-0 01-24 00:00: 00 Yes 30mg Take 1 tablet by mouth every morning. [facility] thyroid (ARMOUR THYROID) 30 mg tablet 3-0 8 00:00: 00 Yes 30mg Take 1 tablet by mouth every morning. [facility] thyroid (ARMOUR THYROID) 30 mg tablet 2022-0 8 00:00: 00 Yes 30mg Take 1 tablet by mouth every morning. [facility] thyroid (ARMOUR THYROID) 30 mg tablet 3-0 8 00:00: 00 Yes 30mg Take 1 tablet by mouth every morning. [facility] thyroid (ARMOUR THYROID) 30 mg tablet 3-0 8 00:00: 00 Yes 30mg Take 1 tablet by mouth every morning. [facility] thyroid (ARMOUR THYROID) 30 mg tablet 3-0 01-24 00:00: 00 Yes 30mg Take 1 tablet by mouth every morning. [facility] thyroid (ARMOUR THYROID) 30 mg tablet 2022-0 01-24 00:00: 00 Yes 30mg Take 1 tablet by mouth every morning. [facility] thyroid (ARMOUR THYROID) 30 mg tablet 2022-0 01-24 00:00: 00 Yes 30mg Take 1 tablet by mouth every morning. [facility] thyroid (ARMOUR THYROID) 30 mg tablet 3-0 01-24 00:00: 00 Yes 30mg Take 1 tablet by mouth every morning. [facility] thyroid (ARMOUR THYROID) 30 mg tablet 3-0 01-24 00:00: 00 05-30 00:00 :00 No 30mg Take 1 tablet by mouth every morning. [facility] thyroid (ARMOUR THYROID) 30 mg tablet 3-0 01-24 00:00: 00 05-30 00:00 :00 No 30mg Take 1 tablet by mouth every morning. [facility] SPIRONOLACT ONE 25 mg tablet 3-0 20 00:00: 00 Yes [id number] 9100 TAKE 1/2 TABLET EVERY DAY [facility] SPIRONOLACT ONE 25 mg tablet 3-0 20 00:00: 00 Yes [id number] 9100 TAKE 1/2 TABLET EVERY DAY [facility] SPIRONOLACT ONE 25 mg tablet 3-0 4-20 00:00: 00 Yes [id number] 9100 TAKE 1/2 TABLET EVERY DAY [facility] SPIRONOLACT ONE 25 mg tablet 2023-0 4-20 00:00: 00 Yes [id number] 9100 TAKE 1/2 TABLET EVERY DAY [facility] SPIRONOLACT ONE 25 mg tablet 2023-0 4-20 00:00: 00 Yes [id number] 9100 TAKE 1/2 TABLET EVERY DAY [facility] SPIRONOLACT ONE 25 mg tablet 2023-0 4-20 00:00: 00 Yes [id number] 9100 TAKE 1/2 TABLET EVERY DAY [facility] SPIRONOLACT ONE 25 mg tablet 2023-0 4-20 00:00: 00 Yes [id number] 9100 TAKE 1/2 TABLET EVERY DAY [facility] SPIRONOLACT ONE 25 mg tablet 2023-0 4-20 00:00: 00 Yes [id number] 9100 TAKE 1/2 TABLET EVERY DAY [facility] SPIRONOLACT ONE 25 mg tablet 2023-0 4-20 00:00: 00 Yes [id number] 9100 TAKE 1/2 TABLET EVERY DAY [facility] SPIRONOLACT ONE 25 mg tablet 2023-0 4-20 00:00: 00 Yes [id number] 9100 TAKE 1/2 TABLET EVERY DAY [facility] SPIRONOLACT ONE 25 mg tablet 2023-0 4-20 00:00: 00 Yes [id number] 9100 TAKE 1/2 TABLET EVERY DAY [facility] SPIRONOLACT ONE 25 mg tablet 2023-0 4-20 00:00: 00 Yes [id number] 9100 TAKE 1/2 TABLET EVERY DAY [facility] SPIRONOLACT ONE 25 mg tablet 2023-0 4-20 00:00: 00 Yes [id number] 9100 TAKE 1/2 TABLET EVERY DAY [facility] SPIRONOLACT ONE 25 mg tablet 2023-0 4-20 00:00: 00 Yes [id number] 9100 TAKE 1/2 TABLET EVERY DAY [facility] SPIRONOLACT ONE 25 mg tablet 2023-0 4-20 00:00: 00 Yes [id number] 9100 TAKE 1/2 TABLET EVERY DAY [facility] SPIRONOLACT ONE 25 mg tablet 2023-0 4-20 00:00: 00 Yes [id number] 9100 TAKE 1/2 TABLET EVERY DAY [facility] SPIRONOLACT ONE 25 mg tablet 2023-0 4-20 00:00: 00 Yes [id number] 9100 TAKE 1/2 TABLET EVERY DAY [facility] SPIRONOLACT ONE 25 mg tablet 2023-0 4-20 00:00: 00 Yes [id number] 9100 TAKE 1/2 TABLET EVERY DAY [facility] SPIRONOLACT ONE 25 mg tablet 2023-0 4-20 00:00: 00 Yes [id number] 9100 TAKE 1/2 TABLET EVERY DAY [facility] SPIRONOLACT ONE 25 mg tablet 2023-0 4-20 00:00: 00 Yes [id number] 9100 TAKE 1/2 TABLET EVERY DAY [facility] SPIRONOLACT ONE 25 mg tablet 2023-0 4-20 00:00: 00 Yes [id number] 9100 TAKE 1/2 TABLET EVERY DAY [facility] SPIRONOLACT ONE 25 mg tablet 2023-0 4-20 00:00: 00 Yes [id number] 9100 TAKE 1/2 TABLET EVERY DAY [facility] SPIRONOLACT ONE 25 mg tablet 2023-0 4-20 00:00: 00 Yes [id number] 9100 TAKE 1/2 TABLET EVERY DAY [facility] SPIRONOLACT ONE 25 mg tablet 2023-0 4-20 00:00: 00 Yes [id number] 9100 TAKE 1/2 TABLET EVERY DAY [facility] SPIRONOLACT ONE 25 mg tablet 2023-0 4-20 00:00: 00 Yes [id number] 9100 TAKE 1/2 TABLET EVERY DAY [facility] SPIRONOLACT ONE 25 mg tablet 2023-0 4-20 00:00: 00 Yes [id number] 9100 TAKE 1/2 TABLET EVERY DAY [facility] SPIRONOLACT ONE 25 mg tablet 2023-0 4-20 00:00: 00 Yes [id number] 9100 TAKE 1/2 TABLET EVERY DAY [facility] SPIRONOLACT ONE 25 mg tablet 2022-0 20 00:00: 00 Yes [id number] 9100 TAKE 1/2 TABLET EVERY DAY [facility] SPIRONOLACT ONE 25 mg tablet 2022-0 420 00:00: 00 Yes [id number] 9100 TAKE 1/2 TABLET EVERY DAY [facility] SPIRONOLACT ONE 25 mg tablet 2022-0 20 00:00: 00 Yes [id number] 9100 TAKE 1/2 TABLET EVERY DAY [facility] SPIRONOLACT ONE 25 mg tablet 0 10-07 00:00: 00 Yes [id number] 9100 TAKE 1/2 TABLET EVERY DAY [facility] SPIRONOLACT ONE 25 mg tablet 0 10-07 00:00: 00 04-15 00:00 :00 No [id number] 9100 TAKE 1/2 TABLET EVERY DAY [facility] triamcinolo ne acetonide (KENALOG) injection 40 mg 09-09 16:15: 00 09-09 15:04 :00 No [id number] 40mg [facility] triamcinolo ne acetonide (KENALOG) injection 40 mg 09-09 16:15: 00 09-09 15:03 :00 No [id number] 40mg [facility] triamcinolo ne acetonide (KENALOG) injection 40 mg 09-09 16:15: 00 09-09 15:03 :00 No [id number] 40mg 40 mg, Intramuscu lar, ONCE, 1 dose, On Nicolle 09/09/22 at 1115, Routine [facility] triamcinolo ne acetonide (KENALOG) injection 40 mg 09-09 16:15: 00 09-09 15:04 :00 No [id number] 40mg 40 mg, Intramuscu lar, ONCE, 1 dose, On Nicolle 09/09/22 at 1115, Routine [facility] triamcinolo ne acetonide (KENALOG) injection 40 mg 09-09 16:15: 00 09-09 15:04 :00 No [id number] 40mg [facility] triamcinolo ne acetonide (KENALOG) injection 40 mg 09-09 16:15: 00 09-09 15:03 :00 No [id number] 40mg [facility] triamcinolo ne acetonide (KENALOG) injection 40 mg 09-09 16:15: 00 09-09 15:03 :00 No [id number] 40mg 40 mg, Intramuscu lar, ONCE, 1 dose, On Tue09/09/22 at 1115, Routine [facility] triamcinolo ne acetonide (KENALOG) injection 40 mg 09-09 16:15: 00 09-09 15:04 :00 No [id number] 40mg 40 mg, Intramuscu lar, ONCE, 1 dose, On Tue09/09/22 at 1115, Routine [facility] montelukast 10 mg tablet 07-12 15:54: 33 Yes 10mg Take 10 mg by mouth at bedtime. [facility] clonazePAM 0.5 mg tablet 07-12 15:54: 33 Yes .5mg Take 0.5 mg by mouth at bedtime. [facility] montelukast 10 mg tablet 07-12 15:54: 33 Yes 10mg Take 10 mg by mouth at bedtime. [facility] clonazePAM 0.5 mg tablet 07-12 15:54: 33 Yes .5mg Take 0.5 mg by mouth at bedtime. [facility] montelukast 10 mg tablet 07-12 15:54: 33 Yes 10mg Take 10 mg by mouth at bedtime. [facility] clonazePAM 0.5 mg tablet 07-12 15:54: 33 Yes .5mg Take 0.5 mg by mouth at bedtime. [facility] montelukast 10 mg tablet 07-12 15:54: 33 Yes 10mg Take 10 mg by mouth at bedtime. [facility] clonazePAM 0.5 mg tablet 07-12 15:54: 33 Yes .5mg Take 0.5 mg by mouth at bedtime. [facility] montelukast 10 mg tablet 07-12 15:54: 33 Yes 10mg Take 10 mg by mouth at bedtime. [facility] clonazePAM 0.5 mg tablet 07-12 15:54: 33 Yes .5mg Take 0.5 mg by mouth at bedtime. [facility] montelukast 10 mg tablet 07-12 15:54: 33 Yes 10mg Take 10 mg by mouth at bedtime. [facility] clonazePAM 0.5 mg tablet 07-12 15:54: 33 Yes .5mg Take 0.5 mg by mouth at bedtime. [facility] montelukast 10 mg tablet 07-12 15:54: 33 Yes 10mg Take 10 mg by mouth at bedtime. [facility] clonazePAM 0.5 mg tablet 07-12 15:54: 33 Yes .5mg Take 0.5 mg by mouth at bedtime. [facility] montelukast 10 mg tablet 07-12 15:54: 33 Yes 10mg Take 10 mg by mouth at bedtime. [facility] clonazePAM 0.5 mg tablet 07-12 15:54: 33 Yes .5mg Take 0.5 mg by mouth at bedtime. [facility] montelukast 10 mg tablet 07-12 15:54: 33 Yes 10mg Take 10 mg by mouth at bedtime. [facility] clonazePAM 0.5 mg tablet 07-12 15:54: 33 Yes .5mg Take 0.5 mg by mouth at bedtime. [facility] metoprolol succinate XL 25 mg 24 hr tablet 07-12 00:00: 00 Yes [id number] 12.5mg Take 0.5 tablets by mouth in the morning. [facility] apixaban 5 mg tablet 3-0 07-12 00:00: 00 Yes 1291 5mg Take 1 tablet by mouth in the morning and 1 tablet in the evening. Indication s: a clot in the lung [facility] metoprolol succinate XL 25 mg 24 hr tablet 3-0 07-12 00:00: 00 Yes [id number] 12.5mg Take 0.5 tablets by mouth in the morning. [facility] apixaban 5 mg tablet 3-0 07-12 00:00: 00 Yes 1291 5mg Take 1 tablet by mouth in the morning and 1 tablet in the evening. Indication s: a clot in the lung [facility] metoprolol succinate XL 25 mg 24 hr tablet 2022-0 07-12 00:00: 00 Yes [id number] 12.5mg Take 0.5 tablets by mouth in the morning. [facility] apixaban 5 mg tablet 2022-0 07-12 00:00: 00 Yes 1291 5mg Take 1 tablet by mouth in the morning and 1 tablet in the evening. Indication s: a clot in the lung [facility] metoprolol succinate XL 25 mg 24 hr tablet 2022-0 07-12 00:00: 00 Yes [id number] 12.5mg Take 0.5 tablets by mouth in the morning. [facility] apixaban 5 mg tablet 2022-0 07-12 00:00: 00 Yes 1291 5mg Take 1 tablet by mouth in the morning and 1 tablet in the evening. Indication s: a clot in the lung [facility] metoprolol succinate XL 25 mg 24 hr tablet 2022-0 07-12 00:00: 00 Yes [id number] 12.5mg Take 0.5 tablets by mouth in the morning. [facility] apixaban 5 mg tablet 3-0 07-12 00:00: 00 Yes 1291 5mg Take 1 tablet by mouth in the morning and 1 tablet in the evening. Indication s: a clot in the lung [facility] metoprolol succinate XL 25 mg 24 hr tablet 3-0 07-12 00:00: 00 Yes [id number] 12.5mg Take 0.5 tablets by mouth in the morning. [facility] apixaban 5 mg tablet 2022-0 07-12 00:00: 00 Yes 1291 5mg Take 1 tablet by mouth in the morning and 1 tablet in the evening. Indication s: a clot in the lung [facility] metoprolol succinate XL 25 mg 24 hr tablet 2022-0 07-12 00:00: 00 Yes [id number] 12.5mg Take 0.5 tablets by mouth in the morning. [facility] apixaban 5 mg tablet 2022-0 07-12 00:00: 00 Yes 1291 5mg Take 1 tablet by mouth in the morning and 1 tablet in the evening. Indication s: a clot in the lung [facility] metoprolol succinate XL 25 mg 24 hr tablet 2022-0 07-12 00:00: 00 Yes [id number] 12.5mg Take 0.5 tablets by mouth in the morning. [facility] apixaban 5 mg tablet 2022-0 07-12 00:00: 00 Yes 1291 5mg Take 1 tablet by mouth in the morning and 1 tablet in the evening. Indication s: a clot in the lung [facility] metoprolol succinate XL 25 mg 24 hr tablet 2022-0 07-12 00:00: 00 Yes [id number] 12.5mg Take 0.5 tablets by mouth in the morning. [facility] apixaban 5 mg tablet 2022-0 07-12 00:00: 00 Yes 1291 5mg Take 1 tablet by mouth in the morning and 1 tablet in the evening. Indication s: a clot in the lung [facility] metoprolol succinate XL 25 mg 24 hr tablet 2022-0 07-12 00:00: 00 Yes [id number] 12.5mg Take 0.5 tablets by mouth in the morning. [facility] apixaban 5 mg tablet 2022-0 07-12 00:00: 00 Yes 1291 5mg Take 1 tablet by mouth in the morning and 1 tablet in the evening. Indication s: a clot in the lung [facility] metoprolol succinate XL 25 mg 24 hr tablet 2022-0 07-12 00:00: 00 Yes [id number] 12.5mg Take 0.5 tablets by mouth in the morning. [facility] apixaban 5 mg tablet 3-0 - 00:00: 00 Yes 1291 5mg Take 1 tablet by mouth in the morning and 1 tablet in the evening. Indication s: a clot in the lung [facility] metoprolol succinate XL 25 mg 24 hr tablet 3-0 07-12 00:00: 00 Yes [id number] 12.5mg Take 0.5 tablets by mouth in the morning. [facility] apixaban 5 mg tablet 3-0 07-12 00:00: 00 Yes 1291 5mg Take 1 tablet by mouth in the morning and 1 tablet in the evening. Indication s: a clot in the lung [facility] metoprolol succinate XL 25 mg 24 hr tablet 3-0 07-12 00:00: 00 Yes [id number] 12.5mg Take 0.5 tablets by mouth in the morning. [facility] apixaban 5 mg tablet 3-0 07-12 00:00: 00 Yes 1291 5mg Take 1 tablet by mouth in the morning and 1 tablet in the evening. Indication s: a clot in the lung [facility] metoprolol succinate XL 25 mg 24 hr tablet 3-0 07-12 00:00: 00 Yes [id number] 12.5mg Take 0.5 tablets by mouth in the morning. [facility] apixaban 5 mg tablet 3-0 07-12 00:00: 00 Yes 1291 5mg Take 1 tablet by mouth in the morning and 1 tablet in the evening. Indication s: a clot in the lung [facility] metoprolol succinate XL 25 mg 24 hr tablet 3-0 07-12 00:00: 00 Yes [id number] 12.5mg Take 0.5 tablets by mouth in the morning. [facility] apixaban 5 mg tablet 3-0 07-12 00:00: 00 Yes 1291 5mg Take 1 tablet by mouth in the morning and 1 tablet in the evening. Indication s: a clot in the lung [facility] metoprolol succinate XL 25 mg 24 hr tablet 3-0 07-12 00:00: 00 Yes [id number] 12.5mg Take 0.5 tablets by mouth in the morning. [facility] apixaban 5 mg tablet 2022-0 07-12 00:00: 00 Yes 1291 5mg Take 1 tablet by mouth in the morning and 1 tablet in the evening. Indication s: a clot in the lung [facility] metoprolol succinate XL 25 mg 24 hr tablet 3-0 07-12 00:00: 00 Yes [id number] 12.5mg Take 0.5 tablets by mouth in the morning. [facility] apixaban 5 mg tablet 2022-0 07-12 00:00: 00 Yes 1291 5mg Take 1 tablet by mouth in the morning and 1 tablet in the evening. Indication s: a clot in the lung [facility] metoprolol succinate XL 25 mg 24 hr tablet 2022-0 07-12 00:00: 00 Yes [id number] 12.5mg Take 0.5 tablets by mouth in the morning. [facility] apixaban 5 mg tablet 2022-0 07-12 00:00: 00 Yes 1291 5mg Take 1 tablet by mouth in the morning and 1 tablet in the evening. Indication s: a clot in the lung [facility] metoprolol succinate XL 25 mg 24 hr tablet 3-0 07-12 00:00: 00 Yes [id number] 12.5mg Take 0.5 tablets by mouth in the morning. [facility] apixaban 5 mg tablet 3-0 07-12 00:00: 00 Yes 1291 5mg Take 1 tablet by mouth in the morning and 1 tablet in the evening. Indication s: a clot in the lung [facility] metoprolol succinate XL 25 mg 24 hr tablet 3-0 07-12 00:00: 00 Yes [id number] 12.5mg Take 0.5 tablets by mouth in the morning. [facility] apixaban 5 mg tablet 3-0 07-12 00:00: 00 Yes 1291 5mg Take 1 tablet by mouth in the morning and 1 tablet in the evening. Indication s: a clot in the lung [facility] metoprolol succinate XL 25 mg 24 hr tablet 3-0 07-12 00:00: 00 Yes [id number] 12.5mg Take 0.5 tablets by mouth in the morning. [facility] apixaban 5 mg tablet 2022-0 07-12 00:00: 00 Yes 1291 5mg Take 1 tablet by mouth in the morning and 1 tablet in the evening. Indication s: a clot in the lung [facility] metoprolol succinate XL 25 mg 24 hr tablet 2022-0 07-12 00:00: 00 Yes [id number] 12.5mg Take 0.5 tablets by mouth in the morning. [facility] apixaban 5 mg tablet 2022-0 07-12 00:00: 00 Yes 1291 5mg Take 1 tablet by mouth in the morning and 1 tablet in the evening. Indication s: a clot in the lung [facility] metoprolol succinate XL 25 mg 24 hr tablet 2022-0 07-12 00:00: 00 Yes [id number] 12.5mg Take 0.5 tablets by mouth in the morning. [facility] apixaban 5 mg tablet 2022-0 07-12 00:00: 00 Yes 1291 5mg Take 1 tablet by mouth in the morning and 1 tablet in the evening. Indication s: a clot in the lung [facility] metoprolol succinate XL 25 mg 24 hr tablet 2022-0 07-12 00:00: 00 Yes [id number] 12.5mg Take 0.5 tablets by mouth in the morning. [facility] apixaban 5 mg tablet 3-0 07-12 00:00: 00 Yes 1291 5mg Take 1 tablet by mouth in the morning and 1 tablet in the evening. Indication s: a clot in the lung [facility] metoprolol succinate XL 25 mg 24 hr tablet 3-0 07-12 00:00: 00 Yes [id number] 12.5mg Take 0.5 tablets by mouth in the morning. [facility] apixaban 5 mg tablet 3-0 07-12 00:00: 00 Yes 1291 5mg Take 1 tablet by mouth in the morning and 1 tablet in the evening. Indication s: a clot in the lung [facility] metoprolol succinate XL 25 mg 24 hr tablet 3-0 07-12 00:00: 00 Yes [id number] 12.5mg Take 0.5 tablets by mouth in the morning. [facility] apixaban 5 mg tablet 2022-0 07-12 00:00: 00 Yes 1291 5mg Take 1 tablet by mouth in the morning and 1 tablet in the evening. Indication s: a clot in the lung [facility] metoprolol succinate XL 25 mg 24 hr tablet 3-0 07-12 00:00: 00 Yes [id number] 12.5mg Take 0.5 tablets by mouth in the morning. [facility] apixaban 5 mg tablet 2022-0 07-12 00:00: 00 Yes 1291 5mg Take 1 tablet by mouth in the morning and 1 tablet in the evening. Indication s: a clot in the lung [facility] metoprolol succinate XL 25 mg 24 hr tablet 2022-0 07-12 00:00: 00 Yes [id number] 12.5mg Take 0.5 tablets by mouth in the morning. [facility] apixaban 5 mg tablet 2022-0 07-12 00:00: 00 Yes 1291 5mg Take 1 tablet by mouth in the morning and 1 tablet in the evening. Indication s: a clot in the lung [facility] metoprolol succinate XL 25 mg 24 hr tablet 2022-0 07-12 00:00: 00 Yes [id number] 12.5mg Take 0.5 tablets by mouth in the morning. [facility] apixaban 5 mg tablet 3-0 07-12 00:00: 00 Yes 1291 5mg Take 1 tablet by mouth in the morning and 1 tablet in the evening. Indication s: a clot in the lung [facility] metoprolol succinate XL 25 mg 24 hr tablet 3-0 07-12 00:00: 00 Yes [id number] 12.5mg Take 0.5 tablets by mouth in the morning. [facility] apixaban 5 mg tablet 3-0 07-12 00:00: 00 Yes 1291 5mg Take 1 tablet by mouth in the morning and 1 tablet in the evening. Indication s: a clot in the lung [facility] metoprolol succinate XL 25 mg 24 hr tablet 3-0 07-12 00:00: 00 Yes [id number] 12.5mg Take 0.5 tablets by mouth in the morning. [facility] apixaban 5 mg tablet 2022-0 07-12 00:00: 00 Yes 1291 5mg Take 1 tablet by mouth in the morning and 1 tablet in the evening. Indication s: a clot in the lung [facility] metoprolol succinate XL 25 mg 24 hr tablet 3-0 07-12 00:00: 00 Yes [id number] 12.5mg Take 0.5 tablets by mouth in the morning. [facility] apixaban 5 mg tablet 2022-0 07-12 00:00: 00 Yes 1291 5mg Take 1 tablet by mouth in the morning and 1 tablet in the evening. Indication s: a clot in the lung [facility] metoprolol succinate XL 25 mg 24 hr tablet 2022-0 07-12 00:00: 00 Yes [id number] 12.5mg Take 0.5 tablets by mouth in the morning. [facility] apixaban 5 mg tablet 2022-0 07-12 00:00: 00 Yes 1291 5mg Take 1 tablet by mouth in the morning and 1 tablet in the evening. Indication s: a clot in the lung [facility] metoprolol succinate XL 25 mg 24 hr tablet 2022-0 07-12 00:00: 00 Yes [id number] 12.5mg Take 0.5 tablets by mouth in the morning. [facility] apixaban 5 mg tablet 3-0 07-12 00:00: 00 Yes 1291 5mg Take 1 tablet by mouth in the morning and 1 tablet in the evening. Indication s: a clot in the lung [facility] metoprolol succinate XL 25 mg 24 hr tablet 3-0 07-12 00:00: 00 Yes [id number] 12.5mg Take 0.5 tablets by mouth in the morning. [facility] apixaban 5 mg tablet 3-0 07-12 00:00: 00 Yes 1291 5mg Take 1 tablet by mouth in the morning and 1 tablet in the evening. Indication s: a clot in the lung [facility] metoprolol succinate XL 25 mg 24 hr tablet 2022-0 07-12 00:00: 00 Yes [id number] 12.5mg Take 0.5 tablets by mouth in the morning. [facility] apixaban 5 mg tablet 2022-0 07-12 00:00: 00 Yes 1291 5mg Take 1 tablet by mouth in the morning and 1 tablet in the evening. Indication s: a clot in the lung [facility] metoprolol succinate XL 25 mg 24 hr tablet 2022-0 07-12 00:00: 00 Yes [id number] 12.5mg Take 0.5 tablets by mouth in the morning. [facility] apixaban 5 mg tablet 2022-0 07-12 00:00: 00 Yes 1291 5mg Take 1 tablet by mouth in the morning and 1 tablet in the evening. Indication s: a clot in the lung [facility] metoprolol succinate XL 25 mg 24 hr tablet 2022-0 07-12 00:00: 00 Yes [id number] 12.5mg Take 0.5 tablets by mouth in the morning. [facility] apixaban 5 mg tablet 2022-0 07-12 00:00: 00 Yes 1291 5mg Take 1 tablet by mouth in the morning and 1 tablet in the evening. Indication s: a clot in the lung [facility] metoprolol succinate XL 25 mg 24 hr tablet 2022-0 07-12 00:00: 00 Yes [id number] 12.5mg Take 0.5 tablets by mouth in the morning. [facility] apixaban 5 mg tablet 3-0 07-12 00:00: 00 Yes 1291 5mg Take 1 tablet by mouth in the morning and 1 tablet in the evening. Indication s: a clot in the lung [facility] metoprolol succinate XL 25 mg 24 hr tablet 2022-0 07-12 00:00: 00 Yes [id number] 12.5mg Take 0.5 tablets by mouth in the morning. [facility] apixaban 5 mg tablet 2022-0 07-12 00:00: 00 Yes 1291 5mg Take 1 tablet by mouth in the morning and 1 tablet in the evening. Indication s: a clot in the lung [facility] metoprolol succinate XL 25 mg 24 hr tablet 2022-0 07-12 00:00: 00 Yes [id number] 12.5mg Take 0.5 tablets by mouth in the morning. [facility] apixaban 5 mg tablet 2022-0 07-12 00:00: 00 Yes 1291 5mg Take 1 tablet by mouth in the morning and 1 tablet in the evening. Indication s: a clot in the lung [facility] metoprolol succinate XL 25 mg 24 hr tablet 2022-0 07-12 00:00: 00 Yes [id number] 12.5mg Take 0.5 tablets by mouth in the morning. [facility] apixaban 5 mg tablet 2022-0 07-12 00:00: 00 Yes 1291 5mg Take 1 tablet by mouth in the morning and 1 tablet in the evening. Indication s: a clot in the lung [facility] metoprolol succinate XL 25 mg 24 hr tablet 2022-0 07-12 00:00: 00 Yes [id number] 12.5mg Take 0.5 tablets by mouth in the morning. [facility] apixaban 5 mg tablet 2022-0 07-12 00:00: 00 Yes 1291 5mg Take 1 tablet by mouth in the morning and 1 tablet in the evening. Indication s: a clot in the lung [facility] metoprolol succinate XL 25 mg 24 hr tablet 2022-0 07-12 00:00: 00 Yes [id number] 12.5mg Take 0.5 tablets by mouth in the morning. [facility] apixaban 5 mg tablet 2022-0 07-12 00:00: 00 Yes 1291 5mg Take 1 tablet by mouth in the morning and 1 tablet in the evening. Indication s: a clot in the lung [facility] metoprolol succinate XL 25 mg 24 hr tablet 3-0 07-12 00:00: 00 Yes [id number] 12.5mg Take 0.5 tablets by mouth in the morning. [facility] apixaban 5 mg tablet 2022-0 07-12 00:00: 00 Yes 1291 5mg Take 1 tablet by mouth in the morning and 1 tablet in the evening. Indication s: a clot in the lung [facility] metoprolol succinate XL 25 mg 24 hr tablet 3-0 07-12 00:00: 00 Yes [id number] 12.5mg Take 0.5 tablets by mouth in the morning. [facility] apixaban 5 mg tablet 2022-0 07-12 00:00: 00 Yes 1291 5mg Take 1 tablet by mouth in the morning and 1 tablet in the evening. Indication s: a clot in the lung [facility] metoprolol succinate XL 25 mg 24 hr tablet 2022-0 07-12 00:00: 00 Yes [id number] 12.5mg Take 0.5 tablets by mouth in the morning. [facility] apixaban 5 mg tablet 2022-0 07-12 00:00: 00 Yes 1291 5mg Take 1 tablet by mouth in the morning and 1 tablet in the evening. Indication s: a clot in the lung [facility] metoprolol succinate XL 25 mg 24 hr tablet 2022-0 07-12 00:00: 00 Yes [id number] 12.5mg Take 0.5 tablets by mouth in the morning. [facility] apixaban 5 mg tablet 2022-0 07-12 00:00: 00 Yes 1291 5mg Take 1 tablet by mouth in the morning and 1 tablet in the evening. Indication s: a clot in the lung [facility] metoprolol succinate XL 25 mg 24 hr tablet 3-0 07-12 00:00: 00 Yes [id number] 12.5mg Take 0.5 tablets by mouth in the morning. [facility] metoprolol succinate XL 25 mg 24 hr tablet 3-0 07-12 00:00: 00 Yes [id number] 12.5mg Take 0.5 tablets by mouth in the morning. [facility] metoprolol succinate XL 25 mg 24 hr tablet 3-0 07-12 00:00: 00 Yes [id number] 12.5mg Take 0.5 tablets by mouth in the morning. [facility] metoprolol succinate XL 25 mg 24 hr tablet 3-0 07-12 00:00: 00 Yes [id number] 12.5mg Take 0.5 tablets by mouth in the morning. [facility] metoprolol succinate XL 25 mg 24 hr tablet 3-0 07-12 00:00: 00 Yes [id number] 12.5mg Take 0.5 tablets by mouth in the morning. [facility] metoprolol succinate XL 25 mg 24 hr tablet 3-0 07-12 00:00: 00 Yes [id number] 12.5mg Take 0.5 tablets by mouth in the morning. [facility] metoprolol succinate XL 25 mg 24 hr tablet 3-0 07-12 00:00: 00 Yes [id number] 12.5mg Take 0.5 tablets by mouth in the morning. [facility] metoprolol succinate XL 25 mg 24 hr tablet 3-0 07-12 00:00: 00 Yes [id number] 12.5mg Take 0.5 tablets by mouth in the morning. [facility] metoprolol succinate XL 25 mg 24 hr tablet 3-0 07-12 00:00: 00 Yes [id number] 12.5mg Take 0.5 tablets by mouth in the morning. [facility] metoprolol succinate XL 25 mg 24 hr tablet 3-0 07-12 00:00: 00 Yes [id number] 12.5mg Take 0.5 tablets by mouth in the morning. [facility] metoprolol succinate XL 25 mg 24 hr tablet 3-0 07-12 00:00: 00 Yes [id number] 12.5mg Take 0.5 tablets by mouth in the morning. [facility] metoprolol succinate XL 25 mg 24 hr tablet 3-0 07-12 00:00: 00 Yes [id number] 12.5mg Take 0.5 tablets by mouth in the morning. [facility] metoprolol succinate XL 25 mg 24 hr tablet 3-0 07-12 00:00: 00 Yes [id number] 12.5mg Take 0.5 tablets by mouth in the morning. [facility] metoprolol succinate XL 25 mg 24 hr tablet 0 07-12 00:00: 00 Yes [id number] 12.5mg Take 0.5 tablets by mouth in the morning. [facility] metoprolol succinate XL 25 mg 24 hr tablet 2022-0 07-12 00:00: 00 Yes [id number] 12.5mg Take 0.5 tablets by mouth in the morning. [facility] metoprolol succinate XL 25 mg 24 hr tablet 07-12 00:00: 00 Yes [id number] 12.5mg Take 0.5 tablets by mouth in the morning. [facility] metoprolol succinate XL 25 mg 24 hr tablet 07-12 00:00: 00 Yes [id number] 12.5mg Take 0.5 tablets by mouth in the morning. [facility] metoprolol succinate XL 25 mg 24 hr tablet 07-12 00:00: 00 Yes [id number] 12.5mg Take 0.5 tablets by mouth in the morning. [facility] metoprolol succinate XL 25 mg 24 hr tablet 07-12 00:00: 00 Yes [id number] 12.5mg Take 0.5 tablets by mouth in the morning. [facility] metoprolol succinate XL 25 mg 24 hr tablet 0 07-12 00:00: 00 Yes [id number] 12.5mg Take 0.5 tablets by mouth in the morning. [facility] metoprolol succinate XL 25 mg 24 hr tablet 07-12 00:00: 00 Yes [id number] 12.5mg Take 0.5 tablets by mouth in the morning. [facility] metoprolol succinate XL 25 mg 24 hr tablet 0 07-12 00:00: 00 Yes [id number] 12.5mg Take 0.5 tablets by mouth in the morning. [facility] apixaban 5 mg tablet 07-12 00:00: 00 - 00:00 :00 No [id number] 5mg Take 1 tablet by mouth in the morning and 1 tablet in the evening. Indication s: a clot in the lung [facility] apixaban 5 mg tablet 0 1-23 00:00: 00 05-30 00:00 :00 No [id number] 5mg Take 1 tablet by mouth in the morning and 1 tablet in the evening. Indication s: a clot in the lung [facility] DULoxetine 60 mg capsule 2021-06 00:00: 00 Yes [id number] 60mg Take 1 capsule by mouth in the morning. [facility] hydrOXYchlo roQUINE 200 mg tablet 2021-06 00:00: 00 Yes [id number] 300mg Take 1.5 tablets by mouth in the morning. [facility] DULoxetine 60 mg capsule 2021-06 00:00: 00 Yes [id number] 60mg Take 1 capsule by mouth in the morning. [facility] hydrOXYchlo roQUINE 200 mg tablet 2021-06 00:00: 00 Yes [id number] 300mg Take 1.5 tablets by mouth in the morning. [facility] DULoxetine 60 mg capsule 2021-06 00:00: 00 Yes [id number] 60mg Take 1 capsule by mouth in the morning. [facility] hydrOXYchlo roQUINE 200 mg tablet 2021-06 00:00: 00 Yes [id number] 300mg Take 1.5 tablets by mouth in the morning. [facility] DULoxetine 60 mg capsule 2021-06 00:00: 00 Yes [id number] 60mg Take 1 capsule by mouth in the morning. [facility] hydrOXYchlo roQUINE 200 mg tablet 2021-06 00:00: 00 Yes [id number] 300mg Take 1.5 tablets by mouth in the morning. [facility] DULoxetine 60 mg capsule 2021-06 00:00: 00 Yes [id number] 60mg Take 1 capsule by mouth in the morning. [facility] hydrOXYchlo roQUINE 200 mg tablet 2021-06 00:00: 00 Yes [id number] 300mg Take 1.5 tablets by mouth in the morning. [facility] DULoxetine 60 mg capsule 2021-06 00:00: 00 Yes [id number] 60mg Take 1 capsule by mouth in the morning. [facility] hydrOXYchlo roQUINE 200 mg tablet 2021-06 00:00: 00 Yes [id number] 300mg Take 1.5 tablets by mouth in the morning. [facility] DULoxetine 60 mg capsule 2021-06 00:00: 00 Yes [id number] 60mg Take 1 capsule by mouth in the morning. [facility] hydrOXYchlo roQUINE 200 mg tablet 2021-06 00:00: 00 Yes [id number] 300mg Take 1.5 tablets by mouth in the morning. [facility] DULoxetine 60 mg capsule 2021-06 00:00: 00 Yes [id number] 60mg Take 1 capsule by mouth in the morning. [facility] hydrOXYchlo roQUINE 200 mg tablet 2021-06 00:00: 00 Yes [id number] 300mg Take 1.5 tablets by mouth in the morning. [facility] DULoxetine 60 mg capsule 2021-06 00:00: 00 Yes [id number] 60mg Take 1 capsule by mouth in the morning. [facility] hydrOXYchlo roQUINE 200 mg tablet 2021-06 00:00: 00 Yes [id number] 300mg Take 1.5 tablets by mouth in the morning. [facility] DULoxetine 60 mg capsule 2021-06 00:00: 00 Yes [id number] 60mg Take 1 capsule by mouth in the morning. [facility] hydrOXYchlo roQUINE 200 mg tablet 2021-06 00:00: 00 Yes [id number] 300mg Take 1.5 tablets by mouth in the morning. [facility] DULoxetine 60 mg capsule 2021-06 00:00: 00 Yes [id number] 60mg Take 1 capsule by mouth in the morning. [facility] hydrOXYchlo roQUINE 200 mg tablet 2021-06 00:00: 00 Yes [id number] 300mg Take 1.5 tablets by mouth in the morning. [facility] DULoxetine 60 mg capsule 2021-06 00:00: 00 Yes [id number] 60mg Take 1 capsule by mouth in the morning. [facility] hydrOXYchlo roQUINE 200 mg tablet 2021-06 00:00: 00 Yes [id number] 300mg Take 1.5 tablets by mouth in the morning. [facility] DULoxetine 60 mg capsule 2021-06 00:00: 00 Yes [id number] 60mg Take 1 capsule by mouth in the morning. [facility] hydrOXYchlo roQUINE 200 mg tablet 2021-06 00:00: 00 Yes [id number] 300mg Take 1.5 tablets by mouth in the morning. [facility] DULoxetine 60 mg capsule 2021-06 00:00: 00 Yes [id number] 60mg Take 1 capsule by mouth in the morning. [facility] hydrOXYchlo roQUINE 200 mg tablet 2021-06 00:00: 00 Yes [id number] 300mg Take 1.5 tablets by mouth in the morning. [facility] DULoxetine 60 mg capsule 2021-06 00:00: 00 Yes [id number] 60mg Take 1 capsule by mouth in the morning. [facility] hydrOXYchlo roQUINE 200 mg tablet 2021-06 00:00: 00 Yes [id number] 300mg Take 1.5 tablets by mouth in the morning. [facility] DULoxetine 60 mg capsule 2021-06 00:00: 00 Yes [id number] 60mg Take 1 capsule by mouth in the morning. [facility] hydrOXYchlo roQUINE 200 mg tablet 2021-06 00:00: 00 Yes [id number] 300mg Take 1.5 tablets by mouth in the morning. [facility] DULoxetine 60 mg capsule 2021-06 00:00: 00 Yes [id number] 60mg Take 1 capsule by mouth in the morning. [facility] hydrOXYchlo roQUINE 200 mg tablet 2021-06 00:00: 00 Yes [id number] 300mg Take 1.5 tablets by mouth in the morning. [facility] DULoxetine 60 mg capsule 2021-06 00:00: 00 Yes [id number] 60mg Take 1 capsule by mouth in the morning. [facility] hydrOXYchlo roQUINE 200 mg tablet 2021-06 00:00: 00 Yes [id number] 300mg Take 1.5 tablets by mouth in the morning. [facility] DULoxetine 60 mg capsule 2021-06 00:00: 00 Yes [id number] 60mg Take 1 capsule by mouth in the morning. [facility] hydrOXYchlo roQUINE 200 mg tablet 2021-06 00:00: 00 Yes [id number] 300mg Take 1.5 tablets by mouth in the morning. [facility] DULoxetine 60 mg capsule 2021-06 00:00: 00 Yes [id number] 60mg Take 1 capsule by mouth in the morning. [facility] hydrOXYchlo roQUINE 200 mg tablet 2021-06 00:00: 00 Yes [id number] 300mg Take 1.5 tablets by mouth in the morning. [facility] DULoxetine 60 mg capsule 2021-06 00:00: 00 Yes [id number] 60mg Take 1 capsule by mouth in the morning. [facility] hydrOXYchlo roQUINE 200 mg tablet 2021-06 00:00: 00 Yes [id number] 300mg Take 1.5 tablets by mouth in the morning. [facility] DULoxetine 60 mg capsule 2021-06 00:00: 00 Yes [id number] 60mg Take 1 capsule by mouth in the morning. [facility] hydrOXYchlo roQUINE 200 mg tablet 2021-06 00:00: 00 Yes [id number] 300mg Take 1.5 tablets by mouth in the morning. [facility] DULoxetine 60 mg capsule 2021-06 00:00: 00 Yes [id number] 60mg Take 1 capsule by mouth in the morning. [facility] hydrOXYchlo roQUINE 200 mg tablet 2021-06 00:00: 00 Yes [id number] 300mg Take 1.5 tablets by mouth in the morning. [facility] DULoxetine 60 mg capsule 2021-06 00:00: 00 Yes [id number] 60mg Take 1 capsule by mouth in the morning. [facility] hydrOXYchlo roQUINE 200 mg tablet 2021-06 00:00: 00 Yes [id number] 300mg Take 1.5 tablets by mouth in the morning. [facility] DULoxetine 60 mg capsule 2021-06 00:00: 00 Yes [id number] 60mg Take 1 capsule by mouth in the morning. [facility] hydrOXYchlo roQUINE 200 mg tablet 2021-06 00:00: 00 Yes [id number] 300mg Take 1.5 tablets by mouth in the morning. [facility] DULoxetine 60 mg capsule 2021-06 00:00: 00 Yes [id number] 60mg Take 1 capsule by mouth in the morning. [facility] hydrOXYchlo roQUINE 200 mg tablet 2021-06 00:00: 00 Yes [id number] 300mg Take 1.5 tablets by mouth in the morning. [facility] DULoxetine 60 mg capsule 2021-06 00:00: 00 Yes [id number] 60mg Take 1 capsule by mouth in the morning. [facility] hydrOXYchlo roQUINE 200 mg tablet 2021-06 00:00: 00 Yes [id number] 300mg Take 1.5 tablets by mouth in the morning. [facility] DULoxetine 60 mg capsule 2021-06 00:00: 00 Yes [id number] 60mg Take 1 capsule by mouth in the morning. [facility] hydrOXYchlo roQUINE 200 mg tablet 2021-06 00:00: 00 Yes [id number] 300mg Take 1.5 tablets by mouth in the morning. [facility] DULoxetine 60 mg capsule 2021-06 00:00: 00 Yes [id number] 60mg Take 1 capsule by mouth in the morning. [facility] hydrOXYchlo roQUINE 200 mg tablet 2021-06 00:00: 00 Yes [id number] 300mg Take 1.5 tablets by mouth in the morning. [facility] DULoxetine 60 mg capsule 2021-06 00:00: 00 Yes [id number] 60mg Take 1 capsule by mouth in the morning. [facility] hydrOXYchlo roQUINE 200 mg tablet 2021-06 00:00: 00 Yes [id number] 300mg Take 1.5 tablets by mouth in the morning. [facility] DULoxetine 60 mg capsule 2021-06 00:00: 00 Yes [id number] 60mg Take 1 capsule by mouth in the morning. [facility] hydrOXYchlo roQUINE 200 mg tablet 2021-06 00:00: 00 Yes [id number] 300mg Take 1.5 tablets by mouth in the morning. [facility] DULoxetine 60 mg capsule 2021-06 00:00: 00 Yes [id number] 60mg Take 1 capsule by mouth in the morning. [facility] hydrOXYchlo roQUINE 200 mg tablet 2021-06 00:00: 00 Yes [id number] 300mg Take 1.5 tablets by mouth in the morning. [facility] DULoxetine 60 mg capsule 2021-06 00:00: 00 Yes [id number] 60mg Take 1 capsule by mouth in the morning. [facility] hydrOXYchlo roQUINE 200 mg tablet 2021-06 00:00: 00 Yes [id number] 300mg Take 1.5 tablets by mouth in the morning. [facility] DULoxetine 60 mg capsule 2021-06 00:00: 00 Yes [id number] 60mg Take 1 capsule by mouth in the morning. [facility] hydrOXYchlo roQUINE 200 mg tablet 2021-06 00:00: 00 Yes [id number] 300mg Take 1.5 tablets by mouth in the morning. [facility] DULoxetine 60 mg capsule 2021-06 00:00: 00 Yes [id number] 60mg Take 1 capsule by mouth in the morning. [facility] hydrOXYchlo roQUINE 200 mg tablet 2021-06 00:00: 00 Yes [id number] 300mg Take 1.5 tablets by mouth in the morning. [facility] DULoxetine 60 mg capsule 2021-06 00:00: 00 Yes [id number] 60mg Take 1 capsule by mouth in the morning. [facility] hydrOXYchlo roQUINE 200 mg tablet 2021-06 00:00: 00 Yes [id number] 300mg Take 1.5 tablets by mouth in the morning. [facility] DULoxetine 60 mg capsule 2021-06 00:00: 00 Yes [id number] 60mg Take 1 capsule by mouth in the morning. [facility] hydrOXYchlo roQUINE 200 mg tablet 2021-06 00:00: 00 Yes [id number] 300mg Take 1.5 tablets by mouth in the morning. [facility] DULoxetine 60 mg capsule 2021-06 00:00: 00 Yes [id number] 60mg Take 1 capsule by mouth in the morning. [facility] hydrOXYchlo roQUINE 200 mg tablet 2021-06 00:00: 00 Yes [id number] 300mg Take 1.5 tablets by mouth in the morning. [facility] DULoxetine 60 mg capsule 2021-06 00:00: 00 Yes [id number] 60mg Take 1 capsule by mouth in the morning. [facility] hydrOXYchlo roQUINE 200 mg tablet 2021-06 00:00: 00 Yes [id number] 300mg Take 1.5 tablets by mouth in the morning. [facility] DULoxetine 60 mg capsule 2021-06 00:00: 00 Yes [id number] 60mg Take 1 capsule by mouth in the morning. [facility] hydrOXYchlo roQUINE 200 mg tablet 2021-06 00:00: 00 Yes [id number] 300mg Take 1.5 tablets by mouth in the morning. [facility] DULoxetine 60 mg capsule 2021-06 00:00: 00 Yes [id number] 60mg Take 1 capsule by mouth in the morning. [facility] hydrOXYchlo roQUINE 200 mg tablet 2021-06 00:00: 00 Yes [id number] 300mg Take 1.5 tablets by mouth in the morning. [facility] DULoxetine 60 mg capsule 2021-06 00:00: 00 Yes [id number] 60mg Take 1 capsule by mouth in the morning. [facility] hydrOXYchlo roQUINE 200 mg tablet 2021-06 00:00: 00 Yes [id number] 300mg Take 1.5 tablets by mouth in the morning. [facility] DULoxetine 60 mg capsule 2021-06 00:00: 00 Yes [id number] 60mg Take 1 capsule by mouth in the morning. [facility] hydrOXYchlo roQUINE 200 mg tablet 2021-06 00:00: 00 Yes [id number] 300mg Take 1.5 tablets by mouth in the morning. [facility] DULoxetine 60 mg capsule 2021-06 00:00: 00 Yes [id number] 60mg Take 1 capsule by mouth in the morning. [facility] hydrOXYchlo roQUINE 200 mg tablet 2021-06 00:00: 00 Yes [id number] 300mg Take 1.5 tablets by mouth in the morning. [facility] DULoxetine 60 mg capsule 2021-06 00:00: 00 Yes [id number] 60mg Take 1 capsule by mouth in the morning. [facility] hydrOXYchlo roQUINE 200 mg tablet 2021-06 00:00: 00 Yes [id number] 300mg Take 1.5 tablets by mouth in the morning. [facility] DULoxetine 60 mg capsule 2021-06 00:00: 00 Yes [id number] 60mg Take 1 capsule by mouth in the morning. [facility] hydrOXYchlo roQUINE 200 mg tablet 2021-06 00:00: 00 Yes [id number] 300mg Take 1.5 tablets by mouth in the morning. [facility] DULoxetine 60 mg capsule 2021-06 00:00: 00 Yes [id number] 60mg Take 1 capsule by mouth in the morning. [facility] hydrOXYchlo roQUINE 200 mg tablet 2021-06 00:00: 00 Yes [id number] 300mg Take 1.5 tablets by mouth in the morning. [facility] DULoxetine 60 mg capsule 2021-06 00:00: 00 Yes [id number] 60mg Take 1 capsule by mouth in the morning. [facility] hydrOXYchlo roQUINE 200 mg tablet 2021-06 00:00: 00 Yes [id number] 300mg Take 1.5 tablets by mouth in the morning. [facility] DULoxetine 60 mg capsule 2021-06 00:00: 00 Yes [id number] 60mg Take 1 capsule by mouth in the morning. [facility] hydrOXYchlo roQUINE 200 mg tablet 2021-06 00:00: 00 Yes [id number] 300mg Take 1.5 tablets by mouth in the morning. [facility] DULoxetine 60 mg capsule 2021-06 00:00: 00 Yes [id number] 60mg Take 1 capsule by mouth in the morning. [facility] hydrOXYchlo roQUINE 200 mg tablet 2021-06 00:00: 00 Yes [id number] 300mg Take 1.5 tablets by mouth in the morning. [facility] DULoxetine 60 mg capsule 2021-06 00:00: 00 Yes [id number] 60mg Take 1 capsule by mouth in the morning. [facility] hydrOXYchlo roQUINE 200 mg tablet 2021-06 00:00: 00 Yes [id number] 300mg Take 1.5 tablets by mouth in the morning. [facility] DULoxetine 60 mg capsule 2021-06 00:00: 00 Yes [id number] 60mg Take 1 capsule by mouth in the morning. [facility] hydrOXYchlo roQUINE 200 mg tablet 2021-06 00:00: 00 Yes [id number] 300mg Take 1.5 tablets by mouth in the morning. [facility] DULoxetine 60 mg capsule 2021-06 00:00: 00 Yes [id number] 60mg Take 1 capsule by mouth in the morning. [facility] hydrOXYchlo roQUINE 200 mg tablet 2021-06 00:00: 00 Yes [id number] 300mg Take 1.5 tablets by mouth in the morning. [facility] DULoxetine 60 mg capsule 2021-06 00:00: 00 Yes [id number] 60mg Take 1 capsule by mouth in the morning. [facility] hydrOXYchlo roQUINE 200 mg tablet 2021-06 00:00: 00 Yes [id number] 300mg Take 1.5 tablets by mouth in the morning. [facility] DULoxetine 60 mg capsule 2021-06 00:00: 00 Yes [id number] 60mg Take 1 capsule by mouth in the morning. [facility] hydrOXYchlo roQUINE 200 mg tablet 2021-06 00:00: 00 Yes [id number] 300mg Take 1.5 tablets by mouth in the morning. [facility] DULoxetine 60 mg capsule 2021-06 00:00: 00 Yes [id number] 60mg Take 1 capsule by mouth in the morning. [facility] hydrOXYchlo roQUINE 200 mg tablet 2021-06 00:00: 00 Yes [id number] 300mg Take 1.5 tablets by mouth in the morning. [facility] DULoxetine 60 mg capsule 2021-06 00:00: 00 Yes [id number] 60mg Take 1 capsule by mouth in the morning. [facility] hydrOXYchlo roQUINE 200 mg tablet 2021-06 00:00: 00 Yes [id number] 300mg Take 1.5 tablets by mouth in the morning. [facility] DULoxetine 60 mg capsule 2021-06 00:00: 00 Yes [id number] 60mg Take 1 capsule by mouth in the morning. [facility] hydrOXYchlo roQUINE 200 mg tablet 2021-06 00:00: 00 Yes [id number] 300mg Take 1.5 tablets by mouth in the morning. [facility] DULoxetine 60 mg capsule 2021-06 00:00: 00 Yes [id number] 60mg Take 1 capsule by mouth in the morning. [facility] hydrOXYchlo roQUINE 200 mg tablet 2021-06 00:00: 00 Yes [id number] 300mg Take 1.5 tablets by mouth in the morning. [facility] DULoxetine 60 mg capsule 2021-06 00:00: 00 Yes [id number] 60mg Take 1 capsule by mouth in the morning. [facility] hydrOXYchlo roQUINE 200 mg tablet 2021-06 00:00: 00 Yes [id number] 300mg Take 1.5 tablets by mouth in the morning. [facility] DULoxetine 60 mg capsule 2021-06 00:00: 00 Yes [id number] 60mg Take 1 capsule by mouth in the morning. [facility] hydrOXYchlo roQUINE 200 mg tablet 2021-06 00:00: 00 Yes [id number] 300mg Take 1.5 tablets by mouth in the morning. [facility] DULoxetine 60 mg capsule 2021-06 00:00: 00 Yes [id number] 60mg Take 1 capsule by mouth in the morning. [facility] hydrOXYchlo roQUINE 200 mg tablet 2021-06 00:00: 00 Yes [id number] 300mg Take 1.5 tablets by mouth in the morning. [facility] DULoxetine 60 mg capsule 2021-06 00:00: 00 Yes [id number] 60mg Take 1 capsule by mouth in the morning. [facility] hydrOXYchlo roQUINE 200 mg tablet 2021-06 00:00: 00 Yes [id number] 300mg Take 1.5 tablets by mouth in the morning. [facility] DULoxetine 60 mg capsule 2021-06 00:00: 00 Yes [id number] 60mg Take 1 capsule by mouth in the morning. [facility] hydrOXYchlo roQUINE 200 mg tablet 2021-06 00:00: 00 Yes [id number] 300mg Take 1.5 tablets by mouth in the morning. [facility] DULoxetine 60 mg capsule 2021-06 00:00: 00 Yes [id number] 60mg Take 1 capsule by mouth in the morning. [facility] hydrOXYchlo roQUINE 200 mg tablet 2021-06 00:00: 00 Yes [id number] 300mg Take 1.5 tablets by mouth in the morning. [facility] DULoxetine 60 mg capsule 2021-06 00:00: 00 Yes [id number] 60mg Take 1 capsule by mouth in the morning. [facility] hydrOXYchlo roQUINE 200 mg tablet 2021-06 00:00: 00 Yes [id number] 300mg Take 1.5 tablets by mouth in the morning. [facility] DULoxetine 60 mg capsule 2021-06 00:00: 00 Yes [id number] 60mg Take 1 capsule by mouth in the morning. [facility] hydrOXYchlo roQUINE 200 mg tablet 2021-06 00:00: 00 Yes [id number] 300mg Take 1.5 tablets by mouth in the morning. [facility] DULoxetine 60 mg capsule 2021-06 00:00: 00 Yes [id number] 60mg Take 1 capsule by mouth in the morning. [facility] hydrOXYchlo roQUINE 200 mg tablet 2021-06 00:00: 00 Yes [id number] 300mg Take 1.5 tablets by mouth in the morning. [facility] DULoxetine 60 mg capsule 2021-06 00:00: 00 Yes [id number] 60mg Take 1 capsule by mouth in the morning. [facility] hydrOXYchlo roQUINE 200 mg tablet 2021-06 00:00: 00 Yes [id number] 300mg Take 1.5 tablets by mouth in the morning. [facility] DULoxetine 60 mg capsule 2021-06 00:00: 00 Yes [id number] 60mg Take 1 capsule by mouth in the morning. [facility] hydrOXYchlo roQUINE 200 mg tablet 2021-06 00:00: 00 Yes [id number] 300mg Take 1.5 tablets by mouth in the morning. [facility] DULoxetine 60 mg capsule 2021-06 00:00: 00 Yes [id number] 60mg Take 1 capsule by mouth in the morning. [facility] hydrOXYchlo roQUINE 200 mg tablet 2021-06 00:00: 00 Yes [id number] 300mg Take 1.5 tablets by mouth in the morning. [facility] DULoxetine 60 mg capsule 2021-06 00:00: 00 Yes [id number] 60mg Take 1 capsule by mouth in the morning. [facility] hydrOXYchlo roQUINE 200 mg tablet 2021-06 00:00: 00 Yes [id number] 300mg Take 1.5 tablets by mouth in the morning. [facility] DULoxetine 60 mg capsule 2021-06 00:00: 00 Yes [id number] 60mg Take 1 capsule by mouth in the morning. [facility] hydrOXYchlo roQUINE 200 mg tablet 2021-06 00:00: 00 Yes [id number] 300mg Take 1.5 tablets by mouth in the morning. [facility] DULoxetine 60 mg capsule 2021-06 00:00: 00 Yes [id number] 60mg Take 1 capsule by mouth in the morning. [facility] hydrOXYchlo roQUINE 200 mg tablet 2021-06 00:00: 00 Yes [id number] 300mg Take 1.5 tablets by mouth in the morning. [facility] DULoxetine 60 mg capsule 2021-06 00:00: 00 Yes [id number] 60mg Take 1 capsule by mouth in the morning. [facility] hydrOXYchlo roQUINE 200 mg tablet 2021-06 00:00: 00 Yes [id number] 300mg Take 1.5 tablets by mouth in the morning. [facility] DULoxetine 60 mg capsule 2021-06 00:00: 00 Yes [id number] 60mg Take 1 capsule by mouth in the morning. [facility] hydrOXYchlo roQUINE 200 mg tablet 2021-06 00:00: 00 Yes [id number] 300mg Take 1.5 tablets by mouth in the morning. [facility] DULoxetine 60 mg capsule 2021-06 00:00: 00 Yes [id number] 60mg Take 1 capsule by mouth in the morning. [facility] hydrOXYchlo roQUINE 200 mg tablet 2021-06 00:00: 00 Yes [id number] 300mg Take 1.5 tablets by mouth in the morning. [facility] DULoxetine 60 mg capsule 2021-06 00:00: 00 Yes [id number] 60mg Take 1 capsule by mouth in the morning. [facility] hydrOXYchlo roQUINE 200 mg tablet 2021-06 00:00: 00 Yes [id number] 300mg Take 1.5 tablets by mouth in the morning. [facility] DULoxetine 60 mg capsule 2021-06 00:00: 00 Yes [id number] 60mg Take 1 capsule by mouth in the morning. [facility] DULoxetine 60 mg capsule 2021-06 00:00: 00 Yes [id number] 60mg Take 1 capsule by mouth in the morning. [facility] DULoxetine 60 mg capsule 2021-06 00:00: 00 Yes [id number] 60mg Take 1 capsule by mouth in the morning. [facility] DULoxetine 60 mg capsule 2021-06 00:00: 00 Yes [id number] 60mg Take 1 capsule by mouth in the morning. [facility] DULoxetine 60 mg capsule 2021-06 00:00: 00 05-28 00:00 :00 No [id number] 60mg Take 1 capsule by mouth in the morning. [facility] DULoxetine 60 mg capsule 2021-06 00:00: 00 05-28 00:00 :00 No [id number] 60mg Take 1 capsule by mouth in the morning. [facility] DULoxetine 60 mg capsule 2021-06 00:00: 00 05-28 00:00 :00 No [id number] 60mg Take 1 capsule by mouth in the morning. [facility] DULoxetine 20 mg capsule 2021-06 0- 00:00: 00 04-29 05:59 :00 No [id number] Take 2 capsules by mouth daily for 15 days, THEN 3 capsules daily for 15 days. [facility] DULoxetine 20 mg capsule 2022 00:00: 00 04-29 05:59 :00 No [id number] Take 2 capsules by mouth daily for 15 days, THEN 3 capsules daily for 15 days. [facility] DULoxetine 20 mg capsule 2021-06 00:00: 00 04-29 05:59 :00 No [id number] Take 2 capsules by mouth daily for 15 days, THEN 3 capsules daily for 15 days. [facility] DULoxetine 20 mg capsule 2021-06 00:00: 00 04-29 05:59 :00 No [id number] Take 2 capsules by mouth daily for 15 days, THEN 3 capsules daily for 15 days. [facility] triamcinolo ne acetonide (KENALOG) injection 80 mg 2021-06 0 21:45: 00 03-24 20:40 :00 No [id number] 80mg [facility] triamcinolo ne acetonide (KENALOG) injection 80 mg 2021-06 21:45: 00 03-24 20:40 :00 No [id number] 80mg 80 mg, Intra-surendra cular, ONCE, 1 dose, On Tue03/24/22 at 1645, Routine [facility] triamcinolo ne acetonide (KENALOG) injection 80 mg 2021-06 0 21:45: 00 03-24 20:40 :00 No [id number] 80mg [facility] triamcinolo ne acetonide (KENALOG) injection 80 mg 2021-06 0 21:45: 00 03-24 20:40 :00 No [id number] 80mg 80 mg, Intra-surendra cular, ONCE, 1 dose, On Tue03/24/22 at 1645, Routine [facility] lisinopriL 2.5 mg tablet 02-26 00:00: 00 Yes [id number] 9103 2.5mg Take 1 tablet by mouth every evening. [facility] lisinopriL 2.5 mg tablet 02-26 00:00: 00 Yes [id number] 9103 2.5mg Take 1 tablet by mouth every evening. [facility] lisinopriL 2.5 mg tablet 0 02-26 00:00: 00 Yes [id number] 9103 2.5mg Take 1 tablet by mouth every evening. [facility] lisinopriL 2.5 mg tablet 02-26 00:00: 00 Yes [id number] 9103 2.5mg Take 1 tablet by mouth every evening. [facility] lisinopriL 2.5 mg tablet 0 02-26 00:00: 00 Yes [id number] 9103 2.5mg Take 1 tablet by mouth every evening. [facility] lisinopriL 2.5 mg tablet 02-26 00:00: 00 Yes [id number] 9103 2.5mg Take 1 tablet by mouth every evening. [facility] lisinopriL 2.5 mg tablet 02-26 00:00: 00 Yes [id number] 9103 2.5mg Take 1 tablet by mouth every evening. [facility] lisinopriL 2.5 mg tablet 0 02-26 00:00: 00 Yes [id number] 9103 2.5mg Take 1 tablet by mouth every evening. [facility] lisinopriL 2.5 mg tablet 02-26 00:00: 00 Yes [id number] 9103 2.5mg Take 1 tablet by mouth every evening. [facility] lisinopriL 2.5 mg tablet 2021-0 02-26 00:00: 00 Yes [id number] 9103 2.5mg Take 1 tablet by mouth every evening. [facility] lisinopriL 2.5 mg tablet 0 02-26 00:00: 00 Yes [id number] 9103 2.5mg Take 1 tablet by mouth every evening. [facility] lisinopriL 2.5 mg tablet 0 02-26 00:00: 00 Yes [id number] 9103 2.5mg Take 1 tablet by mouth every evening. [facility] lisinopriL 2.5 mg tablet 0 02-26 00:00: 00 Yes [id number] 9103 2.5mg Take 1 tablet by mouth every evening. [facility] 2021-0 02-26 00:00: 00 Yes [id number] 9103 2.5mg Take 1 tablet by mouth every evening. [facility] mg tablet 2021-0 02-26 00:00: 00 Yes [id number] 9103 2.5mg Take 1 tablet by mouth every evening. [facility] mg tablet 2021-0 02-26 00:00: 00 Yes [id number] 9103 2.5mg Take 1 tablet by mouth every evening. [facility] lisinopriL 2.5 mg tablet 2021-0 02-26 00:00: 00 Yes [id number] 9103 2.5mg Take 1 tablet by mouth every evening. [facility] lisinopriL 2.5 mg tablet 2021-0 02-26 00:00: 00 Yes [id number] 9103 2.5mg Take 1 tablet by mouth every evening. [facility] lisinopriL 2.5 mg tablet 2021-0 02-26 00:00: 00 Yes [id number] 9103 2.5mg Take 1 tablet by mouth every evening. [facility] lisinopriL 2.5 mg tablet 2021-0 02-26 00:00: 00 Yes [id number] 9103 2.5mg Take 1 tablet by mouth every evening. [facility] mg tablet 2021-0 02-26 00:00: 00 Yes [id number] 9103 2.5mg Take 1 tablet by mouth every evening. [facility].5 mg tablet 2021-0 02-26 00:00: 00 Yes [id number] 9103 2.5mg Take 1 tablet by mouth every evening. [facility].5 mg tablet 2021-0 02-26 00:00: 00 Yes [id number] 9103 2.5mg Take 1 tablet by mouth every evening. [facility] lisinopriL 2.5 mg tablet 0 02-26 00:00: 00 Yes [id number] 9103 2.5mg Take 1 tablet by mouth every evening. [facility] lisinopriL 2.5 mg tablet 02-26 00:00: 00 Yes [id number] 9103 2.5mg Take 1 tablet by mouth every evening. [facility] lisinopriL 2.5 mg tablet 02-26 00:00: 00 Yes [id number] 9103 2.5mg Take 1 tablet by mouth every evening. [facility] lisinopriL 2.5 mg tablet 02-26 00:00: 00 01-25 00:00 :00 No [id number] 9103 2.5mg Take 1 tablet by mouth every evening. [facility] hydrOXYchlo roQUINE 200 mg tablet 2021-0 02-25 00:00: 00 Yes 300mg Take 1.5 tablets by mouth in the morning. [facility] gabapentin 100 mg capsule 2021-0 02-25 00:00: 00 Yes 100mg Take 1 capsule by mouth in the morning and 1 capsule at noon and 1 capsule in the evening. [facility] hydrOXYchlo roQUINE 200 mg tablet 0 02-25 00:00: 00 Yes 300mg Take 1.5 tablets by mouth in the morning. [facility] gabapentin 100 mg capsule 2021-0 02-25 00:00: 00 Yes 100mg Take 1 capsule by mouth in the morning and 1 capsule at noon and 1 capsule in the evening. [facility] hydrOXYchlo roQUINE 200 mg tablet 2021-0 02-25 00:00: 00 Yes 300mg Take 1.5 tablets by mouth in the morning. [facility] gabapentin 100 mg capsule 2021-0 02-25 00:00: 00 Yes 100mg Take 1 capsule by mouth in the morning and 1 capsule at noon and 1 capsule in the evening. [facility] hydrOXYchlo roQUINE 200 mg tablet 2021-0 02-25 00:00: 00 Yes 300mg Take 1.5 tablets by mouth in the morning. [facility] gabapentin 100 mg capsule 2022-0 -08 00:00: 00 Yes 100mg Take 1 capsule by mouth in the morning and 1 capsule at noon and 1 capsule in the evening. [facility] hydrOXYchlo roQUINE 200 mg tablet 2-0 -08 00:00: 00 Yes 300mg Take 1.5 tablets by mouth in the morning. [facility] gabapentin 100 mg capsule 2-0 -08 00:00: 00 Yes 100mg Take 1 capsule by mouth in the morning and 1 capsule at noon and 1 capsule in the evening. [facility] hydrOXYchlo roQUINE 200 mg tablet 2-0 - 00:00: 00 Yes 300mg Take 1.5 tablets by mouth in the morning. [facility] gabapentin 100 mg capsule 2-0 - 00:00: 00 Yes 100mg Take 1 capsule by mouth in the morning and 1 capsule at noon and 1 capsule in the evening. [facility] hydrOXYchlo roQUINE 200 mg tablet 2-0 - 00:00: 00 Yes 300mg Take 1.5 tablets by mouth in the morning. [facility] gabapentin 100 mg capsule 2-0 - 00:00: 00 Yes 100mg Take 1 capsule by mouth in the morning and 1 capsule at noon and 1 capsule in the evening. [facility] hydrOXYchlo roQUINE 200 mg tablet 2-0 - 00:00: 00 Yes 300mg Take 1.5 tablets by mouth in the morning. [facility] gabapentin 100 mg capsule 2-0 -08 00:00: 00 Yes 100mg Take 1 capsule by mouth in the morning and 1 capsule at noon and 1 capsule in the evening. [facility] hydrOXYchlo roQUINE 200 mg tablet 2-0 - 00:00: 00 Yes 300mg Take 1.5 tablets by mouth in the morning. [facility] gabapentin 100 mg capsule 2022-0 -08 00:00: 00 Yes 100mg Take 1 capsule by mouth in the morning and 1 capsule at noon and 1 capsule in the evening. [facility] hydrOXYchlo roQUINE 200 mg tablet 2-0 - 00:00: 00 Yes 300mg Take 1.5 tablets by mouth in the morning. [facility] gabapentin 100 mg capsule 2-0 - 00:00: 00 Yes 100mg Take 1 capsule by mouth in the morning and 1 capsule at noon and 1 capsule in the evening. [facility] hydrOXYchlo roQUINE 200 mg tablet 2-0 02-25 00:00: 00 Yes 300mg Take 1.5 tablets by mouth in the morning. [facility] gabapentin 100 mg capsule 2-0 - 00:00: 00 Yes 100mg Take 1 capsule by mouth in the morning and 1 capsule at noon and 1 capsule in the evening. [facility] gabapentin 100 mg capsule 2-0 02-25 00:00: 00 Yes 100mg Take 1 capsule by mouth in the morning and 1 capsule at noon and 1 capsule in the evening. [facility] gabapentin 100 mg capsule 2-0 02-25 00:00: 00 Yes 100mg Take 1 capsule by mouth in the morning and 1 capsule at noon and 1 capsule in the evening. [facility] gabapentin 100 mg capsule 2022-0 - 00:00: 00 Yes 100mg Take 1 capsule by mouth in the morning and 1 capsule at noon and 1 capsule in the evening. [facility] gabapentin 100 mg capsule 2-0 - 00:00: 00 Yes 100mg Take 1 capsule by mouth in the morning and 1 capsule at noon and 1 capsule in the evening. [facility] gabapentin 100 mg capsule 2022-0 - 00:00: 00 Yes 100mg Take 1 capsule by mouth in the morning and 1 capsule at noon and 1 capsule in the evening. [facility] gabapentin 100 mg capsule 2022-0 - 00:00: 00 Yes 100mg Take 1 capsule by mouth in the morning and 1 capsule at noon and 1 capsule in the evening. [facility] gabapentin 100 mg capsule 2022-0 -08 00:00: 00 Yes 100mg Take 1 capsule by mouth in the morning and 1 capsule at noon and 1 capsule in the evening. [facility] gabapentin 100 mg capsule 2022-0 9-08 00:00: 00 Yes 100mg Take 1 capsule by mouth in the morning and 1 capsule at noon and 1 capsule in the evening. [facility] gabapentin 100 mg capsule 2022-0 9-08 00:00: 00 Yes 100mg Take 1 capsule by mouth in the morning and 1 capsule at noon and 1 capsule in the evening. [facility] gabapentin 100 mg capsule 2022-0 -08 00:00: 00 Yes 100mg Take 1 capsule by mouth in the morning and 1 capsule at noon and 1 capsule in the evening. [facility] gabapentin 100 mg capsule 2022-0 - 00:00: 00 Yes 100mg Take 1 capsule by mouth in the morning and 1 capsule at noon and 1 capsule in the evening. [facility] gabapentin 100 mg capsule 2022-0 - 00:00: 00 Yes 100mg Take 1 capsule by mouth in the morning and 1 capsule at noon and 1 capsule in the evening. [facility] gabapentin 100 mg capsule 2022-0 - 00:00: 00 Yes 100mg Take 1 capsule by mouth in the morning and 1 capsule at noon and 1 capsule in the evening. [facility] gabapentin 100 mg capsule 2022-0 -08 00:00: 00 Yes 100mg Take 1 capsule by mouth in the morning and 1 capsule at noon and 1 capsule in the evening. [facility] gabapentin 100 mg capsule 2022-0 - 00:00: 00 Yes 100mg Take 1 capsule by mouth in the morning and 1 capsule at noon and 1 capsule in the evening. [facility] gabapentin 100 mg capsule 2022-0 9- 00:00: 00 Yes 100mg Take 1 capsule by mouth in the morning and 1 capsule at noon and 1 capsule in the evening. [facility] gabapentin 100 mg capsule 2022-0 9- 00:00: 00 Yes 100mg Take 1 capsule by mouth in the morning and 1 capsule at noon and 1 capsule in the evening. [facility] gabapentin 100 mg capsule 2022-0 9-08 00:00: 00 Yes 100mg Take 1 capsule by mouth in the morning and 1 capsule at noon and 1 capsule in the evening. [facility] gabapentin 100 mg capsule 2022-0 -08 00:00: 00 Yes 100mg Take 1 capsule by mouth in the morning and 1 capsule at noon and 1 capsule in the evening. [facility] gabapentin 100 mg capsule 2022-0 - 00:00: 00 Yes 100mg Take 1 capsule by mouth in the morning and 1 capsule at noon and 1 capsule in the evening. [facility] gabapentin 100 mg capsule 2-0 - 00:00: 00 Yes 100mg Take 1 capsule by mouth in the morning and 1 capsule at noon and 1 capsule in the evening. [facility] gabapentin 100 mg capsule 2022-0 - 00:00: 00 Yes 100mg Take 1 capsule by mouth in the morning and 1 capsule at noon and 1 capsule in the evening. [facility] gabapentin 100 mg capsule 2022-0 - 00:00: 00 Yes 100mg Take 1 capsule by mouth in the morning and 1 capsule at noon and 1 capsule in the evening. [facility] gabapentin 100 mg capsule 2-0 - 00:00: 00 Yes 100mg Take 1 capsule by mouth in the morning and 1 capsule at noon and 1 capsule in the evening. [facility] gabapentin 100 mg capsule 2022-0 - 00:00: 00 Yes 100mg Take 1 capsule by mouth in the morning and 1 capsule at noon and 1 capsule in the evening. [facility] gabapentin 100 mg capsule 2022-0 -08 00:00: 00 Yes 100mg Take 1 capsule by mouth in the morning and 1 capsule at noon and 1 capsule in the evening. [facility] gabapentin 100 mg capsule 2022-0 -08 00:00: 00 Yes 100mg Take 1 capsule by mouth in the morning and 1 capsule at noon and 1 capsule in the evening. [facility] gabapentin 100 mg capsule 2022-0 -08 00:00: 00 Yes 100mg Take 1 capsule by mouth in the morning and 1 capsule at noon and 1 capsule in the evening. [facility] gabapentin 100 mg capsule 2022-0 9-08 00:00: 00 Yes 100mg Take 1 capsule by mouth in the morning and 1 capsule at noon and 1 capsule in the evening. [facility] 2022-0 -08 00:00: 00 Yes 100mg Take 1 capsule by mouth in the morning and 1 capsule at noon and 1 capsule in the evening. [facility] gabapentin 100 mg capsule 2022-0 - 00:00: 00 Yes 100mg Take 1 capsule by mouth in the morning and 1 capsule at noon and 1 capsule in the evening. [facility] gabapentin 100 mg capsule 2022-0 - 00:00: 00 Yes 100mg Take 1 capsule by mouth in the morning and 1 capsule at noon and 1 capsule in the evening. [facility] gabapentin 100 mg capsule 2022-0 - 00:00: 00 Yes 100mg Take 1 capsule by mouth in the morning and 1 capsule at noon and 1 capsule in the evening. [facility] gabapentin 100 mg capsule 2022-0 - 00:00: 00 Yes 100mg Take 1 capsule by mouth in the morning and 1 capsule at noon and 1 capsule in the evening. [facility] gabapentin 100 mg capsule 2022-0 02-25 00:00: 00 Yes 100mg Take 1 capsule by mouth in the morning and 1 capsule at noon and 1 capsule in the evening. [facility] gabapentin 100 mg capsule 2022-0 - 00:00: 00 Yes 100mg Take 1 capsule by mouth in the morning and 1 capsule at noon and 1 capsule in the evening. [facility] gabapentin 100 mg capsule 2022-0 - 00:00: 00 Yes 100mg Take 1 capsule by mouth in the morning and 1 capsule at noon and 1 capsule in the evening. [facility] gabapentin 100 mg capsule 2022-0 - 00:00: 00 Yes 100mg Take 1 capsule by mouth in the morning and 1 capsule at noon and 1 capsule in the evening. [facility] gabapentin 100 mg capsule 2022-0 -08 00:00: 00 Yes 100mg Take 1 capsule by mouth in the morning and 1 capsule at noon and 1 capsule in the evening. [facility] gabapentin 100 mg capsule 2022-0 -08 00:00: 00 Yes 100mg Take 1 capsule by mouth in the morning and 1 capsule at noon and 1 capsule in the evening. [facility] gabapentin 100 mg capsule 2022-0 -08 00:00: 00 Yes 100mg Take 1 capsule by mouth in the morning and 1 capsule at noon and 1 capsule in the evening. [facility] gabapentin 100 mg capsule 2022-0 -08 00:00: 00 Yes 100mg Take 1 capsule by mouth in the morning and 1 capsule at noon and 1 capsule in the evening. [facility] gabapentin 100 mg capsule 2022-0 - 00:00: 00 Yes 100mg Take 1 capsule by mouth in the morning and 1 capsule at noon and 1 capsule in the evening. [facility] gabapentin 100 mg capsule 2022-0 -08 00:00: 00 Yes 100mg Take 1 capsule by mouth in the morning and 1 capsule at noon and 1 capsule in the evening. [facility] gabapentin 100 mg capsule 2022-0 -08 00:00: 00 Yes 100mg Take 1 capsule by mouth in the morning and 1 capsule at noon and 1 capsule in the evening. [facility] gabapentin 100 mg capsule 2022-0 - 00:00: 00 Yes 100mg Take 1 capsule by mouth in the morning and 1 capsule at noon and 1 capsule in the evening. [facility] gabapentin 100 mg capsule 2022-0 - 00:00: 00 Yes 100mg Take 1 capsule by mouth in the morning and 1 capsule at noon and 1 capsule in the evening. [facility] gabapentin 100 mg capsule 2022-0 - 00:00: 00 Yes 100mg Take 1 capsule by mouth in the morning and 1 capsule at noon and 1 capsule in the evening. [facility] gabapentin 100 mg capsule 2022-0 -08 00:00: 00 Yes 100mg Take 1 capsule by mouth in the morning and 1 capsule at noon and 1 capsule in the evening. [facility] gabapentin 100 mg capsule 2022-0 9-08 00:00: 00 Yes 100mg Take 1 capsule by mouth in the morning and 1 capsule at noon and 1 capsule in the evening. [facility] gabapentin 100 mg capsule 2022-0 9-08 00:00: 00 Yes 100mg Take 1 capsule by mouth in the morning and 1 capsule at noon and 1 capsule in the evening. [facility] gabapentin 100 mg capsule 2022-0 9-08 00:00: 00 Yes 100mg Take 1 capsule by mouth in the morning and 1 capsule at noon and 1 capsule in the evening. [facility] gabapentin 100 mg capsule 2022-0 9-08 00:00: 00 Yes 100mg Take 1 capsule by mouth in the morning and 1 capsule at noon and 1 capsule in the evening. [facility] gabapentin 100 mg capsule 2022-0 9- 00:00: 00 Yes 100mg Take 1 capsule by mouth in the morning and 1 capsule at noon and 1 capsule in the evening. [facility] gabapentin 100 mg capsule 2022-0 - 00:00: 00 Yes 100mg Take 1 capsule by mouth in the morning and 1 capsule at noon and 1 capsule in the evening. [facility] gabapentin 100 mg capsule 2022-0 9-08 00:00: 00 Yes 100mg Take 1 capsule by mouth in the morning and 1 capsule at noon and 1 capsule in the evening. [facility] gabapentin 100 mg capsule 2022-0 - 00:00: 00 Yes 100mg Take 1 capsule by mouth in the morning and 1 capsule at noon and 1 capsule in the evening. [facility] gabapentin 100 mg capsule 2022-0 9-08 00:00: 00 Yes 100mg Take 1 capsule by mouth in the morning and 1 capsule at noon and 1 capsule in the evening. [facility] gabapentin 100 mg capsule 2022-0 9- 00:00: 00 Yes 100mg Take 1 capsule by mouth in the morning and 1 capsule at noon and 1 capsule in the evening. [facility] gabapentin 100 mg capsule 2022-0 9-08 00:00: 00 Yes 100mg Take 1 capsule by mouth in the morning and 1 capsule at noon and 1 capsule in the evening. [facility] gabapentin 100 mg capsule 2022-0 9-08 00:00: 00 Yes 100mg Take 1 capsule by mouth in the morning and 1 capsule at noon and 1 capsule in the evening. [facility] gabapentin 100 mg capsule 2022-0 -08 00:00: 00 Yes 100mg Take 1 capsule by mouth in the morning and 1 capsule at noon and 1 capsule in the evening. [facility] gabapentin 100 mg capsule 2022-0 - 00:00: 00 Yes 100mg Take 1 capsule by mouth in the morning and 1 capsule at noon and 1 capsule in the evening. [facility] gabapentin 100 mg capsule 2022-0 - 00:00: 00 Yes 100mg Take 1 capsule by mouth in the morning and 1 capsule at noon and 1 capsule in the evening. [facility] gabapentin 100 mg capsule 2022-0 - 00:00: 00 Yes 100mg Take 1 capsule by mouth in the morning and 1 capsule at noon and 1 capsule in the evening. [facility] gabapentin 100 mg capsule 2022-0 - 00:00: 00 Yes 100mg Take 1 capsule by mouth in the morning and 1 capsule at noon and 1 capsule in the evening. [facility] gabapentin 100 mg capsule 2022-0 - 00:00: 00 Yes 100mg Take 1 capsule by mouth in the morning and 1 capsule at noon and 1 capsule in the evening. [facility] gabapentin 100 mg capsule 2022-0 - 00:00: 00 Yes 100mg Take 1 capsule by mouth in the morning and 1 capsule at noon and 1 capsule in the evening. [facility] gabapentin 100 mg capsule 2022-0 - 00:00: 00 Yes 100mg Take 1 capsule by mouth in the morning and 1 capsule at noon and 1 capsule in the evening. [facility] gabapentin 100 mg capsule 2022-0 - 00:00: 00 Yes 100mg Take 1 capsule by mouth in the morning and 1 capsule at noon and 1 capsule in the evening. [facility] gabapentin 100 mg capsule 2022-0 - 00:00: 00 Yes 100mg Take 1 capsule by mouth in the morning and 1 capsule at noon and 1 capsule in the evening. [facility] gabapentin 100 mg capsule 2-0 - 00:00: 00 Yes 100mg Take 1 capsule by mouth in the morning and 1 capsule at noon and 1 capsule in the evening. [facility] gabapentin 100 mg capsule 2022-0 02-25 00:00: 00 Yes 100mg Take 1 capsule by mouth in the morning and 1 capsule at noon and 1 capsule in the evening. [facility] gabapentin 100 mg capsule 2-0 02-25 00:00: 00 Yes 100mg Take 1 capsule by mouth in the morning and 1 capsule at noon and 1 capsule in the evening. [facility] gabapentin 100 mg capsule 2-0 02-25 00:00: 00 Yes 100mg Take 1 capsule by mouth in the morning and 1 capsule at noon and 1 capsule in the evening. [facility] gabapentin 100 mg capsule 2-0 02-25 00:00: 00 Yes 100mg Take 1 capsule by mouth in the morning and 1 capsule at noon and 1 capsule in the evening. [facility] gabapentin 100 mg capsule 2-0 02-25 00:00: 00 Yes 100mg Take 1 capsule by mouth in the morning and 1 capsule at noon and 1 capsule in the evening. [facility] gabapentin 100 mg capsule 2-0 02-25 00:00: 00 Yes 100mg Take 1 capsule by mouth in the morning and 1 capsule at noon and 1 capsule in the evening. [facility] gabapentin 100 mg capsule 2-0 02-25 00:00: 00 Yes 100mg Take 1 capsule by mouth in the morning and 1 capsule at noon and 1 capsule in the evening. [facility] gabapentin 100 mg capsule 2-0 - 00:00: 00 Yes 100mg Take 1 capsule by mouth in the morning and 1 capsule at noon and 1 capsule in the evening. [facility] gabapentin 100 mg capsule 2-0 - 00:00: 00 Yes 100mg Take 1 capsule by mouth in the morning and 1 capsule at noon and 1 capsule in the evening. [facility] hydrOXYchlo roQUINE 200 mg tablet 2021-0 9-08 00:00: 00 05-28 00:00 :00 No 300mg Take 1.5 tablets by mouth in the morning. [facility] hydrOXYchlo roQUINE 200 mg tablet 2021-0 9-08 00:00: 00 05-28 00:00 :00 No 300mg Take 1.5 tablets by mouth in the morning. [facility] hydrOXYchlo roQUINE 200 mg tablet 2021-0 9-08 00:00: 00 05-28 00:00 :00 No 300mg Take 1.5 tablets by mouth in the morning. [facility] DULoxetine 30 mg capsule 2021-0 9-08 00:00: 00 03-29 00:00 :00 No [id number] 30mg Take 1 capsule by mouth in the morning for 30 days. [facility] DULoxetine 30 mg capsule 2021-0 -08 00:00: 00 03-29 00:00 :00 No [id number] 30mg Take 1 capsule by mouth in the morning for 30 days. [facility] DULoxetine 30 mg capsule 2-0 9-08 00:00: 00 03-28 04:59 :00 No [id number] 30mg Take 1 capsule by mouth in the morning for 30 days. [facility] DULoxetine 30 mg capsule 2-0 9-08 00:00: 00 03-28 04:59 :00 No [id number] 30mg Take 1 capsule by mouth in the morning for 30 days. [facility] DULoxetine 30 mg capsule 2-0 9-08 00:00: 00 03-28 04:59 :00 No [id number] 30mg Take 1 capsule by mouth in the morning for 30 days. [facility] DULoxetine 30 mg capsule 2-0 9-08 00:00: 00 03-28 04:59 :00 No [id number] 30mg Take 1 capsule by mouth in the morning for 30 days. [facility] DULoxetine 30 mg capsule 2-0 9-08 00:00: 00 03-28 04:59 :00 No [id number] 30mg Take 1 capsule by mouth in the morning for 30 days. [facility] spironolact one 25 mg tablet 2021-0 02-24 00:00: 00 Yes [id number] 9100 TAKE 1/2 TABLET EVERY DAY [facility] spironolact one 25 mg tablet 2021-0 02-24 00:00: 00 Yes [id number] 9100 TAKE 1/2 TABLET EVERY DAY [facility] spironolact one 25 mg tablet 2021-0 02-24 00:00: 00 Yes [id number] 9100 TAKE 1/2 TABLET EVERY DAY [facility] spironolact one 25 mg tablet 2021-0 02-24 00:00: 00 Yes [id number] 9100 TAKE 1/2 TABLET EVERY DAY [facility] spironolact one 25 mg tablet 2021-0 02-24 00:00: 00 Yes [id number] 9100 TAKE 1/2 TABLET EVERY DAY [facility] spironolact one 25 mg tablet 2021-0 02-24 00:00: 00 Yes [id number] 9100 TAKE 1/2 TABLET EVERY DAY [facility] spironolact one 25 mg tablet 2021-0 02-24 00:00: 00 Yes [id number] 9100 TAKE 1/2 TABLET EVERY DAY [facility] spironolact one 25 mg tablet 2021-0 02-24 00:00: 00 Yes [id number] 9100 TAKE 1/2 TABLET EVERY DAY [facility] spironolact one 25 mg tablet 2021-0 02-24 00:00: 00 Yes [id number] 9100 TAKE 1/2 TABLET EVERY DAY [facility] spironolact one 25 mg tablet 2021-0 02-24 00:00: 00 Yes [id number] 9100 TAKE 1/2 TABLET EVERY DAY [facility] spironolact one 25 mg tablet 2021-0 02-24 00:00: 00 Yes [id number] 9100 TAKE 1/2 TABLET EVERY DAY [facility] spironolact one 25 mg tablet 2021-0 02-24 00:00: 00 Yes [id number] 9100 TAKE 1/2 TABLET EVERY DAY [facility] spironolact one 25 mg tablet 2021-0 02-24 00:00: 00 Yes [id number] 9100 TAKE 1/2 TABLET EVERY DAY [facility] spironolact one 25 mg tablet 2021-0 02-24 00:00: 00 Yes [id number] 9100 TAKE 1/2 TABLET EVERY DAY [facility] spironolact one 25 mg tablet 2021-0 02-24 00:00: 00 Yes [id number] 9100 TAKE 1/2 TABLET EVERY DAY [facility] spironolact one 25 mg tablet 2021-0 02-24 00:00: 00 Yes [id number] 9100 TAKE 1/2 TABLET EVERY DAY [facility] spironolact one 25 mg tablet 2021-0 02-24 00:00: 00 Yes [id number] 9100 TAKE 1/2 TABLET EVERY DAY [facility] spironolact one 25 mg tablet 2021-0 02-24 00:00: 00 Yes [id number] 9100 TAKE 1/2 TABLET EVERY DAY [facility] spironolact one 25 mg tablet 2021-0 02-24 00:00: 00 Yes [id number] 9100 TAKE 1/2 TABLET EVERY DAY [facility] spironolact one 25 mg tablet 2021-0 02-24 00:00: 00 Yes [id number] 9100 TAKE 1/2 TABLET EVERY DAY [facility] spironolact one 25 mg tablet 2021-0 02-24 00:00: 00 Yes [id number] 9100 TAKE 1/2 TABLET EVERY DAY [facility] spironolact one 25 mg tablet 2021-0 02-24 00:00: 00 10-07 00:00 :00 No [id number] 9100 TAKE 1/2 TABLET EVERY DAY [facility] magnesium chloride 70 mg TbEC 2021-0 12-23 00:00: 00 Yes 2{tbl} Take 2 tablets by mouth 2 (two) times daily. [facility] magnesium chloride 70 mg TbEC 2021-0 12-23 00:00: 00 Yes 2{tbl} Take 2 tablets by mouth 2 (two) times daily. [facility] magnesium chloride 70 mg TbEC 2022-0 7- 00:00: 00 Yes 2{tbl} Take 2 tablets by mouth 2 (two) times daily. [facility] magnesium chloride 70 mg TbEC 2022-0 7- 00:00: 00 Yes 2{tbl} Take 2 tablets by mouth 2 (two) times daily. [facility] magnesium chloride 70 mg TbEC 2022-0 7- 00:00: 00 Yes 2{tbl} Take 2 tablets by mouth 2 (two) times daily. [facility] magnesium chloride 70 mg TbEC 2022-0 7- 00:00: 00 Yes 2{tbl} Take 2 tablets by mouth 2 (two) times daily. [facility] magnesium chloride 70 mg TbEC 2022-0 - 00:00: 00 Yes 2{tbl} Take 2 tablets by mouth 2 (two) times daily. [facility] magnesium chloride 70 mg TbEC 2022-0 - 00:00: 00 Yes 2{tbl} Take 2 tablets by mouth 2 (two) times daily. [facility] magnesium chloride 70 mg TbEC 2022-0 12-23 00:00: 00 Yes 2{tbl} Take 2 tablets by mouth 2 (two) times daily. [facility] magnesium chloride 70 mg TbEC 2022-0 - 00:00: 00 Yes 2{tbl} Take 2 tablets by mouth 2 (two) times daily. [facility] magnesium chloride 70 mg TbEC 2022-0 7- 00:00: 00 Yes 2{tbl} Take 2 tablets by mouth 2 (two) times daily. [facility] magnesium chloride 70 mg TbEC 2022-0 7- 00:00: 00 Yes 2{tbl} Take 2 tablets by mouth 2 (two) times daily. [facility] magnesium chloride 70 mg TbEC 2022-0 7- 00:00: 00 Yes 2{tbl} Take 2 tablets by mouth 2 (two) times daily. [facility] magnesium chloride 70 mg TbEC 2022-0 7- 00:00: 00 Yes 2{tbl} Take 2 tablets by mouth 2 (two) times daily. [facility] magnesium chloride 70 mg TbEC 2022-0 7-06 00:00: 00 Yes 2{tbl} Take 2 tablets by mouth 2 (two) times daily. [facility] magnesium chloride 70 mg TbEC 2022-0 7- 00:00: 00 Yes 2{tbl} Take 2 tablets by mouth 2 (two) times daily. [facility] magnesium chloride 70 mg TbEC 2022-0 7-06 00:00: 00 Yes 2{tbl} Take 2 tablets by mouth 2 (two) times daily. [facility] magnesium chloride 70 mg TbEC 2022-0 7- 00:00: 00 Yes 2{tbl} Take 2 tablets by mouth 2 (two) times daily. [facility] magnesium chloride 70 mg TbEC 2022-0 7- 00:00: 00 Yes 2{tbl} Take 2 tablets by mouth 2 (two) times daily. [facility] magnesium chloride 70 mg TbEC 2022-0 7- 00:00: 00 Yes 2{tbl} Take 2 tablets by mouth 2 (two) times daily. [facility] magnesium chloride 70 mg TbEC 2022-0 7- 00:00: 00 Yes 2{tbl} Take 2 tablets by mouth 2 (two) times daily. [facility] magnesium chloride 70 mg TbEC 2022-0 7- 00:00: 00 Yes 2{tbl} Take 2 tablets by mouth 2 (two) times daily. [facility] magnesium chloride 70 mg TbEC 2022-0 7-06 00:00: 00 Yes 2{tbl} Take 2 tablets by mouth 2 (two) times daily. [facility] magnesium chloride 70 mg TbEC 2022-0 7-06 00:00: 00 Yes 2{tbl} Take 2 tablets by mouth 2 (two) times daily. [facility] magnesium chloride 70 mg TbEC 2022-0 7-06 00:00: 00 Yes 2{tbl} Take 2 tablets by mouth 2 (two) times daily. [facility] magnesium chloride 70 mg TbEC 2022-0 7- 00:00: 00 Yes 2{tbl} Take 2 tablets by mouth 2 (two) times daily. [facility] Tb[facility] 20[facility]-0 - 00:00: 00 Yes 2{tbl} Take 2 tablets by mouth 2 (two) times daily. [facility] magnesium chloride 70 mg TbEC 2022-0 7- 00:00: 00 Yes 2{tbl} Take 2 tablets by mouth 2 (two) times daily. [facility] magnesium chloride 70 mg TbEC 2022-0 - 00:00: 00 Yes 2{tbl} Take 2 tablets by mouth 2 (two) times daily. [facility] magnesium chloride 70 mg TbEC 2022-0 - 00:00: 00 Yes 2{tbl} Take 2 tablets by mouth 2 (two) times daily. [facility] magnesium chloride 70 mg TbEC 2022-0 12-23 00:00: 00 Yes 2{tbl} Take 2 tablets by mouth 2 (two) times daily. [facility] magnesium chloride 70 mg TbEC 2022-0 12-23 00:00: 00 Yes 2{tbl} Take 2 tablets by mouth 2 (two) times daily. [facility] magnesium chloride 70 mg TbEC 2022-0 12-23 00:00: 00 Yes 2{tbl} Take 2 tablets by mouth 2 (two) times daily. [facility] magnesium chloride 70 mg TbEC 2022-0 12-23 00:00: 00 Yes 2{tbl} Take 2 tablets by mouth 2 (two) times daily. [facility] magnesium chloride 70 mg TbEC 2022-0 12-23 00:00: 00 Yes 2{tbl} Take 2 tablets by mouth 2 (two) times daily. [facility] magnesium chloride 70 mg TbEC 2022-0 7- 00:00: 00 Yes 2{tbl} Take 2 tablets by mouth 2 (two) times daily. [facility] magnesium chloride 70 mg TbEC 2022-0 7- 00:00: 00 Yes 2{tbl} Take 2 tablets by mouth 2 (two) times daily. [facility] magnesium chloride 70 mg TbEC 2022-0 7- 00:00: 00 Yes 2{tbl} Take 2 tablets by mouth 2 (two) times daily. [facility] magnesium chloride 70 mg TbEC 2022-0 7- 00:00: 00 Yes 2{tbl} Take 2 tablets by mouth 2 (two) times daily. [facility] magnesium chloride 70 mg TbEC 2022-0 7- 00:00: 00 Yes 2{tbl} Take 2 tablets by mouth 2 (two) times daily. [facility] magnesium chloride 70 mg TbEC 2022-0 7- 00:00: 00 Yes 2{tbl} Take 2 tablets by mouth 2 (two) times daily. [facility] magnesium chloride 70 mg TbEC 2022-0 7- 00:00: 00 Yes 2{tbl} Take 2 tablets by mouth 2 (two) times daily. [facility] magnesium chloride 70 mg TbEC 2022-0 - 00:00: 00 Yes 2{tbl} Take 2 tablets by mouth 2 (two) times daily. [facility] magnesium chloride 70 mg TbEC 2022-0 12-23 00:00: 00 Yes 2{tbl} Take 2 tablets by mouth 2 (two) times daily. [facility] magnesium chloride 70 mg TbEC 2022-0 12-23 00:00: 00 Yes 2{tbl} Take 2 tablets by mouth 2 (two) times daily. [facility] magnesium chloride 70 mg TbEC 2022-0 7- 00:00: 00 Yes 2{tbl} Take 2 tablets by mouth 2 (two) times daily. [facility] magnesium chloride 70 mg TbEC 2022-0 7 00:00: 00 Yes 2{tbl} Take 2 tablets by mouth 2 (two) times daily. [facility] magnesium chloride 70 mg TbEC 2022-0 7- 00:00: 00 Yes 2{tbl} Take 2 tablets by mouth 2 (two) times daily. [facility] magnesium chloride 70 mg TbEC 2022-0 7- 00:00: 00 Yes 2{tbl} Take 2 tablets by mouth 2 (two) times daily. [facility] magnesium chloride 70 mg TbEC 2022-0 7- 00:00: 00 Yes 2{tbl} Take 2 tablets by mouth 2 (two) times daily. [facility] magnesium chloride 70 mg TbEC 2022-0 7- 00:00: 00 Yes 2{tbl} Take 2 tablets by mouth 2 (two) times daily. [facility] magnesium chloride 70 mg TbEC 2022-0 7- 00:00: 00 Yes 2{tbl} Take 2 tablets by mouth 2 (two) times daily. [facility] magnesium chloride 70 mg TbEC 2022-0 7- 00:00: 00 Yes 2{tbl} Take 2 tablets by mouth 2 (two) times daily. [facility] magnesium chloride 70 mg TbEC 2022-0 7- 00:00: 00 Yes 2{tbl} Take 2 tablets by mouth 2 (two) times daily. [facility] magnesium chloride 70 mg TbEC 2022-0 7- 00:00: 00 Yes 2{tbl} Take 2 tablets by mouth 2 (two) times daily. [facility] magnesium chloride 70 mg TbEC 2022-0 7 00:00: 00 Yes 2{tbl} Take 2 tablets by mouth 2 (two) times daily. [facility] magnesium chloride 70 mg TbEC 2022-0 7- 00:00: 00 Yes 2{tbl} Take 2 tablets by mouth 2 (two) times daily. [facility] magnesium chloride 70 mg TbEC 2022-0 7- 00:00: 00 Yes 2{tbl} Take 2 tablets by mouth 2 (two) times daily. [facility] magnesium chloride 70 mg TbEC 2022-0 7- 00:00: 00 Yes 2{tbl} Take 2 tablets by mouth 2 (two) times daily. [facility] magnesium chloride 70 mg TbEC 2022-0 7- 00:00: 00 Yes 2{tbl} Take 2 tablets by mouth 2 (two) times daily. [facility] magnesium chloride 70 mg TbEC 2022-0 7- 00:00: 00 Yes 2{tbl} Take 2 tablets by mouth 2 (two) times daily. [facility] magnesium chloride 70 mg TbEC 2022-0 7- 00:00: 00 Yes 2{tbl} Take 2 tablets by mouth 2 (two) times daily. [facility] magnesium chloride 70 mg TbEC 2022-0 7- 00:00: 00 Yes 2{tbl} Take 2 tablets by mouth 2 (two) times daily. [facility] magnesium chloride 70 mg TbEC 2022-0 7- 00:00: 00 Yes 2{tbl} Take 2 tablets by mouth 2 (two) times daily. [facility] magnesium chloride 70 mg TbEC 2022-0 - 00:00: 00 Yes 2{tbl} Take 2 tablets by mouth 2 (two) times daily. [facility] magnesium chloride 70 mg TbEC 2022-0 - 00:00: 00 Yes 2{tbl} Take 2 tablets by mouth 2 (two) times daily. [facility] magnesium chloride 70 mg TbEC 2022-0 12-23 00:00: 00 Yes 2{tbl} Take 2 tablets by mouth 2 (two) times daily. [facility] magnesium chloride 70 mg TbEC 2022-0 12-23 00:00: 00 Yes 2{tbl} Take 2 tablets by mouth 2 (two) times daily. [facility] magnesium chloride 70 mg TbEC 2022-0 12-23 00:00: 00 Yes 2{tbl} Take 2 tablets by mouth 2 (two) times daily. [facility] magnesium chloride 70 mg TbEC 2022-0 7 00:00: 00 Yes 2{tbl} Take 2 tablets by mouth 2 (two) times daily. [facility] magnesium chloride 70 mg TbEC 2022-0 7- 00:00: 00 Yes 2{tbl} Take 2 tablets by mouth 2 (two) times daily. [facility] magnesium chloride 70 mg TbEC 2022-0 7- 00:00: 00 Yes 2{tbl} Take 2 tablets by mouth 2 (two) times daily. [facility] magnesium chloride 70 mg TbEC 2022-0 7-06 00:00: 00 Yes 2{tbl} Take 2 tablets by mouth 2 (two) times daily. [facility] magnesium chloride 70 mg TbEC 2022-0 7-06 00:00: 00 Yes 2{tbl} Take 2 tablets by mouth 2 (two) times daily. [facility] magnesium chloride 70 mg TbEC 2022-0 7-06 00:00: 00 Yes 2{tbl} Take 2 tablets by mouth 2 (two) times daily. [facility] magnesium chloride 70 mg TbEC 2022-0 7-06 00:00: 00 Yes 2{tbl} Take 2 tablets by mouth 2 (two) times daily. [facility] magnesium chloride 70 mg TbEC 2022-0 7-06 00:00: 00 Yes 2{tbl} Take 2 tablets by mouth 2 (two) times daily. [facility] magnesium chloride 70 mg TbEC 2022-0 7-06 00:00: 00 Yes 2{tbl} Take 2 tablets by mouth 2 (two) times daily. [facility] magnesium chloride 70 mg TbEC 2022-0 7-06 00:00: 00 Yes 2{tbl} Take 2 tablets by mouth 2 (two) times daily. [facility] magnesium chloride 70 mg TbEC 2022-0 7-06 00:00: 00 Yes 2{tbl} Take 2 tablets by mouth 2 (two) times daily. [facility] magnesium chloride 70 mg TbEC 2022-0 7-06 00:00: 00 Yes 2{tbl} Take 2 tablets by mouth 2 (two) times daily. [facility] magnesium chloride 70 mg TbEC 2022-0 7-06 00:00: 00 Yes 2{tbl} Take 2 tablets by mouth 2 (two) times daily. [facility] magnesium chloride 70 mg TbEC 2022-0 7-06 00:00: 00 Yes 2{tbl} Take 2 tablets by mouth 2 (two) times daily. [facility] magnesium chloride 70 mg TbEC 2022-0 7-06 00:00: 00 Yes 2{tbl} Take 2 tablets by mouth 2 (two) times daily. [facility] magnesium chloride 70 mg TbEC 2-0 - 00:00: 00 Yes 2{tbl} Take 2 tablets by mouth 2 (two) times daily. [facility] magnesium chloride 70 mg TbEC 2-0 - 00:00: 00 Yes 2{tbl} Take 2 tablets by mouth 2 (two) times daily. [facility] magnesium chloride 70 mg TbEC 2-0 12-23 00:00: 00 Yes 2{tbl} Take 2 tablets by mouth 2 (two) times daily. [facility] magnesium chloride 70 mg TbEC 2-0 12-23 00:00: 00 Yes 2{tbl} Take 2 tablets by mouth 2 (two) times daily. [facility] magnesium chloride 70 mg TbEC 2-0 12-23 00:00: 00 Yes 2{tbl} Take 2 tablets by mouth 2 (two) times daily. [facility] magnesium chloride 70 mg TbEC 2-0 12-23 00:00: 00 Yes 2{tbl} Take 2 tablets by mouth 2 (two) times daily. [facility] magnesium chloride 70 mg TbEC 2-0 12-23 00:00: 00 Yes 2{tbl} Take 2 tablets by mouth 2 (two) times daily. [facility] magnesium chloride 70 mg TbEC 2-0 12-23 00:00: 00 Yes 2{tbl} Take 2 tablets by mouth 2 (two) times daily. [facility] montelukast 10 mg tablet 2021-0 12-22 15:02: 53 Yes 10mg Take 10 mg by mouth at bedtime. [facility] clonazePAM 0.5 mg tablet 2021-0 12-22 15:02: 53 Yes .5mg Take 0.5 mg by mouth at bedtime. [facility] montelukast 10 mg tablet 2021-0 12-22 15:02: 53 Yes 10mg Take 10 mg by mouth at bedtime. [facility] clonazePAM 0.5 mg tablet 12-22 15:02: 53 Yes .5mg Take 0.5 mg by mouth at bedtime. [facility] montelukast 10 mg tablet 12-22 15:02: 53 Yes 10mg Take 10 mg by mouth at bedtime. [facility] clonazePAM 0.5 mg tablet 12-22 15:02: 53 Yes .5mg Take 0.5 mg by mouth at bedtime. [facility] montelukast 10 mg tablet 12-22 15:02: 53 Yes 10mg Take 10 mg by mouth at bedtime. [facility] clonazePAM 0.5 mg tablet 12-22 15:02: 53 Yes .5mg Take 0.5 mg by mouth at bedtime. [facility] montelukast 10 mg tablet 12-22 15:02: 53 Yes 10mg Take 10 mg by mouth at bedtime. [facility] clonazePAM 0.5 mg tablet 12-22 15:02: 53 Yes .5mg Take 0.5 mg by mouth at bedtime. [facility] montelukast 10 mg tablet 12-22 15:02: 53 Yes 10mg Take 10 mg by mouth at bedtime. [facility] clonazePAM 0.5 mg tablet 12-22 15:02: 53 Yes .5mg Take 0.5 mg by mouth at bedtime. [facility] montelukast 10 mg tablet 12-22 15:02: 53 Yes 10mg Take 10 mg by mouth at bedtime. [facility] clonazePAM 0.5 mg tablet 12-22 15:02: 53 Yes .5mg Take 0.5 mg by mouth at bedtime. [facility] montelukast 10 mg tablet 12-22 15:02: 53 Yes 10mg Take 10 mg by mouth at bedtime. [facility] clonazePAM 0.5 mg tablet 12-22 15:02: 53 Yes .5mg Take 0.5 mg by mouth at bedtime. [facility] montelukast 10 mg tablet 0 12-22 15:02: 53 Yes 10mg Take 10 mg by mouth at bedtime. [facility] clonazePAM 0.5 mg tablet 12-22 15:02: 53 Yes .5mg Take 0.5 mg by mouth at bedtime. [facility] montelukast 10 mg tablet 12-22 15:02: 53 Yes 10mg Take 10 mg by mouth at bedtime. [facility] clonazePAM 0.5 mg tablet 12-22 15:02: 53 Yes .5mg Take 0.5 mg by mouth at bedtime. [facility] montelukast 10 mg tablet 12-22 15:02: 53 Yes 10mg Take 10 mg by mouth at bedtime. [facility] clonazePAM 0.5 mg tablet 12-22 15:02: 53 Yes .5mg Take 0.5 mg by mouth at bedtime. [facility] montelukast 10 mg tablet 12-22 15:02: 53 Yes 10mg Take 10 mg by mouth at bedtime. [facility] clonazePAM 0.5 mg tablet 12-22 15:02: 53 Yes .5mg Take 0.5 mg by mouth at bedtime. [facility] montelukast 10 mg tablet 12-22 15:02: 53 Yes 10mg Take 10 mg by mouth at bedtime. [facility] clonazePAM 0.5 mg tablet 12-22 15:02: 53 Yes .5mg Take 0.5 mg by mouth at bedtime. [facility] montelukast 10 mg tablet 12-22 15:02: 53 Yes 10mg Take 10 mg by mouth at bedtime. [facility] clonazePAM 0.5 mg tablet 12-22 15:02: 53 Yes .5mg Take 0.5 mg by mouth at bedtime. [facility] montelukast 10 mg tablet 0 12-22 15:02: 53 Yes 10mg Take 10 mg by mouth at bedtime. [facility] clonazePAM 0.5 mg tablet 0 12-22 15:02: 53 Yes .5mg Take 0.5 mg by mouth at bedtime. [facility] montelukast 10 mg tablet 2021-0 12-22 15:02: 53 Yes 10mg Take 10 mg by mouth at bedtime. [facility] clonazePAM 0.5 mg tablet 0 12-22 15:02: 53 Yes .5mg Take 0.5 mg by mouth at bedtime. [facility] montelukast 10 mg tablet 2021-0 12-22 15:02: 53 Yes 10mg Take 10 mg by mouth at bedtime. [facility] clonazePAM 0.5 mg tablet 2021-0 12-22 15:02: 53 Yes .5mg Take 0.5 mg by mouth at bedtime. [facility] apixaban 5 mg tablet 2021-0 17 00:00: 00 Yes 1291 5mg Take 1 tablet by mouth 2 (two) times daily. Indication s: a clot in the lung [facility] apixaban 5 mg tablet 2021-0 17 00:00: 00 Yes 1291 5mg Take 1 tablet by mouth 2 (two) times daily. Indication s: a clot in the lung [facility] apixaban 5 mg tablet 2021-0 17 00:00: 00 Yes 1291 5mg Take 1 tablet by mouth 2 (two) times daily. Indication s: a clot in the lung [facility] apixaban 5 mg tablet 2-0 17 00:00: 00 Yes 1291 5mg Take 1 tablet by mouth 2 (two) times daily. Indication s: a clot in the lung [facility] apixaban 5 mg tablet 2-0 -17 00:00: 00 Yes 1291 5mg Take 1 tablet by mouth 2 (two) times daily. Indication s: a clot in the lung [facility] apixaban 5 mg tablet 2-0 -17 00:00: 00 Yes 1291 5mg Take 1 tablet by mouth 2 (two) times daily. Indication s: a clot in the lung [facility] apixaban 5 mg tablet 2022-0 6-17 00:00: 00 Yes 1291 5mg Take 1 tablet by mouth 2 (two) times daily. Indication s: a clot in the lung [facility] apixaban 5 mg tablet 2022-0 6-17 00:00: 00 Yes 1291 5mg Take 1 tablet by mouth 2 (two) times daily. Indication s: a clot in the lung [facility] apixaban 5 mg tablet 2022-0 6-17 00:00: 00 Yes 1291 5mg Take 1 tablet by mouth 2 (two) times daily. Indication s: a clot in the lung [facility] apixaban 5 mg tablet 2-0 6-17 00:00: 00 Yes 1291 5mg Take 1 tablet by mouth 2 (two) times daily. Indication s: a clot in the lung [facility] apixaban 5 mg tablet 2022-0 6-17 00:00: 00 Yes 1291 5mg Take 1 tablet by mouth 2 (two) times daily. Indication s: a clot in the lung [facility] apixaban 5 mg tablet 2-0 6-17 00:00: 00 Yes 1291 5mg Take 1 tablet by mouth 2 (two) times daily. Indication s: a clot in the lung [facility] apixaban 5 mg tablet 2022-0 6-17 00:00: 00 Yes 1291 5mg Take 1 tablet by mouth 2 (two) times daily. Indication s: a clot in the lung [facility] apixaban 5 mg tablet 2022-0 6-17 00:00: 00 Yes 1291 5mg Take 1 tablet by mouth 2 (two) times daily. Indication s: a clot in the lung [facility] apixaban 5 mg tablet 2022-0 6-17 00:00: 00 Yes 1291 5mg Take 1 tablet by mouth 2 (two) times daily. Indication s: a clot in the lung [facility] apixaban 5 mg tablet 2022-0 6-17 00:00: 00 Yes 1291 5mg Take 1 tablet by mouth 2 (two) times daily. Indication s: a clot in the lung [facility] apixaban 5 mg tablet 2-0 6-17 00:00: 00 Yes 1291 5mg Take 1 tablet by mouth 2 (two) times daily. Indication s: a clot in the lung [facility] apixaban 5 mg tablet 2021-0 6-17 00:00: 00 07-12 00:00 :00 No 1291 5mg Take 1 tablet by mouth 2 (two) times daily. Indication s: a clot in the lung [facility] apixaban 5 mg tablet 2021-0 6-17 00:00: 00 07-12 00:00 :00 No 1291 5mg Take 1 tablet by mouth 2 (two) times daily. Indication s: a clot in the lung [facility] furosemide 40 mg tablet 2021-0 5-15 00:00: 00 Yes [id number] 40mg Take 1 tablet by mouth daily. [facility] furosemide 40 mg tablet 2-0 5-15 00:00: 00 Yes [id number] 40mg Take 1 tablet by mouth daily. [facility] furosemide 40 mg tablet 2-0 5-15 00:00: 00 Yes [id number] 40mg Take 1 tablet by mouth daily. [facility] furosemide 40 mg tablet 2-0 5-15 00:00: 00 Yes [id number] 40mg Take 1 tablet by mouth daily. [facility] furosemide 40 mg tablet 2-0 5-15 00:00: 00 Yes [id number] 40mg Take 1 tablet by mouth daily. [facility] furosemide 40 mg tablet 2-0 5-15 00:00: 00 Yes [id number] 40mg Take 1 tablet by mouth daily. [facility] furosemide 40 mg tablet 2-0 5-15 00:00: 00 Yes [id number] 40mg Take 1 tablet by mouth daily. [facility] furosemide 40 mg tablet 2-0 5-15 00:00: 00 Yes [id number] 40mg Take 1 tablet by mouth daily. [facility] furosemide 40 mg tablet 2-0 5-15 00:00: 00 Yes [id number] 40mg Take 1 tablet by mouth daily. [facility] 2-0 5-15 00:00: 00 Yes [id number] 40mg Take 1 tablet by mouth daily. [facility] furosemide 40 mg tablet 2021-0 5-15 00:00: 00 Yes [id number] 40mg Take 1 tablet by mouth daily. [facility]-0 5-15 00:00: 00 Yes [id number] 40mg Take 1 tablet by mouth daily. [facility] mg tablet 2-0 5-15 00:00: 00 Yes [id number] 40mg Take 1 tablet by mouth daily. [facility] mg tablet 2-0 5-15 00:00: 00 Yes [id number] 40mg Take 1 tablet by mouth daily. [facility] furosemide 40 mg tablet 2-0 5-15 00:00: 00 Yes [id number] 40mg Take 1 tablet by mouth daily. [facility] furosemide 40 mg tablet 2021-0 5-15 00:00: 00 Yes [id number] 40mg Take 1 tablet by mouth daily. [facility] furosemide 40 mg tablet 2-0 5-15 00:00: 00 Yes [id number] 40mg Take 1 tablet by mouth daily. [facility] furosemide 40 mg tablet 2-0 5-15 00:00: 00 Yes [id number] 40mg Take 1 tablet by mouth daily. [facility] furosemide 40 mg tablet 2-0 5-15 00:00: 00 Yes [id number] 40mg Take 1 tablet by mouth daily. [facility] furosemide 40 mg tablet 2-0 5-15 00:00: 00 Yes [id number] 40mg Take 1 tablet by mouth daily. [facility] furosemide 40 mg tablet 2-0 5-15 00:00: 00 Yes [id number] 40mg Take 1 tablet by mouth daily. [facility] furosemide 40 mg tablet 2-0 5-15 00:00: 00 Yes [id number] 40mg Take 1 tablet by mouth daily. [facility] furosemide 40 mg tablet 2-0 5-15 00:00: 00 Yes [id number] 40mg Take 1 tablet by mouth daily. [facility] mg tablet 2-0 5-15 00:00: 00 Yes [id number] 40mg Take 1 tablet by mouth daily. [facility] mg tablet 2-0 5-15 00:00: 00 Yes [id number] 40mg Take 1 tablet by mouth daily. [facility] mg tablet 2-0 5-15 00:00: 00 Yes [id number] 40mg Take 1 tablet by mouth daily. [facility] mg tablet 2-0 5-15 00:00: 00 Yes [id number] 40mg Take 1 tablet by mouth daily. [facility] furosemide 40 mg tablet 2-0 5-15 00:00: 00 Yes [id number] 40mg Take 1 tablet by mouth daily. [facility] furosemide 40 mg tablet 2-0 5-15 00:00: 00 Yes [id number] 40mg Take 1 tablet by mouth daily. [facility] furosemide 40 mg tablet 2-0 5-15 00:00: 00 Yes [id number] 40mg Take 1 tablet by mouth daily. [facility] furosemide 40 mg tablet 2-0 5-15 00:00: 00 Yes [id number] 40mg Take 1 tablet by mouth daily. [facility] furosemide 40 mg tablet 2021-0 5-15 00:00: 00 Yes [id number] 40mg Take 1 tablet by mouth daily. [facility] furosemide 40 mg tablet 2-0 5-15 00:00: 00 Yes [id number] 40mg Take 1 tablet by mouth daily. [facility] furosemide 40 mg tablet 2-0 5-15 00:00: 00 Yes [id number] 40mg Take 1 tablet by mouth daily. [facility] furosemide 40 mg tablet 2-0 5-15 00:00: 00 Yes [id number] 40mg Take 1 tablet by mouth daily. [facility] furosemide 40 mg tablet 2-0 5-15 00:00: 00 Yes [id number] 40mg Take 1 tablet by mouth daily. [facility] furosemide 40 mg tablet 2-0 5-15 00:00: 00 Yes [id number] 40mg Take 1 tablet by mouth daily. [facility] mg tablet 2021-0 5-15 00:00: 00 Yes [id number] 40mg Take 1 tablet by mouth daily. [facility] furosemide 40 mg tablet 2021-0 5-15 00:00: 00 Yes [id number] 40mg Take 1 tablet by mouth daily. [facility] mg tablet 2021-0 5-15 00:00: 00 Yes [id number] 40mg Take 1 tablet by mouth daily. [facility] f[facility] mg tablet 2021-0 5-15 00:00: 00 Yes [id number] 40mg Take 1 tablet by mouth daily. [facility] furosemide 40 mg tablet 2021-0 5-15 00:00: 00 Yes [id number] 40mg Take 1 tablet by mouth daily. [facility] furosemide 40 mg tablet 2021-0 5-15 00:00: 00 Yes [id number] 40mg Take 1 tablet by mouth daily. [facility] mg tablet 2021-0 5-15 00:00: 00 Yes [id number] 40mg Take 1 tablet by mouth daily. [facility] furosemide 40 mg tablet 2021-0 5-15 00:00: 00 Yes [id number] 40mg Take 1 tablet by mouth daily. [facility] furosemide 40 mg tablet 2021-0 5-15 00:00: 00 Yes [id number] 40mg Take 1 tablet by mouth daily. [facility] furosemide 40 mg tablet 2021-0 5-15 00:00: 00 Yes [id number] 40mg Take 1 tablet by mouth daily. [facility] furosemide 40 mg tablet 2-0 5-15 00:00: 00 Yes [id number] 40mg Take 1 tablet by mouth daily. [facility] furosemide 40 mg tablet 2-0 5-15 00:00: 00 Yes [id number] 40mg Take 1 tablet by mouth daily. [facility] 2-0 5-15 00:00: 00 Yes [id number] 40mg Take 1 tablet by mouth daily. [facility] furosemide 40 mg tablet 2-0 5-15 00:00: 00 Yes [id number] 40mg Take 1 tablet by mouth daily. [facility] 2021-0 5-15 00:00: 00 Yes [id number] 40mg Take 1 tablet by mouth daily. [facility] mg tablet 2021-0 5-15 00:00: 00 Yes [id number] 40mg Take 1 tablet by mouth daily. [facility] mg tablet 2021-0 5-15 00:00: 00 Yes [id number] 40mg Take 1 tablet by mouth daily. [facility] mg tablet 2021-0 5-15 00:00: 00 Yes [id number] 40mg Take 1 tablet by mouth daily. [facility] furosemide 40 mg tablet 2021-0 5-15 00:00: 00 Yes [id number] 40mg Take 1 tablet by mouth daily. [facility] furosemide 40 mg tablet 2021-0 5-15 00:00: 00 Yes [id number] 40mg Take 1 tablet by mouth daily. [facility] furosemide 40 mg tablet 2021-0 5-15 00:00: 00 Yes [id number] 40mg Take 1 tablet by mouth daily. [facility] furosemide 40 mg tablet 2021-0 5-15 00:00: 00 Yes [id number] 40mg Take 1 tablet by mouth daily. [facility] furosemide 40 mg tablet 2021-0 5-15 00:00: 00 Yes [id number] 40mg Take 1 tablet by mouth daily. [facility] furosemide 40 mg tablet 2021-0 5-15 00:00: 00 Yes [id number] 40mg Take 1 tablet by mouth daily. [facility] furosemide 40 mg tablet 2-0 5-15 00:00: 00 Yes [id number] 40mg Take 1 tablet by mouth daily. [facility] furosemide 40 mg tablet 2021-0 5-15 00:00: 00 Yes [id number] 40mg Take 1 tablet by mouth daily. [facility] furosemide 40 mg tablet 2021-0 5-15 00:00: 00 Yes [id number] 40mg Take 1 tablet by mouth daily. [facility] furosemide 40 mg tablet 0 5-15 00:00: 00 Yes [id number] 40mg Take 1 tablet by mouth daily. [facility] furosemide 40 mg tablet 0 5-15 00:00: 00 Yes [id number] 40mg Take 1 tablet by mouth daily. [facility] furosemide 40 mg tablet 0 5-15 00:00: 00 Yes [id number] 40mg Take 1 tablet by mouth daily. [facility] furosemide 40 mg tablet 0 5-15 00:00: 00 Yes [id number] 40mg Take 1 tablet by mouth daily. [facility] furosemide 40 mg tablet 0 5-15 00:00: 00 Yes [id number] 40mg Take 1 tablet by mouth daily. [facility] furosemide 40 mg tablet 0 5-15 00:00: 00 Yes [id number] 40mg Take 1 tablet by mouth daily. [facility] furosemide 40 mg tablet 0 -15 00:00: 00 05-23 00:00 :00 No [id number] 40mg Take 1 tablet by mouth daily. [facility] furosemide 40 mg tablet 0 -15 00:00: 00 05-23 00:00 :00 No [id number] 40mg Take 1 tablet by mouth daily. [facility] lisinopriL 2.5 mg tablet 15 00:00: 00 02-26 00:00 :00 No [id number] 2.5mg Take 1 tablet by mouth every evening. [facility] lisinopriL 2.5 mg tablet -15 00:00: 00 02-26 00:00 :00 No [id number] 9103 2.5mg Take 1 tablet by mouth every evening. [facility] aspirin 81 mg chewable tablet 14 08:13: 29 10-31 00:00 :00 No 81mg Take 81 mg by mouth daily. [facility] metoprolol succinate XL 25 mg 24 hr tablet 10-31 00:00: 00 Yes [id number] 12.5mg Take 0.5 tablets by mouth 2 (two) times daily. [facility] succinate XL 25 mg 24 hr tablet 2021-0 5-14 00:00: 00 Yes [id number] 12.5mg Take 0.5 tablets by mouth 2 (two) times daily. [facility] metoprolol succinate XL 25 mg 24 hr tablet 2021-0 5-14 00:00: 00 Yes [id number] 12.5mg Take 0.5 tablets by mouth 2 (two) times daily. [facility] metoprolol succinate XL 25 mg 24 hr tablet 2021-0 5-14 00:00: 00 Yes [id number] 12.5mg Take 0.5 tablets by mouth 2 (two) times daily. [facility] metoprolol succinate XL 25 mg 24 hr tablet 2021-0 5-14 00:00: 00 Yes [id number] 12.5mg Take 0.5 tablets by mouth 2 (two) times daily. [facility] metoprolol succinate XL 25 mg 24 hr tablet 2021-0 -14 00:00: 00 Yes [id number] 12.5mg Take 0.5 tablets by mouth 2 (two) times daily. [facility] metoprolol succinate XL 25 mg 24 hr tablet 2021-0 -14 00:00: 00 Yes [id number] 12.5mg Take 0.5 tablets by mouth 2 (two) times daily. [facility] metoprolol succinate XL 25 mg 24 hr tablet 2021-0 5-14 00:00: 00 Yes [id number] 12.5mg Take 0.5 tablets by mouth 2 (two) times daily. [facility] metoprolol succinate XL 25 mg 24 hr tablet 2021-0 5-14 00:00: 00 Yes [id number] 12.5mg Take 0.5 tablets by mouth 2 (two) times daily. [facility] metoprolol succinate XL 25 mg 24 hr tablet 2021-0 5-14 00:00: 00 Yes [id number] 12.5mg Take 0.5 tablets by mouth 2 (two) times daily. [facility] metoprolol succinate XL 25 mg 24 hr tablet 2021-0 5-14 00:00: 00 Yes [id number] 12.5mg Take 0.5 tablets by mouth 2 (two) times daily. [facility] metoprolol succinate XL 25 mg 24 hr tablet 10-31 00:00: 00 Yes [id number] 12.5mg Take 0.5 tablets by mouth 2 (two) times daily. [facility] metoprolol succinate XL 25 mg 24 hr tablet 10-31 00:00: 00 Yes [id number] 12.5mg Take 0.5 tablets by mouth 2 (two) times daily. [facility] metoprolol succinate XL 25 mg 24 hr tablet 10-31 00:00: 00 Yes [id number] 12.5mg Take 0.5 tablets by mouth 2 (two) times daily. [facility] metoprolol succinate XL 25 mg 24 hr tablet 10-31 00:00: 00 Yes [id number] 12.5mg Take 0.5 tablets by mouth 2 (two) times daily. [facility] metoprolol succinate XL 25 mg 24 hr tablet 10-31 00:00: 00 Yes [id number] 12.5mg Take 0.5 tablets by mouth 2 (two) times daily. [facility] metoprolol succinate XL 25 mg 24 hr tablet 10-31 00:00: 00 Yes [id number] 12.5mg Take 0.5 tablets by mouth 2 (two) times daily. [facility] metoprolol succinate XL 25 mg 24 hr tablet 10-31 00:00: 00 07-12 00:00 :00 No [id number] 12.5mg Take 0.5 tablets by mouth 2 (two) times daily. [facility] metoprolol succinate XL 25 mg 24 hr tablet 10-31 00:00: 00 07-12 00:00 :00 No [id number] 12.5mg Take 0.5 tablets by mouth 2 (two) times daily. [facility] ergocalcife rol, vitamin d2, 1,250 mcg (50,000 unit) capsule 10-30 00:00: 00 02-25 00:00 :00 No [id number] Take 1 capsule by mouth weekly. [facility] ergocalcife rol, vitamin d2, 1,250 mcg (50,000 unit) capsule 10-30 00:00: 00 02-25 00:00 :00 No [id number] Take 1 capsule by mouth weekly. [facility] furosemide 40 mg tablet 2020-06 00:00: 00 09-04 00:00 :00 No [id number] 40mg Take 1 tablet by mouth every 2 (two) days. [facility] VENTOLIN HFA 90 mcg/actuati on inhaler 01-30 00:00: 00 Yes 2{puff} 2 Puffs every 4 (four) hours as needed for Shortness of Breath. [facility] VENTOLIN HFA 90 mcg/actuati on inhaler 01-30 00:00: 00 Yes 2{puff} 2 Puffs every 4 (four) hours as needed for Shortness of Breath. [facility] VENTOLIN HFA 90 mcg/actuati on inhaler 01-30 00:00: 00 Yes 2{puff} 2 Puffs every 4 (four) hours as needed for Shortness of Breath. [facility] VENTOLIN HFA 90 mcg/actuati on inhaler 01-30 00:00: 00 Yes 2{puff} 2 Puffs every 4 (four) hours as needed for Shortness of Breath. [facility] VENTOLIN HFA 90 mcg/actuati on inhaler 01-30 00:00: 00 Yes 2{puff} 2 Puffs every 4 (four) hours as needed for Shortness of Breath. [facility] VENTOLIN HFA 90 mcg/actuati on inhaler 01-30 00:00: 00 Yes 2{puff} 2 Puffs every 4 (four) hours as needed for Shortness of Breath. [facility] VENTOLIN HFA 90 mcg/actuati on inhaler 01-30 00:00: 00 Yes 2{puff} 2 Puffs every 4 (four) hours as needed for Shortness of Breath. [facility] V[facility]OL[facility] HFA 90 mcg/actuati on inhaler 01-30 00:00: 00 Yes 2{puff} 2 Puffs every 4 (four) hours as needed for Shortness of Breath. [facility] VENTOLIN HFA 90 mcg/actuati on inhaler 01-30 00:00: 00 Yes 2{puff} 2 Puffs every 4 (four) hours as needed for Shortness of Breath. [facility] VENTOLIN HFA 90 mcg/actuati on inhaler 01-30 00:00: 00 Yes 2{puff} 2 Puffs every 4 (four) hours as needed for Shortness of Breath. [facility] VENTOLIN HFA 90 mcg/actuati on inhaler 01-30 00:00: 00 Yes 2{puff} 2 Puffs every 4 (four) hours as needed for Shortness of Breath. [facility] VENTOLIN HFA 90 mcg/actuati on inhaler 01-30 00:00: 00 Yes 2{puff} 2 Puffs every 4 (four) hours as needed for Shortness of Breath. [facility] VENTOLIN HFA 90 mcg/actuati on inhaler 01-30 00:00: 00 Yes 2{puff} 2 Puffs every 4 (four) hours as needed for Shortness of Breath. [facility] VENTOLIN HFA 90 mcg/actuati on inhaler 01-30 00:00: 00 Yes 2{puff} 2 Puffs every 4 (four) hours as needed for Shortness of Breath. [facility] VENTOLIN HFA 90 mcg/actuati on inhaler 01-30 00:00: 00 Yes 2{puff} 2 Puffs every 4 (four) hours as needed for Shortness of Breath. [facility] VENTOLIN HFA 90 mcg/actuati on inhaler 01-30 00:00: 00 Yes 2{puff} 2 Puffs every 4 (four) hours as needed for Shortness of Breath. [facility] VENTOLIN HFA 90 mcg/actuati on inhaler 01-30 00:00: 00 Yes 2{puff} 2 Puffs every 4 (four) hours as needed for Shortness of Breath. [facility] V[facility]OLIN HFA 90 mcg/actuati on inhaler 01-30 00:00: 00 Yes 2{puff} 2 Puffs every 4 (four) hours as needed for Shortness of Breath. [facility] VENTOLIN HFA 90 mcg/actuati on inhaler 01-30 00:00: 00 Yes 2{puff} 2 Puffs every 4 (four) hours as needed for Shortness of Breath. [facility] VENTOLIN HFA 90 mcg/actuati on inhaler 01-30 00:00: 00 Yes 2{puff} 2 Puffs every 4 (four) hours as needed for Shortness of Breath. [facility] VENTOLIN HFA 90 mcg/actuati on inhaler 01-30 00:00: 00 Yes 2{puff} 2 Puffs every 4 (four) hours as needed for Shortness of Breath. [facility] VENTOLIN HFA 90 mcg/actuati on inhaler 01-30 00:00: 00 Yes 2{puff} 2 Puffs every 4 (four) hours as needed for Shortness of Breath. [facility] VENTOLIN HFA 90 mcg/actuati on inhaler 01-30 00:00: 00 Yes 2{puff} 2 Puffs every 4 (four) hours as needed for Shortness of Breath. [facility] VENTOLIN HFA 90 mcg/actuati on inhaler 01-30 00:00: 00 Yes 2{puff} 2 Puffs every 4 (four) hours as needed for Shortness of Breath. [facility] VENTOLIN HFA 90 mcg/actuati on inhaler 01-30 00:00: 00 Yes 2{puff} 2 Puffs every 4 (four) hours as needed for Shortness of Breath. [facility] VENTOLIN HFA 90 mcg/actuati on inhaler 01-30 00:00: 00 Yes 2{puff} 2 Puffs every 4 (four) hours as needed for Shortness of Breath. [facility] VENTOLIN HFA 90 mcg/actuati on inhaler 01-30 00:00: 00 Yes 2{puff} 2 Puffs every 4 (four) hours as needed for Shortness of Breath. [facility] VENTOLIN HFA 90 mcg/actuati on inhaler 01-30 00:00: 00 Yes 2{puff} 2 Puffs every 4 (four) hours as needed for Shortness of Breath. [facility] VENTOLIN HFA 90 mcg/actuati on inhaler 01-30 00:00: 00 Yes 2{puff} 2 Puffs every 4 (four) hours as needed for Shortness of Breath. [facility] VENTOLIN HFA 90 mcg/actuati on inhaler 01-30 00:00: 00 Yes 2{puff} 2 Puffs every 4 (four) hours as needed for Shortness of Breath. [facility] VENTOLIN HFA 90 mcg/actuati on inhaler 01-30 00:00: 00 Yes 2{puff} 2 Puffs every 4 (four) hours as needed for Shortness of Breath. [facility] VENTOLIN HFA 90 mcg/actuati on inhaler 01-30 00:00: 00 Yes 2{puff} 2 Puffs every 4 (four) hours as needed for Shortness of Breath. [facility] VENTOLIN HFA 90 mcg/actuati on inhaler 01-30 00:00: 00 Yes 2{puff} 2 Puffs every 4 (four) hours as needed for Shortness of Breath. [facility] VENTOLIN HFA 90 mcg/actuati on inhaler 01-30 00:00: 00 Yes 2{puff} 2 Puffs every 4 (four) hours as needed for Shortness of Breath. [facility] VENTOLIN HFA 90 mcg/actuati on inhaler 01-30 00:00: 00 Yes 2{puff} 2 Puffs every 4 (four) hours as needed for Shortness of Breath. [facility] VENTOLIN HFA 90 mcg/actuati on inhaler 01-30 00:00: 00 Yes 2{puff} 2 Puffs every 4 (four) hours as needed for Shortness of Breath. [facility] V[facility]OLIN HFA 90 mcg/actuati on inhaler 01-30 00:00: 00 Yes 2{puff} 2 Puffs every 4 (four) hours as needed for Shortness of Breath. [facility] VENTOLIN HFA 90 mcg/actuati on inhaler 01-30 00:00: 00 Yes 2{puff} 2 Puffs every 4 (four) hours as needed for Shortness of Breath. [facility] VENTOLIN HFA 90 mcg/actuati on inhaler 01-30 00:00: 00 Yes 2{puff} 2 Puffs every 4 (four) hours as needed for Shortness of Breath. [facility] VENTOLIN HFA 90 mcg/actuati on inhaler 01-30 00:00: 00 Yes 2{puff} 2 Puffs every 4 (four) hours as needed for Shortness of Breath. [facility] VENTOLIN HFA 90 mcg/actuati on inhaler 01-30 00:00: 00 Yes 2{puff} 2 Puffs every 4 (four) hours as needed for Shortness of Breath. [facility] VENTOLIN HFA 90 mcg/actuati on inhaler 01-30 00:00: 00 Yes 2{puff} 2 Puffs every 4 (four) hours as needed for Shortness of Breath. [facility] VENTOLIN HFA 90 mcg/actuati on inhaler 01-30 00:00: 00 Yes 2{puff} 2 Puffs every 4 (four) hours as needed for Shortness of Breath. [facility] VENTOLIN HFA 90 mcg/actuati on inhaler 01-30 00:00: 00 Yes 2{puff} 2 Puffs every 4 (four) hours as needed for Shortness of Breath. [facility] VENTOLIN HFA 90 mcg/actuati on inhaler 01-30 00:00: 00 Yes 2{puff} 2 Puffs every 4 (four) hours as needed for Shortness of Breath. [facility] VENTOLIN HFA 90 mcg/actuati on inhaler 01-30 00:00: 00 Yes 2{puff} 2 Puffs every 4 (four) hours as needed for Shortness of Breath. [facility] VENTOLIN HFA 90 mcg/actuati on inhaler 01-30 00:00: 00 Yes 2{puff} 2 Puffs every 4 (four) hours as needed for Shortness of Breath. [facility] VENTOLIN HFA 90 mcg/actuati on inhaler 01-30 00:00: 00 Yes 2{puff} 2 Puffs every 4 (four) hours as needed for Shortness of Breath. [facility] VENTOLIN HFA 90 mcg/actuati on inhaler 01-30 00:00: 00 Yes 2{puff} 2 Puffs every 4 (four) hours as needed for Shortness of Breath. [facility] VENTOLIN HFA 90 mcg/actuati on inhaler 01-30 00:00: 00 Yes 2{puff} 2 Puffs every 4 (four) hours as needed for Shortness of Breath. [facility] VENTOLIN HFA 90 mcg/actuati on inhaler 01-30 00:00: 00 Yes 2{puff} 2 Puffs every 4 (four) hours as needed for Shortness of Breath. [facility] VENTOLIN HFA 90 mcg/actuati on inhaler 01-30 00:00: 00 Yes 2{puff} 2 Puffs every 4 (four) hours as needed for Shortness of Breath. [facility] VENTOLIN HFA 90 mcg/actuati on inhaler 01-30 00:00: 00 Yes 2{puff} 2 Puffs every 4 (four) hours as needed for Shortness of Breath. [facility] VENTOLIN HFA 90 mcg/actuati on inhaler 01-30 00:00: 00 Yes 2{puff} 2 Puffs every 4 (four) hours as needed for Shortness [facility] Breath[facility] HFA 90 mcg/actuati on inhaler 01-30 00:00: 00 Yes 2{puff} 2 Puffs every 4 (four) hours as needed for Shortness of Breath. [facility] V[facility]OLIN HFA 90 mcg/actuati on inhaler 01-30 00:00: 00 Yes 2{puff} 2 Puffs every 4 (four) hours as needed for Shortness of Breath. [facility] V[facility]OLIN HFA 90 mcg/actuati on inhaler 01-30 00:00: 00 Yes 2{puff} 2 Puffs every 4 (four) hours as needed for Shortness of Breath. [facility] VENTOLIN HFA 90 mcg/actuati on inhaler 01-30 00:00: 00 Yes 2{puff} 2 Puffs every 4 (four) hours as needed for Shortness of Breath. [facility] VENTOLIN HFA 90 mcg/actuati on inhaler 01-30 00:00: 00 Yes 2{puff} 2 Puffs every 4 (four) hours as needed for Shortness of Breath. [facility]OL[facility] HFA 90 mcg/actuati on inhaler 01-30 00:00: 00 Yes 2{puff} 2 Puffs every 4 (four) hours as needed for Shortness of Breath. [facility] VENTOLIN HFA 90 mcg/actuati on inhaler 01-30 00:00: 00 Yes 2{puff} 2 Puffs every 4 (four) hours as needed for Shortness of Breath. [facility] VENTOLIN HFA 90 mcg/actuati on inhaler 01-30 00:00: 00 Yes 2{puff} 2 Puffs every 4 (four) hours as needed for Shortness of Breath. [facility] VENTOLIN HFA 90 mcg/actuati on inhaler 01-30 00:00: 00 Yes 2{puff} 2 Puffs every 4 (four) hours as needed for Shortness of Breath. [facility] VENTOLIN HFA 90 mcg/actuati on inhaler 01-30 00:00: 00 Yes 2{puff} 2 Puffs every 4 (four) hours as needed for Shortness of Breath. [facility]OL[facility] HFA 90 mcg/actuati on inhaler 01-30 00:00: 00 Yes 2{puff} 2 Puffs every 4 (four) hours as needed for Shortness of Breath. [facility] VENTOLIN HFA 90 mcg/actuati on inhaler 01-30 00:00: 00 Yes 2{puff} 2 Puffs every 4 (four) hours as needed for Shortness of Breath. [facility] VENTOLIN HFA 90 mcg/actuati on inhaler 01-30 00:00: 00 Yes 2{puff} 2 Puffs every 4 (four) hours as needed for Shortness of Breath. [facility] VENTOLIN HFA 90 mcg/actuati on inhaler 01-30 00:00: 00 Yes 2{puff} 2 Puffs every 4 (four) hours as needed for Shortness of Breath. [facility] VENTOLIN HFA 90 mcg/actuati on inhaler 01-30 00:00: 00 Yes 2{puff} 2 Puffs every 4 (four) hours as needed for Shortness of Breath. [facility] VENTOLIN HFA 90 mcg/actuati on inhaler 01-30 00:00: 00 Yes 2{puff} 2 Puffs every 4 (four) hours as needed for Shortness of Breath. [facility] VENTOLIN HFA 90 mcg/actuati on inhaler 01-30 00:00: 00 Yes 2{puff} 2 Puffs every 4 (four) hours as needed for Shortness of Breath. [facility] VENTOLIN HFA 90 mcg/actuati on inhaler 01-30 00:00: 00 Yes 2{puff} 2 Puffs every 4 (four) hours as needed for Shortness of Breath. [facility] VENTOLIN HFA 90 mcg/actuati on inhaler 01-30 00:00: 00 Yes 2{puff} 2 Puffs every 4 (four) hours as needed for Shortness of Breath. [facility]OL[facility] HFA 90 mcg/actuati on inhaler 01-30 00:00: 00 Yes 2{puff} 2 Puffs every 4 (four) hours as needed for Shortness of Breath. [facility] VENTOLIN HFA 90 mcg/actuati on inhaler 01-30 00:00: 00 Yes 2{puff} 2 Puffs every 4 (four) hours as needed for Shortness of Breath. [facility] VENTOLIN HFA 90 mcg/actuati on inhaler 01-30 00:00: 00 Yes 2{puff} 2 Puffs every 4 (four) hours as needed for Shortness of Breath. [facility] VENTOLIN HFA 90 mcg/actuati on inhaler 01-30 00:00: 00 Yes 2{puff} 2 Puffs every 4 (four) hours as needed for Shortness of Breath. [facility] VENTOLIN HFA 90 mcg/actuati on inhaler 01-30 00:00: 00 Yes 2{puff} 2 Puffs every 4 (four) hours as needed for Shortness of Breath. [facility] VENTOLIN HFA 90 mcg/actuati on inhaler 01-30 00:00: 00 Yes 2{puff} 2 Puffs every 4 (four) hours as needed for Shortness of Breath. [facility] VENTOLIN HFA 90 mcg/actuati on inhaler 01-30 00:00: 00 Yes 2{puff} 2 Puffs every 4 (four) hours as needed for Shortness of Breath. [facility] VENTOLIN HFA 90 mcg/actuati on inhaler 01-30 00:00: 00 Yes 2{puff} 2 Puffs every 4 (four) hours as needed for Shortness of Breath. [facility] VENTOLIN HFA 90 mcg/actuati on inhaler 01-30 00:00: 00 Yes 2{puff} 2 Puffs every 4 (four) hours as needed for Shortness of Breath. [facility] VENTOLIN HFA 90 mcg/actuati on inhaler 01-30 00:00: 00 Yes 2{puff} 2 Puffs every 4 (four) hours as needed for Shortness of Breath. [facility] HFA 90 mcg/actuati on inhaler 01-30 00:00: 00 Yes 2{puff} 2 Puffs every 4 (four) hours as needed for Shortness of Breath. [facility] VENTOLIN HFA 90 mcg/actuati on inhaler 01-30 00:00: 00 Yes 2{puff} 2 Puffs every 4 (four) hours as needed for Shortness of Breath. [facility] VENTOLIN HFA 90 mcg/actuati on inhaler 01-30 00:00: 00 Yes 2{puff} 2 Puffs every 4 (four) hours as needed for Shortness of Breath. [facility] VENTOLIN HFA 90 mcg/actuati on inhaler 01-30 00:00: 00 Yes 2{puff} 2 Puffs every 4 (four) hours as needed for Shortness of Breath. [facility] VENTOLIN HFA 90 mcg/actuati on inhaler 01-30 00:00: 00 Yes 2{puff} 2 Puffs every 4 (four) hours as needed for Shortness of Breath. [facility] VENTOLIN HFA 90 mcg/actuati on inhaler 01-30 00:00: 00 Yes 2{puff} 2 Puffs every 4 (four) hours as needed for Shortness of Breath. [facility] VENTOLIN HFA 90 mcg/actuati on inhaler 01-30 00:00: 00 Yes 2{puff} 2 Puffs every 4 (four) hours as needed for Shortness of Breath. [facility] VENTOLIN HFA 90 mcg/actuati on inhaler 01-30 00:00: 00 Yes 2{puff} 2 Puffs every 4 (four) hours as needed for Shortness of Breath. [facility] VENTOLIN HFA 90 mcg/actuati on inhaler 01-30 00:00: 00 Yes 2{puff} 2 Puffs every 4 (four) hours as needed for Shortness of Breath. [facility] VENTOLIN HFA 90 mcg/actuati on inhaler 01-30 00:00: 00 Yes 2{puff} 2 Puffs every 4 (four) hours as needed for Shortness of Breath. [facility] VENTOLIN HFA 90 mcg/actuati on inhaler 01-30 00:00: 00 Yes 2{puff} 2 Puffs every 4 (four) hours as needed for Shortness of Breath. [facility] VENTOLIN HFA 90 mcg/actuati on inhaler 01-30 00:00: 00 Yes 2{puff} 2 Puffs every 4 (four) hours as needed for Shortness of Breath. [facility] VENTOLIN HFA 90 mcg/actuati on inhaler 01-30 00:00: 00 Yes 2{puff} 2 Puffs every 4 (four) hours as needed for Shortness of Breath. [facility] SYMBICORT 160-4.5 mcg/actuati on inhaler 01-02 00:00: 00 06-22 00:00 :00 No daily. [facility] Immunizations Ordered Immunization Name Filled Immunization Name Date Status Comments Source SARS-COV-2 COVID-19 PFIZER VACCINE 2021-05-25 00:00:00 Completed [facility] SARS-COV-2 COVID-19 PFIZER VACCINE 2021-05-25 00:00:00 Completed [facility] SARS-COV-2 COVID-19 PFIZER VACCINE 2021-05-25 00:00:00 Completed [facility] SARS-COV-2 COVID-19 PFIZER VACCINE 2021-05-25 00:00:00 Completed [facility] SARS-COV-2 COVID-19 PFIZER VACCINE 2021-05-25 00:00:00 Completed [facility] SARS-COV-2 COVID-19 PFIZER VACCINE 2021-05-25 00:00:00 Completed [facility] SARS-COV-2 COVID-19 PFIZER VACCINE 2021-05-25 00:00:00 Completed [facility] SARS-COV-2 COVID-19 PFIZER VACCINE 2021-05-25 00:00:00 Completed [facility] SARS-COV-2 COVID-19 PFIZER VACCINE 2021-05-25 00:00:00 Completed [facility] SARS-COV-2 COVID-19 PFIZER VACCINE 2021-05-25 00:00:00 Completed [facility] SARS-COV-2 COVID-19 PFIZER VACCINE 2021-05-25 00:00:00 Completed [facility] SARS-COV-2 COVID-19 PFIZER VACCINE 2021-05-25 00:00:00 Completed [facility] SARS-COV-2 COVID-19 PFIZER VACCINE 2021-05-25 00:00:00 Completed [facility] SARS-COV-2 COVID-19 PFIZER VACCINE 2021-05-25 00:00:00 Completed [facility] SARS-COV-2 COVID-19 PFIZER VACCINE 2021-05-25 00:00:00 Completed [facility] SARS-COV-2 COVID-19 PFIZER VACCINE 2021-05-25 00:00:00 Completed [facility] SARS-COV-2 COVID-19 PFIZER VACCINE 2021-05-25 00:00:00 Completed [facility] SARS-COV-2 COVID-19 PFIZER VACCINE 2021-05-25 00:00:00 Completed [facility] SARS-COV-2 COVID-19 PFIZER VACCINE 2021-05-25 00:00:00 Completed [facility] SARS-COV-2 COVID-19 PFIZER VACCINE 2021-05-25 00:00:00 Completed [facility] SARS-COV-2 COVID-19 PFIZER VACCINE 2021-05-25 00:00:00 Completed [facility] SARS-COV-2 COVID-19 PFIZER VACCINE 2021-05-25 00:00:00 Completed [facility] SARS-COV-2 COVID-19 PFIZER VACCINE 2021-05-25 00:00:00 Completed [facility] SARS-COV-2 COVID-19 PFIZER VACCINE 2021-05-25 00:00:00 Completed [facility] SARS-COV-2 COVID-19 PFIZER VACCINE 2021-05-25 00:00:00 Completed [facility] SARS-COV-2 COVID-19 PFIZER VACCINE 2021-05-25 00:00:00 Completed [facility] SARS-COV-2 COVID-19 PFIZER VACCINE 2021-05-25 00:00:00 Completed [facility] SARS-COV-2 COVID-19 PFIZER VACCINE 2021-05-25 00:00:00 Completed [facility] SARS-COV-2 COVID-19 PFIZER VACCINE 2021-05-25 00:00:00 Completed [facility] SARS-COV-2 COVID-19 PFIZER VACCINE 2021-05-25 00:00:00 Completed [facility] SARS-COV-2 COVID-19 PFIZER VACCINE 2021-05-25 00:00:00 Completed [facility] SARS-COV-2 COVID-19 PFIZER VACCINE 2021-05-25 00:00:00 Completed [facility] SARS-COV-2 COVID-19 PFIZER VACCINE 2021-05-25 00:00:00 Completed [facility] SARS-COV-2 COVID-19 PFIZER VACCINE 2021-05-25 00:00:00 Completed [facility] SARS-COV-2 COVID-19 PFIZER VACCINE 2021-05-25 00:00:00 Completed [facility] SARS-COV-2 COVID-19 PFIZER VACCINE 2021-05-25 00:00:00 Completed [facility] SARS-COV-2 COVID-19 PFIZER VACCINE 2021-05-25 00:00:00 Completed [facility] SARS-COV-2 COVID-19 PFIZER VACCINE 2021-05-25 00:00:00 Completed [facility] SARS-COV-2 COVID-19 PFIZER VACCINE 2021-05-25 00:00:00 Completed [facility] SARS-COV-2 COVID-19 PFIZER VACCINE 2020-10-02 00:00:00 Completed [facility] SARS-COV-2 COVID-19 PFIZER VACCINE 2020-10-02 00:00:00 Completed [facility] SARS-COV-2 COVID-19 PFIZER VACCINE 2020-10-02 00:00:00 Completed [facility] SARS-COV-2 COVID-19 PFIZER VACCINE 2020-10-02 00:00:00 Completed [facility] SARS-COV-2 COVID-19 PFIZER VACCINE 2020-10-02 00:00:00 Completed [facility] SARS-COV-2 COVID-19 PFIZER VACCINE 2020-10-02 00:00:00 Completed [facility] SARS-COV-2 COVID-19 PFIZER VACCINE 2020-10-02 00:00:00 Completed [facility] SARS-COV-2 COVID-19 PFIZER VACCINE 2020-10-02 00:00:00 Completed [facility] SARS-COV-2 COVID-19 PFIZER VACCINE 2020-10-02 00:00:00 Completed [facility] SARS-COV-2 COVID-19 PFIZER VACCINE 2020-10-02 00:00:00 Completed [facility] SARS-COV-2 COVID-19 PFIZER VACCINE 2020-10-02 00:00:00 Completed [facility] SARS-COV-2 COVID-19 PFIZER VACCINE 2020-10-02 00:00:00 Completed [facility] SARS-COV-2 COVID-19 PFIZER VACCINE 2020-10-02 00:00:00 Completed [facility] SARS-COV-2 COVID-19 PFIZER VACCINE 2020-10-02 00:00:00 Completed [facility] SARS-COV-2 COVID-19 PFIZER VACCINE 2020-10-02 00:00:00 Completed [facility] SARS-COV-2 COVID-19 PFIZER VACCINE 2020-10-02 00:00:00 Completed [facility] SARS-COV-2 COVID-19 PFIZER VACCINE 2020-10-02 00:00:00 Completed [facility] SARS-COV-2 COVID-19 PFIZER VACCINE 2020-10-02 00:00:00 Completed [facility] SARS-COV-2 COVID-19 PFIZER VACCINE 2020-10-02 00:00:00 Completed [facility] SARS-COV-2 COVID-19 PFIZER VACCINE 2020-10-02 00:00:00 Completed [facility] SARS-COV-2 COVID-19 PFIZER VACCINE 2020-10-02 00:00:00 Completed [facility] SARS-COV-2 COVID-19 PFIZER VACCINE 2020-10-02 00:00:00 Completed [facility] SARS-COV-2 COVID-19 PFIZER VACCINE 2020-10-02 00:00:00 Completed [facility] SARS-COV-2 COVID-19 PFIZER VACCINE 2020-10-02 00:00:00 Completed [facility] SARS-COV-2 COVID-19 PFIZER VACCINE 2020-10-02 00:00:00 Completed [facility] SARS-COV-2 COVID-19 PFIZER VACCINE 2020-10-02 00:00:00 Completed [facility] SARS-COV-2 COVID-19 PFIZER VACCINE 2020-10-02 00:00:00 Completed [facility] SARS-COV-2 COVID-19 PFIZER VACCINE 2020-10-02 00:00:00 Completed [facility] SARS-COV-2 COVID-19 PFIZER VACCINE 2020-10-02 00:00:00 Completed [facility] SARS-COV-2 COVID-19 PFIZER VACCINE 2020-10-02 00:00:00 Completed [facility] SARS-COV-2 COVID-19 PFIZER VACCINE 2020-10-02 00:00:00 Completed [facility] SARS-COV-2 COVID-19 PFIZER VACCINE 2020-10-02 00:00:00 Completed [facility] SARS-COV-2 COVID-19 PFIZER VACCINE 2020-10-02 00:00:00 Completed [facility] SARS-COV-2 COVID-19 PFIZER VACCINE 2020-10-02 00:00:00 Completed [facility] SARS-COV-2 COVID-19 PFIZER VACCINE 2020-10-02 00:00:00 Completed [facility] SARS-COV-2 COVID-19 PFIZER VACCINE 2020-10-02 00:00:00 Completed [facility] SARS-COV-2 COVID-19 PFIZER VACCINE 2020-10-02 00:00:00 Completed [facility] SARS-COV-2 COVID-19 PFIZER VACCINE 2020-10-02 00:00:00 Completed [facility] SARS-COV-2 COVID-19 PFIZER VACCINE 2020-10-02 00:00:00 Completed [facility] SARS-COV-2 COVID-19 PFIZER VACCINE 2020-09-11 00:00:00 Completed [facility] SARS-COV-2 COVID-19 PFIZER VACCINE 2020-09-11 00:00:00 Completed [facility] SARS-COV-2 COVID-19 PFIZER VACCINE 2020-09-11 00:00:00 Completed [facility] SARS-COV-2 COVID-19 PFIZER VACCINE 2020-09-11 00:00:00 Completed [facility] SARS-COV-2 COVID-19 PFIZER VACCINE 2020-09-11 00:00:00 Completed [facility] SARS-COV-2 COVID-19 PFIZER VACCINE 2020-09-11 00:00:00 Completed [facility] SARS-COV-2 COVID-19 PFIZER VACCINE 2020-09-11 00:00:00 Completed [facility] SARS-COV-2 COVID-19 PFIZER VACCINE 2020-09-11 00:00:00 Completed [facility] SARS-COV-2 COVID-19 PFIZER VACCINE 2020-09-11 00:00:00 Completed [facility] SARS-COV-2 COVID-19 PFIZER VACCINE 2020-09-11 00:00:00 Completed [facility] SARS-COV-2 COVID-19 PFIZER VACCINE 2020-09-11 00:00:00 Completed [facility] SARS-COV-2 COVID-19 PFIZER VACCINE 2020-09-11 00:00:00 Completed [facility] SARS-COV-2 COVID-19 PFIZER VACCINE 2020-09-11 00:00:00 Completed [facility] SARS-COV-2 COVID-19 PFIZER VACCINE 2020-09-11 00:00:00 Completed [facility] SARS-COV-2 COVID-19 PFIZER VACCINE 2020-09-11 00:00:00 Completed [facility] SARS-COV-2 COVID-19 PFIZER VACCINE 2020-09-11 00:00:00 Completed [facility] SARS-COV-2 COVID-19 PFIZER VACCINE 2020-09-11 00:00:00 Completed [facility] SARS-COV-2 COVID-19 PFIZER VACCINE 2020-09-11 00:00:00 Completed [facility] SARS-COV-2 COVID-19 PFIZER VACCINE 2020-09-11 00:00:00 Completed [facility] SARS-COV-2 COVID-19 PFIZER VACCINE 2020-09-11 00:00:00 Completed [facility] SARS-COV-2 COVID-19 PFIZER VACCINE 2020-09-11 00:00:00 Completed [facility] SARS-COV-2 COVID-19 PFIZER VACCINE 2020-09-11 00:00:00 Completed [facility] SARS-COV-2 COVID-19 PFIZER VACCINE 2020-09-11 00:00:00 Completed [facility] SARS-COV-2 COVID-19 PFIZER VACCINE 2020-09-11 00:00:00 Completed [facility] SARS-COV-2 COVID-19 PFIZER VACCINE 2020-09-11 00:00:00 Completed [facility] SARS-COV-2 COVID-19 PFIZER VACCINE 2020-09-11 00:00:00 Completed [facility] SARS-COV-2 COVID-19 PFIZER VACCINE 2020-09-11 00:00:00 Completed [facility] SARS-COV-2 COVID-19 PFIZER VACCINE 2020-09-11 00:00:00 Completed [facility] SARS-COV-2 COVID-19 PFIZER VACCINE 2020-09-11 00:00:00 Completed [facility] SARS-COV-2 COVID-19 PFIZER VACCINE 2020-09-11 00:00:00 Completed [facility] SARS-COV-2 COVID-19 PFIZER VACCINE 2020-09-11 00:00:00 Completed [facility] SARS-COV-2 COVID-19 PFIZER VACCINE 2020-09-11 00:00:00 Completed [facility] SARS-COV-2 COVID-19 PFIZER VACCINE 2020-09-11 00:00:00 Completed [facility] SARS-COV-2 COVID-19 PFIZER VACCINE 2020-09-11 00:00:00 Completed [facility] SARS-COV-2 COVID-19 PFIZER VACCINE 2020-09-11 00:00:00 Completed [facility] SARS-COV-2 COVID-19 PFIZER VACCINE 2020-09-11 00:00:00 Completed [facility] SARS-COV-2 COVID-19 PFIZER VACCINE 2020-09-11 00:00:00 Completed [facility] SARS-COV-2 COVID-19 PFIZER VACCINE 2020-09-11 00:00:00 Completed [facility] SARS-COV-2 COVID-19 PFIZER VACCINE 2020-09-11 00:00:00 Completed [facility] SARS-COV-2 COVID-19 PFIZER VACCINE Unknown Completed [facility] SARS-COV-2 COVID-19 PFIZER VACCINE Unknown Completed [facility] SARS-COV-2 COVID-19 PFIZER VACCINE Unknown Completed [facility] SARS-COV-2 COVID-19 PFIZER VACCINE Unknown Completed [facility] SARS-COV-2 COVID-19 PFIZER VACCINE Unknown Completed [facility] SARS-COV-2 COVID-19 PFIZER VACCINE Unknown Completed [facility] SARS-COV-2 COVID-19 PFIZER VACCINE Unknown Completed [facility] SARS-COV-2 COVID-19 PFIZER VACCINE Unknown Completed [facility] SARS-COV-2 COVID-19 PFIZER VACCINE Unknown Completed [facility] SARS-COV-2 COVID-19 PFIZER VACCINE Unknown Completed [facility] SARS-COV-2 COVID-19 PFIZER VACCINE Unknown Completed [facility] SARS-COV-2 COVID-19 PFIZER VACCINE Unknown Completed [facility] SARS-COV-2 COVID-19 PFIZER VACCINE Unknown Completed [facility] SARS-COV-2 COVID-19 PFIZER VACCINE Unknown Completed [facility] SARS-COV-2 COVID-19 PFIZER VACCINE Unknown Completed [facility] SARS-COV-2 COVID-19 PFIZER VACCINE Unknown Completed [facility] SARS-COV-2 COVID-19 PFIZER VACCINE Unknown Completed [facility] SARS-COV-2 COVID-19 PFIZER VACCINE Unknown Completed [facility] SARS-COV-2 COVID-19 PFIZER VACCINE Unknown Completed [facility] SARS-COV-2 COVID-19 PFIZER VACCINE Unknown Completed [facility] SARS-COV-2 COVID-19 PFIZER VACCINE Unknown Completed [facility] SARS-COV-2 COVID-19 PFIZER VACCINE Unknown Completed [facility] SARS-COV-2 COVID-19 PFIZER VACCINE Unknown Completed [facility] SARS-COV-2 COVID-19 PFIZER VACCINE Unknown Completed [facility] SARS-COV-2 COVID-19 PFIZER VACCINE Unknown Completed [facility] SARS-COV-2 COVID-19 PFIZER VACCINE Unknown Completed [facility] SARS-COV-2 COVID-19 PFIZER VACCINE Unknown Completed [facility] SARS-COV-2 COVID-19 PFIZER VACCINE Unknown Completed [facility] SARS-COV-2 COVID-19 PFIZER VACCINE Unknown Completed [facility] SARS-COV-2 COVID-19 PFIZER VACCINE Unknown Completed [facility] SARS-COV-2 COVID-19 PFIZER VACCINE Unknown Completed [facility] SARS-COV-2 COVID-19 PFIZER VACCINE Unknown Completed [facility] SARS-COV-2 COVID-19 PFIZER VACCINE Unknown Completed [facility] SARS-COV-2 COVID-19 PFIZER VACCINE Unknown Completed [facility] SARS-COV-2 COVID-19 PFIZER VACCINE Unknown Completed [facility] SARS-COV-2 COVID-19 PFIZER VACCINE Unknown Completed [facility] SARS-COV-2 COVID-19 PFIZER VACCINE Unknown Completed [facility] SARS-COV-2 COVID-19 PFIZER VACCINE Unknown Completed [facility] SARS-COV-2 COVID-19 PFIZER VACCINE Unknown Completed [facility] SARS-COV-2 COVID-19 PFIZER VACCINE Unknown Completed [facility] SARS-COV-2 COVID-19 PFIZER VACCINE Unknown Completed [facility] SARS-COV-2 COVID-19 PFIZER VACCINE Unknown Completed [facility] SARS-COV-2 COVID-19 PFIZER VACCINE Unknown Completed [facility] SARS-COV-2 COVID-19 PFIZER VACCINE Unknown Completed [facility] SARS-COV-2 COVID-19 PFIZER VACCINE Unknown Completed [facility] SARS-COV-2 COVID-19 PFIZER VACCINE Unknown Completed [facility] SARS-COV-2 COVID-19 PFIZER VACCINE Unknown Completed [facility] SARS-COV-2 COVID-19 PFIZER VACCINE Unknown Completed [facility] SARS-COV-2 COVID-19 PFIZER VACCINE Unknown Completed [facility] SARS-COV-2 COVID-19 PFIZER VACCINE Unknown Completed [facility] SARS-COV-2 COVID-19 PFIZER VACCINE Unknown Completed [facility] SARS-COV-2 COVID-19 PFIZER VACCINE Unknown Completed [facility] SARS-COV-2 COVID-19 PFIZER VACCINE Unknown Completed [facility] SARS-COV-2 COVID-19 PFIZER VACCINE Unknown Completed [facility] SARS-COV-2 COVID-19 PFIZER VACCINE Unknown Completed [facility] SARS-COV-2 COVID-19 PFIZER VACCINE Unknown Completed [facility] SARS-COV-2 COVID-19 PFIZER VACCINE Unknown Completed [facility] SARS-COV-2 COVID-19 PFIZER VACCINE Unknown Completed [facility] SARS-COV-2 COVID-19 PFIZER VACCINE Unknown Completed [facility] SARS-COV-2 COVID-19 PFIZER VACCINE Unknown Completed [facility] SARS-COV-2 COVID-19 PFIZER VACCINE Unknown Completed [facility] SARS-COV-2 COVID-19 PFIZER VACCINE Unknown Completed [facility] SARS-COV-2 COVID-19 PFIZER VACCINE Unknown Completed [facility] SARS-COV-2 COVID-19 PFIZER VACCINE Unknown Completed [facility] SARS-COV-2 COVID-19 PFIZER VACCINE Unknown Completed [facility] SARS-COV-2 COVID-19 PFIZER VACCINE Unknown Completed [facility] Influenza Virus Vaccine,quad Im,preserve Free 65+ (FLUAD) Unknown Completed [facility] SARS-COV-2 COVID-19 PFIZER VACCINE Unknown Completed [facility] SARS-COV-2 COVID-19 PFIZER VACCINE Unknown Completed [facility] SARS-COV-2 COVID-19 PFIZER VACCINE Unknown Completed [facility] Influenza Virus Vaccine,quad Im,preserve Free 65+ (FLUAD) Unknown Completed [facility] SARS-COV-2 COVID-19 PFIZER VACCINE Unknown Completed [facility] SARS-COV-2 COVID-19 PFIZER VACCINE Unknown Completed [facility] SARS-COV-2 COVID-19 PFIZER VACCINE Unknown Completed [facility] Influenza Virus Vaccine,quad Im,preserve Free 65+ (FLUAD) Unknown Completed [facility] SARS-COV-2 COVID-19 PFIZER VACCINE Unknown Completed [facility] SARS-COV-2 COVID-19 PFIZER VACCINE Unknown Completed [facility] SARS-COV-2 COVID-19 PFIZER VACCINE Unknown Completed [facility] Influenza Virus Vaccine,quad Im,preserve Free 65+ (FLUAD) Unknown Completed [facility] SARS-COV-2 COVID-19 PFIZER VACCINE Unknown Completed [facility] SARS-COV-2 COVID-19 PFIZER VACCINE Unknown Completed [facility] SARS-COV-2 COVID-19 PFIZER VACCINE Unknown Completed [facility] Influenza Virus Vaccine,quad Im,preserve Free 65+ (FLUAD) Unknown Completed [facility] SARS-COV-2 COVID-19 PFIZER VACCINE Unknown Completed [facility] SARS-COV-2 COVID-19 PFIZER VACCINE Unknown Completed [facility] SARS-COV-2 COVID-19 PFIZER VACCINE Unknown Completed [facility] Influenza Virus Vaccine,quad Im,preserve Free 65+ (FLUAD) Unknown Completed [facility] SARS-COV-2 COVID-19 PFIZER VACCINE Unknown Completed [facility] SARS-COV-2 COVID-19 PFIZER VACCINE Unknown Completed [facility] SARS-COV-2 COVID-19 PFIZER VACCINE Unknown Completed [facility] Influenza Virus Vaccine,quad Im,preserve Free 65+ (FLUAD) Unknown Completed [facility] SARS-COV-2 COVID-19 PFIZER VACCINE Unknown Completed [facility] SARS-COV-2 COVID-19 PFIZER VACCINE Unknown Completed [facility] SARS-COV-2 COVID-19 PFIZER VACCINE Unknown Completed [facility] Influenza Virus Vaccine,quad Im,preserve Free 65+ (FLUAD) Unknown Completed [facility] SARS-COV-2 COVID-19 PFIZER VACCINE Unknown Completed [facility] SARS-COV-2 COVID-19 PFIZER VACCINE Unknown Completed [facility] SARS-COV-2 COVID-19 PFIZER VACCINE Unknown Completed [facility] Influenza Virus Vaccine,quad Im,preserve Free 65+ (FLUAD) Unknown Completed [facility] SARS-COV-2 COVID-19 PFIZER VACCINE Unknown Completed [facility] SARS-COV-2 COVID-19 PFIZER VACCINE Unknown Completed [facility] SARS-COV-2 COVID-19 PFIZER VACCINE Unknown Completed [facility] Influenza Virus Vaccine,quad Im,preserve Free 65+ (FLUAD) Unknown Completed [facility] SARS-COV-2 COVID-19 PFIZER VACCINE Unknown Completed [facility] SARS-COV-2 COVID-19 PFIZER VACCINE Unknown Completed [facility] SARS-COV-2 COVID-19 PFIZER VACCINE Unknown Completed [facility] SARS-COV-2 COVID-19 PFIZER VACCINE Unknown Completed [facility] SARS-COV-2 COVID-19 PFIZER VACCINE Unknown Completed [facility] SARS-COV-2 COVID-19 PFIZER VACCINE Unknown Completed [facility] Influenza Virus Vaccine,quad Im,preserve Free 65+ (FLUAD) Unknown Completed [facility] SARS-COV-2 COVID-19 PFIZER VACCINE Unknown Completed [facility] SARS-COV-2 COVID-19 PFIZER VACCINE Unknown Completed [facility] SARS-COV-2 COVID-19 PFIZER VACCINE Unknown Completed [facility] Influenza Virus Vaccine,quad Im,preserve Free 65+ (FLUAD) Unknown Completed [facility] SARS-COV-2 COVID-19 PFIZER VACCINE Unknown Completed [facility] SARS-COV-2 COVID-19 PFIZER VACCINE Unknown Completed [facility] SARS-COV-2 COVID-19 PFIZER VACCINE Unknown Completed [facility] Influenza Virus Vaccine,quad Im,preserve Free 65+ (FLUAD) Unknown Completed [facility] SARS-COV-2 COVID-19 PFIZER VACCINE Unknown Completed [facility] SARS-COV-2 COVID-19 PFIZER VACCINE Unknown Completed [facility] SARS-COV-2 COVID-19 PFIZER VACCINE Unknown Completed [facility] Influenza Virus Vaccine,quad Im,preserve Free 65+ (FLUAD) Unknown Completed [facility] SARS-COV-2 COVID-19 PFIZER VACCINE Unknown Completed [facility] SARS-COV-2 COVID-19 PFIZER VACCINE Unknown Completed [facility] SARS-COV-2 COVID-19 PFIZER VACCINE Unknown Completed [facility] Influenza Virus Vaccine,quad Im,preserve Free 65+ (FLUAD) Unknown Completed [facility] SARS-COV-2 COVID-19 PFIZER VACCINE Unknown Completed [facility] SARS-COV-2 COVID-19 PFIZER VACCINE Unknown Completed [facility] SARS-COV-2 COVID-19 PFIZER VACCINE Unknown Completed [facility] Influenza Virus Vaccine,quad Im,preserve Free 65+ (FLUAD) Unknown Completed [facility] SARS-COV-2 COVID-19 PFIZER VACCINE Unknown Completed [facility] SARS-COV-2 COVID-19 PFIZER VACCINE Unknown Completed [facility] SARS-COV-2 COVID-19 PFIZER VACCINE Unknown Completed [facility] Influenza Virus Vaccine,quad Im,preserve Free 65+ (FLUAD) Unknown Completed [facility] SARS-COV-2 COVID-19 PFIZER VACCINE Unknown Completed [facility] SARS-COV-2 COVID-19 PFIZER VACCINE Unknown Completed [facility] SARS-COV-2 COVID-19 PFIZER VACCINE Unknown Completed [facility] Influenza Virus Vaccine,quad Im,preserve Free 65+ (FLUAD) Unknown Completed [facility] SARS-COV-2 COVID-19 PFIZER VACCINE Unknown Completed [facility] SARS-COV-2 COVID-19 PFIZER VACCINE Unknown Completed [facility] SARS-COV-2 COVID-19 PFIZER VACCINE Unknown Completed [facility] Influenza Virus Vaccine,quad Im,preserve Free 65+ (FLUAD) Unknown Completed [facility] SARS-COV-2 COVID-19 PFIZER VACCINE Unknown Completed [facility] SARS-COV-2 COVID-19 PFIZER VACCINE Unknown Completed [facility] SARS-COV-2 COVID-19 PFIZER VACCINE Unknown Completed [facility] Influenza Virus Vaccine,quad Im,preserve Free 65+ (FLUAD) Unknown Completed [facility] SARS-COV-2 COVID-19 PFIZER VACCINE Unknown Completed [facility] SARS-COV-2 COVID-19 PFIZER VACCINE Unknown Completed [facility] SARS-COV-2 COVID-19 PFIZER VACCINE Unknown Completed [facility] Influenza Virus Vaccine,quad Im,preserve Free 65+ (FLUAD) Unknown Completed [facility] SARS-COV-2 COVID-19 PFIZER VACCINE Unknown Completed [facility] SARS-COV-2 COVID-19 PFIZER VACCINE Unknown Completed [facility] SARS-COV-2 COVID-19 PFIZER VACCINE Unknown Completed [facility] Influenza Virus Vaccine,quad Im,preserve Free 65+ (FLUAD) Unknown Completed [facility] SARS-COV-2 COVID-19 PFIZER VACCINE Unknown Completed [facility] SARS-COV-2 COVID-19 PFIZER VACCINE Unknown Completed [facility] SARS-COV-2 COVID-19 PFIZER VACCINE Unknown Completed [facility] Influenza Virus Vaccine,quad Im,preserve Free 65+ (FLUAD) Unknown Completed [facility] SARS-COV-2 COVID-19 PFIZER VACCINE Unknown Completed [facility] SARS-COV-2 COVID-19 PFIZER VACCINE Unknown Completed [facility] SARS-COV-2 COVID-19 PFIZER VACCINE Unknown Completed [facility] Influenza Virus Vaccine,quad Im,preserve Free 65+ (FLUAD) Unknown Completed [facility] SARS-COV-2 COVID-19 PFIZER VACCINE Unknown Completed [facility] SARS-COV-2 COVID-19 PFIZER VACCINE Unknown Completed [facility] SARS-COV-2 COVID-19 PFIZER VACCINE Unknown Completed [facility] Influenza Virus Vaccine,quad Im,preserve Free 65+ (FLUAD) Unknown Completed [facility] SARS-COV-2 COVID-19 PFIZER VACCINE Unknown Completed [facility] SARS-COV-2 COVID-19 PFIZER VACCINE Unknown Completed [facility] SARS-COV-2 COVID-19 PFIZER VACCINE Unknown Completed [facility] Influenza Virus Vaccine,quad Im,preserve Free 65+ (FLUAD) Unknown Completed [facility] SARS-COV-2 COVID-19 PFIZER VACCINE Unknown Completed [facility] SARS-COV-2 COVID-19 PFIZER VACCINE Unknown Completed [facility] SARS-COV-2 COVID-19 PFIZER VACCINE Unknown Completed [facility] Influenza Virus Vaccine,quad Im,preserve Free 65+ (FLUAD) Unknown Completed [facility] SARS-COV-2 COVID-19 PFIZER VACCINE Unknown Completed [facility] SARS-COV-2 COVID-19 PFIZER VACCINE Unknown Completed [facility] SARS-COV-2 COVID-19 PFIZER VACCINE Unknown Completed [facility] Influenza Virus Vaccine,quad Im,preserve Free 65+ (FLUAD) Unknown Completed [facility] SARS-COV-2 COVID-19 PFIZER VACCINE Unknown Completed [facility] SARS-COV-2 COVID-19 PFIZER VACCINE Unknown Completed [facility] SARS-COV-2 COVID-19 PFIZER VACCINE Unknown Completed [facility] Influenza Virus Vaccine,quad Im,preserve Free 65+ (FLUAD) Unknown Completed [facility] SARS-COV-2 COVID-19 PFIZER VACCINE Unknown Completed [facility] SARS-COV-2 COVID-19 PFIZER VACCINE Unknown Completed [facility] SARS-COV-2 COVID-19 PFIZER VACCINE Unknown Completed [facility] Influenza Virus Vaccine,quad Im,preserve Free 65+ (FLUAD) Unknown Completed [facility] SARS-COV-2 COVID-19 PFIZER VACCINE Unknown Completed [facility] SARS-COV-2 COVID-19 PFIZER VACCINE Unknown Completed [facility] SARS-COV-2 COVID-19 PFIZER VACCINE Unknown Completed [facility] Influenza Virus Vaccine,quad Im,preserve Free 65+ (FLUAD) Unknown Completed [facility] SARS-COV-2 COVID-19 PFIZER VACCINE Unknown Completed [facility] SARS-COV-2 COVID-19 PFIZER VACCINE Unknown Completed [facility] SARS-COV-2 COVID-19 PFIZER VACCINE Unknown Completed [facility] Influenza Virus Vaccine,quad Im,preserve Free 65+ (FLUAD) Unknown Completed [facility] SARS-COV-2 COVID-19 PFIZER VACCINE Unknown Completed [facility] SARS-COV-2 COVID-19 PFIZER VACCINE Unknown Completed [facility] SARS-COV-2 COVID-19 PFIZER VACCINE Unknown Completed [facility] Influenza Virus Vaccine,quad Im,preserve Free 65+ (FLUAD) Unknown Completed [facility] SARS-COV-2 COVID-19 PFIZER VACCINE Unknown Completed [facility] SARS-COV-2 COVID-19 PFIZER VACCINE Unknown Completed [facility] SARS-COV-2 COVID-19 PFIZER VACCINE Unknown Completed [facility] Influenza Virus Vaccine,quad Im,preserve Free 65+ (FLUAD) Unknown Completed [facility] SARS-COV-2 COVID-19 PFIZER VACCINE Unknown Completed [facility] SARS-COV-2 COVID-19 PFIZER VACCINE Unknown Completed [facility] SARS-COV-2 COVID-19 PFIZER VACCINE Unknown Completed [facility] Influenza Virus Vaccine,quad Im,preserve Free 65+ (FLUAD) Unknown Completed [facility] Vital Signs Vital Name Observation Time Observation Value Comments S ource Systolic blood pressure 2023-05-30 18:56:00 138 mm[Hg] [facility] Diastolic blood pressure 2023-05-30 18:56:00 81 mm[Hg] [facility] Heart rate 2023-05-30 18:56:00 88 /min [facility] Body height 2023-05-30 18:56:00 167.6 cm Univ [facility] Body weight 2023-05-30 18:56:00 114.715 [facility] BMI 2023-05-30 18:56:00 40.82 kg/m2 [facility] Oxygen saturation in Arterial blood by Pulse oximetry 2023-05-30 18:56:00 100 /min [facility] Systolic blood pressure 2023-05-23 19:20:00 125 mm[Hg] [facility] Diastolic blood pressure 2023-05-23 19:20:00 82 mm[Hg] [facility] Heart rate 2023-05-23 19:20:00 92 /min [facility] Body temperature 2023-05-23 19:20:00 36.61 Macarena [facility] Respiratory rate 2023-05-23 19:20:00 18 /min [facility] Body height 2023-05-23 19:20:00 165.1 cm Univ [facility] Body weight 2023-05-23 19:20:00 113.172 kg [facility] BMI 2023-05-23 19:20:00 41.52 kg/m2 [facility] Oxygen saturation in Arterial blood by Pulse oximetry 2023-05-23 19:20:00 99 /min [facility] Systolic blood pressure 2023-04-13 20:03:00 116 mm[Hg] [facility] Diastolic blood pressure 2023-04-13 20:03:00 77 mm[Hg] [facility] Heart rate 2023-04-13 20:02:00 86 /min [facility] Body temperature 2023-04-13 20:02:00 35.89 Macarena [facility] Respiratory rate 2023-04-13 20:02:00 20 /min [facility] Body height 2023-04-13 20:02:00 165.1 cm Univ [facility] Body weight 2023-04-13 20:02:00 109.498 kg [facility] BMI 2023-04-13 20:02:00 40.17 kg/m2 [facility] Oxygen saturation in Arterial blood by Pulse oximetry 2023-04-13 20:02:00 96 /min [facility] Body height 2023-03-09 20:46:00 165.1 cm Univ [facility] Body weight 2023-03-09 20:46:00 110.904 kg Univ [facility] BMI 2023-03-09 20:46:00 40.69 kg/m2 [facility] Systolic blood pressure 2023-02-03 16:22:00 110 mm[Hg] [facility] Diastolic blood pressure 2023-02-03 16:22:00 70 mm[Hg] [facility] Heart rate 2023-02-03 16:22:00 89 /min [facility] Body temperature 2023-02-03 16:22:00 36.5 Macarena [facility] Respiratory rate 2023-02-03 16:22:00 16 /min [facility] Body height 2023-02-03 16:22:00 167.6 cm Univ [facility] Body weight 2023-02-03 16:22:00 109.952 kg [facility] BMI 2023-02-03 16:22:00 39.12 kg/m2 [facility] Oxygen saturation in Arterial blood by Pulse oximetry 2023-02-03 16:22:00 96 /min [facility] Systolic blood pressure 2023-01-24 19:22:00 119 mm[Hg] [facility] Diastolic blood pressure 2023-01-24 19:22:00 82 mm[Hg] [facility] Heart rate 2023-01-24 19:22:00 84 /min [facility] Body temperature 2023-01-24 19:22:00 36.61 Macarena [facility] Respiratory rate 2023-01-24 19:22:00 18 /min [facility] Body height 2023-01-24 19:22:00 160 [facility] 2023-01-24 19:22:00 111.177 kg Univ [facility] BMI 2023-01-24 19:22:00 43.42 kg/m2 [facility] Oxygen saturation in Arterial blood by Pulse oximetry 2023-01-24 19:22:00 98 /min [facility] Body height 2022-09-09 14:57:00 160 cm Univ [facility] Body weight 2022-09-09 14:57:00 104.282 kg Univ [facility] BMI 2022-09-09 14:57:00 40.72 kg/m2 [facility] Systolic blood pressure 2022-07-12 21:50:00 119 mm[Hg] [facility] Diastolic blood pressure 2022-07-12 21:50:00 83 mm[Hg] [facility] Heart rate 2022-07-12 21:50:00 70 /min [facility] Body temperature 2022-07-12 21:50:00 36.06 Macarena [facility] Respiratory rate 2022-07-12 21:50:00 18 /min [facility] Body weight 2022-07-12 21:50:00 99.701 kg Univ [facility] BMI 2022-07-12 21:50:00 35.48 kg/m2 [facility] Oxygen saturation in Arterial blood by Pulse oximetry 2022-07-12 21:50:00 100 /min [facility] Systolic blood pressure 2022-05-28 16:16:00 105 mm[Hg] [facility] Diastolic blood pressure 2022-05-28 16:16:00 73 mm[Hg] [facility] Heart rate 2022-05-28 16:16:00 97 /min [facility] Body temperature 2022-05-28 16:16:00 36.22 Macarena [facility] Respiratory rate 2022-05-28 16:16:00 18 /min [facility] Body height 2022-05-28 16:16:00 167.6 cm Univ [facility] Body weight 2022-05-28 16:16:00 98.567 kg [facility] BMI 2022-05-28 16:16:00 35.07 kg/m2 [facility] Oxygen saturation in Arterial blood by Pulse oximetry 2022-05-28 16:16:00 98 /min r/a [facility] Body height 2022-04-19 20:30:00 167.6 cm [facility] Body weight 2022-04-19 20:30:00 92.08 kg [facility] BMI 2022-04-19 20:30:00 32.77 kg/m2 [facility] Body height 2022-03-24 20:04:00 167.6 cm [facility] Body weight 2022-03-24 20:04:00 99.338 kg [facility] BMI 2022-03-24 20:04:00 35.35 kg/m2 [facility] Procedures Procedure Date / Time Performed Performing Clinician Source BASIC METABOLIC PANEL (NA, K, CL, CO2, GLUCOSE, BUN, CREATININE, CA) 2023-07-15 19:25:00 Forest Fang [facility] US HEAD NECK 2023-06-10 18:18:39 Meagan Almazan [facility] FLU VACC([id number]),65+YR,0.5 ML,IM,ADJUVANTED,QUAD(FLUA D) 2023-04-13 20:06:16 Haja Benoit [facility] REFERRAL- REQUEST/RESPONSE 2023-04-08 05:01:00 D octor Unassigned, [employer] [facility] TRANSTHORACIC ECHO (TTE) COMPLETE W/ CONTRAST 2023-03-17 21:14:47 Forest Fang [facility] XR SHOULDER 2+ VW BILATERAL 2023-03-09 20:53:22 Glenda Cruz [facility] REFERRAL- REQUEST/RESPONSE 2023-02-08 05:01:00 D octor Unassigned, [employer] [facility] INSURANCE CORRESPONDENCE 2022-10-02 05:01:00 Doc tor Unassigned, [employer] [facility] VITAMIN D, 25-OH 2022-05-28 17:19:00 Anshul Rolel [facility] OPHTHALMOLOGY DIAGNOSTIC TEST 2022-04-19 05:01:00 Doctor Unassigned, [employer] [facility] OU SPECTRALIS OCT MACULA, BOTH EYES 2022-04-19 00:00:00 Rowdy Valentin [facility] OU AUTOFLUORESCENCE, BOTH EYES 2022-04-19 00:00:00 Rowdy Valentin [facility] URINALYSIS 2022-02-25 16:50:00 Anshul Diamond [facility] ELECTROPHORESIS, URINE FOR PANEL 2022-02-25 16:50:00 Anshul Diamond [facility] ELECTROPHORESIS, SERUM 2022-02-25 15:15:00 Trevor Feliperique [facility] HCV ANTIBODY 2022-02-25 15:15:00 Trevor Diamondrique [facility] ANTICARDIOLIPIN ANTIBODIES 2022-02-25 15:15:00 Trevor Lozanorique [facility] THYROID PEROXIDASE (TPO) AB 2022-02-25 15:15:00 Trevor Diamondrique [facility] ANTI-B2 GLYCOPROTEIN I AB 2022-02-25 15:15:00 Me [place] Anshul [facility] ANTI-SSA(RO) 2022-02-25 15:15:00 Trevor Diamondrique [facility] ANTI-DOUBLE STRANDED DNA 2022-02-25 15:15:00 Anshul Snow [facility] MISCELLANEOUS SEND OUT TEST 2022-02-25 15:15:00 Han Young [facility] DIAGNOSTIC MANAGEMENT TEAM; SPECIAL COAGULATION EVALUATION 2022-02-25 15:15:00 Anshul Diamond [facility] LUPUS ANTICOAGULANT EVALUATION 2022-02-25 15:15:00 Anshul Diamond [facility] LUPUS ANTICOAGULANT EVALUATION 2022-02-25 15:15:00 Trevor Diamondrique [facility] Encounters Start Date/Time End Date/Time Encounter Type Admission Type Attending [facility] Care Facility Care Department Encounter ID Source 2021-06-16 16:21:48 Outpatient Dejon SHELTON Cherelle HERMANDejon [facility] [id number] [facility] 2023-07-15 13:15:00 2023-07-15 13:30:00 Ramp Agent Visit Pob, Adc Lab Main Forest Andrade [facility] 1..840.114 350.1.13.10 4.2.7.2.686 [id number] [facility] 2023-07-15 13:15:00 2023-07-15 13:15:00 Outpatient FOREST JENKINS [facility] [id number] [facility] 2023-07-08 00:00:00 2023-07-08 00:00:00 Telephone Forest Andrade [facility] 1.84.114 350.1.13.10 4.2.7.2.686 [id number] [facility] 2023-07-01 13:45:00 2023-07-01 14:00:00 Ramp Agent Visit Pob, Adc Lab Main Forest Andrade [facility] 1..840.114 350.1.13.10 4.2.7.2.686 [id number] [facility] 2023-07-01 13:45:00 2023-07-01 13:45:00 Outpatient FOREST JENKINS [facility] [id number] [facility] 2023-06-28 00:00:00 2023-06-28 00:00:00 Telephone Forest Andrade [facility] 1..840.114 350.1.13.10 4.2.7.2.686 [id number] [facility] 2023-06-23 00:00:00 2023-06-23 00:00:00 Telephone Forest Andrade [facility] 1.114 350.1.13.10 4.2.7.2.686 [id number] [facility] 2023-06-12 00:00:00 2023-06-12 00:00:00 Patient Secure Msg Meagan Almazan [facility] 1.114 350.1.13.10 4.2.7.2.686 [id number] [facility] 2023-06-10 11:54:27 2023-06-10 23:59:00 Outpatient R MEAGAN ALMAZAN [facility] [id number] [facility] 2023-06-10 11:54:27 2023-06-10 23:59:00 Hospital Encounter Meagan Almazan [facility] 1.114 350.1.13.10 4.2.7.2.686 [id number] [facility] 2023-06-10 13:00:00 2023-06-10 13:15:00 Ramp Agent Visit Pob, Adc Lab Main Meagan Almazan Jose C [facility] PROFESS[facility] NAL BUILD[facility] 1.114 350.1.13.10 4.2.7.2.686 [id number] [facility] 2023-06-01 00:00:00 2023-06-01 00:00:00 Patient Secure Msg Doctor Unassigned, [employer] [facility] 1..114 350.1.13.10 4.2.7.2.686 [id number] [facility] 2023-05-31 00:00:00 2023-05-31 00:00:00 Patient Secure Msg Meagan Almazan [facility] 1.2.840.114 350.1.13.10 4.2.7.2.686 [id number] [facility] 2023-05-30 14:15:00 2023-05-30 14:30:00 Ramp Agent Visit Lab, [place] Meagan Almazan [facility] 1..840.114 350.1.13.10 4.2.7.2.686 [id number] [facility] 2023-05-30 14:15:00 2023-05-30 14:15:00 [facility] [id number] [facility] 2023-05-30 13:00:00 2023-05-30 13:20:43 Office Visit Meagan Almazan [facility] 1..840.114 350.1.13.10 4.2.7.2.686 [id number] [facility] 2023-05-23 13:30:00 2023-05-23 14:00:00 Office Visit Forest Andrade [facility] 1..840.114 350.1.13.10 4.2.7.2.686 [id number] [facility] 2023-05-23 13:30:00 2023-05-23 13:30:00 Outpatient R FOREST ANDRADE [facility] [id number] [facility] 2023-05-16 00:00:00 2023-05-16 00:00:00 Outpatient R [facility] [id number] [facility] 2023-05-10 00:00:00 2023-05-10 00:00:00 Telephone Forest Andrade [facility] OFF[facility] 1.2.840.114 350.1.13.10 4.2.7.2.686 [id number] [facility] 2023-05-06 13:30:00 2023-05-06 13:56:48 Outpatient R JEANNIE ASH [facility] [id number] [facility] 2023-05-06 13:30:00 2023-05-06 13:45:00 Ramp Agent Visit 2, Adc Lab Forest Andrade [facility] BU[facility] 1.2.840.114 350.1.13.10 4.2.7.2.686 [id number] [facility] 2023-04-29 00:00:00 2023-04-29 00:00:00 Telephone Forest Andrade [facility] 1.2.840.114 350.1.13.10 4.2.7.2.686 [id number] [facility] 2023-04-28 00:00:00 2023-04-28 00:00:00 Telephone Haja Benoit [facility] 1.2.840.114 350.1.13.10 4.2.7.2.686 [id number] [facility] 2023-04-22 13:45:00 2023-04-22 14:00:00 Ramp Agent Visit 2, Adc Lab Haja Benoit [facility] BU[facility] 1.2.840.114 350.1.13.10 4.2.7.2.686 [id number] [facility] 2023-04-22 13:45:00 2023-04-22 13:52:53 Outpatient R HAJA BENOIT [facility] [id number] [facility] 2023-04-15 00:00:00 2023-04-15 00:00:00 Telephone Forest Andrade [facility] 1.2.840.114 350.1.13.10 4.2.7.2.686 [id number] [facility] 2023-04-15 00:00:00 2023-04-15 00:00:00 Telephone Haja Benoit [facility] 1.2.840.114 350.1.13.10 4.2.7.2.686 [id number] [facility] 2023-04-13 15:45:00 2023-04-13 16:00:00 Ramp Agent Visit 2, Adc Lab Haja Benoit [facility] 1.2.840.114 350.1.13.10 4.2.7.2.686 [id number] [facility] 2023-04-13 15:00:00 2023-04-13 15:45:58 Outpatient R HAJA BENOIT [facility] [id number] [facility] 2023-04-13 15:00:00 2023-04-13 15:45:58 Office Visit Haja Benoit [facility] 1.2.840.114 350.1.13.10 4.2.7.2.686 [id number] [facility] 2023-04-08 00:00:00 2023-04-08 00:00:00 Telephone Anshul Rolle [facility] 1.2.840.114 350.1.13.10 4.2.7.2.686 [id number] [facility] 2023-04-08 00:00:00 2023-04-08 00:00:00 Orders Only Doctor Unassigned, [employer] [facility] 1..114 350.1.13.10 4.2.7.2.686 [id number] [facility] 2023-04-06 00:00:00 2023-04-06 00:00:00 Patient Secure Msg Doctor Unassigned, [employer] [facility] 1..114 350.1.13.10 4.2.7.2.686 [id number] [facility] 2023-04-03 00:00:00 2023-04-03 00:00:00 Han Joel [facility] 1..114 350.1.13.10 4.2.7.2.686 [id number] [facility] 2023-03-31 00:00:00 2023-03-31 00:00:00 Outpatient R [facility] [id number] [facility] 2023-03-18 00:00:00 2023-03-18 00:00:00 Patient Secure Msg Forest Andrade [facility] 1.114 350.1.13.10 4.2.7.2.686 [id number] [facility] 2023-03-17 15:34:23 2023-03-17 23:59:00 Outpatient R FOREST ANDRADE [facility] [id number] [facility] 2023-03-17 15:34:23 2023-03-17 23:59:00 [facility] 1..114 350.1.13.10 4.2.7.2.686 [id number] [facility] 2023-03-09 15:47:23 2023-03-09 23:59:00 Outpatient R ANTHONY GLENDA [facility] [id number] [facility] 2023-03-09 15:47:23 2023-03-09 23:59:00 [facility] 1.2.840.114 350.1.13.10 4.2.7.2.686 [id number] [facility] 2023-03-09 16:00:00 2023-03-09 16:27:50 [facility] 1..840.114 350.1.13.10 4.2.7.2.686 [id number] [facility] 2023-03-04 00:00:00 2023-03-04 00:00:00 Refill Andree Chew [facility] 1..840.114 350.1.13.10 4.2.7.2.686 [id number] [facility] 2023-03-03 00:00:00 2023-03-03 00:00:00 Telephone Haja Benoit [facility] 1..840.114 350.1.13.10 4.2.7.2.686 [id number] [facility] 2023-02-15 16:00:00 2023-02-15 16:00:00 Outpatient FOREST JENKINS [facility] [id number] [facility] 2023-02-09 13:00:00 2023-02-09 13:00:00 Outpatient FOREST JENKINS [facility] [id number] [facility] 2023-02-08 00:00:00 2023-02-08 00:00:00 Orders Only Doctor Unassigned, [employer] [facility] 1.2.840.114 350.1.13.10 4.2.7.2.686 [id number] [facility] 2023-02-04 00:00:00 2023-02-04 00:00:00 Patient Secure Msg Trevor Rollerique [facility] 1.2.840.114 350.1.13.10 4.2.7.2.686 [id number] [facility] 2023-02-03 12:00:00 2023-02-03 12:15:00 Ramp Agent Visit Pcp-Lab Han Young [facility] 1.2.840.114 350.1.13.10 4.2.7.2.686 [id number] [facility] 2023-02-03 11:30:00 2023-02-03 11:38:21 Outpatient R HAN YOUNG [facility] [id number] [facility] 2023-02-03 11:30:00 2023-02-03 11:38:21 Office Visit [place] victoria jaminAnshul Emilio B [facility] 1.2.840.114 350.1.13.10 4.2.7.2.686 [id number] [facility] 2023-01-25 00:00:00 2023-01-25 00:00:00 Telephone Forest Andrade [facility] 1.2.840.114 350.1.13.10 4.2.7.2.686 [id number] [facility] 2023-01-24 14:30:00 2023-01-24 16:39:04 Outpatient R FOREST ANDRADE [facility] [id number] [facility] 2023-01-24 14:30:00 2023-01-24 15:00:00 Office Visit Forest Andrade [facility] 1.2.840.114 350.1.13.10 4.2.7.2.686 [id number] [facility] 2022-12-19 00:00:00 2022-12-19 00:00:00 Refill Haja Benoit [facility] 1.2.840.114 350.1.13.10 4.2.7.2.686 [id number] [facility] 2022-11-17 00:00:00 2022-11-17 00:00:00 Refill Gretchen neville [facility] 1.2.840.114 350.1.13.10 4.2.7.2.686 [id number] [facility] 2022-11-08 00:00:00 2022-11-08 00:00:00 Telephone BealEvert [facility] 1.2.840.114 350.1.13.10 4.2.7.2.686 [id number] [facility] 2022-10-29 10:30:00 2022-10-29 10:30:00 Outpatient R [facility] [id number] [facility] 2022-10-20 00:00:00 2022-10-20 00:00:00 Patient Secure Msg Doctor Unassigned, [employer] [facility] 1.2.840.114 350.1.13.10 4.2.7.2.686 [id number] [facility] 2022-10-07 00:00:00 2022-10-07 00:00:00 Refill Amanda De La Paz [facility] 1.2.840.114 350.1.13.10 4.2.7.2.686 [id number] [facility] 2022-10-02 00:00:00 2022-10-02 00:00:00 Orders Only Doctor Unassigned, [employer] [facility] 1.840.114 350.1.13.10 4.2.7.2.686 [id number] [facility] 2022-09-30 10:30:00 2022-09-30 10:30:00 Outpatient HAJA CARLIN [facility] [id number] [facility] 2022-09-09 10:00:00 2022-09-09 12:32:47 Outpatient Dejon CRUZ GLENDA [facility] [id number] [facility] 2022-09-09 10:00:00 2022-09-09 12:32:47 Office Visit Glenda Cruz [facility]?SUSANNE [facility] 1.840.114 350.1.13.10 4.2.7.2.686 [id number] [facility] 2022-07-20 14:00:00 2022-07-20 14:00:00 Outpatient HAJA CARLIN [facility] [id number] [facility] 2022-07-14 00:00:00 2022-07-14 00:00:00 Patient Secure Msg Doctor Unassigned, [employer] [facility] 1.840.114 350.1.13.10 4.2.7.2.686 [id number] [facility] 2022-07-12 16:00:00 2022-07-12 16:23:21 Outpatient FOREST JENKINS [facility] [id number] [facility] 2022-07-12 16:00:00 2022-07-12 16:23:21 Office Visit Forest And[facility] 1.840.114 350.1.13.10 4.2.7.2.686 [id number] [facility] 2022-06-07 00:00:00 2022-06-07 00:00:00 Patient Secure Msg rTevor Rollerique [facility] 1.2.840.114 350.1.13.10 4.2.7.2.686 [id number] [facility] 2022-06-07 00:00:00 2022-06-07 00:00:00 Patient Secure Msg Gretchen neville [facility] 1.2.840.114 350.1.13.10 4.2.7.2.686 [id number] [facility] 2022-06-03 00:00:00 2022-06-03 00:00:00 Patient Secure g Gretchen neville [facility] 1.2.840.114 350.1.13.10 4.2.7.2.686 [id number] [facility] 2022-05-28 13:00:00 2022-05-28 13:15:00 Ramp Agent Visit Pcp-Lab Han Young [facility] 1.2.840.114 350.1.13.10 4.2.7.2.686 [id number] [facility] 2022-05-28 10:00:00 2022-05-28 10:59:48 Outpatient R HAN YOUNG [facility] [id number] [facility] 2022-05-28 10:00:00 2022-05-28 10:59:48 Office Visit Gretchen neville Han Pereira [facility] 1.2.840.114 350.1.13.10 4.2.7.2.686 [id number] [facility] 2022-05-17 14:00:00 2022-05-17 14:00:00 Outpatient R BENOITHAJA CAMARILLO [facility] [id number] [facility] 2022-04-19 14:30:00 2022-04-19 17:05:59 Outpatient R JASON DEVANGFRANKIE [facility] [id number] [facility] 2022-04-19 14:30:00 2022-04-19 17:05:59 Office Visit Rowdy Valentin [facility] 1.2.840.114 350.1.13.10 4.2.7.2.686 [id number] [facility] 2022-04-19 00:00:00 2022-04-19 00:00:00 Orders Only Doctor Unassigned, [employer] [facility] 1.2.840.114 350.1.13.10 4.2.7.2.686 [id number] [facility] 2022-04-14 00:00:00 2022-04-14 00:00:00 Patient Secure Msg Doctor Unassigned, [employer] [facility] 1.2.840.114 350.1.13.10 4.2.7.2.686 [id number] [facility] 2022-04-07 00:00:00 2022-04-07 00:00:00 Patient Secure Msg Doctor Unassigned, [employer] [facility] 1.2.840.114 350.1.13.10 4.2.7.2.686 [id number] [facility] 2022-03-29 00:00:00 2022-03-29 00:00:00 Telephone Anshul Rolle [facility] 1.2.840.114 350.1.13.10 4.2.7.2.686 [id number] [facility] 2022-03-24 15:30:00 2022-03-24 16:00:00 Office Visit Glenda Cruz [facility] 1..114 350.1.13.10 4.2.7.2.686 [id number] [facility] 2022-03-24 15:30:00 2022-03-24 15:30:00 Outpatient R GLENDA CRUZ [facility] [id number] [facility] 2022-03-15 15:00:00 2022-03-15 15:00:00 Outpatient R GLENDA CRUZ [facility] [id number] [facility] 2022-03-11 00:00:00 2022-03-11 00:00:00 Refill Forest Andrade [facility] 1..114 350.1.13.10 4.2.7.2.686 [id number] [facility] 2022-03-05 00:00:00 2022-03-05 00:00:00 Outpatient R HAN YOUNG [facility] [id number] [facility] 2022-03-03 00:00:00 2022-03-03 00:00:00 Telephone BealEvert [facility] .840.114 350.1.13.10 4.2.7.2.686 [id number] [facility] 2022-03-01 15:30:00 2022-03-01 15:30:00 Outpatient R FOREST ANDRADE [facility] [id number] [facility] 2022-02-28 00:00:00 2022-02-28 00:00:00 [facility] 1.840.114 350.1.13.10 4.2.7.2.686 [id number] [facility] 2022-02-27 00:00:00 2022-02-27 00:00:00 Patient Secure Msg Doctor Unassigned, [employer] [facility] 1.2.840.114 350.1.13.10 4.2.7.2.686 [id number] [facility] 2022-02-26 00:00:00 2022-02-26 00:00:00 Telephone Anshul Rolle [facility] 1.2.840.114 350.1.13.10 4.2.7.2.686 [id number] [facility] 2022-02-25 10:23:26 2022-02-25 23:59:00 Outpatient R HAN YOUNG [facility] [id number] [facility] 2022-02-25 10:23:26 2022-02-25 23:59:00 Hospital Encounter Han Young [facility] 1.2.840.114 350.1.13.10 4.2.7.2.686 [id number] [facility] 2022-02-25 11:15:00 2022-02-25 11:30:00 Ramp Agent Visit Pcp-Lab Han Young [facility] 1.2.840.114 350.1.13.10 4.2.7.2.686 [id number] [facility] 2022-02-25 11:15:00 2022-02-25 11:30:00 Ramp Agent Visit Pcp-Lab Han Young [facility] 1.2.840.114 350.1.13.10 4.2.7.2.686 [id number] [facility] 2022-02-25 11:15:00 2022-02-25 11:30:00 Ramp Agent Visit Pcp-Lab Han Young [facility] 1.2840.114 350.1.13.10 4.2.7.2.686 [id number] [facility] 2022-02-25 11:15:00 2022-02-25 11:15:00 Outpatient R HAN YOUNG [facility] [id number] [facility] 2022-02-25 10:23:26 2022-02-25 10:23:26 Outpatient R HAN YOUNG [facility] [id number] [facility] 2022-02-25 09:00:00 2022-02-25 09:58:06 Office Visit Anshul Rolle Emilio [facility] 1..114 350.1.13.10 4.2.7.2.686 [id number] [facility] 2022-02-25 09:00:00 2022-02-25 09:58:06 Outpatient R HANNAH HAN [facility] [id number] [facility] 2022-02-25 09:00:00 2022-02-25 09:58:06 Office [facility]Cristobal [facility] 1..114 350.1.13.10 4.2.7.2.686 [id number] [facility] 2022-02-25 00:00:00 2022-02-25 00:00:00 Telephone Haja Benoit [facility] 1..114 350.1.13.10 4.2.7.2.686 [id number] [facility] 2022-02-23 00:00:00 2022-02-23 00:00:00 Amanda Gautam [facility] 1..114 350.1.13.10 4.2.7.2.686 [id number] [facility] 2022-02-15 14:33:22 2022-02-15 23:59:00 Outpatient R HAJA BENOIT [facility] [id number] [facility] 2021-12-23 00:00:00 2021-12-23 00:00:00 Telephone Amanda De La Paz [facility] 1.840.114 350.1.13.10 4.2.7.2.686 [id number] [facility] 2021-12-22 15:45:00 2021-12-22 16:00:00 Ramp Agent Visit 2, Adc Lab Forest Andrade [facility] BUILD[facility] 1..840.114 350.1.13.10 4.2.7.2.686 [id number] [facility] 2021-12-22 15:00:00 2021-12-22 15:40:33 Outpatient R CY DORIELES [facility] [id number] [facility] 2021-12-22 15:00:00 2021-12-22 15:40:33 Office Visit Haja Benoit [facility] BU[facility] 1..840.114 350.1.13.10 4.2.7.2.686 [id number] [facility] 2021-12-22 15:00:00 2021-12-22 15:00:00 Outpatient R HAJA BENOIT [facility] [id number] [facility] 2021-12-22 15:00:00 2021-12-22 15:00:00 Outpatient R HAJA BENOIT [facility] [id number] [facility] 2021-12-18 00:00:00 2021-12-18 00:00:00 Telephone Amanda De La Paz Cassi [facility] OFF[facility]ILD[facility] 1.2840.114 350.1.13.10 4.2.7.2.686 [id number] [facility] 2021-12-17 16:45:00 2021-12-17 17:00:00 Ramp Agent Visit Pob, Adc Lab Main Jeannie Vincentqueenie Forest Falcon [facility] BUILD[facility] 1.840.114 350.1.13.10 4.2.7.2.686 [id number] [facility] 2021-12-17 16:45:00 2021-12-17 16:45:00 Outpatient R FOREST ANDRADE [facility] [id number] [facility] 2021-12-10 00:00:00 2021-12-10 00:00:00 Telephone Amanda De La Paz [facility] 1.84.114 350.1.13.10 4.2.7.2.686 [id number] [facility] 2021-12-09 16:00:00 2021-12-09 16:15:00 Ramp Agent Visit Pob, Adc Lab Main Amanda De La Paz [facility] BUILDING 1.284.114 350.1.13.10 4.2.7.2.686 [id number] [facility] 2021-12-09 16:00:00 2021-12-09 16:00:00 Outpatient R ANA CRISTINA AMANDA [facility] [id number] [facility] 2021-12-04 00:00:00 2021-12-04 00:00:00 Case Management Anderson Cruz [facility] 1.2.114 350.1.13.10 4.2.7.2.686 [id number] [facility] 2021-12-02 00:00:00 2021-12-02 00:00:00 Patient Secure Msg Doctor Unassigned, [employer] [facility] 1.0.114 350.1.13.10 4.2.7.2.686 [id number] [facility] 2021-12-01 00:00:00 2021-12-01 00:00:00 Patient Secure Msg Doctor Unassigned, [employer] [facility] 1.2.114 350.1.13.10 4.2.7.2.686 [id number] [facility] 2021-11-30 16:30:00 2021-11-30 23:59:00 Outpatient FOREST JENKINS [facility] [id number] [facility] 2021-11-30 16:30:00 2021-11-30 23:59:00 Outpatient Dejon ASH [facility] [id number] [facility] 2021-11-20 14:30:00 2021-11-20 14:45:00 Ramp Agent Visit Pob, Adc Lab Main Rachael Bedoya [facility] 1..114 350.1.13.10 4.2.7.2.686 [id number] [facility] 2021-11-20 14:30:00 2021-11-20 14:30:00 Outpatient RACHAEL SCHREIBER [facility] [id number] [facility] 2021-11-20 00:00:00 2021-11-20 00:00:00 Orders Only Doctor Unassigned, [employer] [facility] 1..114 350.1.13.10 4.2.7.2.686 [id number] [facility] 2021-11-13 00:00:00 2021-11-13 00:00:00 Telephone Amanda De La Paz [facility] 1..114 350.1.13.10 4.2.7.2.686 [id number] [facility] 2021-11-13 00:00:00 2021-11-13 00:00:00 Telephone Amanda De La Paz [facility] 1.840.114 350.1.13.10 4.2.7.2.686 [id number] [facility] 2021-11-13 00:00:00 2021-11-13 00:00:00 Telephone Amanda De La Paz [facility] 1.840.114 350.1.13.10 4.2.7.2.686 [id number] [facility] 2021-11-12 17:00:00 2021-11-12 17:15:00 Ramp Agent Visit Pob, Adc Lab Main Amanda De La Paz [facility] 1..840.114 350.1.13.10 4.2.7.2.686 [id number] [facility] 2021-11-12 17:00:00 2021-11-12 17:00:00 Outpatient R AMANDA DE LA PAZ [facility] [id number] [facility] 2021-11-06 15:40:00 2021-11-06 16:03:18 Office Visit [facility] Amanda [facility] 1.840.114 350.1.13.10 4.2.7.2.686 [id number] [facility] 2021-11-06 15:40:00 2021-11-06 16:03:18 Outpatient R AMANDA DE LA PAZ [facility] [id number] [facility] 2021-11-06 15:40:00 2021-11-06 16:03:18 Outpatient R AMANDA DE LA PAZ [facility] [id number] [facility] 2021-11-06 15:40:00 2021-11-06 15:40:00 Outpatient R AMANDA DE LA PAZ [facility] [id number] [facility] 2021-11-05 15:00:00 2021-11-05 15:53:06 Outpatient R DORIE BENOITLES [facility] [id number] [facility] 2021-11-05 15:00:00 2021-11-05 15:53:06 Office Visit Haja BenoitDaisy [facility] 1.2.840.114 350.1.13.10 4.2.7.2.686 [id number] [facility] 2021-11-05 15:30:00 2021-11-05 15:45:00 Ramp Agent Visit 2, Adc Lab Haja BenoitDaisy [facility] 1.2840.114 350.1.13.10 4.2.7.2.686 [id number] [facility] 2021-11-05 15:30:00 2021-11-05 15:30:00 Outpatient R HAJA BENOIT [facility] [id number] [facility] 2021-11-02 00:00:00 2021-11-02 00:00:00 Transition of Care Anju Johnson [facility] 1.2840.114 350.1.13.10 4.2.7.2.686 [id number] [facility] 2021-11-02 00:00:00 2021-11-02 00:00:00 Nurse Triage Alyx Chung [facility] 1.2840.114 350.1.13.10 4.2.7.2.686 [id number] [facility] 2021-11-02 00:00:00 2021-11-02 00:00:00 Telephone Haja BenoitDaisy [facility] 1.2840.114 350.1.13.10 4.2.7.2.686 [id number] [facility] 2021-10-26 10:01:00 2021-10-31 17:51:00 Inpatient U JEANNIE [facility] [id number] [facility] 2021-10-26 10:01:00 2021-10-31 17:51:00 Hospital Encounter Maciej Paiz, Jesus Walker[facility] 1.2.840.114 350.1.13.10 4.2.7.2.686 [id number] [facility] 2021-10-30 10:00:00 2021-10-30 13:00:00 [facility] 1.2.840.114 350.1.13.10 4.2.7.2.686 [id number] [facility] 2021-09-07 14:00:00 2021-09-07 14:00:00 Outpatient HAJA CARLIN [facility] [id number] [facility] 2021-09-03 00:00:00 2021-09-03 00:00:00 Haja Valero [facility] 1.2.840.114 350.1.13.10 4.2.7.2.686 [id number] [facility] 2021-06-24 06:58:00 2021-06-24 09:10:00 Outpatient GREG BUSTOS [facility] [id number] [facility] 2021-06-24 06:58:00 2021-06-24 09:10:00 Hospital Encounter Greg Delacruz [facility] 1.2.840.114 350.1.13.10 4.2.7.2.686 [id number] [facility] 2021-06-24 08:05:00 2021-06-24 08:44:00 Surgery Greg Delacruz [facility] 1.2840.114 350.1.13.10 4.2.7.2.686 [id number] [facility] 2021-06-23 10:00:00 2021-06-23 10:00:00 [id number] 2021-06-23 10:00:00 2021-06-23 10:00:00 Outpatient R GREG DELACRUZ [facility] [id number] [facility] 2021-06-23 10:00:00 2021-06-23 10:00:00 Laboratory Only Only, Adc Pob2 Test Greg Delacruz [facility] PROFESSIO [facility] 1.2840.114 350.1.13.10 4.2.7.2.686 [id number] [facility] 2021-06-23 00:00:00 2021-06-23 00:00:00 Orders Only Doctor Unassigned, [employer] [facility] 1.2840.114 350.1.13.10 4.2.7.2.686 [id number] [facility] 2021-06-23 00:00:00 2021-06-23 00:00:00 Letter (Out) Alyx Chung [facility] 1.20.114 350.1.13.10 4.2.7.2.686 [id number] [facility] 2021-06-22 13:00:00 2021-06-22 13:27:05 Outpatient R HAJA BENOIT [facility] [id number] [facility] 2021-06-22 13:00:00 2021-06-22 13:27:05 Office Visit Haja Benoit [facility] 1.2.840.114 350.1.13.10 4.2.7.2.686 [id number] [facility] 2021-06-15 00:00:00 2021-06-15 00:00:00 Orders Only Doctor Unassigned, [employer] [facility] 1.2.840.114 350.1.13.10 4.2.7.2.686 [id number] [facility] 2021-06-04 00:00:00 2021-06-04 00:00:00 Patient Secure Msg Doctor Unassigned, [employer] [facility] 1.2.840.114 350.1.13.10 4.2.7.2.686 [id number] [facility] 2021-05-28 13:30:00 2021-05-28 13:30:00 Outpatient R PAXTON [facility] [id number] [facility] 2021-05-28 13:30:00 2021-05-28 13:30:00 Outpatient R PAXTON [facility] [id number] [facility] 2021-05-26 00:00:00 2021-05-26 00:00:00 Telephone Haja Benoit [facility] 1.2.840.114 350.1.13.10 4.2.7.2.686 [id number] [facility] 2021-05-25 10:00:00 2021-05-25 10:00:00 Outpatient FABIO GOMEZ [facility] [id number] [facility] 2021-05-25 09:59:38 2021-05-25 09:59:47 Imm/Inj Visit Nurse, Leidy Pob Immunizatio Fabio Allen [facility] 1.2.840.114 350.1.13.10 4.2.7.2.686 [id number] [facility] 2021-05-25 00:00:00 2021-05-25 00:00:00 Patient Secure Msg Doctor Unassigned, [employer] [facility] 1.2.840.114 350.1.13.10 4.2.7.2.686 [id number] [facility] 2021-05-20 11:30:00 2021-05-20 11:54:58 Outpatient R HAJA BENOIT [facility] [id number] [facility] 2021-05-20 11:14:08 2021-05-20 11:29:08 Ramp Agent Visit 2, Adc Lab Haja Benoit [facility] 1.2.840.114 350.1.13.10 4.2.7.2.686 [id number] [facility] 2021-05-05 00:00:00 2021-05-05 00:00:00 Haja Lewis [facility] 1.2.840.114 350.1.13.10 4.2.7.2.686 [id number] [facility] 2021-05-04 14:38:12 2021-05-04 14:53:12 Ramp Agent Visit 2, Adc Lab Haja Benoit [facility] 1.2.840.114 350.1.13.10 4.2.7.2.686 [id number] [facility] 2021-05-04 14:00:00 2021-05-04 14:25:55 Outpatient R HAJA BENOIT [facility] [id number] [facility] 2021-05-04 14:00:00 2021-05-04 14:25:55 Outpatient R HAJA BENOIT [facility] [id number] [facility] 2021-05-04 13:46:57 2021-05-04 14:25:55 Office Visit Haja Benoit [facility] PROFESSIO [facility] 1.20.114 350.1.13.10 4.2.7.2.686 [id number] [facility] 2021-05-04 00:00:00 2021-05-04 00:00:00 Orders Only Doctor Unassigned, [employer] [facility] 1.20.114 350.1.13.10 4.2.7.2.686 [id number] [facility] 2021-04-13 00:00:00 2021-04-13 00:00:00 Transition of Care Hayde Ramírez 1.840.114 350.1.13.10 4.2.7.2.686 [id number] [facility] 2021-04-07 19:44:00 2021 14:45:00 Hospital Encounter Brooklynn Li Adnan [facility] 1.2840.114 350.1.13.10 4.2.7.2.686 [id number] [facility] 2021-04-09 12:19:00 2021-04-09 12:37:00 Anesthesia Event Jonathan Colby Jeffrey S [facility] [place] 1.20.114 350.1.13.10 4.2.7.2.686 [id number] [facility] 2021-04-09 12:00:00 2021-04-09 12:35:00 Surgery Greg Delacruz [facility] [place] 1.20.114 350.1.13.10 4.2.7.2.686 [id number] [facility] 2021-04-07 19:19:00 2021-04-07 19:19:00 Emergency X [facility] ERT [id number] [facility] Results Test Description Test Time Test Comments Results Result Co mments Source [facility] [id number] 21:43:46ORDERING PHYSICIAN: MEAGAN ALMAZAN HISTORY: evaluate for thyroid nodule TECHNIQUE: Thyroid ultrasound, including Doppler ultrasound. COMPARISON: None. FINDINGS:Right thyroid lobe measures 5.1 x 2.0 x 1.8 cm. 8 mm solid hypoechoictaller than wide nodule. Left thyroid lobe measures 4.8 x 1.6 x 1.6 cm. 1.2 cm solid hypoechoicnodule. 1.1 cm solid hypoechoic nodule. Isthmus measures 4 mm. No nodules.[facility] ([facility]E)2023-03-18 03:52:49* Test Item Value Reference Range Interpretation Comme nts Height (test code = 8814741736) 65 in Weight (test code = 2779791941) 244 lbs Systolic BP (test code = 6533197755) 108 mmHg Diastolic BP (test code = 3066214223) 66 mmHg Heart Rate (test code = 0711926567) 80 bpm Ao root diam (test code = 1075200625) 3.50 cm Aortic root (test code = 1061241883) 3.5 cm Ao root annulus (test code = 1367351059) 3.5 cm BSA (test code = 2953424494) 2.15 m2 LVOT diameter (test code = 1396195850) 2.03 cm LVOT area (test code = 8108536123) 3.20 cm2 LA size (test code = 8796681146) 3.8 cm ACS (test code = 5646652292) 2.19 cm PV PEAK VELOCITY (test code = 5246226415) 105.9 cm/s PV peak gradient (test code = 6490545410) 4.5 mmHg MV E-F slope (test code = 5472119867) 26.00 cm/s MV Peak E Barbie (test code = 6356915291) 58.7 cm/s MV Peak A Barbie (test code = 7574152106) 91.7 cm/s E/A ratio (test code = 2818693535) 0.64 ratio MV valve area p 1/2 method (test code = 1337237152) 9.30 cm2 MV dec slope (test code = 0634907656) 723.40 cm/s2 MV P1/2t max barbie (test code = 9070949049) 58.70 cm/s LVOT stroke volume (test code = 6242909018) 49.60 cm3 LVOT peak barbie (test code = 4187127098) 89.1 cm/s LVOT mn grad (test code = 7648331695) 1.4 mmHg AV LVOT peak gradient (test code = 1062980814) 3.2 mmHg LVOT peak VTI (test code = 8858618889) 15.3 cm LV V1 mean (test code = 1087001595) 54.10 cm/s Aortic valve mean velocity (test code = 7188026945) 99.6 cm/s Ao peak barbie (test code = 2658586172) 175.4 cm/s Ao VTI (test code = 7593185824) 28.7 cm AV area by cont VTI (test code = 1237980325) 1.7 cm2 AV area peak barbie (test code = 9006705738) 1.7 cm2 Ao max PG (test code = 8366128726) 12.30 mm[Hg] AV peak gradient (test code = 9311783438) 12.3 mmHg AV valve area (test code = 6606225719) 1.73 cm2 AV mean gradient (test code = 3950661626) 4.8 mmHg TR Peak Barbie (test code = 2397863251) 226.7 cm/s Triscuspid Valve Regurgitation Peak Gradient (test code = 6693220375) 20.6 mmHg LAV(MOD-sp4) (test code = 5272924982) 72.30 mL LA Volume Index (BP) (test code = 8252778542) 36.7 mL/m2 LA volume (BP) (test code = 5950359655) 79.1 mL LAV(MOD-sp2) (test code = 5194372421) 71.20 mL LVIDD (test code = 5720285411) 5.10 cm Left Ventricular End Diastolic Volume by Teichholz Method (test code = 6169518) 122.6 mL IVS (test code = 1694226074) 1.27 cm Interventricular Septum Diastolic Thickness by 2D (test code = 6886956) 1.27 cm LVPWD (test code = 1041382454) 1.23 cm PW (test code = 4522848066) 1.23 cm 0.6-1.1 EF(Teich) (test code = 4467320041) 39.30 % LVIDS (test code = 0954630380) 4.10 cm Left Ventricular End Systolic Volume by Teichholz Method (test code = 8887482) 74.5 mL FS (test code = 3261896098) 19 % EF - 2D (test code = 85677954) 39.30 % Radiology Study observation (narrative) (test code = 58234-4) MARGARITA (test code = MARGARITA) Table formatting f rom the original result was not included. ?Left?Ventricle: Left ventricle size is normal. Mildly increased wall thickness. Moderate global hypokinesis present. Moderately reduced systolic function with a visually estimated EF of 35 - 40%. There is impaired relaxation. ?Aorta: Mildly enlarged ascending aorta (4.0 cm). ?Tricuspid?Valve: Insufficient tricuspid regurgitation jet to estimate RVSP . ?RA pressure is 0-5 mmHg. ?Left?Atrium: Left atrium is mildly dilated. VitalsHeight Weight BSA (Calculated - sq m) BP Pulse 5' 6" (1.676 m) 210 lb (95.3 kg) 2.1 sq meters 106/75 77 Left VentricleLeft ventricle size is normal. Mildly increased wall thickness. Moderate global hypokinesis present. Moderately reduced systolic function with a visually estimated EF of 35 - 40%. There is impaired relaxation.Right VentricleRight ventricle size is normal. Normal systolic function.Left AtriumLeft atrium is mildly dilated.Right AtriumRight atrium size is normal.IVC/SVCIVC diameter is less than or equal to 21 mm and decreases greater than 50% during inspiration; therefore the estimated right atrial pressure is normal (~0-5 mmHg).Mitral ValveMildly thickened leaflets. Mildly calcified leaflets. Mild mitral annular calcification. Trace transvalvular regurgitation.Tricusp id ValveTricuspid valve structure is normal. Trace transvalvular regurgitation. Insufficient tricuspid regurgitation jet to estimate RVSP . RA pressure is 0-5 mmHg.Aortic ValveTricuspid. Mildly thickened cusps. Mildly calcified cusps. Trace transvalvular regurgitation.Pulmoni c ValveNot well visualized.Ascending AortaMildly enlarged ascending aorta (4.0 cm).PericardiumThe pericardium is normal. No pericardial effusion.Study DetailsStudy quality was adequate. A complete echocardiogram was performed using 2D, color flow Doppler and spectral Doppler. 5 mL of Lumason ultrasound enhancing agent used. [facility], 51-SZ9593-87-10 00:47:45* Test Item Value Reference Range Interpretation Comme [facility] VIT D 25OH (test code = 52940-0) 22 ng/mL 25-80 L MARGARITA (test code = MARGARITA) Deficiency: <20 ng/mLInsufficiency: 20-24 ng/mLOptimal: 25-80 ng/mL Lab Interpretation (test code = 65145-4) Abnormal [facility] HospitalDIAG[facility]STIC [facility]NAGEMENT TEAM; SPECIAL COAGULATION NUYWEGCNUZ0728-10-93 13:02:17* Test Item Value Reference Range Interpretation Comme [facility] Related Clinical History (test code = 7640085648) Ayaka Madera is a 66-year-old female with [...] disorder? Pertinent Lab Results (test code = 0830209975) ? Ref. Range? 03/11 ? PT? 12-15.5 [...] 3.0? Coag DMT interpretation (test code = 9234469668) This patient has a positive test in [...] complications in women. Recommendations (test code = 9465002383) A repeat study must be performed 12 weeks or more from the time of the first study.? [facility]. Sendout- LUPUS ANTICOAGULANT REFLEXIVE PANEL [facility] [id number] 14:21:37* Test Item Value Reference Range Interpretation Comme nts Miscellaneous Test (test code = 4081470875) See scanned report Performing Lab (test code = 5491515664) [facility] [id number] 20:42:28* Test Item Value Reference Range Interpretation Comme nts T PROTEIN (test code = 8379903123) 7.0 g/dL 6.3-8.2 ALBUMIN (test code = 4742427854) 3.7 g/dL 3-4.8 ALPHA 1 (test code = 3050722297) 0.3 g/dL 0.2-0.4 ALPHA 2 (test code = 5799803377) 0.8 g/dL 0.6-1.2 BETA (test code = 9651866911) 1.1 g/dL 0.7-1.4 GAMMA (test code = 9422719112) 1.1 g/dL 1-1.8 Electrophoresis Interpretation (test code = 0754901052) Serum and urine protein electrophoresis interpretation:Normal serum and urine protein profiles.No M spike present. [facility] HospitalELECTROPHORESIS, [id number] 20:42:28* Test Item Value Reference Range Interpretation Comme nts T PROTEIN (test code = 8579135991) 7.0 g/dL 6.3-8.2 ALBUMIN (test code = 2999125570) 3.7 g/dL 3-4.8 ALPHA 1 (test code = 4734028187) 0.3 g/dL 0.2-0.4 ALPHA 2 (test code = 0782141912) 0.8 g/dL 0.6-1.2 BETA (test code = 7572609542) 1.1 g/dL 0.7-1.4 GAMMA (test code = 1278062334) 1.1 g/dL 1-1.8 Electrophoresis Interpretation (test code = 6780609113) Serum and urine protein electrophoresis interpretation:Normal serum and urine protein profiles.No M spike present. [facility] HospitalANTICARDIOLIPIN XOSDLEDUGZ2869-94-83 02:21:51 * Test Item Value Reference Range Interpretation Comments Anticardiolipin Antibody IgG (test code = 2693191032) See_Comment H [Automated message] The system which generated this result transmitted reference range: 0.0 - 10.0 GPL. The reference range was not used to interpret this result as normal/abnormal . Anticardiolipin Antibody IgM (test code = 7974420351) See_Comment [Automated message] The system which generated this result transmitted reference range: 0.0 - 10.0 MPL. The reference range was not used to interpret this result as normal/abnormal . Anticardiolipin Antibody IgA (test code = 1116652147) See_Comment [Automated message] The system which generated [...] 4: 2210-4 Lab Interpretation (test code = 60485-8) Abnormal [facility] HospitalANTICARDIOLIPIN XAEXMNGQEW2950-92-77 02:21:51 * Test Item Value Reference Range Interpretation Comments Anticardiolipin Antibody IgG (test code = 5489171611) See_Comment H [Automated message] The system which generated this result transmitted reference range: 0.0 - 10.0 GPL. The reference range was not used to interpret this result as normal/abnormal . Anticardiolipin Antibody IgM (test code = 6499266024) See_Comment [Automated message] The system which generated this result transmitted reference range: 0.0 - 10.0 MPL. The reference range was not used to interpret this result as normal/abnormal . Anticardiolipin Antibody IgA (test code = 5684172022) See_Comment [Automated message] The system which generated [...] 4: 2210-4 Lab Interpretation (test code = 21663-9) Abnormal [facility] HospitalTHYROID PEROXIDASE (TPO) [id number] 00:24:20 * Test Item Value Reference Range Interpretation Comments TPO Ab IgG (test code = 1605933775) See_Comment H [Automated message] The system which [...] and Graves'disease. Lab Interpretation (test code = 07067-0) Abnormal [facility] HospitalTHYROID PEROXIDASE (TPO) [id number] 00:24:20 * Test Item Value Reference Range Interpretation Comments TPO Ab IgG (test code = 9251808628) See_Comment H [Automated message] The system which [...] and Graves'disease. Lab Interpretation (test code = 87524-9) Abnormal [facility] HospitalANTI-B2 GLYCOPROTEIN I PA8538-18-08 00:15:06* Test Item Value Reference Range Interpretation Comments Anti-B2 Glycoprotein 1 IgG (test code = 0794540114) See_Comment [Automated message] The system which generated this result transmitted reference range: 0.0 - 20.0 SGU. The reference range was not used to interpret this result as normal/abnormal. Anti-B2 Glycoprotein 1 IgM (test code = 8241200119) See_Comment [Automated message] The system which generated this result transmitted reference range: 0.0 - 20.0 SMU. The reference range was not used to interpret this result as normal/abnormal. Anti-B2 Glycoprotein 1 IgA (test code = 5838922513) See_Comment [Automated message] The system which generated [...] losses and/or thrombocytopenia. TEST PERFORMED AT:[facility] [address] [place] [address] Lab Interpretation (test code = 24665-3) Normal [facility] HospitalANTI-B2 GLYCOPROTEIN I IY1356-83-23 00:15:06* Test Item Value Reference Range Interpretation Comments Anti-B2 Glycoprotein 1 IgG (test code = 3198806925) See_Comment [Automated message] The system which generated this result transmitted reference range: 0.0 - 20.0 SGU. The reference range was not used to interpret this result as normal/abnormal. Anti-B2 Glycoprotein 1 IgM (test code = 3479350398) See_Comment [Automated message] The system which generated this result transmitted reference range: 0.0 - 20.0 SMU. The reference range was not used to interpret this result as normal/abnormal. Anti-B2 Glycoprotein 1 IgA (test code = 5121510938) See_Comment [Automated message] The system which generated [...] losses and/or thrombocytopenia. TEST PERFORMED AT:[facility] [address] [place] [address] [facility] [place] [address] Lab Interpretation (test code = 34220-3) [facility] ChildrenNIKDFPIYTVEHTFSGK0211-19-75 17:18:06* Test Item Value Reference Range Interpretation Comme nts Anti-Ribonucleoprotein (test code = 9663753643) Negative Negative MARGARITA (test code = MARGARITA) Positive - Antibod y detected.Negative - No antibody detected. Lab Interpretation (test code = 63021-8) [facility]-OSZKLWGVHHCNNWVCS7711-19-66 17:18:06* Test Item Value Reference Range Interpretation Comme nts Anti-Ribonucleoprotein (test code = 1792382638) Negative Negative MARGARITA (test code = MARGARITA) Positive - Antibod y detected.Negative - No antibody detected. Lab Interpretation (test code = 62715-9) [facility] 17:18:05* Test Item Value Reference Range Interpretation Comme nts ANTI-SSA(RO) (test code = 3699135982) Negative Negative MARGARITA (test code = MARGARITA) Positive - Antibod y detected.Negative - No antibody detected. Lab Interpretation (test code = 49651-8) [facility] 17:18:05* Test Item Value Reference Range Interpretation Comme nts ANTI-SSA(RO) (test code = 6321746201) Negative Negative MARGARITA (test code = MARGARITA) Positive - Antibod y detected.Negative - No antibody detected. Lab Interpretation (test code = 12583-9) Normal [facility] WFX3337-41-31 17:17:50* Test Item Value Reference Range Interpretation Comme nts ANTI-DSDNA (test code = 7869098306) See_Comment H [Automated message] The system which generated this result transmitted reference range: 0.0 - 4.0 IU/mL. The reference range was not used to interpret this result as normal/abnormal. MARGARITA (test code = MARGARITA) Negative ? ?< or = 4 IU/mLPositive ? ? ?> or = 10 IU/mLIndetermin ate ?5-9 IU/mL Lab Interpretation (test code = 58032-3) Abnormal [facility]-SSB([place])2022-02-26 17:17:50* Test Item Value Reference Range Interpretation Comme nts Anti-SSB(LA) (test code = 1949221908) Negative Negative MARGARITA (test code = MARGARITA) Positive - Antibod y detected.Negative - No antibody detected. Lab Interpretation (test code = 06611-4) Normal [facility] NPS9636-55-80 17:17:50* Test Item Value Reference Range Interpretation Comme nts ANTI-DSDNA (test code = 5921570415) See_Comment H [Automated message] The system which generated this result transmitted reference range: 0.0 - 4.0 IU/mL. The reference range was not used to interpret this result as normal/abnormal. MARGARITA (test code = MARGARITA) Negative ? ?< or = 4 IU/mLPositive ? ? ?> or = 10 IU/mLIndetermin ate ?5-9 IU/mL Lab Interpretation (test code = 19416-3) Abnormal [facility]SS[facility]([place])2022-02-26 17:17:50* Test Item Value Reference Range Interpretation Comme nts Anti-SSB(LA) (test code = 2771536764) Negative Negative MARGARITA (test code = MARGARITA) Positive - Antibod y detected.Negative - No antibody detected. Lab Interpretation (test code = 73911-0) Normal [facility] HospitalHCV NNAZNTLJ9625-37-12 20:33:44* Test Item Value Reference Range Interpretation Comme nts HCV Ab (test code = 26116-2) Negative HCV Semi-Quantitative (test code = 93893-4) [facility] TBKRSBAO8580-48-94 20:33:44* Test Item Value Reference Range Interpretation Comme nts HCV Ab (test code = 44250-4) Negative HCV Semi-Quantitative (test code = 25876-2) [facility] Notes Date/Time Note Provider Source 2023-07-15 13:15:00 ahSbSy2ZyaszGXS3Ftk4 r2zz/o9xtdQGtL EPg+nFT1E115DeXxyTUGYbQ1QJiYfP5183 -01-26T13:15:00 Images from the original note were not included.Venipuncture collection performed by clean technique on the right anticubitus. Total of 1 attempts were made. Slight pressure and a bandage/dressing were applied to the site(s). The patient experienced no complications. The following specimens were processed according to instructions and sent to [facility] laboratories per lab order on 07/15/2023:LT BLUESST 1REDLAVPPTDK GREEN (LiHep)DK GREEN (SodH)GRAYDK BLUE (K2)DK BLUE (S)ACDBlood CultureNIPT/NTD 75537-3Ghcfu SpqdIZ6724-22-96I64:25:52Nurse NoteTXT1.2.840.718141.1.13.104.2.7 .2.142484|[id number] for patient hdjj05749-1Bzelo NoteLNNARRATIVEFormatted C-CDA narrative textUTMB[address] ZvtzM[id number] 84BRQEOWKODADSEZPTGCBMNB3638-70-46 T13:25:521.2.840.547074.1.72.3.15| 1.2.840.218049.1.13.104.2.7.2.7278 79_[id number] [facility] 2023-07-08 16:54:27 I/sD3od8YPbNfcBNqFXw mYs9tPeh9NIlwB tO4CRy4fjkjsUJFBBfdc5fg1MizPvS4917 -01-19T16:54:27 Call placed to Mrs. Madera and reviewed providers results/recommendations. Verbalized understanding. No further questions or concerns at this timeJose Ezekiel Fang MD07/08/2023 12:33 PM CUSTOMER MANAGEMENT SPECIALIST Back to TopPressure inside the heart seems elevatedElectrolytes and kidney function WNLConsider increasing bumex to 3 mg Am and keep 2 mg PM. Repeat BMP in 1 week. Thanks! 12152-0Fubygoqja encounter IzomRT5693-89-86C54:56:05Telephone encounter NoteTXT1.2.840.838169.1.13.104.2.7 .2.666926|[id number] for patient levv49187-8TpknICYZWQCJNTGIoyvekvx d C-CDA narrative text[address] NvnyLpbtudiqtRpvpreaicUZAC08020395 90GZKQNPBUXCRHEEZFWKGQVQ3548-51-97 T16:56:051.2.840.802001.1.72.3.15| 1.2.840.001853.1.13.104.2.7.2.7278 79_[id number] [facility] 2023-07-01 13:45:00 O8UQJcWLZcOZBM3GYVRJ n1PokE6YmOuM/c DmFb2r43bKZ2YIauT9QYJYv0k8Qq+43881 -07-01T13:45:00 Images from the original note were not included.Venipuncture collection performed by clean technique on the right anticubitus. Total of 1 attempts were made. Slight pressure and a bandage/dressing were applied to the site(s). The patient experienced no complications. The following specimens were processed according to instructions and sent to [facility] laboratories per lab order on 07/01/2023 :LT BLUESST 1REDLAVPPTDK GREEN (LiHep)DK GREEN (SodH)GRAYDK BLUE (K2)DK BLUE (S)ACDBlood CultureNIPT/NTD 68486-0Kbyht LdxjHK5533-36-79O92:30:48Nurse NoteTXT1.2.840.648926.1.13.104.2.7 .2.811359|[id number] for patient pkcx52416-4Hphzl NoteLNNARRATIVEFormatted C-CDA narrative text[address] JgafPdsnuhcknZffbtydoiILNK14719469 44JBJILKZVOAHNGPFEHMKJQS8661-36-97 T12:30:481.2.840.154003.1.72.3.15| 1.2.840.213861.1.13.104.2.7.2.7278 79_[id number] [facility] 2023-06-29 13:27:57 CYBSjuIw4ShXFyUMbDCr jiwFJkyMJmO0+7 x3b87T9tnWbT1cg+wt8I1vRcjhEDig4492 -01-10T13:27:57 Call placed to Mrs. Madera to review lab results. She states she has already increased her Bumex up to Bumex 2 mg Qam and 1.5 mg in the evening per providers recommendations (see 06/01/23 encounter). She states he is going tomorrow to have repeat labs done. No further questions or concerns at this time 86237-7Zcumtugea encounter TgfwHV1982-06-85F10:29:49Telephone encounter NoteTXT1.2.840.804334.1.13.104.2.7 .2.657133|[id number] for patient mqmx57730-6SyemJJCDZJZUWNPUysmikqo d C-CDA narrative tooa959476468TjgkzgfHANNA Wu[address]TXTX[address] 13VMLMUUGUKRFUKJWJDSGYEU8047-07-53 T13:29:491.2.840.848692.1.72.3.15| 1.2.840.580124.1.13.104.2.7.2.7278 79_[id number] Loretta Jarvis RN [facility] 2023-06-28 13:59:03 MoI0/EW3YEhMAox7lf8K Kd2+I5kZ+8uT1Z 5yHghteByTn6u2PVPrvBPUSgMEmwwl2777 -01-09T13:59:03 Images from the original note were not included.Attempted to call Mrs. Madera and review providers results/recommendations. No answer at this time. VM left to return call at her earliest convenienceHonorhealth Deer Valley Medical CenterForest Smith MD Parson, Haleigh V, RN; P Heart Failure NurseElectrolytes WNLKidney function minimally elevated but stablePressure inside the heart is higher.Increase bumex to 1.5 mg BID and monitor response. Repeat BMP in 1 week. Thanks! 59824-8Kpxbjgnbn encounter PbbpIZ1476-05-63D16:00:02Telephone encounter NoteTXT1.2.840.836386.1.13.104.2.7 .2.443532|[id number] for patient eehc65340-6LoreVVZRQPRQKQYAeyxgdve d C-CDA narrative gmol361923765YzwlzodHANNA Wu[id number] 20MUCNNRDZPPQPJZEZMJJECB5462-35-62 T14:00:021.2.840.539503.1.72.3.15| 1.2.840.663763.1.13.104.2.7.2.7278 79_[id number] Loretta Jarvis RN [facility] 2023-06-23 14:05:29 TVJ74cwR5UEkUWXOxFdw ufqY975I0u0sEw psOMygwtmE0A4IVeWiYnt7aFAWS9LA5526 -01-04T14:05:29 See 06/01/23 encounter 42859-2Mizthgehx encounter DxyzPX3539-04-37U46:05:39Telephone encounter NoteTXT1.2.840.410828.1.13.104.2.7 .2.194785|[id number] for patient upaw84530-0RisiTYGFKIMSXEDCbgwizxs d C-CDA narrative xszs860450278Hcaaovc Parson V, RN[address] ZvscYhibvtwvuIwxqcgtstKXTQ31249270 25IOYUFPOPQFOCPCZZCQGPNH7092-21-91 T14:05:391.2.840.047702.1.72.3.15| 1.2.840.503041.1.13.104.2.7.2.7278 79_[id number] Loretta Jarvis RN [facility] 2023-06-23 14:05:01 LoGodx29a/OlbEM3FKKR 9EqXaLOFqcHU1h w6EtVhwYT+5Om6TYFRF0r2fz5TIW8Q2705 -01-04T14:05:01Addended by: LORETTA BURGOS RN, V on: 06/23/2023 02:05 PMModules accepted: Orders 99571-0Suyyvexd NsfzuslcDF2159-20-73Z58:05:01Adden dum DocumentTXT1.2.840.235926.1.13.104 .2.7.2.866970|[id number] e for patient hmnh92883-5UaywAMZOSWZCBLDZncuctnx d C-CDA narrative text[address]vestonTXTX[address] 67AAZYWIZFEUANPZRGQAVORQ5278-94-22 T14:05:011.2.840.385751.1.72.3.15| 1.2.840.859796.1.13.104.2.7.2.7278 79_[id number] [facility] 2023-06-23 13:53:10 RHq2PeTveBG4vxoX/CVY p6NPo2sqU+xxkr SGeTCDNVMJudDHrqDZQQTow5TF7o1P9550 -01-04T13:53:10 Images from the original note were not included.Call received from Mrs. Madera and reviewed providers results/recommendations. Verbalized understanding and will have labs complete next week. No further questions or concerns at this time 34305-9Fqgalkohe encounter PaikQA8486-63-20Q45:00:56Telephone encounter NoteTXT1.2.840.740770.1.13.104.2.7 .2.826045|[id number] for patient gewc50811-2OiauWSVHKAZNBFFIqjzyrtw d C-CDA narrative text[address]TXTX[address] 08PFKGPOWECKMYFHGLLDSHZJ2451-18-83 T14:00:561.2.840.737501.1.72.3.15| 1.2.840.923032.1.13.104.2.7.2.7278 79_[id number] [facility] 2023-06-23 13:47:43 5JCExnKaGen5NGwEWL2E 6+Xlkkspt0uDUv hVIqiZN94OejRNKb1ANSJnh6Bo1Xmz0580 -01-04T13:47:43 Ayaak Madera is a 68 year old femalePatient is returning call for MD recommendations.Please call at [phone] (home)Was able to warm transfer to clinic nurse 55029-6Thdyekqdu encounter AeclBD5107-45-64K93:49:11Telephone encounter NoteTXT1.2.840.803936.1.13.104.2.7 .2.542331|[id number] for patient kgei67990-9UzzxUKTRPVXLHWYZuxfeikg d C-CDA narrative hbiv328964480Ipxd C Garcia[address]Gal[address]onGalvestonTXTX[address] 11BFWESXNJBYBONKIDCHZNIN7312-79-64 T13:49:111.2.840.846341.1.72.3.15| 1.2.840.335832.1.13.104.2.7.2.7278 79_[id number] Mariel Crain [facility] 2023-06-22 11:24:04 y1g/Qy/x6v0T8XJuy4xr l9iquMECl4YoLF ql//tyhIn+3V2pYvrmqnWF5egG5HSF8836 -01-03T11:24:04 Attempted to call Mrs. Madera to review providers results/recommendations. No answer at this time. Vm left to return call at her earliest convenience.My chart message sent 04150-8Qroxntzkj encounter NarwWJ5669-01-60S76:27:15Telephone encounter NoteTXT1.2.840.808995.1.13.104.2.7 .2.315295|[id number] for patient rikb39269-2BjgxSRCAVPIMPVQSkbsunwi d C-CDA narrative [address] 88BPNQHZHGOSDAHCIFFRJZDM4338-75-84 T11:27:151.2.840.252447.1.72.3.15| 1.2.840.034462.1.13.104.2.7.2.7278 79_[id number] [facility] 2023-06-21 16:37:45 VAv2gExP5gFeEnDzHudJ X2038/g4Fv02hL D/VJgb6WHZkAFWrkEU5unxFmz7Lj692241 -01-02T16:37:45 Attempted to call Mrs. Madera to review providers results/recommendations. No answer at this time. left to return call at her earliest convenience. 26517-2Kexzqvnje encounter VlrrAT8323-33-21E34:38:17Telephone encounter NoteTXT1.2.840.248797.1.13.104.2.7 .2.276242|[id number] for patient fpuc69126-1QcbkRBAYZRBSWJGCoizrueo d C-CDA narrative [address]TXTX[address] 68HEPTSWDRBAISGLYFNWFSPW4789-08-65 T16:38:171.2.840.232037.1.72.3.15| 1.2.840.427601.1.13.104.2.7.2.7278 79_[id number] [facility] 2023-06-21 16:07:21 g6im7nyDVsw8YryYoJ0Q Fki7IP/T6FCoMe QxtFcfRIqkOXhQ0gh0SBrBeQ5MSVHL3657 -01-02T16:07:21 Pressure inside the heart remains elevatedCan increase bumex to 2 mg AM and keep 1.5 mg PM, and monitor response.Can repeat labs in 1 week. Thanks! 81678-7Vyqhonmpn encounter ZlziIZ7657-43-16F08:08:05Telephone encounter NoteTXT1.2.840.100809.1.13.104.2.7 .2.629303|[id number] for patient fkrh72438-9ZfzjMDOCVJFHZIHIbrozrwd d C-CDA narrative [address] 68QKEXAYUBQQDEWQHZJKXDPC8555-90-90 T16:08:051.2.840.244305.1.72.3.15| 1.2.840.405790.1.13.104.2.7.2.7278 79_[id number] [facility] 2023-06-16 14:44:53 Lp1IQY6o0j/agnXQz6GG nEtobn8pNbv4zL cp7VMGehbUvR6xInN1ru82+4dHG8cV6017 -12-28T14:44:53 Please review 06/10/23 labs and advise 98482-7Dgmlalklt encounter StgkAS7892-45-25H18:45:09Telephone encounter NoteTXT1.2.840.644068.1.13.104.2.7 .2.123267|1193312232VZGwqlktios for patient dwyp88206-7ZkjoZGENCWOBTXLZefsbfys d C-CDA narrative Eterniam[address]TXTX[address] 72WPPBTPCEBJXZVRHEFMWQPJ5889-99-46 T14:45:091.2.840.217964.1.72.3.15| 1.2.840.050609.1.13.104.2.7.2.7278 79_[id number] [facility] 2023-06-10 13:00:00 MDBYSszKvq0a81CJVhsG 6vmlJ0SN9guFJY y/xShyHzQAP54k8Hum4Yf6ixcXoGBm9058 -12-22T13:00:00 Images from the original note were not included.Venipuncture collection performed by clean technique on the left anticubitus. Total of 1 attempts were made. Slight pressure and a bandage/dressing were applied to the site(s). The patient experienced no complications. The following specimens were processed according to instructions and sent to [facility] laboratories per lab order on 06/10/2023 :LT BLUESST 1REDLAVPPTDK GREEN (LiHep)DK GREEN (SodH)GRAYDK BLUE (K2)DK BLUE (S)ACDBlood CultureNIPT/NTD 78080-3Nqogu FkemEN8879-18-09X75:27:40Nurse NoteTXT1.2.840.692318.1.13.104.2.7 .2.451643|[id number] for patient cguq87419-0Ilste NoteLNNARRATIVEFormatted C-CDA narrative textUT[address] YjtwXntunrtkiEuuyishdvKKUB83780159 12OTBPYDOSKPBUPCJTFMVSLZ1858-97-63 T12:27:401.2.840.316206.1.72.3.15| 1.2.840.517383.1.13.104.2.7.2.7278 79_[id number] [facility] 2023-06-03 13:43:40 PA7rDifXCnd904IER5oM QAXDq+IsP7m6VG lxg1QE43mOVtjlinZJhe255NBHIefd1838 -12-15T13:43:40 Benjy placed to Mrs. Madera and reviewed providers recommendations. Verbalized understanding. No further questions or concerns at this time 16087-0Duvivwczr encounter PkzcDK1197-18-99J12:46:07Telephone encounter NoteTXT1.2.840.844390.1.13.104.2.7 .2.229195|[id number] for patient mmmr10819-9KbwwFARUNVNJLSTFalbqezy d C-CDA narrative textUT[address] De[id number] 47RTSGDACROPGMUAQQJNCYFD3850-75-42 T13:46:071.2.840.261538.1.72.3.15| 1.2.840.826172.1.13.104.2.7.2.7278 79_[id number] [facility] 2023-06-03 13:40:22 gpuHY1pgpj8PXdBByrqe UDy5kSKmYggRWf HEOdmuYMj4mDLZzBsw+SFoqet6uFNa5149 -12-15T13:40:22 We can increase bumex to 1.5 mg BID and get labs in 1 week instead.If swelling does not get better, she can call us on Tuesday to re-assess. Thanks! 11420-3Gxeojpmvj encounter BqfzFE6373-78-49A00:41:12Telephone encounter NoteTXT1.2.840.811263.1.13.104.2.7 .2.188375|[id number] for patient ogos43744-2UnplXQZYQOLBGLFZxmttaol d C-CDA narrative text[id number] 12EXMIAVWAIUUCFRZBYVYQIX3080-49-39 T13:41:121.2.840.441670.1.72.3.15| 1.2.840.039748.1.13.104.2.7.2.7278 79_[id number] [facility] 2023-06-02 14:26:27 j/ISqnhNFOTDBqDLPdsw 1RGpqoT2hQOH2e uDVpewoWi+kShi05HrjQJlZ4FNqmM11509 -12-14T14:26:27 Please review and adviseCall placed to [...] with any further recommendations from the provider 17144-5Khvkzugme encounter RforDH3762-90-50E05:43:12Telephone encounter NoteTXT1.2.840.340628.1.13.104.2.7 .2.827064|[id number] for patient cydu37791-2AtuoXEZWQEQXZIELgyvbpft d C-CDA narrative [id number] 09HDVWLRPNRMFILVXYPMFCCK6621-06-22 T14:43:121.2.840.214639.1.72.3.15| 1.2.840.225323.1.13.104.2.7.2.7278 79_[id number] [facility] 2023-03-04 09:43:03 KjP4xCQ1NEKQVR2DxfZH MZx7B4Zx/S805t S4MMqJlfXV+AOZVLAB+biXpIq0Jc7B4850 -09-15T09:43:03 Requested Prescriptions Pending Prescriptions Disp Refills [...] Per protocol rerouting to Physician for approval 12257-6Gaevtmwfr encounter BolgUW1914-69-54H57:43:37Telephone encounter NoteTXT1.2.840.867308.1.13.104.2.7 .2.506282|[id number] for patient [id number] C Archie MA[address] Oz[id number] 95RVDYKSEXRUMUOYXOPWJKPL8523-72-34 T09:43:371.2.840.193347.1.72.3.15| 1.2.840.738109.1.13.104.2.7.2.7278 [id number] Sangita Siddiqui MA [facility] 2023-03-03 12:04:08 IahwtzxGk2WycdvgJ4c6 stegiCaKQmGtg4 AzWoy4FLlTTaybkgRtuENJ2OkvbzGs0070 -09-14T12:04:08 Ayaka Madera is a 67 year old femalePatient calling needing to scehdule her TTE please advise thank you 02827-7Bjncwrlum encounter UvhvTS4615-10-72L33:05:09Telephone encounter NoteTXT1.2.840.238899.1.13.104.2.7 .2.209967|[id number] for patient [id number] Tsuruta Moreno [address] Zx[id number] 43CDKJTSQPYTEVLPRCEZXRNA3482-42-01 T12:05:091.2.840.868446.1.72.3.15| 1.2.840.637812.1.13.104.2.7.2.7278 [id number] Brittany Elmore V [facility] 2023-02-03 12:00:00 YfAECaI9PPx7EQLVnyYZ nGsV0VRYNhXQoy Dhwq4VDw0/1hoOLvFq+bwiEWGeJdam4193 -08-17T12:00:00 Images from the original note were not included.Venipuncture collection performed by clean technique on the left anticubitus. Total of 1 attempts were made. Slight pressure and a bandage/dressing were applied to the site(s). The patient experienced no complications. The following specimens were processed according to instructions and sent to [facility] laboratories per lab order on 02/03/2023: LT BLUE SST 3 RED LAV 1 PPT DK GREEN (LiHep) DK GREEN (SodH) HARRY DK BLUE (K2) DK BLUE (S) ACD urine 1 NIPT/NTD 55745-5Lssen QlupIS0662-07-99X24:58:04Nurse NoteTXT1.2.840.568543.1.13.104.2.7 .2.959024|[id number] for patient ejxt83072-7Ozvur Note[id number] 60ZRXNPIFJRJBJJUIHOGFMMO3878-43-40 T11:58:041.2.840.874579.1.72.3.15| 1.2.840.649845.1.13.104.2.7.2.7278 [id number] [facility] 2023-01-25 14:18:06 TN7bI/f7iu2qixwLM30B YHG0zp5Ubp43+j E45er7F5DgZm/EJDYJ7L+Zz4hD+OZj4802T14:18:06 Call back received from Mrs. Madera and reviewed providers results/recommendations. Low K diet reviewed. Verbalized understanding. Advised I would send low K diet information through [employer] as reference. Lab orders placed and advised to contact [facility] lab to scheduled lab appointment. No further questions or concerns at this time 97385-8Knoocnxus encounter KtbnWC9351-82-85J95:22:14Telephone encounter NoteTXT1.2.840.327091.1.13.104.2.7 .2.916047|[id number] for patient xmod33674-3IkutYPUGFPFWTN[id number] 15PDRGDQAZPKFEGXNWENYDUF4281-34-49 T14:22:141.2.840.294094.1.72.3.15| 1.2.840.613499.1.13.104.2.7.2.7278 [id number] [facility] 2023-01-25 14:14:00 vV0/hCrvn6IYb9M2dclS 2gQbGgIQ/LVCDM N4HninOG2EsuRAbz/zBbjzjaX29qTl2616 -08-08T14:14:00 Attempted to call Mrs. Madera to review providers results/recommendations. No answer at this time. Vm left to return call at her earliest convenience. Forest Fang MD 01/25/2023 1:58 PM CDT Back to Top Electrolytes showed mildly elevated potassium.Preserved kidney function.Please hold lisinopril and continue rest of meds.Provide potassium in diet education and suggest low potassium diet.Repeat BMP in 1 week.Monitor BP and HR at home and keep records of it. Thanks! 00025-1Faiohklfq encounter EcmsMN7078-38-11S77:22:14Telephone encounter NoteTXT1.2.840.878507.1.13.104.2.7 .2.908103|[id number] for patient ipkc37900-9IsxvRLLDMEHRYT[address] Ty[id number] 65VUBAZSSVKNEYXMWMXCPLQJ7382-24-77 T14:22:141.2.840.061844.1.72.3.15| 1.2.840.865615.1.13.104.2.7.2.7278 [id number] [facility]
[2023-08-02] MEDS ORDERED: CEFEPIME 2 GM VIAL ONE (16:20)
[2023-08-02] MEDS ORDERED: NA CHLORIDE 0.9% 100 ML ONE (16:20)
[2023-08-02 16:29] LABS: Hematocrit 30.6 % (36.0-45.0); Lymphocytes % 7.2 % (15.3-44.8); MCV 75.8 fL (80-100); MPV 8.3 fL (7.6-11.3); Platelets 254 thou/uL (152-406); RBC Red Blood Cell Count 4.04 M/uL (3.86-4.86)
[2023-08-02 16:35] LABS: Protime INR 1.23
[2023-08-02 16:41] LABS: SARS-CoV-2 Antigen Rapid Res Negative (Negative)
[2023-08-02 16:45] LABS: Albumin 2.5 g/dL (3.4-5.0); Bilirubin Total 0.5 mg/dL (0.2-1.0); Protein, Total 6.7 g/dL (6.4-8.2)
--- NOTE | 2023-08-02 17:04 | RAD REPORT ---
EXAM DESCRIPTION: Yoandy Single View08/02/2023 4:25 pm CLINICAL HISTORY: FEVER COMPARISON: No comparisons TECHNIQUE: Portable AP view of the chest. FINDINGS: The lungs are clear although decreased inspiratory effort limits evaluation. No pneumotho rax or effusion. The cardiomediastinal contours are unremarkable. IMPRESSION: No acute cardiopulmonary process.
--- NOTE | 2023-08-02 17:09 | RAD REPORT ---
EXAM DESCRIPTION: RAD - Hip Left 2 View - 08/02/2023 4:25 pm CLINICAL HISTORY: PAIN COMPARISON: No comparisons TECHNIQUE: Left hip, AP and frogleg views of the left hip. FINDINGS: There is no fracture or dislocation. Mild left hip joint degenerative changes. No acute or destructive bony process seen. IMPRESSION: No acute findings of the left hip.
[2023-08-02] MEDS ORDERED: NA CHLORIDE 0.9% 500 ML ONE (17:36)
--- NOTE | 2023-08-02 18:25 | EDPHYS ---
Physician Documentation [facility] Name: Ayaka Madera Age: 68 yrs Sex: Female : 1955 Arrival Date: 08/02/2023 Time: 16:00 Bed 5 Private MD: ED Physician Jw Deleon HPI: 08/02 16:27 This 68 yrs old Female presents to ER via EMS with complaints of fall. rt 16:27 Patient presents to the ED with a fall about 9. Patient fell backwards, hyperextending rt her left hip. She reports pain to the inside of that thigh. She states that she has not been able to walk following this. Patient was reportedly had a fever for a few days, EMS states that her temperature was 102, started IV Tylenol. Denies other acute complaints, symptoms are moderate in severity, no other aggravating alleviating factors.. Historical: - Allergies: 16:07 No Known Allergies; bp - Home Meds: 16:07 Bumetanide Oral [Active]; gabapentin oral [Active]; duloxetine oral [Active]; bp - PMHx: 16:07 Fibromyalgia; Arthritis; Hypertensive disorder; bp - Immunization history:: Adult Immunizations unknown. - Social history:: Smoking status: unknown. - Family history:: not pertinent. ROS: 16:27 Cardiovascular: Negative for chest pain, palpitations, and edema, Respiratory: Negative rt for shortness of breath, cough, wheezing, and pleuritic chest pain, Abdomen/GI: Negative for abdominal pain, nausea, vomiting, diarrhea, and constipation, Skin: Negative for injury, rash, and discoloration, Neuro: Negative for headache, weakness, numbness, tingling, and seizure, Psych: Negative for depression, anxiety, suicide ideation, homicidal ideation, and hallucinations, 16:27 Constitutional: Positive for chills, fever, 16:27 MS/extremity: Positive for decreased range of motion, pain, Negative for Exam: 16:27 Constitutional: This is a well developed, well nourished patient who is awake, alert, rt and in no acute distress. Head/Face: Normocephalic, atraumatic. Chest/axilla: Normal chest wall appearance and motion. Nontender with no deformity. No lesions are appreciated. Cardiovascular: Regular rate and rhythm with a normal S1 and S2. No gallops, murmurs, or rubs. Normal PMI, no JVD. No pulse deficits. Respiratory: Lungs have equal breath sounds bilaterally, clear to auscultation and percussion. No rales, rhonchi or wheezes noted. No increased work of breathing, no retractions or nasal flaring. Abdomen/GI: Soft, non-tender, with normal bowel sounds. No distension or tympany. No guarding or rebound. No evidence of tenderness throughout. Skin: Warm, dry with normal turgor. Normal color with no rashes, no lesions, and no evidence of cellulitis. Neuro: Awake and alert, GCS 15, oriented to person, place, time, and situation. Cranial nerves II-XII grossly intact. Motor strength 5/5 in all extremities. Sensory grossly intact. Cerebellar exam normal. Normal gait. Psych: Awake, alert, with orientation to person, place and time. Behavior, mood, and affect are within normal limits. 16:27 ECG was reviewed by the Attending Physician. 16:27 Musculoskeletal/extremity: LeftTenderness to the medial thigh, mostly proximally. No obvious deformities noted. Pulses, motor, sensation and. Vital Signs: 16:04 Weight 108.86 kg; Height 5 ft. 7 in. ; mb9 16:04 BP 128 / 64; Pulse 104; Resp 18; Temp 99.6; Pulse Ox 95% ; bp 17:13 BP 94 / 68; Pulse 95; Resp 18; Temp 98.6; Pulse Ox 100% on R/A; mb9 18:10 BP 103 / 63; Pulse 88; Resp 18; Pulse Ox 97% on R/A; mb9 18:53 BP 115 / 65; Pulse 92; Resp 18; Pulse Ox 97% on R/A; mb9 20:15 BP 94 / 60; Pulse 89; Resp 17; Pulse Ox 97% ; vc1 21:07 BP 91 / 65; Pulse 88; Resp 17; Pulse Ox 98% on R/A; vc1 16:04 Body Mass Index 37.59 (108.86 kg, 170.18 cm) mb9 MDM: 16:04 Patient medically screened. rt 18:25 Differential Diagnosis Electrolyte disturbance, anemia, MAGGI, UTI, pneumonia. Data rt reviewed: vital signs, nurses notes, lab test result(s), EKG, radiologic studies. Consideration of Admission/Observation Patient was admitted/placed on observation. Management of patient was discussed with the following: Hospitalist: Agrees to admit. I considered the following discharge prescriptions or medication management in the emergency department Medications were administered in the Emergency Department. See MAR. Independent interpretation of the following test(s) in the Emergency Department X-Ray: My interpretation is No fracture send interpretation of x-ray images. Test considered but Not performed: CT: Denies head trauma, CT scan of the head not indicated. Care significantly affected by the following chronic conditions: Hypertension. Counseling: I had a detailed discussion with the patient and/or guardian regarding the historical points, exam findings, and any diagnostic results supporting the discharge/admit diagnosis, lab results, radiology results, the need for further work-up and treatment in the hospital. 08/02 16:05 Order name: Blood Culture Adult (2) rt 08/02 16:05 Order name: CBC with Diff; Complete Time: 16:54 rt 08/02 16:05 Order name: CMP; Complete Time: 16:54 rt 08/02 16:05 Order name: Lactate w/ 2H reflex if indic.; Complete Time: 16:54 rt 08/02 16:05 Order name: Protime (+inr); Complete Time: 16:54 rt 08/02 16:05 Order name: Ptt, Activated; Complete Time: 16:54 rt 08/02 16:05 Order name: Urinalysis w/ reflexes; Complete Time: 05:59 rt 08/02 16:05 Order name: Influenza Screen (a \T\ B); Complete Time: 16:54 rt 08/02 16:05 Order name: SARS RAPID; Complete Time: 16:54 rt 08/02 20:36 Order name: Basic Metabolic Panel EDMS 08/02 20:36 Order name: Basic Metabolic Panel; Complete Time: 05:59 EDMS 08/02 20:36 Order name: Basic Metabolic Panel EDMS 08/02 20:36 Order name: Basic Metabolic Panel EDMS 08/02 20:36 Order name: CBC with Automated Diff EDMS 08/02 20:36 Order name: CBC with Automated Diff; Complete Time: 05:59 EDMS 08/02 20:36 Order name: CBC with Automated Diff EDMS 08/02 20:36 Order name: CBC with Automated Diff EDMS 08/02 16:05 Order name: Chest Single View XRAY; Complete Time: 17:10 rt 08/02 16:05 Order name: Hip Left 2 View XRAY; Complete Time: 17:10 rt 08/02 16:05 Order name: EKG; Complete Time: 16:06 rt 08/02 16:05 Order name: Accucheck; Complete Time: 16:33 rt 08/02 16:05 Order name: Cardiac monitoring; Complete Time: 16:17 rt 08/02 16:05 Order name: EKG - Nurse/Tech; Complete Time: 16:17 rt 08/02 16:05 Order name: IV Saline Lock - Large Bore; Complete Time: 16:17 rt 08/02 16:05 Order name: Labs collected and sent; Complete Time: 16:17 rt 08/02 16:05 Order name: O2 Per Protocol; Complete Time: 16:18 rt 08/02 16:05 Order name: O2 Sat Monitoring; Complete Time: 16:18 rt 08/02 16:05 Order name: Vital Signs; Complete Time: 16:18 rt EC:27 Rate is 101 beats/min. Rhythm is regular, Sinus tachycardia with Occasional PVCs. QRS rt [place] is Normal. ID interval is normal. QRS interval is normal. QT interval is normal. No Q waves. T waves are Normal. No ST changes noted. Interpreted by me. Administered Medications: 16:30 Drug: Cefepime IVPB 2 grams IVPB at 200 ml/hr once over 30 mins; (mix in NS 100 mL) bp Route: IVPB; Rate: 200 ml/hr; Infused Over: 30 mins; Site: right antecubital; 18:31 Follow up: IV Status: Completed infusion; IV Intake: 100ml bp 17:38 Drug: NS 0.9% IV 500 ml IV at bolus once Route: IV; Rate: bolus; Site: right mb9 antecubital; 18:31 Follow up: IV Status: Completed infusion; IV Intake: 500ml bp 18:31 Drug: Potassium Chloride PO 40 mEq PO once Route: PO; bp 19:16 Follow up: Response: No adverse reaction km8 Disposition Summary: 08/02/23 18:24 Hospitalization Ordered Notes: Hospitalization Status: Observation rt Provider: Juanito Sandy rt Location: Telemetry/MedSurg (observation) rt Condition: Stable rt Problem: new rt Symptoms: have improved rt Bed/Room Type: Standard rt Room Assignment: 203(08/02/23 21:19) jb4 Diagnosis - Generalized weakness rt - Frequent falls rt - Pain to left thigh rt - Fever rt - Hypokalemia rt Forms: - Medication Reconciliation Form rt - SBAR form rt - Leadership Thank You Letter rt Signatures: Dispatcher [employer] EDMS Kvng Shelton, BEHAVIOR INTERVENTIONIST-C BEHAVIOR INTERVENTIONIST-Cla1 Ruy Maxwell RN RN jb4 Sen Delgadillo RN RN bp Breneman, Mary Beth RN RN mb9 Jw Deleon MD MD rt Debra Sandoval RN km8 Corrections: (The following items were deleted from the chart) 21:19 18:24 rt jb4
--- NOTE | 2023-08-02 18:25 | ER ---
Nurse's Notes [facility] Name: Ayaka Madera Age: 68 yrs Sex: Female : 1955 Arrival Date: 08/02/2023 Time: 16:00 Bed 5 Private MD: Diagnosis: Generalized weakness;Frequent falls;Pain to left thigh;Fever;Hypokalemia Presentation: 08/02 16:04 Chief complaint: EMS states: MECHANICAL FALL AT HOME, NO LOC. Coronavirus screen: bp fever. Ebola Screen: No symptoms or risks identified at this time. Initial Sepsis Screen: Does the patient meet any 2 criteria? HR > 90 bpm. No. Patient's initial sepsis screen is negative. Does the patient have a suspected source of infection? No. Patient's initial sepsis screen is negative. Risk Assessment: Do you want to hurt yourself or someone else? Patient reports no desire to harm self or others. Onset of symptoms was August 02, 2023 at 09:00. Care prior to arrival: IV initiated. 20 GA, in the right antecubital area. 16:04 Method Of Arrival: EMS: [facility] bp 16:04 Acuity: ANDREA 3 bp Triage Assessment: 16:07 General: Appears in no apparent distress. Behavior is calm, cooperative, appropriate bp for age. Pain: Complains of pain in left quadriceps. Historical: - Allergies: 16:07 No Known Allergies; bp - Home Meds: 16:07 Bumetanide Oral [Active]; gabapentin oral [Active]; duloxetine oral [Active]; bp - PMHx: 16:07 Fibromyalgia; Arthritis; Hypertensive disorder; bp - Immunization history:: Adult Immunizations unknown. - Social history:: Smoking status: unknown. - Family history:: not pertinent. Screenin:12 [facility] ED Fall Risk Assessment (Adult) History of falling in the last 3 months, bp including since admission No falls in past 3 months (0 pts). Abuse screen: Denies threats or abuse. Denies injuries from another. Nutritional screening: No deficits noted. Tuberculosis screening: No symptoms or risk factors identified. Assessment: 16:05 General: SEE TRIAGE NOTE. bp 19:14 Reassessment: Patient appears in no apparent distress at this time. pt sleeping at this km8 time. General: Appears in no apparent distress. comfortable, Behavior is calm, cooperative, appropriate for age. Cardiovascular: Patient's skin is warm and dry. Respiratory: Airway is patent Respiratory effort is even, unlabored, Respiratory pattern is regular, symmetrical. 19:15 Reassessment: No changes from previously documented assessment. Patient and/or family vc1 updated on plan of care and expected duration. Pain level reassessed. Patient is alert, oriented x 3, equal unlabored respirations, skin warm/dry/pink. 20:00 Reassessment: Patient appears in no apparent distress at this time. No changes from vc1 previously documented assessment. Patient and/or family updated on plan of care and expected duration. Pain level reassessed. Patient is alert, oriented x 3, equal unlabored respirations, skin warm/dry/pink. 21:06 Reassessment: Patient appears in no apparent distress at this time. No changes from vc1 previously documented assessment. Patient and/or family updated on plan of care and expected duration. Pain level reassessed. Patient is alert, oriented x 3, equal unlabored respirations, skin warm/dry/pink. Vital Signs: 16:04 Weight 108.86 kg; Height 5 ft. 7 in. ; mb9 16:04 BP 128 / 64; Pulse 104; Resp 18; Temp 99.6; Pulse Ox 95% ; bp 17:13 BP 94 / 68; Pulse 95; Resp 18; Temp 98.6; Pulse Ox 100% on R/A; mb9 18:10 BP 103 / 63; Pulse 88; Resp 18; Pulse Ox 97% on R/A; mb9 18:53 BP 115 / 65; Pulse 92; Resp 18; Pulse Ox 97% on R/A; mb9 20:15 BP 94 / 60; Pulse 89; Resp 17; Pulse Ox 97% ; vc1 21:07 BP 91 / 65; Pulse 88; Resp 17; Pulse Ox 98% on R/A; vc1 16:04 Body Mass Index 37.59 (108.86 kg, 170.18 cm) mb9 ED Course: 16:04 Patient arrived in ED. rt 16:04 Jw Deleon MD is Attending Physician. rt 16:04 Sen Delgadillo, TAMARA is Primary Nurse. bp 16:04 Arm band placed on. mb9 16:07 Triage completed. bp 16:12 Patient has correct armband on for positive identification. bp 16:12 Maintain EMS IV. Dressing intact. Good blood return noted. Site clean \T\ dry. Gauge \T\ bp site: 20 GA R AC. 16:17 EKG done, by ED staff, reviewed by Jw Deleon MD. mb9 16:18 Ptt, Activated Sent. mb9 16:18 Protime (+inr) Sent. mb9 16:18 CMP Sent. mb9 16:18 CBC with Diff Sent. mb9 16:25 SARS RAPID Sent. mb9 16:25 Influenza Screen (a \T\ B) Sent. mb9 16:26 Chest Single View XRAY In Process Unspecified. EDMS 16:26 Hip Left 2 View XRAY In Process Unspecified. EDMS 18:24 Juaniot aSndy MD is Hospitalizing Provider. rt 22:06 No provider procedures requiring assistance completed. Patient admitted, IV remains in vc1 place. 22:07 Provided Education on: safety. vc1 Administered Medications: 16:30 Drug: Cefepime IVPB 2 grams IVPB at 200 ml/hr once over 30 mins; (mix in NS 100 mL) bp Route: IVPB; Rate: 200 ml/hr; Infused Over: 30 mins; Site: right antecubital; 18:31 Follow up: IV Status: Completed infusion; IV Intake: 100ml bp 17:38 Drug: NS 0.9% IV 500 ml IV at bolus once Route: IV; Rate: bolus; Site: right mb9 antecubital; 18:31 Follow up: IV Status: Completed infusion; IV Intake: 500ml bp 18:31 Drug: Potassium Chloride PO 40 mEq PO once Route: PO; bp 19:16 Follow up: Response: No adverse reaction km8 Medication: 22:06 VIS not applicable for this client. vc1 Intake: 18:31 IV: 100ml; Total: 100ml. bp 18:31 IV: 500ml; Total: 600ml. bp Outcome: 18:24 Decision to Hospitalize by Provider. rt 22:06 Condition: good vc1 22:06 Instructed on the need for admit, 22:19 Patient left the ED. km8 Signatures: Dispatcher [employer] EDMS Sen Delgadillo RN RN bp Yasmine Hahn RN RN vc1 Sara Machuca RN RN Jw Meng MD MD rt Debra Sandoval RN RN km8 Corrections: (The following items were deleted from the chart) 17:19 17:13 BP 94 / 68; Pulse 95bpm; Resp 18bpm; Pulse Ox 100% RA; mb9 mb9 18:10 18:05 Pulse 88bpm; Resp 18bpm; Pulse Ox 97% RA; mb9 mb9
[2023-08-02] MEDS ORDERED: POTASSIUM CL SA 10 MEQ TAB PO ONE (18:27)
[2023-08-02] MEDS ORDERED: IPRATROPIUM BROM 0.5MG/2.5ML NEB PRN (20:27)
[2023-08-02] MEDS ORDERED: ONDANSETRON 4 MG/2 ML VIAL IV PRN (20:27)
[2023-08-02] MEDS ORDERED: ALBUTEROL 2.5 MG/3 ML NEB SOL NEB PRN (20:27)
--- NOTE | 2023-08-02 20:35 | P.HP ---
Certification for Inpatient Patient admitted to: Inpatient With expected LOS: >2 Midnights Practitioner: I am a practitioner with admitting privileges, knowledge of patient current condition, hospital course, and medical plan of care. Services: Services provided to patient in accordance with Admission requirements found in Title 42 Section 412.3 of the Code of Federal Regulations Patient History Date of Service: 08/03/23 Reason for admission: Fall, weakness, urinary tract infection. History of Present Illness: 68-year-old male female patient with medical history significant for hypertension was evaluated for episode of fall. She had discussed weakness and fever and lethargy for couple of days. She decided to come to the ED because she had a fall episode and there was concern. Cervical x-ray done did not show acute fracture. Urine analysis shows significant concern for UTI with positive nitrite and leukocyte esterase and extremely turbid urine with activity and se diment pyuria. She also did have elevated creatinine of 1.9, sodium 133, potassium 3.0 and white cell of 13 K. She was started on broad-spectrum antibiotic therapy and she was admitted for inpatient care. She denies episode of nausea, vomiting, diarrhea. Allergies No Known Allergies Allergy (Verified 08/02/23 22:33) Review of Systems General: Weakness, Malaise Eyes: Unremarkable ENT: Unremarkable Respiratory: Unremarkable Cardiovascular: Unremarkable Gastrointestinal: Unremarkable Genitourinary: Dysuria, Frequency Neurological: Weakness Physical Examination - Physical Exam General: Alert, Oriented x3 HEENT: Atraumatic Neck: Supple Respiratory: Normal air movement Cardiovascular: Regular rate/rhythm, Normal S1 S2 Gastrointestinal: Soft and benign Musculoskeletal: No swelling Neurological: Normal speech, Normal strength at 5/5 x4 extr - Studies Laboratory Data (last 24 hrs) 08/02/23 08/02/23 08/02/23 16:15 16:15 16:15 WBC 13.40 H Hgb 9.7 L Hct 30.6 L Plt Count 254 PT 13.5 H INR 1.23 APTT 32.1 Sodium 133 L Potassium 3.0 L BUN 28 H Creatinine 1.98 H Glucose 98 Total Bilirubin 0.5 AST 47 H ALT 19 Alkaline Phosphatase 147 H Microbiology Data (last 24 hrs): 08/02/23 16:22 Nasopharnyx Influenza Type A Antigen Screen - Final 08/02/23 16:22 Nasopharnyx Influenza Type B Antigen Screen - Final Assessment and Plan - Plan Urinary tract infection: UA is significantly concerning. There is positive nitrite, leukocyte esterase and active urinary sediment with pyuria. Empiric antibiotic therapy with cefepime and started pending urine blood culture finalization. Will continue to follow culture report. Suspected pneumonia: Empiric antibiotic adjusted pending further review. MAGGI: Creatinine is elevated at 1.98. Will continue IV fluid for hydration and follow trend of kidney function. Hypokalemia: Potassium is low at 3.0. Will replete and follow levels. Hyponatremia: Sodium is low at 133. Will replete with normal saline and follow levels. Prophylaxis: Lovenox for DVT prophylaxis. CODE STATUS: Full code. Disposition: We will treat her multiple medical issues and discharge her when she is deemed clinically stable. - Advance Directives Does patient have a Living Will: No Does patient have a Durable POA for Healthcare: No
[2023-08-02] MEDS: ACETAMINOPHEN 325 MG TABLET PO PRN (23:15)
[2023-08-02 23:45] VITALS: BMI 36.8
[2023-08-02] MEDS: CEFEPIME 1 GM in NA CHLORIDE 0.9% 100 ML IV SCH (23:46)
[2023-08-03 00:06] LABS: Renal Epithelial <5 /HPF (None Seen); Specific Gravity 1.012 (1.005-1.030); Urine Bacteria <20 /HPF (<20); Urine Bilirubin NEGATIVE (Negative); Urine Blood Trace (Negative); Urine Clarity Extremely Turbid (Clear); Urine Color Yellow (Yellow); Urine Glucose NEGATIVE (Negative); Urine Mucus Slight /HPF (None Seen); Urine Protein 1+ (Negative); Urine RBC <5 /HPF (None Seen); Urine Urobilinogen Normal (Normal); Urine WBC Clump Rare /HPF (None Seen); Urine pH 5.5 (5.0-7.0)
[2023-08-03 05:07] LABS: Absolute Lymphocytes (CBC) 0.8 K/uL (0.7-4.9); Hematocrit 27.4 % (36.0-45.0); Lymphocytes % 8.9 % (15.3-44.8); MCV 75.8 fL (80-100); MPV 8.8 fL (7.6-11.3); Platelets 201 thou/uL (152-406); RBC Red Blood Cell Count 3.61 M/uL (3.86-4.86)
[2023-08-03 05:11] LABS: Potassium 3.3 mEq/L (3.5-5.1)
[2023-08-03] MEDS ORDERED: NA CHLORIDE 0.9% 1,000 ML IV SCH (07:00)
[2023-08-03 08:10] LABS: Ferritin 62.2 ng/mL (8-388)
--- NOTE | 2023-08-03 09:32 | RAD REPORT ---
EXAM DESCRIPTION: US - Renal Ultrasound-Complete - 08/03/2023 8:39 am CLINICAL HISTORY: terrie COMPARISON: No comparisons TECHNIQUE: Sonographic grayscale and color flow images of the kidneys and bladder were obtained. FINDINGS: Both kidneys are normal in size, shape, and echotexture. The right kidney measures 10.8 cm in length. No hydronephrosis, focal mass, or echogenic calculi. Exo phytic 2.8 cm thin-walled anechoic cyst arising from the lower pole. The left kidney measures 9.7 cm in length. No hydronephrosis, or focal mass. Multiple echogenic foci throughout the left renal parenchyma, may represent parenchymal calcifications although some may repr esent tiny calculi. . The urinary bladder is without gross abnormality seen. IMPRESSION: Left renal numerous echogenic small foci may represent parenchymal calcifications althou gh some may represent tiny calculi. No hydronephrosis. Incidentally noted benign-appearing right lower renal pole 2.8 cm cyst.
[2023-08-03] MEDS: POTASSIUM CL SA 10 MEQ TAB PO ONE ×2 (09:50→16:58)
[2023-08-03] MEDS: ENOXAPARIN 30 MG/0.3 ML SQ SCH (09:52)
--- NOTE | 2023-08-03 10:21 | P.PN ---
Date of Service: 08/03/23 Subjective: Still complaining of proximal left leg pain with active and passive range of motion No acute events overnight ROS: 10 point ROS as noted above, otherwise negative Physical exam GEN: Alert, oriented, NAD HEENT: Normal conjunctiva, sclera anicteric CV: Regular rate and rhythm, no edema Pulm: Nonlabored respirations on room air ABD: Soft, nontender, nondistended MSK: No joint tenderness, limited range of motion left lower extremity Integumentary: No rashes Neuro: Normal speech, normal affect Vitals reviewed Problem List UTI MAGGI Chronic diastolic congestive heart failure Lupus Left lower extremity pain Iron deficiency anemia Hypokalemia Hyponatremia Plan UTI Continue empiric Rocephin Follow urine cultures MAGGI Patient reports "borderline kidney function" Creatinine mildly worse this morning Reports Bumex was recently increased from 1 mg twice daily to 3 mg in the morning, 2 mg in the afternoon She reports significant proved in the lower extremity edema Will hold Bumex, give gentle IV fluids Nephrology consult, renal ultrasound ordered Chronic diastolic congestive heart failure Does not appear overloaded Will hold Bumex today Lupus Continue medications Left lower extremity pain X-rays negative for fractures, will obtain CT pelvis given inability to bear weight, left lower extremity pain PT consultation, as needed pain medications Iron deficiency anemia Severely iron deficiency, consider IV iron Hypokalemia Hyponatremia Improving VTE: Lovenox Code: Full Dispo: 2 to 3 days Time Spent Managing Pts Care (In Minutes): 35
[2023-08-03] MEDS: NA CHLORIDE 0.9% 1,000 ML IV SCH ×2 (10:24→12:00)
--- NOTE | 2023-08-03 12:04 | CON ---
Date of Consultation: 08/03/2023 Reason For Consultation: Elevated BUN and creatinine, fluid management. History Of Present Illness: This is a pleasant 68-year-old female with significant past medical hist ory of hypertension, congestive heart failure. According to the patient had cardiac cath in 2022, di d not show any CAD. The patient follows up with Cardiology, been on Lasix, edema, the patient came t o the hospital feeling weak and because had fall. The patient has been feeling weak for the last cou ple of weeks, found to have UTI, hyponatremia, hypokalemia, and elevation in BUN and creatinine. For that reason, we have been consulted. Renal ultrasound did not show any obstruction. Showed multipl e kidney stones and renal cyst. The patient was started on IV hydration. Lasix was discontinued. K idney function still worsening. The patient denied taking any nonsteroidal. No recent exposure to a ny contrast. Past Medical History: Includes: 1.Hypertension. 2.Congestive heart failure, nonischemic, as by the patient. Allergies: NO KNOWN DRUG ALLERGY. Family History: Positive for hypertension. Social History: Lives with family. Denied smoking. Denied drinking. Denied drug abuse. Past Surgical History: Noncontributing. Review of Systems: Head and Neck: Has lightheadedness. GI: Has nausea. No vomiting. Has abdominal pain. : No polyuria, no dysuria, no hematuria. Hourly Associate: No vaginal discharge. Respiratory: No shortness of breath. Cardiovascular: Has leg swelling. Endocrine: No polydipsia. Skin: No rash. Neuro: Alert, no weakness, only fatigue. Physical Examination: Vital Signs: When I saw the patient, blood pressure 120/60. Reviewing the record, the patient upon presentation blood pressure was down, systolic down to 91. Pulse of 90, afebrile. Chest: Clear to auscultation. Heart: S1, S2, regular. Abdomen: Soft, nontender. Extremities: edema. Neurologic: Alert. No focality. Lab Data: WBC 9, hemoglobin 9.3. Sodium 135, potassium 3.3, bicarb 25, BUN 32, creatinine of 2, GFR of 26, calcium 8.6. Iron saturation 4.6, ferritin of 62. Urinalysis positive for infection. Renal ultrasound showing small size kidney, multiple calcifications, no hydronephrosis, 10.8/9.7. Assessment And Plan: Acute kidney injury secondary to prerenal, dehydration, superimposed with over- diuresis with Lasix, small size kidneys. 1.I am going to go ahead and send for PTH, CK, uric acid to evaluate the chronicity of the disease a nd we will follow up. 2.With the presence of anemia, I am going to send for serum protein electrophoresis. 3.Hold the Lasix for the time being. 4.Hold all blood pressure medications given low blood pressure. 5.UTI complicated with urosepsis, septic shock, supported with low blood pressure. I agree with cur rent antibiotic. We will follow up the culture. 6.Shock, hypovolemic/septic shock secondary to over-diuresis superimposed with septic shock secondar y to UTI, urosepsis, complicated with acute kidney injury secondary to poor perfusion, ATN. The serafin ent looked to me on the dry side. I am going to hold the Lasix. Increase IV fluid to 100 per hour. Continue antibiotic and we will follow up with primary. 7.Congestive heart failure. Currently the patient on the dry side with low blood pressure. Hold di uresis. 8.Hypokalemia. Mostly depletional. We will supplement. 9.Hyponatremia, mostly depletional, superimposed with Lasix. We will hydrate. 10.Iron deficiency anemia, currently hemoglobin stable, with the presence of sepsis, I will avoid IV iron. With the presence of acute kidney injury to rule out light chain disease. I am going to send for serum protein electrophoresis. Thank you Dr. Cortes for allowing us to participate in the care of your patient. MARKELL/CHING Voice ID: [id number] Report ID: [id number]
--- NOTE | 2023-08-03 13:02 | RAD REPORT ---
EXAM DESCRIPTION: CT - Pelvis Wo Cont - 08/03/2023 10:39 am CLINICAL HISTORY: Proximal left leg pain, inability to bare weight COMPARISON: No comparisons TECHNIQUE: Thin cut axial CT imaging of the pelvis was performed without IV contrast. Multiplanar re formats were generated and reviewed. All CT scans are performed using dose optimization technique as appropriate and may include automated exposure control or mA/KV adjustment according to patient size. FINDINGS: Exophytic right lower pole fluid density 3 cm lesion suggestive of a cyst. Symmetric contour of the v isualized aspects of the kidneys otherwise, without suspicious parenchymal findings within limits of noncontrast technique. No evidence of radiopaque calculi or hydroureteronephrosis. Status post cholec ystectomy. No dilated bowel loops or bowel wall thickening. No free air, free fluid or inflammatory stranding. N o hernia, mass or bulky lymphadenopathy. Colonic diverticulosis. The urinary bladder is without signi ficant finding. No suspicious bony findings. Mild bilateral hip joint degenerative changes. Lumbar spine degenerative changes most notably at L5-S1. IMPRESSION: No acute osseus abnormality with attention to the left hip. Degenerative changes of the lower lumbar spine. Incidental findings as above, including a fluid density right lower pole renal lesion suggestive of a cyst, and colonic diverticulosis.
[2023-08-03] MEDS ORDERED: ALBUTEROL 2.5 MG/3 ML NEB SOL NEB PRN (16:47)
[2023-08-03] MEDS: METOPROLOL XL 25 MG TAB PO ONE (16:56)
[2023-08-03 23:06] LABS: Urine Protein/Creatinine Ratio 0.47 ratio (<0.15)
[2023-08-04 03:45] LABS: Hematocrit 25.9 % (36.0-45.0); Lymphocytes % 20.2 % (15.3-44.8); MCV 75.6 fL (80-100); MPV 8.4 fL (7.6-11.3); Platelets 243 thou/uL (152-406); RBC Red Blood Cell Count 3.43 M/uL (3.86-4.86)
[2023-08-04 04:10] LABS: BUN Blood Urea Nitrogen 27 mg/dL (7-18); Bicarbonate 24 mEq/L (21-32); Creatine Phosphokinase 243 U/L (26-192); Glomerular Filtration Rate 42 ml/min (=/>90); Glucose Level 94 mg/dL (74-106); Magnesium 1.9 mg/dL (1.6-2.4); Phosphorus 3.9 mg/dL (2.5-4.9); Potassium 3.7 mEq/L (3.5-5.1); Sodium Level 138 mEq/L (136-145); Uric Acid 8.5 mg/dL (2.6-6.0)
[2023-08-04 04:12] LABS: Thyroid Stimulating Hormone < 0.005 uIU/mL (0.358-3.740)
[2023-08-04] MEDS: METOPROLOL XL 25 MG TAB PO SCH (05:14)
[2023-08-04] MEDS: POTASSIUM CL SA 10 MEQ TAB PO ONE (09:03)
[2023-08-04] MEDS: ENOXAPARIN 40 MG/0.4 ML SQ SCH (09:04)
--- NOTE | 2023-08-04 10:22 | P.PN ---
Date of Service: 08/04/23 Subjective: Worked well with PT yesterday Pain to LLE improving No acute events overnight Ambulating with walker short distances ROS: 10 point ROS as noted above, otherwise negative Physical exam GEN: Alert, oriented, NAD HEENT: Normal conjunctiva, sclera anicteric CV: Regular rate and rhythm, no edema Pulm: Nonlabored respirations on room air ABD: Soft, nontender, nondistended MSK: No joint tenderness, limited range of motion left lower extremity Integumentary: No rashes Neuro: Normal speech, normal affect Vitals reviewed Problem List UTI MAGGI Chronic diastolic congestive heart failure Hypothyroidism Lupus Left lower extremity pain Iron deficiency anemia Hypokalemia Hyponatremia Plan UTI Continue empiric Rocephin Follow urine cultures MAGGI Patient reports "borderline kidney function" Creatinine mildly worse this morning Reports Bumex was recently increased from 1 mg twice daily to 3 mg in the morning, 2 mg in the afternoon She reports significant proved in the lower extremity edema Will hold Bumex, give gentle IV fluids Nephrology consult, renal ultrasound ordered Improving with IVF Monitor chemistry daily Hypothyroidism TSH less than .005, free T4 mildly elevated Will reduce dose of levothyroxine Chronic diastolic congestive heart failure Does not appear overloaded Will hold Bumex today/restart when cleared by nephrology Lupus Continue medications Left lower extremity pain X-rays negative for fractures, Ct pelvis also negative for fractures PT consultation, as needed pain medications' Doing well with PT Iron deficiency anemia Severely iron deficiency Will give IV iron Hypokalemia Hyponatremia Improving VTE: Lovenox Code: Full Dispo: 1 to 2 days Time Spent Managing Pts Care (In Minutes): 35
[2023-08-04] MEDS: SOD FERRIC GLUC COMPLX/SUCROSE 250 MG in NA CHLORIDE 0.9% 250 ML IV SCH (14:07)
[2023-08-04] MEDS: CALCITROL 0.25 MCG CAP PO SCH (14:08)
--- NOTE | 2023-08-04 14:44 | EKG ---
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
--- NOTE | 2023-08-04 19:01 | PN ---
Date of Progress Note: 08/04/2023 Subjective: The patient was admitted with acute kidney injury secondary to over diuresis. The patie nt after hydration, kidney function has been improved significantly. The patient is feeling better. The patient is still on room air. IV fluid has been discontinued today. Physical Examination: Vital Signs: Blood pressure 131/72, pulse of 81, afebrile. Chest: Clear to auscultation. Heart: S1, S2. Regular. Systolic murmur. Abdomen: Soft, nontender. Extremities: Trace edema. Neurologic: Alert. No focality. Laboratory Data: Hemoglobin 8.4, WBC 5. Sodium 138, potassium 3.7, bicarb 24, BUN 27, creatinine do wn to 1.3, GFR of 42, calcium 8.2, uric acid 8.5, phosphorus 3.9, magnesium 1.9, iron saturation 4.6, ferritin 62. Serum protein electrophoresis still pending. PTH . PC ratio 0.4. Renal ul trasound showing normal-sized kidney 10.8/9.7. No hydronephrosis. Echogenic. Assessment And Plan: 1.Acute kidney injury secondary to prerenal superimposed with over diuresed on the recovery, looked to me normal volume. I agree with holding IV fluid. We will consider resuming diuresis tomorrow wit h lower dose. 2.Chronic kidney disease, stage 3b, normal-sized kidney, non proteinuric secondary to hypertension, nephrosclerosis, and cardiorenal status post acute kidney injury as above. 3.Urinary tract infection complicated with sepsis and septic shock recover. 4.Septic shock secondary to hypovolemic and over diuresed. Urosepsis complicated with acute kidney injury secondary to poor perfusion ATN and toxic ATN. Stabilized blood pressure been stable currentl y. Keep holding diuresis. We will follow up. 5.Hypokalemia. We will continue supplement. 6.Hyponatremia, depletion all recovered, resolved. 7.Iron deficiency anemia. Okay from the Renal standpoint, currently to give IV iron. 8.Urinary tract infection, urosepsis with septic shock as above. We will follow up culture. Time spent examining the patient [id number], reviewing data lab and radiology, placing order, discu ssing the case with the patient, discussing the case with the maintenance team leader including hospitalist and andrew swain staff more than 35 minutes. EB Voice ID: [id number] Report ID: [id number]
[2023-08-05] MEDS: LEVOTHYROXINE SOD 0.075 MG TAB PO SCH (05:57)
[2023-08-05 06:03] VITALS: O2SAT 95
[2023-08-05 07:09] LABS: Absolute Lymphocytes (CBC) 1.1 K/uL (0.7-4.9); Hematocrit 27.4 % (36.0-45.0); Lymphocytes % 21.5 % (15.3-44.8); MCV 76.7 fL (80-100); Platelets 280 thou/uL (152-406); RBC Red Blood Cell Count 3.58 M/uL (3.86-4.86)
[2023-08-05 07:21] LABS: Magnesium 1.9 mg/dL (1.6-2.4); Phosphorus 3.1 mg/dL (2.5-4.9); Potassium 4.3 mEq/L (3.5-5.1)
--- NOTE | 2023-08-05 08:09 | P.DS ---
Admission Date: 08/02/23 Discharge Date: 08/05/23 Disposition: ROUTINE DISCHARGE Discharge Condition: GOOD Reason for Admission: Fall, weakness, urinary tract infection. Consultations: NephrologyDr. Dao Brief History of Present Illness: 68-year-old male female patient with medical history significant for hypertension was evaluated for episode of fall. She had discussed weakness and fever and lethargy for couple of days. She decided to come to the ED because she had a fall episode and there was concern. Cervical x-ray done did not show acute fracture. Urine analysis shows significant concern for UTI with positive nitrite and leukocyte esterase and extremely turbid urine with activity and sediment pyuria. She also did have elevated creatinine of 1.9, sodium 133, potassium 3.0 and white cell of 13 K. She was started on broad-spectrum antibiotic therapy and she was admitted for inpatient care. She denies episode of nausea, vomiting, diarrhea. Hospital Course: Problem List UTI MAGGI Chronic diastolic congestive heart failure Hypothyroidism Lupus Left lower extremity pain Iron deficiency anemia Hypokalemia Hyponatremia Patient was admitted to the hospital after sustaining a fall as well as being found to have an acute kidney injury and possible urinary tract infection. Her fall was mechanical in nature and resulted in some left-sided hip/proximal leg pain. X-rays and CT were negative for fracture in that area. She was evaluated by physical therapy and was able to ambulate with a walker and had significant improvement in her symptoms. She is a walker at home and will be discharged with home health/physical therapy. In regards to her acute kidney injury she was taking Bumex 3 mg in the morning and 2 mg in the afternoon, she had improvement in her edema while at home prior to hospitalization. She appeared to be on the dry side and she was given IV fluids and had resolution of her acute kidney injury. This was discussed with nephrology who recommends Bumex 1 mg by mouth twice daily at discharge and follow-up with primary care doctor/cardiology. She had a questionable urinary tract infection on admission, she was treated with 3 days of IV antibioticscefepime. Urine culture showed less than 10,000 CFU of mixed judah preliminarily. She is not likely to require further treatment with antibiotics at this time. During hospitalization TSH was also measured which was less than 0.005 and free T4 was mildly elevated at 1.5 she is currently taking levothyroxine 100 mcg daily, this dose will be reduced to 75 mcg daily recommend follow-up with primary care doctor for further titration as needed. Additionally patient was found to be iron deficient, she was given a dose of IV iron during her hospitalization, I discharge she will continue with oral iron. New medications: Levothyroxine 75 mcg by mouth once daily Bumex to be reduced to 1 mg by mouth twice daily Iron tablets daily Please follow-up with: Your primary care doctor 1 to 2 weeks Your manager investment in 1 [address] Dao with nephrology in 1 to 2 weeks Vital Signs/Physical Exam: Temp Pulse Resp BP Pulse Ox 99.3 F 102 H 17 147/76 H 95 08/05/23 04:00 08/05/23 05:56 08/05/23 04:00 08/05/23 05:56 08/05/23 04:00 General: Alert, In no apparent distress, Oriented x3 HEENT: Atraumatic, PERRLA Neck: Supple, JVD not distended Respiratory: Clear to auscultation bilaterally, Normal air movement Cardiovascular: Regular rate/rhythm, Normal S1 S2, Edema (1+ nonpitting edema lower extremities) Gastrointestinal: Normal bowel sounds Musculoskeletal: No tenderness Integumentary: No rashes Neurological: Normal speech, Normal tone, Normal affect Laboratory Data at Discharge: WBC 4.90 thou/uL (4.3-10.9) 08/05/23 06:35 Hgb 8.7 g/dL (12.0-15.0) L 08/05/23 06:35 Hct 27.4 % (36.0-45.0) L 08/05/23 06:35 Plt Count 280 thou/uL (152-406) 08/05/23 06:35 PT 13.5 SECONDS (9.5-12.5) H 08/02/23 16:15 INR 1.23 08/02/23 16:15 APTT 32.1 SECONDS (24.3-36.9) 08/02/23 16:15 Sodium 139 mEq/L (136-145) 08/05/23 06:35 Potassium 4.3 mEq/L (3.5-5.1) D 08/05/23 06:35 BUN 20 mg/dL (7-18) H 08/05/23 06:35 Creatinine 0.91 mg/dL (0.55-1.02) 08/05/23 06:35 Glucose 92 mg/dL (74-106) 08/05/23 06:35 Uric Acid 8.5 mg/dL (2.6-6.0) H 08/04/23 02:49 Phosphorus 3.1 mg/dL (2.5-4.9) 08/05/23 06:35 Magnesium 1.9 mg/dL (1.6-2.4) 08/05/23 06:35 Total Bilirubin 0.5 mg/dL (0.2-1.0) 08/02/23 16:15 AST 47 U/L (15-37) H 08/02/23 16:15 ALT 19 U/L (13-56) 08/02/23 16:15 Alkaline Phosphatase 147 U/L (45-117) H 08/02/23 16:15 Home Medications: Bumetanide [Bumex] 1 mg PO BID #60 tab 08/05/23 Ferrous Sulfate [Iron] 325 mg PO DAILY #30 tab 08/05/23 Levothyroxine [Synthroid*] 75 mcg PO [id number] #30 tab 08/05/23 New Medications: Bumetanide [Bumex] 1 mg PO BID #60 tab Ferrous Sulfate [Iron] 325 mg PO DAILY #30 tab Levothyroxine [Synthroid*] 75 mcg PO [id number] #30 tab Physician Discharge Instructions: Patient was admitted to the hospital after sustaining a fall as well as being found to have an acute kidney injury and possible urinary tract infection. Her fall was mechanical in nature and resulted in some left-sided hip/proximal leg pain. X-rays and CT were negative for fracture in that area. She was evaluated by physical therapy and was able to ambulate with a walker and had significant improvement in her symptoms. She is a walker at home and will be discharged with home health/physical therapy. In regards to her acute kidney injury she was taking Bumex 3 mg in the morning and 2 mg in the afternoon, she had improvement in her edema while at home prior to hospitalization. She appeared to be on the dry side and she was given IV fluids and had resolution of her acute kidney injury. This was discussed with nephrology who recommends Bumex 1 mg by mouth twice daily at discharge and follow-up with primary care doctor/cardiology. She had a questionable urinary tract infection on admission, she was treated with 3 days of IV antibioticscefepime. Urine culture showed less than 10,000 CFU of mixed judah preliminarily. She is not likely to require further treatment with antibiotics at this time. During hospitalization TSH was also measured which was less than 0.005 and free T4 was mildly elevated at 1.5 she is currently taking levothyroxine 100 mcg daily, this dose will be reduced to 75 mcg daily recommend follow-up with primary care doctor for further titration as needed. Additionally patient was found to be iron deficient, she was given a dose of IV iron during her hospitalization, I discharge she will continue with oral iron. New medications: Levothyroxine 75 mcg by mouth once daily Bumex to be reduced to 1 mg by mouth twice daily Iron tablets daily Continue other home medications as previously prescribed Please follow-up with: Your primary care doctor 1 to 2 weeks Your manager investment in [address] Dao with nephrology in 1 to 2 weeks Diet: AHA Activity: Fall precautions Followup: Phi Dao MD [ACTIVE - CAN ADMIT] - 1-2 Weeks Óscar Dawson MD [Primary Care Provider] - 1-2 Weeks Time spent managing pt's care (in minutes): 35
[2023-08-05 09:32] VITALS: BP 152/89; TEMP 97.2
--- NOTE | 2023-08-05 10:57 | P.PN ---
Subjective Date of Service: 08/12/23 Chief Complaint: Fall, weakness, urinary tract infection. Physical Examination - Vital Signs Temperature: 97.2 F Blood Pressure: 152/89 Pulse: 87 Respirations: 16 Pulse Ox (%): 93 Assessment And Plan - Plan entered in error
[2023-08-08 13:47] LABS: Albumin, (SPE) 2.4 g/dL (3.8-4.8); Alpha-1-Globulins 0.5 g/dL (0.2-0.3); Alpha-2-Globulins 0.9 g/dL (0.5-0.9); Gamma Globulins 0.6 g/dL (0.8-1.7); INTERPRETATION REPORT
== END 2023-08-05 11:28 | disposition home health service (06) | DRG 871 ==
LOC: ER 16:00 → ERHOLD 20:27 → 2ND 21:29
PROVIDERS: ADMIT Internal Medicine Nephrology; ATTEND Hospitalist
DX: A41.9 Sepsis, unspecified organism (principal); J18.9 Pneumonia, unspecified organism; N17.0 Acute kidney failure with tubular necrosis; R65.21 Severe sepsis with septic shock; R57.1 Hypovolemic shock; N39.0 Urinary tract infection, site not specified; E87.1 Hypo-osmolality and hyponatremia; I13.0 Hypertensive heart and chronic kidney disease with heart failure and stage 1 through stage 4 chronic kidney disease, or unspecified chronic kidney disease; I50.32 Chronic diastolic (congestive) heart failure; N18.32 Chronic kidney disease, stage 3b; D63.1 Anemia in chronic kidney disease; D50.9 Iron deficiency anemia, unspecified; E87.6 Hypokalemia; M32.9 Systemic lupus erythematosus, unspecified; M25.552 Pain in left hip; M79.7 Fibromyalgia; E86.0 Dehydration; E03.9 Hypothyroidism, unspecified; N28.1 Cyst of kidney, acquired; M19.90 Unspecified osteoarthritis, unspecified site; T50.2X5A Adverse effect of carbonic-anhydrase inhibitors, benzothiadiazides and other diuretics, initial encounter; I25.10 Atherosclerotic heart disease of native coronary artery without angina pectoris; R29.6 Repeated falls; Z91.81 History of falling; Z11.52 Encounter for screening for COVID-19; Z79.899 Other long term (current) drug therapy; W19.XXXA Unspecified fall, initial encounter; Y93.9 Activity, unspecified; Y92.9 Unspecified place or not applicable; Y99.9 Unspecified external cause status
CPT/HCPCS: 36415; 71045; 72192; 76770; 80048; 80053; 80069; 81001; 82550; 82570; 82728; 83540; 83605; 83735; 83970; 84132; 84156; 84165; 84439; 84443; 84466; 84550; 85025; 85610; 85730; 87040; 87086; 87088; 87804; 87811; 93005; 96365; 96366; 97110; 97116; 97161; 97530; 99284; J0692; J1650; J2916; J7030; J7040; J7050